=== PATIENT | female | born 1940 | race Caucasian/White ===

== ENCOUNTER 2016-03-24 07:48 | Inpatient (IN) | payer OTHER, BC ==
[2016-03-24] VITALS (18 sets, daily range): BP systolic 115–200; BP diastolic 57–93; PULSE 91–126; TEMP 36.6–37.3; O2SAT 90–98; Ht 149.9 cm; Wt 95.0 kg
[~2016-03-24] VITALS: Ht 149.9 cm; Wt 95.0 kg
[~2016-03-24 07:48] MED LIST: ADVIN50050 INH; ALBU1AER9; ALBUAER2 INH; ALPOPS1510; ALPPOPS5; ASPI81CH8 PO; ATOR10TA88 PO; ATV1 PO; BECL0.3A; BIOTIN 5000 PO; BRVIN; CARV12.52 PO; CLMTP EXT; CYAN1LOZ2 SL; DOCU-94 PO; FERR28TA2 OR; FLUT0.0529 NAE; FRS/40 PO; GLC500 PO; INSHNI SQ; INSPMPHMLG SQ; LOSA25TA18 PO; MULT-845; POLY335019; POTA1POW; SNG10 PO; TSSP PO; [UNRECOGNIZED DRUG - CODE]
[2016-03-24] MEDS ORDERED: PANT40TA PO ×2 (08:35→12:17)
--- NOTE | 2016-03-24 09:29 | History & Physical Bridge Note ---
H&P Re-Evaluation Bridge Note: I have examined the patient, reviewed the History & Physical and in the interval since the performance of the History & Physical I have noted the following changes of clinical significance: No changes noted
--- NOTE | 2016-03-24 09:29 | Procedure Note ---
Pre-Mod Sedation Assessment General Date of Moderate Sedation: Mar 24, 2016. Vital Signs: Vital Signs Past 12 Hours Date Time Temp Pulse Resp B/P Pulse Ox O2 Delivery O2 Flow Rate FiO2 03/24/16 09:20 92 16 135/83 98 Nasal Cannula 4.0 03/24/16 09:15 94 16 147/83 96 Nasal Cannula 4.0 03/24/16 08:36 36.8 99 20 153/64 96 Room Air Pre-Sedation Airway Assessment Oral Cavity: WNL Smoking Status: Former Smoker Mallampati Classification: Class I ASA Classification: Class I Procedure Planning Contraindications-for Mod Sed: None Yes Notes The planned sedation has been discussed with the patient and consent obtained. I have identified the patient, determined the appropriateness of sedation and have assessed the patient immediately prior to the procedure. All medicine(s) and interventions are by my order.
[2016-03-24] MEDS ORDERED: NURSING VERBAL MED ORDER ONE ×5 (10:15→17:45)
[2016-03-24] MEDS ORDERED: ONDANSETRON INJ 2 MG/ML 2 ML VIAL IV PRN (11:30)
--- NOTE | 2016-03-24 11:51 | OPERATIVE REPORT ---
DATE OF OPERATION: 03/24/2016 TIME: 0900. PROCEDURE: Fiberoptic bronchoscopy with bronchoalveolar lavage. INDICATIONS: Chronic mucopurulent bronchitis refractory to aggressive outpatient therapy. ANESTHESIA PREOPERATIVELY: None. ANESTHESIA DURING PROCEDURE: 5 mg IV Versed, 50 mcg IV fentanyl, 20 mL 2% Xylocaine spray above and below the cords, 4% viscous Xylocaine intranasally. PROCEDURE: Fiberoptic bronchoscope was inserted into the right naris with minimal difficulty and passed to the level of the true vocal cords. The cords appear to approximate normally with phonation without evidence of lesions or paralysis. The false cords were mildly edematous. The cords were anesthetized with 2% Xylocaine spray and the scope was then introduced in the trachea and right and left tracheobronchial tree. The russell was sharp. The right main stem bronchus was found to be free of endobronchial lesions. Moderately severe tracheomalacia was noted with collapse of the posterior wall of the right main stem bronchus anteriorly, along with the distal portion of the trachea during expiratory maneuvers and coughing paroxysms. The right upper lobe of the apical-posterior and anterior segments, bronchus intermedius, right middle lobe and medial and lateral segments and all basilar segments of right lower lobe were found to be free of endobronchial lesions with a moderate amount of thick mucoviscous secretion lavaged from virtually all lobar segments until clear. Mucous bronchial clefts and crypts were seen throughout the right tracheobronchial tree with a moderate degree of inflammatory mucosal change seen globally. Left tracheobronchial tree was explored and no endobronchial lesion was seen. The left upper lobe of the apical-posterior and anterior segments, lingular subdivision and left lower lobe were free of endobronchial lesions down to the subsegmental bronchi. Same amount of mucopurulent secretion was lavaged from each lobar segment, especially the left lower lobe, until clear. No biopsies or brushings were obtained. The procedure was terminated. The patient was given a nebulizer treatment with Xopenex 1.25 mg and transferred to the medical treatment unit hemodynamically stable with no signs of respiratory compromise. A discussion was had at the same day surgery/medical treatment unit with the patient and her , and a decision was made, because of her clinical course and failure to respond and continued symptomatology, to admit her for evaluation and treatment onto the hospitalist service. We will await microbiological and cytologic examination of the bronchial washings. I attest to the content of the Intraoperative Record and any orders documented therein. Any exceptio ns are noted below.
[2016-03-24] MEDS ORDERED: INSU100I SC ×2 (12:17)
[2016-03-24] MEDS ORDERED: TRAV0.00 OP (12:17)
[2016-03-24] MEDS ORDERED: CITA10TA8 PO (12:17)
[2016-03-24] MEDS ORDERED: POTA-65 PO (12:17)
[2016-03-24] MEDS ORDERED: LEVO-14 PO (12:17)
[2016-03-24] MEDS ORDERED: ISOS60TA2 PO (12:17)
[2016-03-24 12:21] LABS: BASO % 0.6 %; BASO ABS # 0.04 K/uL (0-0.2); COMPLETE YES; EOS % 4.2 %; HEMATOCRIT 28.8 % (37-47); IG% 0.2 %; LYMPH % 35.1 %; LYMPH ABS # 2.28 K/uL (1.2-3.4); MEAN CORPUSCULAR HEMOGLOBIN 22.5 pg (25-34); MEAN CORPUSCULAR HGB CONC 31.3 g/dl (32-36); MEAN PLATELET VOLUME 9.4 fL (7.4-10.4); MONO % 14.2 %; NEUT % 45.7 %; PLATELET COUNT 247 K/uL (130-400)
[2016-03-24 12:42] LABS: BUN/CREATININE RATIO 8.8 (10-20); CALCIUM 8.7 mg/dl (8.5-10.1); CREATININE 0.8 mg/dl (0.60-1.20); MAGNESIUM 1.5 mg/dl (1.8-2.4); POTASSIUM 3.7 mmol/L (3.5-5.1)
[2016-03-24] MEDS ORDERED: DEXTROSE 50% 50 ML SYR IV PRN (13:15)
[2016-03-24] MEDS ORDERED: GLUCOSE 10 TABS/TUBE PO PRN (13:15)
[2016-03-24] MEDS ORDERED: GLUCOSE 40% GEL 15 GM TUBE PO PRN (13:15)
[2016-03-24] MEDS ORDERED: GLUCAGON FOR INJ 1 MG VIAL SQ PRN (13:15)
--- NOTE | 2016-03-24 13:17 | History and Physical ---
History & Physical Date & Time of Service: Mar 24, 2016 at 12:48 Chief Complaint: Asthmatic Bronchitis, Cough, Sob Primary Care Physician: Hans Smith M.D. History of Present Illness Source: patient This is a 75 y/o female with PMHx of CAD s/p stent placement, IDDM, moderate COPD, HTN, dyslipidemia and other problems as outlined below who presents s/p bronchoalveolar lavage today with Dr. Harrell. Pt reports that for the past couple months she has had a cough that is productive of thick white sputum. Sxs are assoc with SOB, wheezing and occasional post-tussive vomiting. Pt has been using her inhalers/nebs around the clock with only temporary relief. She has completed multiple courses of abx and prednisone. The last course was clindamycin (for possible silent aspiration pneumonia) and Diflucan. She is currently not on any abx or steroids. Pt has a history of asthmatic bronchitis. Per patient she had a bronchoalveolar lavage in July 2015 which gave her a few months of relief. Pt is not on home O2. She follows with pulmonology, Dr. Harrell. Pt denies fever/chills, chest pain, abd pain, nausea, bowel or bladder issues, LE edema, calf pain, lightheadedness/dizziness. In PACU, vitals are stable. She is saturating well on 2L O2. Pt will be admitted for further evaluation and treatment. Past Medical/Surgical History Medical Problems: (1) Asthma, moderate persistent Status: Chronic (2) CAD (coronary artery disease) Status: Chronic (3) COPD (chronic obstructive pulmonary disease) Status: Chronic (4) Diabetes mellitus type II, controlled Status: Chronic (5) Dyslipidemia Status: Chronic (6) FATOU (generalized anxiety disorder) Status: Chronic (7) GERD (gastroesophageal reflux disease) Status: Chronic (8) History of CVA (cerebrovascular accident) Status: Chronic (9) HTN (hypertension) Status: Chronic (10) IBS (irritable bowel syndrome) Status: Chronic Surgical Problems: (1) H/O eye surgery Status: Resolved (2) History of back surgery Status: Resolved (3) History of bladder surgery Status: Resolved (4) History of carpal tunnel surgery Status: Resolved (5) History of section Status: Resolved (6) History of foot surgery Status: Resolved Social History Smoking Status: Former Smoker (1 pack year history; quit ) Alcohol Use: socially Drug Use: none Immunizations History of Influenza Vaccine: Yes History of Tetanus Vaccine?: Yes History of Pneumococcal: Yes History of Hepatitis B Vaccine: Yes Multi-Drug Resistant Organisms History of MDRO: No Allergies Coded Allergies: Norethindrone (Verified Allergy, Severe, SHORTNESS OF BREATH, 05/19/15) Latanoprost (Verified Allergy, Intermediate, RASH, 05/19/15) Paroxetine (Verified Allergy, Intermediate, RASH, 05/19/15) Tetracycline (Verified Allergy, Intermediate, RASH, 05/19/15) Simvastatin (Verified Allergy, Unknown, UNKNOWN, 05/19/15) Sulfamethoxazole (Verified Allergy, Unknown, ., 05/19/15) Esomeprazole (Verified Adverse Reaction, Severe, SHORTNESS OF BREATH, 05/18) Fenofibrate (Verified Adverse Reaction, Severe, ., 05/19/15) ARM WEAKNESS Metoclopramide (Verified Adverse Reaction, Severe, ., 05/19/15) NERVOUS REACTION Enalapril (Verified Adverse Reaction, Intermediate, ., 05/19/15) COUGH Glyburide (Verified Adverse Reaction, Intermediate, ., 05/19/15) ITCHING Morphine and Related (Verified Adverse Reaction, Intermediate, ITCHY, 03/25) ITCHY Oxycodone (Verified Adverse Reaction, Intermediate, ITCHY,BLOTCHY, 03/25/16 ) Home Medications Scheduled Albuterol (Ventolin), 2 PUFFS INH 3-4 HOURS. Aspirin (Chewable Aspirin), 81 MG PO DAILY Carvedilol (Coreg), 12.5 MG PO BID Citalopram Hydrobromide (Celexa), 10 MG PO DAILY Cyanocobalamin (Vitamin B 12), 500 MCG SL WK Fluticasone Propionate (Nasal) (Flonase), 2 SPRAYS AMARILIS D Insulin Human NPH (Humulin N), 60 UNITS SQ QAM Insulin Human NPH (Humulin N), 54 UNITS SQ QPM Insulin Lispro (Human) (Humalog), 12 UNITS SC QAM Insulin Lispro (Human) (Humalog), 26 UNITS SC QDD Isosorbide Mononitrate (Imdur Ext Rel), 60 MG PO DAILY Levocetirizine Dihydrochloride (Levocetirizine Dihydrochl), 5 MG PO BID Lorazepam (Ativan *), 1 MG PO TID Losartan Potassium (Cozaar), 25 MG PO DAILY Metformin HCL (Glucophage *), 1,000 MG PO BID Montelukast (Singulair *), 10 MG PO DAILY Pantoprazole Sodium (Protonix), 40 MG PO BID Potassium Chloride (Potassium Chloride ER), 20 MEQ PO UD Travoprost (Travatan Z), 1 DROPS OP HS Miscellaneous Medications Albuterol Sulfate (Proair Hfa) Arformoterol Tartrate (Brovana 15MCG/2ML Soln) Beclomethasone Dipropionate (Qvar) Brimonidine Tartrate (Alphagan P) Furosemide (Lasix), 40 MG PO Multiple Vitamins W/ Minerals (Centrum Silver Adult 50+) Nitroglycerin (Nitroglycerin) Polyethylene Glycol 3350 (Miralax) Review of Systems Constitutional: + fatigue, + weakness, No chills, No fever, No sweats Eyes: No worsening of vision ENT: No nasal symptoms Respiratory: + cough, + dyspnea on exertion, + shortness of breath, + sputum, + wheezing Cardiovascular: No chest pain, No claudication, No edema, No palpitations Abdomen: + vomiting (post-tussive), No GI bleeding, No constipation, No diarrhea, No nausea, No pain Genitourinary - Female: No dysuria Neurologic: + weakness Psychiatric: No depression symptoms Endocrine: + fatigue Hematologic / Lymphatic: No abnormal bleeding/bruising Integumentary: No new/changing skin lesions Physical Exam Vital Signs Date Time Temp Pulse Resp B/P Pulse Ox O2 Delivery O2 Flow Rate FiO2 03/24/16 10:30 36.8 93 20 119/57 93 Nasal Cannula 2 03/24/16 10:15 37.3 100 20 155/63 92 Nasal Cannula 2 03/24/16 10:13 Mask 03/24/16 10:00 37 103 20 170/69 96 Nasal Cannula 4 03/24/16 09:50 100 16 133/73 92 Nasal Cannula 4.0 03/24/16 09:45 108 16 157/68 95 Mask 15.0 03/24/16 09:40 126 16 200/93 97 Mask 15.0 03/24/16 09:35 93 12 128/63 90 Nasal Cannula 4.0 03/24/16 09:30 92 16 126/67 98 Nasal Cannula 4.0 03/24/16 09:25 92 16 125/62 98 Nasal Cannula 4.0 03/24/16 09:20 92 16 135/83 98 Nasal Cannula 4.0 03/24/16 09:15 94 16 147/83 96 Nasal Cannula 4.0 03/24/16 08:36 36.8 99 20 153/64 96 Room Air General Appearance: WD/WN, no apparent distress, + obese, + pertinent finding ( Pt is laying in bed with and daughter at bedside ) Head: normocephalic, atraumatic Eyes: normal inspection ENT: hearing grossly normal Neck: supple Respiratory/Chest: no respiratory distress, no accessory muscle use, + pertinent finding (chest tenderness to palpation; faint crackles to bilat bases ; no wheezes noted) Cardiovascular: regular rate, rhythm, no murmur Abdomen/GI: normal bowel sounds, non tender, soft Back: normal inspection Extremities/Musculoskelatal: normal inspection, no calf tenderness, + swelling (trace bilat) Neurologic/Psych: alert, normal mood/affect, oriented x 3 Skin: normal color, warm/dry Diagnostics Laboratory Results Results Past 24 Hours Test 03/24/16 08:55 03/24/16 10:53 03/24/16 12:15 Range/Units Bedside Glucose 193 70-90 mg/dl White Blood Count 6.50 4.8-10.8 K/uL Red Blood Count 4.00 4.2-5.4 M/uL Hemoglobin 9.0 12.0-16.0 g/dL Hematocrit 28.8 37-47 % Mean Corpuscular Volume 72.0 80-100 fL Mean Corpuscular Hemoglobin 22.5 25-34 pg Mean Corpuscular Hemoglobin Concent 31.3 32-36 g/dl Platelet Count 247 130-400 K/uL Mean Platelet Volume 9.4 7.4-10.4 fL Neutrophils (%) (Auto) 45.7 % Lymphocytes (%) (Auto) 35.1 % Monocytes (%) (Auto) 14.2 % Eosinophils (%) (Auto) 4.2 % Basophils (%) (Auto) 0.6 % Neutrophils # (Auto) 2.98 1.4-6.5 K/uL Lymphocytes # (Auto) 2.28 1.2-3.4 K/uL Monocytes # (Auto) 0.92 0.11-0.59 K/uL Eosinophils # (Auto) 0.27 0-0.5 K/uL Basophils # (Auto) 0.04 0-0.2 K/uL RDW Standard Deviation 43.9 36.4-46.3 fL RDW Coefficient of Variation 16.7 11.5-14.5 % Immature Granulocyte % (Auto) 0.2 % Immature Granulocyte # (Auto) 0.01 0.00-0.02 K/uL Sodium Level 136 136-145 mmol/L Potassium Level 3.7 3.5-5.1 mmol/L Chloride Level 97 98-107 mmol/L Carbon Dioxide Level 27 21-32 mmol/L Anion Gap 12.0 3-11 mmol/L Blood Urea Nitrogen 7 7-18 mg/dl Creatinine 0.80 0.60-1.20 mg/dl Est Creatinine Clear Calc Drug Dose 59.4 ml/min Estimated GFR () 82.4 Estimated GFR (Non- 71.1 BUN/Creatinine Ratio 8.8 10-20 Random Glucose 190 70-99 mg/dl Calcium Level 8.7 8.5-10.1 mg/dl Magnesium Level 1.5 1.8-2.4 mg/dl Total Bilirubin 0.4 0.2-1 mg/dl Aspartate Amino Transf (AST/SGOT) 46 15-37 U/L Alanine Aminotransferase (ALT/SGPT) 48 12-78 U/L Alkaline Phosphatase 85 45-117 U/L Total Protein 6.8 6.4-8.2 gm/dl Albumin 3.4 3.4-5.0 gm/dl Globulin 3.4 2.5-4.0 gm/dl Albumin/Globulin Ratio 1.0 0.9-2 Microbiology Results 03/24/16 Gram Stain, Ordered Pending 03/24/16 Sputum Culture, Ordered Pending 03/24/16 Fungal Smear - Final, Resulted 03/24/16 Fungal Culture, Resulted Pending 03/24/16 Acid Fast Stain, Received Pending 03/24/16 Mycobacterial Culture, Received Pending 03/24/16 Gram Stain - Final, Resulted 03/24/16 Bronchoalveolar Lavage Culture, Resulted Pending Impression Assessment and Plan ASTHMATIC BRONCHITIS pt presented with prod cough and SOB for few months after failing mult course abx/pred; h/o chronic asthmatic bronchitis-not on O2 at home -admit to med.surg -pt afebrile and saturating well on 2L O2 -s/p bronchoalveolar lavage this morning by Dr. Harrell -check labs -obtain CXR -start duonebs; cont Qvar -pt will benefit from vibrating vest therapy -consult pulmonary, Dr. Harrell regarding recommendation for further mgmt -monitor MODERATE COPD -no evidence of acute exacerbation. No wheezes on respiratory exam -cont duonebs and Qvar -monitor RANDY -pt in process of getting setup with CPAP CAD -s/p LAD stent 1999 -cont ASA, BB, Imdur and nitro PRN -pt currently denies any acute coronary sxs H/O CVA -no residual deficits -Plavix discontinued INSULIN-DEPENDANT DM 2 -recent A1C 8.7 -hold metformin and Humalog -cont home dose NPH -start ISS for additional coverage if needed -monitor BSG AC HS GENERALIZED ANXIETY DISORDER -cont Celexa and Ativan IBS/GERD -cont PPI HTN -BP stable -cont carvedilol and losartan -monitor DYSLIPIDEMIA -not on medication DVT PROPHYLAXIS -subq Lovenox CODE STATUS -FULL CODE per discussion with patient upon admission DISPO Pt seen in collaboration with Dr. Vargas. Please see his addendum for further details. Thanks! ATTENDING NOTE Patient seen & examined at bedside. Reviewed above History & Physical and confirmed all the findings in person. Patient has been experiencing gradually worsening SOB associated with cough for the past few days. She underwent bronchoscopy earlier today and has been admitted for further management. Reviewed outpatient medications. Started bronchodilators. Supplemental oxygen as needed. C/O Sire throat following bronchoscopy. Started throat lozenges. Pulmonary consult requested. Patient is FULL CODE. DVT prophylaxis: Sq Lovenox. Chilo Vargas MD Level of Care Med/Surg Resuscitation Status FULL RESUSCITATION VTE Prophylaxis VTE Risk Assessment Done? Y/N: Yes Risk Level: Moderate Given or contraindicated: Enoxaparin (Lovenox)SQ
[2016-03-24] MEDS: LORAZEPAM 1 MG TAB PO SCH ×2 (13:41→21:31)
[2016-03-24] MEDS ORDERED: MIDAZOLAM HCL 5 MG/ML 1 ML VIAL IV ONE (13:45)
[2016-03-24] MEDS ORDERED: DEXTROSE 5% 1000ML 1,000 ML IV SCH (13:45)
[2016-03-24] MEDS ORDERED: FENTANYL CITRATE INJ 50 MCG/1 ML 2 ML VIAL IV ONE (13:45)
[2016-03-24 14:07] LABS: INR 1.1 (0.9-1.1); PROTHROMBIN TIME (PATIENT) 11.5 SECONDS (9.0-12.0)
--- NOTE | 2016-03-24 16:05 | DIAGNOSTIC IMAGING REPORT ---
CHEST 2 VIEWS ROUTINE CLINICAL HISTORY: Productive cough. Shortness of breath. COMPARISON STUDY: 02/15/2016 FINDINGS: The heart is borderline enlarged.. There is no focal pulmonary consolidation. There is no failure. There are no pleural effusions.[ IMPRESSION: No active disease in the chest. Electronically signed by: Jefry Benjamin M.D. 03/24/2016 4:04 PM Dictated Date/Time: 03/24/2016 4:03 PM
[2016-03-24] MEDS: INSULIN ASPART 100 UNITS/ML 3 ML PEN SC SCH ×2 (16:30→21:45)
[2016-03-24] MEDS: ACETAMINOPHEN 325 MG TAB PO PRN (16:47)
[2016-03-24] MEDS ORDERED: INSULIN HUMAN NPH SQ SCH (17:00)
[2016-03-24] MEDS ORDERED: COUGH DROP (SUGAR FREE) LOZ 24 LOZ/1 BOX PO PRN (17:15)
[2016-03-24] MEDS ORDERED: CHLORASEPTIC 1.4% SOLN 180 ML BTL MT PRN (17:45)
[2016-03-24] MEDS ORDERED: INSULIN ASPART 100 UNITS/ML 3 ML PEN SC SCH (18:00)
[2016-03-24] MEDS: BENZONATATE 100MG CAP PO PRN ×2 (18:06→21:32)
[2016-03-24] MEDS: ALBUT/IPRATROP 3MG/0.5MG NEB 3 ML VIAL INH SCH ×2 (18:19→19:29)
[2016-03-24] MEDS: PANTOprazole SOD 40 MG TAB PO SCH (21:32)
[2016-03-24] MEDS: CARVEDILOL 12.5 MG TAB PO SCH (21:33)
[2016-03-24] MEDS: BECLOMETHASONE DIP HFA 80 MCG 8.7G INH INH SCH (21:33)
[2016-03-24] MEDS: BRIMONIDINE TARTRATE-P 0.15% 5 ML BTL OPB SCH (21:34)
[2016-03-24] MEDS: TRAVOPROST Z 0.004% OPH SOLN 2.5 ML BTL OP SCH (21:34)
[2016-03-24] MEDS: ENOXAPARIN 40 MG/0.4 ML SYR SQ SCH (21:36)
[2016-03-24] MEDS: INSULIN HUMAN NPH SQ SCH (21:45)
[2016-03-25] VITALS (11 sets, daily range): BP systolic 104–162; BP diastolic 66–92; PULSE 73–115; TEMP 36.3–36.7; O2SAT 90–100
[2016-03-25 06:22] LABS: MEAN CELL VOLUME 73.2 fL (80-100); MEAN CORPUSCULAR HEMOGLOBIN 22.7 pg (25-34); MEAN PLATELET VOLUME 10.1 fL (7.4-10.4); PLATELET COUNT 241 K/uL (130-400); RED BLOOD COUNT 3.96 M/uL (4.2-5.4); WHITE BLOOD COUNT 5.07 K/uL (4.8-10.8)
[2016-03-25 07:02] LABS: BUN/CREATININE RATIO 10.6 (10-20); CALCIUM 9.3 mg/dl (8.5-10.1); CREATININE 0.77 mg/dl (0.60-1.20); POTASSIUM 3.8 mmol/L (3.5-5.1)
[2016-03-25] MEDS: ALBUT/IPRATROP 3MG/0.5MG NEB 3 ML VIAL INH SCH ×4 (07:30→19:22)
[2016-03-25] MEDS: ASPIRIN 81 MG ECTAB PO SCH (07:56)
[2016-03-25] MEDS: CARVEDILOL 12.5 MG TAB PO SCH ×2 (07:56→21:28)
[2016-03-25] MEDS: PANTOprazole SOD 40 MG TAB PO SCH ×2 (07:56→21:20)
[2016-03-25] MEDS: LOSARTAN POTASSIUM 25 MG TAB PO SCH (07:58)
[2016-03-25] MEDS: CEROVITE ADV FORMULA TAB PO SCH (07:58)
[2016-03-25] MEDS: MONTELUKAST SOD 10 MG TAB PO SCH (07:58)
[2016-03-25] MEDS: CITALOPRAM 20 MG TAB PO SCH (07:58)
[2016-03-25] MEDS: ISOSORBIDE MONONITRATE 60 MG TABCR PO SCH (07:58)
[2016-03-25] MEDS: BECLOMETHASONE DIP HFA 80 MCG 8.7G INH INH SCH ×2 (07:59→21:30)
[2016-03-25] MEDS: FLUTICASONE PROPIONATE NA SPR 16 GM BTL NAE SCH (07:59)
[2016-03-25] MEDS ORDERED: INSULIN ASPART 100 UNITS/ML 3 ML PEN SC SCH (08:00)
[2016-03-25] MEDS: LORAZEPAM 1 MG TAB PO SCH ×3 (08:04→21:20)
[2016-03-25] MEDS: ACETAMINOPHEN 325 MG TAB PO PRN (08:04)
[2016-03-25] MEDS: INSULIN ASPART 100 UNITS/ML 3 ML PEN SC SCH ×4 (09:27→21:25)
[2016-03-25] MEDS: INSULIN HUMAN NPH SQ SCH ×2 (09:28→21:26)
[2016-03-25] MEDS ORDERED: GUAIFENESIN/CODEINE 200MG/20MG 10ML UDC PO PRN (10:30)
[2016-03-25] MEDS ORDERED: TRAMADOL HCL 50 MG TAB PO PRN (11:45)
[2016-03-25] MEDS ORDERED: ALBUT/IPRATROP 3MG/0.5MG NEB 3 ML VIAL INH PRN (12:00)
[2016-03-25] MEDS: BENZONATATE 100MG CAP PO PRN (14:16)
[2016-03-25] MEDS: METHYLPREDNISOLONE IV 40 MG in SYRINGE 0 ML IV SCH ×2 (14:16→21:30)
--- NOTE | 2016-03-25 15:48 | Progress Note ---
Internal Med Progress Note Date of Service: Mar 25, 2016. Provider Documentation: SUBJECTIVE: Patient is sitting in the chair and is c/o persistent cough and has intermittent cough. C/o sore throat and hoarseness of voice. OBJECTIVE: Vital Signs-as noted below Examination: General Appearance: WD/WN, no apparent distress, obese, Sitting in the chair. Head: normocephalic, atraumatic Eyes: normal inspection ENT: hearing grossly normal, Eyes, ears are normal looking. Some erythema of posterior pharynx with no exudates, Neck: supple, midline trachea, No JVD. Respiratory/Chest: no respiratory distress, no accessory muscle use, chest tenderness to palpation; faint crackles to B/L bases; no wheezes noted Cardiovascular: regular rate, rhythm, no murmur, Normal S1, S2. Abdomen/GI: normal bowel sounds, non tender, soft Back: normal inspection Extremities/Musculoskeletal: normal inspection, no calf tenderness, Trace B/L pedal edema. Neurologic/Psych: alert, normal mood/affect, oriented x 3 Skin: normal color, warm/dry Lab data as noted below. ASSESSMENT & PLAN: Asthmatic Bronchitis: patient presented with prod cough and SOB for few months after failing mult course abx/pred; h/o chronic asthmatic bronchitis-not on O2 at home She is afebrile and saturating well on 2L O2 & s/p bronchoalveolar lavage this morning by Dr. Harrell -Continue duonebs; cont Qvar -Started vibrating vest therapy -Awaiting consult by Dr. Harrell regarding recommendation for further mgmt -Encouraged to ambulate as tolerated -Added lozenges for sore throat -BAL cultures are pending -Continue I/V Solumedrol Moderate COPD: No evidence of acute exacerbation. No wheezes on respiratory exam -Continue duonebs and Qvar -monitor closely Hypertension: BP has been stable. -Continue carvedilol and losartan -Monitor Insulin Dependent Type II: Recent A1C 8.7 -Holding metformin and Humalog -cont home dose NPH -ISS for additional coverage if needed -monitor BSG AC HS Anemia: Noted low H/H with no evidence of any occult loss -Check Iron studies and B12/Folate History CAD : s/p LAD stent 1999. Stable and has no acute cardiac symptoms -Continue ASA, BB, Imdur and nitro PRN H/O CVA: No residual deficits -Plavix discontinued RANDY : Patient in process of getting setup with CPAP Generalized Anxiety Disorder: Continue Celexa and Ativan IBS/GERD: Stable.Continue PPI. Dyslipidemia: Not on medication DVT Prophylaxis: Sq Lovenox Code Status: Full Code Disposition: Discharge once is clinically stable. Vital Signs: Date Time Temp Pulse Resp B/P Pulse Ox O2 Delivery O2 Flow Rate FiO2 03/25/16 15:16 36.3 82 16 115/66 95 Room Air 03/25/16 11:52 36.3 73 20 104/67 100 Room Air 03/25/16 08:30 90 Room Air 03/25/16 07:45 36.3 78 20 127/80 90 Room Air 03/25/16 07:21 78 18 Room Air 98 03/25/16 00:24 36.7 85 18 120/70 91 Room Air 03/25/16 00:00 92 Room Air 03/24/16 19:29 91 20 Room Air 94 03/24/16 16:20 95 Room Air Lab Results: Results Past 24 Hours Test 03/24/16 16:30 03/24/16 20:18 03/25/16 05:15 03/25/16 07:26 Range/Units Bedside Glucose 210 191 174 70-90 mg/dl White Blood Count 5.07 4.8-10.8 K/uL Red Blood Count 3.96 4.2-5.4 M/uL Hemoglobin 9.0 12.0-16.0 g/dL Hematocrit 29.0 37-47 % Mean Corpuscular Volume 73.2 80-100 fL Mean Corpuscular Hemoglobin 22.7 25-34 pg Mean Corpuscular Hemoglobin Concent 31.0 32-36 g/dl RDW Standard Deviation 44.7 36.4-46.3 fL RDW Coefficient of Variation 16.7 11.5-14.5 % Platelet Count 241 130-400 K/uL Mean Platelet Volume 10.1 7.4-10.4 fL Sodium Level 135 136-145 mmol/L Potassium Level 3.8 3.5-5.1 mmol/L Chloride Level 98 98-107 mmol/L Carbon Dioxide Level 29 21-32 mmol/L Anion Gap 8.0 3-11 mmol/L Blood Urea Nitrogen 8 7-18 mg/dl Creatinine 0.77 0.60-1.20 mg/dl Est Creatinine Clear Calc Drug Dose 61.8 ml/min Estimated GFR () 86.3 Estimated GFR (Non- 74.5 BUN/Creatinine Ratio 10.6 10-20 Random Glucose 176 70-99 mg/dl Calcium Level 9.3 8.5-10.1 mg/dl Test 03/25/16 11:23 03/25/16 15:37 Range/Units Bedside Glucose 253 70-90 mg/dl
[2016-03-25] MEDS: ENOXAPARIN 40 MG/0.4 ML SYR SQ SCH (21:19)
[2016-03-25] MEDS: TRAVOPROST Z 0.004% OPH SOLN 2.5 ML BTL OP SCH (21:29)
[2016-03-25] MEDS: BRIMONIDINE TARTRATE-P 0.15% 5 ML BTL OPB SCH (21:29)
[2016-03-26] VITALS (11 sets, daily range): BP systolic 127–173; BP diastolic 70–90; PULSE 77–99; TEMP 36.4–36.5; O2SAT 90–100
[2016-03-26] MEDS ORDERED: INSULIN ASPART 100 UNITS/ML 3 ML PEN SC ONE (01:00)
[2016-03-26] MEDS ORDERED: LORAZEPAM 1 MG TAB PO ONE (02:30)
--- NOTE | 2016-03-26 03:31 | CONSULTATION REPORT ---
DATE OF CONSULTATION: 03/25/2016 HISTORY OF PRESENT ILLNESS: The patient is a 75-year-old female with past medical history of asthma, allergic rhinitis, questionable COPD and obstructive sleep apnea who we followed in the office for many years. She was last seen by me in the office on 03/07/2016. At that time, she had been having difficulty with her breathing. She had had multiple episodes of exacerbation; she had been on multiple courses of antibiotic and prednisone. She does have history of dysphasia and questionable aspiration, although she did undergo a video swallow at [facility] on 09/02/2014, which showed no evidence of penetration or aspiration with trial of thin liquids, soft crackers or solids. Because of her difficulty swallowing, she was placed on clindamycin. At that time, the patient was also set up to undergo outpatient bronchoscopy with bronchoalveolar lavage. Her last bronchoscopy was in April of 2015, and she did have improvement in her symptoms with this. She was also placed on prednisone. She was agreeable to having the procedure done. The patient came in and had the procedure done on 03/24/2016. The procedure was done by Dr. Harrell. Per his operative record, the patient had a moderate amount of thick mucus-viscous secretion lavaged from all lobar segments until clear on the right. There were mucus bronchial clasps and crips seen throughout the right tracheobronchial tree with a moderate degree of inflammatory mucosal change seen globally. She also had a moderate amount of mucopurulent secretion lavaged from each lobar segment on the left, especially in the left lower lobe until clear. It was also found that the patient had moderately severe tracheomalacia with collapse of the posterior wall of the right main stem bronchus anteriorly along with the distal portion of the trachea during expiratory maneuvers and coughing paroxysms. The patient tolerated the procedure well. Unfortunately, because of her persistent dyspnea as well as cough and the length of time that she had not been feeling well, it was elected to admit her to [facility] for further management. The patient is still feeling short of breath and having a cough today. She states that she did cough up quite a bit of mucus following the procedure yesterday. She states that her ribs are sore from coughing. She states that she still is tired and run down and has no energy. She states that she is a little bit frustrated with her symptoms. She states that she will get some chest discomfort from time to time, but it is no worse than normal and she feels that it is from her coughing. She is feeling very run down and tired. She does have a history of coronary artery disease. She does have a stent in the left anterior descending proximal portion which on last cardiac catheterization by Dr. Ragland in [place] in July of 2014 showed that the stent was widely patent. It did show that the distal portion of the left anterior descending had a 50%-60% stenosis. There is also a stent in the left circumflex, which was widely patent. The patient reports that she does have an upcoming appointment with Dr. Love in [place], her communication instructor. She feels that some of her fatigue and shortness of breath is stemming from her coronary artery disease. The patient did undergo pulmonary function testing in April of 2015, which does show a forced vital capacity, which was 105% predicted showed an FEV1 which was 104% predicted, an FEV1/FVC ratio of 82%. No significant change with bronchodilation. The patient has been using her albuterol nebulizer. She has been using her ipratropium in the nebulizer. She is on Singulair daily. She is using QVAR 2 puffs twice a day. She is also using Brovana twice daily; unfortunately, these were not helpful for her due to her recent exacerbation. The patient denies any other difficulties at this time, no unusual headache or lightheadedness, no dizziness. She has not been having any fever or chills, no night sweats. Her weight has been stable or has increased a little bit. She is not having any GI symptoms at present. No nausea or vomiting, no indigestion or heartburn. She denies any difficulty swallowing today. She denies any change in her bowels. No problems with diarrhea or constipation, no melena, no hematochezia. She is not having any difficulty voiding. No hesitancy or urgency. She does have some incontinence from time to time. She denies any significant nocturia. She denies any swelling in her extremities. She denies any numbness, tingling, or weakness in her extremities. The patient's last CAT scan on record was in September 2014, which showed bilateral basilar dependent subsegmental atelectasis with no significant mediastinal lymphadenopathy, but there was some coronary artery calcification noted. PAST MEDICAL HISTORY: Includes asthma, allergic rhinitis, asthmatic bronchitis, carpal tunnel syndrome, cervical radiculopathy, chronic serous otitis media, coronary artery disease, cough, diabetes mellitus, dyslipidemia, dysphagia, eustachian tube dysfunction, gastroesophageal reflux disease, herpes zoster, hypertensive heart disease, obstructive sleep apnea, recurrent sinusitis, vitamin B12 deficiency, vitamin D deficiency. PAST SURGICAL HISTORY: Includes back surgery, bladder surgery, , eye surgery, foot surgery, carpal tunnel surgery. FAMILY HISTORY: Includes diabetes mellitus, coronary artery disease. SOCIAL HISTORY: The patient is a former smoker, but has not smoked for several years. No alcohol use. She is retired. CURRENT MEDICATIONS: Include Flonase 2 sprays each nostril daily, hydroxyzine 10 mg 4 times daily as needed, Xyzal 5 mg one tablet twice daily, albuterol sulfate via nebulizer q. 4 hours as needed, ipratropium via nebulizer q. 4 hours as needed, Singulair 10 mg daily, Proventil HFA 2 puffs q. 4 hours as needed. QVAR 80 mcg 2 puffs twice daily, Brovana via nebulizer twice daily, Imdur 60 mg one tablet once daily, benzonatate 100 mg one capsule by mouth 3 times daily, cyanocobalamin 1000 mcg injected intramuscularly once a month, Alphagan one drop in both eyes every 12 hours daily, aspirin 81 mg daily, carvedilol 25 mg one tablet twice daily, Celexa 10 mg daily, Humalog 12 units in the morning and 26 at suppertime, Humulin N 63 units in the morning and 34 units at bedtime, potassium 10 mEq one tablet twice daily, Lasix 20 mg one tablet twice daily, lorazepam 1 mg one tablet 3 times daily, losartan 25 mg one tablet daily, metformin 1000 mg one tablet twice daily, Nitrostat as directed, Protonix 40 mg one tablet twice daily, Travatan 1 drop both eyes at bedtime. ALLERGIES: INCLUDE AUGMENTIN, EFFEXOR, LEVAQUIN, SERTRALINE, AGGRENOX, KEFLEX, MORPHINE, PERCOCET, VISINE AND ZOCOR. REVIEW OF SYSTEMS: As above, otherwise unremarkable. PHYSICAL EXAMINATION: GENERAL: The patient is a 75-year-old female sitting at bedside in no acute distress. She is alert and oriented x3. Mood is good. Affect is good. VITAL SIGNS: Temp 36.3, pulse 78, respirations 20, blood pressure is 127/80, pulse ox 91% on room air. HEENT: Normocephalic, atraumatic. Pupils equal, round and reactive to light and accommodation. Extraocular movements are intact. [place] moist gingival and buccal mucosa. NECK: Supple. No mass. No adenopathy. No bruit. CHEST: Coarse breath sounds throughout at the bases. Improved air movement from when she was last seen in the office, few expiratory wheezes which clear with cough. No rale or rhonchi. CARDIOVASCULAR: Regular rate and rhythm. There are no murmurs, gallops or rubs. ABDOMEN: Bowel sounds are present. Abdomen is soft, nontender. No guarding, rigidity or organomegaly. EXTREMITIES: No erythema or edema. No cyanosis or clubbing. NEUROLOGIC: Cranial nerves II through XII are grossly intact. No focal deficit noted. IMPRESSION: 1. Exacerbation to her asthmatic bronchitis with persistent cough and shortness of breath. The patient recently underwent bronchoscopic evaluation, which she did have a moderate amount of secretion lavaged from both sides, waiting on culture report for this at this time. I would wait for antibiotic coverage until we get the culture reports back. I do think that we need to continue her steroid therapy. I also agree with the vibration vest, flutter valve and incentive spirometry. 2. Tracheobronchomalacia. I think this is contributing to the patient's shortness of breath, when she is active she is getting collapse of the airway. At this point, it is predominantly supportive therapy with PAP therapy. She needs to have access to her CPAP. 3. Coronary artery disease. The patient had multiple stents, last cardiac catheterization was 2014. She does have a pending appointment with her communication instructor and I feel that this may be part of her breathing problem as well. 4. Sleep apnea. The patient needs to have access to CPAP. PLAN: Agree with vibration vest, I recommend that the patient continue this. We put the patient on Solu-Medrol 40 mg 3 times daily. Wait for culture results to consider antibiotic. Continue CPAP usage for both obstructive sleep apnea as well as tracheomalacia. We will continue to follow the patient during hospitalization. MARCIA
[2016-03-26] MEDS: METHYLPREDNISOLONE IV 40 MG in SYRINGE 0 ML IV SCH ×2 (05:49→20:12)
[2016-03-26 06:17] LABS: BASO % 0.1 %; BASO ABS # 0.01 K/uL (0-0.2); EOS % 0.1 %; HEMATOCRIT 28.6 % (37-47); IG% 0.2 %; LYMPH % 17.1 %; LYMPH ABS # 1.49 K/uL (1.2-3.4); MEAN CELL VOLUME 72.4 fL (80-100); MEAN CORPUSCULAR HEMOGLOBIN 22.3 pg (25-34); MEAN CORPUSCULAR HGB CONC 30.8 g/dl (32-36); MONO % 6.4 %; NEUT % 76.1 %; PLATELET COUNT 236 K/uL (130-400); RED BLOOD COUNT 3.95 M/uL (4.2-5.4); WHITE BLOOD COUNT 8.69 K/uL (4.8-10.8)
[2016-03-26 06:44] LABS: COMPLETE YES
[2016-03-26 06:54] LABS: BUN/CREATININE RATIO 14.2 (10-20); CALCIUM 9.4 mg/dl (8.5-10.1); CREATININE 0.77 mg/dl (0.60-1.20)
[2016-03-26] MEDS: ALBUT/IPRATROP 3MG/0.5MG NEB 3 ML VIAL INH SCH ×4 (07:32→19:28)
[2016-03-26] MEDS: LOSARTAN POTASSIUM 25 MG TAB PO SCH (07:49)
[2016-03-26] MEDS: CARVEDILOL 12.5 MG TAB PO SCH ×2 (07:49→20:12)
[2016-03-26] MEDS: MONTELUKAST SOD 10 MG TAB PO SCH (07:49)
[2016-03-26] MEDS: LORAZEPAM 1 MG TAB PO SCH ×3 (07:49→20:12)
[2016-03-26] MEDS: ISOSORBIDE MONONITRATE 60 MG TABCR PO SCH (07:49)
[2016-03-26] MEDS: CEROVITE ADV FORMULA TAB PO SCH (07:50)
[2016-03-26] MEDS: FLUTICASONE PROPIONATE NA SPR 16 GM BTL NAE SCH (07:50)
[2016-03-26] MEDS: ASPIRIN 81 MG ECTAB PO SCH (07:50)
[2016-03-26] MEDS: PANTOprazole SOD 40 MG TAB PO SCH ×2 (07:50→20:12)
[2016-03-26] MEDS: CITALOPRAM 20 MG TAB PO SCH (07:50)
[2016-03-26] MEDS: BENZONATATE 100MG CAP PO PRN ×2 (07:51→20:13)
[2016-03-26] MEDS: BECLOMETHASONE DIP HFA 80 MCG 8.7G INH INH SCH ×2 (07:52→20:20)
[2016-03-26] MEDS: INSULIN ASPART 100 UNITS/ML 3 ML PEN SC SCH ×4 (09:01→20:18)
[2016-03-26] MEDS: INSULIN HUMAN NPH SQ SCH ×2 (09:02→20:19)
--- NOTE | 2016-03-26 09:03 | DIAGNOSTIC IMAGING REPORT ---
CHEST 2 VIEWS ROUTINE CLINICAL HISTORY: Shortness of breath COMPARISON STUDY: 03/24/2016 FINDINGS: The heart is enlarged. There is no focal pulmonary consolidation. There is no failure. There are no pleural effusions. There is mild basilar interstitial thickening which is felt to be chronic.[ IMPRESSION: No active disease in the chest. Electronically signed by: Jefry Benjamin M.D. 03/26/2016 9:02 AM Dictated Date/Time: 03/26/2016 9:01 AM
[2016-03-26] MEDS ORDERED: IRON SUCROSE INJ 100 MG in SODIUM CHLORIDE 0.9% 100ML 100 ML IV SCH (09:30)
--- NOTE | 2016-03-26 12:30 | PULMONARY PROGRESS NOTE ---
DATE: 03/26/2016 TIME: 11:50 a.m. SUBJECTIVE: The patient complains that she still does not feel well. She has significant hoarseness. She is still coughing but without much sputum. She is still quite short of breath. She complains of fatigue. She does not feel too much better since admission. OBJECTIVE: GENERAL: The patient looked comfortable. She was clearly hoarse. She is afebrile and has been afebrile for 48 hours. VITAL SIGNS: Her maximum temperature since admission was 37.3. Heart rate is 92 per minute. The rhythm is regular. Blood pressure 149/86, respiratory rate 20 breaths per minute. HEENT: Mouth exam shows that her tongue rides high. Pharynx is a Mallampati grade 3. Eye exam reveals the patient wears contact lenses. NECK: Palpation of the neck reveals no lymph nodes or masses. LUNGS: Lung dozier reveal diminished breath sounds bilaterally. There was faint end expiratory wheeze heard. ABDOMEN: Obese. It was soft. Bowel sounds were present. EXTREMITIES: Showed no cyanosis, clubbing or edema. LABORATORY DATA: White count is 8.69. Hemoglobin is only 8.8. Platelets are 236,000. Coags are normal. Electrolytes show sodium 135, potassium 4.0, chloride 100, bicarb 26. BUN 11 with a creatinine of 0.77. Random blood sugar was 264. Serum iron was low at 21. Total iron binding capacity was 433 which would be the upper limit of normal. The bronchial washings revealed no AFB. Bronchial washings are reporting no organisms and light normal orquidea. Fungal smear and culture was negative. IMPRESSIONS: 1. Asthmatic bronchitis. 2. Obstructive sleep apnea. 3. Tracheomalacia. 4. Obesity. COMMENTS: The patient is still having significant symptoms. She is on DuoNeb q. 4 hours while awake. She is getting methylprednisolone 40 IV q. 8. She is on montelukast that she likely takes at home. At this time, I would make no adjustments in her pulmonary medicines. She states that she usually takes Lasix at home but she is not getting it here. However, the Lasix is ordered here but just on a p.r.n. basis. I will defer to the hospitalist as to what they wish to do with that. She states that when she takes the Lasix, on those days she takes potassium.
[2016-03-26] MEDS: FUROSEMIDE 40 MG TAB PO PRN (14:01)
[2016-03-26] MEDS: POTASSIUM CHLORIDE 20 MEQ TABCR PO PRN (14:01)
[2016-03-26] MEDS: ACETAMINOPHEN 325 MG TAB PO PRN (14:01)
[2016-03-26] MEDS ORDERED: BISACODYL 10 MG SUPP PR STA (15:54)
--- NOTE | 2016-03-26 15:57 | Progress Note ---
Internal Med Progress Note Date of Service: Mar 26, 2016. Provider Documentation: SUBJECTIVE: Patient is sitting in the chair and is c/o persistent cough and has intermittent cough. C/o sore throat and hoarseness of voice. Feels weak. BS has been running high. OBJECTIVE: Vital Signs-as noted below Examination: General Appearance: WD/WN, no apparent distress, obese, Sitting in the chair. Head: normocephalic, atraumatic Eyes: normal inspection ENT: hearing grossly normal, Eyes, ears are normal looking. Some erythema of posterior pharynx with no exudates, Neck: supple, midline trachea, No JVD. Respiratory/Chest: no respiratory distress, no accessory muscle use, chest tenderness to palpation; faint crackles to B/L bases; no wheezes noted Cardiovascular: regular rate, rhythm, no murmur, Normal S1, S2. Abdomen/GI: normal bowel sounds, non tender, soft Back: normal inspection Extremities/Musculoskeletal: normal inspection, no calf tenderness, Trace B/L pedal edema. Neurologic/Psych: alert, normal mood/affect, oriented x 3 Skin: normal color, warm/dry Lab data as noted below. ASSESSMENT & PLAN: Asthmatic Bronchitis: patient presented with prod cough and SOB for few months after failing mult course abx/pred; h/o chronic asthmatic bronchitis-not on O2 at home She is afebrile and saturating well on 2L O2 & s/p bronchoalveolar lavage this morning by Dr. Harrell -Continue duonebs; cont Qvar -Continue vibrating vest therapy -Awaiting consult by Dr. Harrell regarding recommendation for further mgmt -Encouraged to ambulate as tolerated -Added lozenges for sore throat -BAL cultures are pending -Continue I/V Solumedrol and am gradually decreasing dose. Moderate COPD: No evidence of acute exacerbation. No wheezes on respiratory exam -Continue duonebs and Qvar -monitor closely Hypertension: BP has been stable. -Continue carvedilol and losartan -Monitor Constipation: Added Colace. Insulin Dependent Type II: Recent A1C 8.7 -Holding metformin and Humalog -cont home dose NPH -ISS for additional coverage if needed -monitor BSG AC HS Anemia: Noted low H/H with no evidence of any occult loss -Check Iron studies and B12/Folate History CAD : s/p LAD stent 1999. Stable and has no acute cardiac symptoms -Continue ASA, BB, Imdur and nitro PRN H/O CVA: No residual deficits -Plavix discontinued RANDY : Patient in process of getting setup with CPAP Generalized Anxiety Disorder: Continue Celexa and Ativan IBS/GERD: Stable.Continue PPI. Dyslipidemia: Not on medication DVT Prophylaxis: Sq Lovenox Code Status: Full Code Disposition: Discharge once is clinically stable. Vital Signs: Date Time Temp Pulse Resp B/P Pulse Ox O2 Delivery O2 Flow Rate FiO2 03/26/16 15:50 88 16 Room Air 95 03/26/16 11:28 93 18 Room Air 93 03/26/16 08:00 94 Room Air 03/26/16 07:33 99 18 Room Air 94 03/26/16 07:31 36.4 96 18 149/86 94 Room Air 03/26/16 06:18 158/86 03/26/16 00:16 36.5 98 18 173/90 92 Room Air 03/26/16 00:00 100 Room Air 03/25/16 21:26 109 162/92 03/25/16 19:25 100 Room Air 03/25/16 19:22 115 18 Room Air 95 Lab Results: Results Past 24 Hours Test 03/25/16 16:19 03/25/16 20:35 03/25/16 23:22 03/26/16 01:11 Range/Units Bedside Glucose 274 363 316 293 70-90 mg/dl Test 03/26/16 05:55 03/26/16 07:43 03/26/16 11:10 03/26/16 11:11 Range/Units White Blood Count 8.69 4.8-10.8 K/uL Red Blood Count 3.95 4.2-5.4 M/uL Hemoglobin 8.8 12.0-16.0 g/dL Hematocrit 28.6 37-47 % Mean Corpuscular Volume 72.4 80-100 fL Mean Corpuscular Hemoglobin 22.3 25-34 pg Mean Corpuscular Hemoglobin Concent 30.8 32-36 g/dl Platelet Count 236 130-400 K/uL Mean Platelet Volume 10.0 7.4-10.4 fL Neutrophils (%) (Auto) 76.1 % Lymphocytes (%) (Auto) 17.1 % Monocytes (%) (Auto) 6.4 % Eosinophils (%) (Auto) 0.1 % Basophils (%) (Auto) 0.1 % Neutrophils # (Auto) 6.60 1.4-6.5 K/uL Lymphocytes # (Auto) 1.49 1.2-3.4 K/uL Monocytes # (Auto) 0.56 0.11-0.59 K/uL Eosinophils # (Auto) 0.01 0-0.5 K/uL Basophils # (Auto) 0.01 0-0.2 K/uL RDW Standard Deviation 43.9 36.4-46.3 fL RDW Coefficient of Variation 16.4 11.5-14.5 % Immature Granulocyte % (Auto) 0.2 % Immature Granulocyte # (Auto) 0.02 0.00-0.02 K/uL Red Blood Cell Morphology Unremarkable Absolute Reticulocyte Count 0.10 0.02-0.10 10^6/uL Percent Reticulocyte Count 2.4 0.5-2.0 % Sodium Level 135 136-145 mmol/L Potassium Level 4.0 3.5-5.1 mmol/L Chloride Level 100 98-107 mmol/L Carbon Dioxide Level 26 21-32 mmol/L Anion Gap 9.0 3-11 mmol/L Blood Urea Nitrogen 11 7-18 mg/dl Creatinine 0.77 0.60-1.20 mg/dl Est Creatinine Clear Calc Drug Dose 61.8 ml/min Estimated GFR () 86.3 Estimated GFR (Non- 74.5 BUN/Creatinine Ratio 14.2 10-20 Random Glucose 264 70-99 mg/dl Calcium Level 9.4 8.5-10.1 mg/dl Iron Level 21 35-150 mcg/dl Total Iron Binding Capacity 433 250-450 mcg/dl Vitamin B12 Level 519 211-911 pg/mL Folate > 24.00 >5.38 ng/mL Procalcitonin < 0.05 0-0.5 ng/mL Bedside Glucose 266 427 451 70-90 mg/dl Test 03/26/16 15:30 Range/Units
[2016-03-26] MEDS ORDERED: DOCUSATE SODIUM 100 MG CAP PO ONE (16:00)
[2016-03-26] MEDS ORDERED: GUAIFENESIN/CODEINE 200MG/20MG 10ML UDC PO PRN (16:00)
[2016-03-26] MEDS ORDERED: PHARMACY GLYCEMIC MGMT CONSULT PRN (17:07)
[2016-03-26] MEDS: DOCUSATE SODIUM 100 MG CAP PO SCH (20:12)
[2016-03-26] MEDS: ENOXAPARIN 40 MG/0.4 ML SYR SQ SCH (20:14)
[2016-03-26] MEDS: TRAVOPROST Z 0.004% OPH SOLN 2.5 ML BTL OP SCH (20:21)
[2016-03-26] MEDS: BRIMONIDINE TARTRATE-P 0.15% 5 ML BTL OPB SCH (20:21)
[2016-03-27] VITALS (9 sets, daily range): BP systolic 146–176; BP diastolic 73–85; PULSE 81–105; TEMP 36.2–36.4; O2SAT 90–96
[2016-03-27] MEDS ORDERED: INSULIN ASPART 100 UNITS/ML 3 ML PEN SC ONE (01:00)
[2016-03-27] MEDS: ALBUT/IPRATROP 3MG/0.5MG NEB 3 ML VIAL INH SCH ×3 (07:24→14:55)
[2016-03-27 07:48] LABS: MEAN CELL VOLUME 72.1 fL (80-100); MEAN CORPUSCULAR HEMOGLOBIN 22.1 pg (25-34); MEAN CORPUSCULAR HGB CONC 30.7 g/dl (32-36); MEAN PLATELET VOLUME 10.1 fL (7.4-10.4); PLATELET COUNT 247 K/uL (130-400); RED BLOOD COUNT 4.02 M/uL (4.2-5.4); WHITE BLOOD COUNT 11.18 K/uL (4.8-10.8)
[2016-03-27 08:14] LABS: CREATININE 0.78 mg/dl (0.60-1.20)
[2016-03-27] MEDS: METHYLPREDNISOLONE IV 40 MG in SYRINGE 0 ML IV SCH (08:36)
[2016-03-27] MEDS: CARVEDILOL 12.5 MG TAB PO SCH ×2 (08:37→20:16)
[2016-03-27] MEDS: ASPIRIN 81 MG ECTAB PO SCH (08:37)
[2016-03-27] MEDS: ISOSORBIDE MONONITRATE 60 MG TABCR PO SCH (08:37)
[2016-03-27] MEDS: DOCUSATE SODIUM 100 MG CAP PO SCH ×2 (08:37→20:16)
[2016-03-27] MEDS: CEROVITE ADV FORMULA TAB PO SCH (08:37)
[2016-03-27] MEDS: MONTELUKAST SOD 10 MG TAB PO SCH (08:37)
[2016-03-27] MEDS: BENZONATATE 100MG CAP PO PRN ×2 (08:38→14:14)
[2016-03-27] MEDS: LOSARTAN POTASSIUM 25 MG TAB PO SCH (08:38)
[2016-03-27] MEDS: CITALOPRAM 20 MG TAB PO SCH (08:38)
[2016-03-27] MEDS: PANTOprazole SOD 40 MG TAB PO SCH ×2 (08:39→20:15)
[2016-03-27] MEDS: FLUTICASONE PROPIONATE NA SPR 16 GM BTL NAE SCH (08:40)
[2016-03-27] MEDS: BECLOMETHASONE DIP HFA 80 MCG 8.7G INH INH SCH ×2 (08:41→20:12)
[2016-03-27] MEDS: INSULIN ASPART 100 UNITS/ML 3 ML PEN SC SCH ×4 (08:51→21:09)
[2016-03-27] MEDS: INSULIN HUMAN NPH SQ SCH ×2 (08:51→21:07)
[2016-03-27] MEDS: LORAZEPAM 1 MG TAB PO SCH ×3 (08:52→20:25)
[2016-03-27] MEDS ORDERED: CYANOCOBALAMIN 500 MCG TAB (VIT B-12) PO SCH (09:00)
[2016-03-27] MEDS ORDERED: IRON SUCROSE INJ 100 MG in SODIUM CHLORIDE 0.9% 100ML 100 ML IV SCH (10:00)
--- NOTE | 2016-03-27 10:22 | Pharmacy Progress Note ---
Glycemic Control Intl Consult Date of Service Mar 27, 2016. Scope Glycemic Pharmacist consulted by Dr Vargas on 03/26/16 for glycemic control and to write orders per [facility] inpatient glycemic control protocol Objective Weight (Kilograms): 95.000 Accuchecks BSG (last 24hrs): Test 03/26/16 11:10 03/26/16 11:11 03/26/16 16:34 03/26/16 20:04 Bedside Glucose 427 mg/dl (70-90) 451 mg/dl (70-90) 269 mg/dl (70-90) 275 mg/dl (70-90) Test 03/27/16 01:09 03/27/16 07:52 Bedside Glucose 209 mg/dl (70-90) 203 mg/dl (70-90) Laboratory Data (last 24hrs) Test 03/27/16 06:29 Creatinine 0.78 mg/dl White Blood Count 11.18 K/uL Recent Pertinent Medications Outpatient Anti-diabetic Regimen: * NPH 60 units QAM; 54 units QPM * Humalog 12 units with breakfast and 26 units with supper * Metformin 1g PO BID * A1c = 8.7 % "recent" per providers note The patient is currently receiving: * Basal insulin: NPH 60 units QAM; 54 units QPM * Correctional Insulin: Novolog Correction per scale ACHS Goal Range: Low 120 mg/dL - High 160 mg/dL Correction Factor: 20 mg/dL/unit * Prandial insulin: Per carb ratio of 1 unit per 10 grams CHO consumed * Oral Agents: On Hold Risk Factors for Insulin Resistance: * Steroids: Solu-Medrol 40mg IV Q12H * Diet: Type 2 DM/ AHA/ Low Na+ Assessment & Plan ASSESSMENT: * ADA & AACE recommend a goal blood sugar range 140-180 mg/dl for the majority of critically ill & non-critically ill patients. However, more stringent targets may be selected in individual cases. Goal 120-160mg/dL for a little better control, but not down to 100-140mg/dl for patient's age and A1c. * 75 yo female type 2 DM, uncontrolled, admitted with asthmatic bronchitis, on IV steroids, experiencing steroid induced hyperglycemia. I will tighten CF and CR at this time. * Patient was started on her home dose of NPH on admission, will continue, and actually a good option for patient as she is on IV Steroids. PLAN FOR INPATIENT GLYCEMIC CONTROL: * Holding outpatient oral diabetes medications * Continue home dose of NPH * NPH 60 units QAM; 54 units QPM * Correctional Insulin with NOVOLOG per scale ACHS or Q6hrs while NPO * Goal Range: Low 120 mg/dL - High 160 mg/dL * TIGHTEN: Correction Factor: 15 mg/dL/unit * TIGHTEN: Nutritional / Prandial insulin per carb ratio of 1 unit per 5 grams CHO consumed * Please note that the plan above was derived based on current level of insulin resistance and hospital stress. These recommendations are appropriate for inpatient admission only. Plan of care upon discharge will need to be reassessed to avoid potential outpatient hypo/hyperglycemia. Thank you.
--- NOTE | 2016-03-27 13:59 | PULMONARY PROGRESS NOTE ---
DATE: 03/27/2016 TIME: 1:25 p.m. SUBJECTIVE: The patient still feels quite short of breath. She does not really feel any better from a breathing perspective than yesterday. She has noticed wheezing. Her hoarseness has improved. She had a little pain and discomfort in the lower abdomen near the suprapubic area. She states she noticed that her urine was more concentrated than it had been. The patient indicated a concern over possible urinary infection. OBJECTIVE: GENERAL: The patient appeared comfortable. Temperature is 36.2. EARS, NOSE, THROAT: Exam is unremarkable. HEART: Heart rate was 80 beats per minute. Blood pressure 165/83. CHEST: Respiratory rate was 20 breaths per minute. The breath sounds were diffusely diminished. No active wheezing was heard. Oxygen saturation was 95% on room air. ABDOMEN: Obese. EXTREMITIES: Showed trace edema of both lower extremities. LABORATORY DATA: White count today is 11.18. Hemoglobin is 8.9. Platelets are 247,000. Stools for blood were negative. Creatinine today was 0.78. Blood sugar was 203. Fungal smear from bronchial washings was negative. AFB from bronchial washings was negative. Lavage culture showed normal orquidea. IMPRESSIONS: 1. Asthmatic bronchitis - slow to resolve. 2. Obstructive sleep apnea. 3. Tracheomalacia. 4. Obesity. COMMENTS AND RECOMMENDATIONS: The patient is clinically about the same. She persists with shortness of breath. This is despite the therapies that she has been on. I would have a tendency to continue the methylprednisolone at 40 mg IV q. 12 hours where it has been. She does have Robitussin A-C as needed for cough. She has Singulair ordered. She does have nebulizer treatments every 4 hours while awake. She is also receiving pantoprazole for reflux. I will check a urinalysis to make sure she does not have a urinary infection.
[2016-03-27 16:08] LABS: MANUAL MICROSCOPIC REQUIRED? NO; REVIEW REQ? NO; URINE APPEARANCE CLEAR (CLEAR); URINE BILIRUBIN NEG (NEG); URINE COLOR YELLOW; URINE NITRITE NEG (NEG); URINE SPECIFIC GRAVITY 1.009 (1.000-1.030); UROBILINOGEN NEG (NEG); ZZUR CULT IF INDIC CLEAN CATCH NO
[2016-03-27] MEDS ORDERED: CITA20TA4 PO (16:43)
[2016-03-27] MEDS ORDERED: NURSING VERBAL MED ORDER ONE (17:00)
--- NOTE | 2016-03-27 17:14 | Progress Note ---
Internal Med Progress Note Date of Service: Mar 27, 2016. Provider Documentation: SUBJECTIVE: Patient is sitting in the chair and is c/o persistent cough and has intermittent SOB. C/o sore throat and hoarseness of voice. Feels weak and tired. BS has been running high. Geting frustrated that she is not getting better. OBJECTIVE: Vital Signs-as noted below Examination: General Appearance: WD/WN, no apparent distress, obese, Sitting in the chair. Head: normocephalic, atraumatic Eyes: normal inspection ENT: hearing grossly normal, Eyes, ears are normal looking. Some erythema of posterior pharynx with no exudates, Neck: supple, midline trachea, No JVD. Respiratory/Chest: no respiratory distress, no accessory muscle use, chest tenderness to palpation; faint crackles to B/L bases; no wheezes noted Cardiovascular: regular rate, rhythm, no murmur, Normal S1, S2. Abdomen/GI: normal bowel sounds, non tender, soft Back: normal inspection Extremities/Musculoskeletal: normal inspection, no calf tenderness, Trace B/L pedal edema. Neurologic/Psych: alert, normal mood/affect, oriented x 3 Skin: normal color, warm/dry Lab data as noted below. ASSESSMENT & PLAN: Asthmatic Bronchitis: patient presented with prod cough and SOB for few months after failing mult course abx/pred; h/o chronic asthmatic bronchitis-not on O2 at home She is afebrile and saturating well on 2L O2 & s/p bronchoalveolar lavage this morning by Dr. Harrell -Changed Duoneb to Xopenex via Neb,; cont Qvar -Continue vibrating vest therapy -Reviewed Pulmonary input. -Encouraged to ambulate as tolerated -Added lozenges for sore throat -BAL cultures are negative so far. -Continue I/V Solumedrol and am gradually decreasing dose. -Started Doxycycline (Day # 1) as cough has been persistent and possibility of Acute Bronchitis. -Added Mucinex Moderate COPD: No evidence of acute exacerbation. No wheezes on respiratory exam -Continue Xopenex and Qvar -monitor closely Hypertension: BP has been stable. -Continue carvedilol and losartan -Monitor Constipation: Added Colace. Insulin Dependent Type II: Recent A1C 8.7 -Holding metformin and Humalog -cont home dose NPH -ISS for additional coverage if needed -monitor BSG AC HS Anemia: Noted low H/H with no evidence of any occult loss -Check Iron studies and B12/Folate History CAD : s/p LAD stent 1999. Stable and has no acute cardiac symptoms -Continue ASA, BB, Imdur and nitro PRN H/O CVA: No residual deficits -Plavix discontinued RANDY : Patient in process of getting setup with CPAP Generalized Anxiety Disorder: Continue Celexa and Ativan IBS/GERD: Stable.Continue PPI. Dyslipidemia: Not on medication DVT Prophylaxis: Sq Lovenox Code Status: Full Code Disposition: Discharge once is clinically stable. Vital Signs: Date Time Temp Pulse Resp B/P Pulse Ox O2 Delivery O2 Flow Rate FiO2 03/27/16 16:44 146/73 03/27/16 16:00 Room Air 03/27/16 15:54 36.3 105 16 176/73 93 Room Air 03/27/16 14:55 102 14 Room Air 96 03/27/16 11:09 81 14 Room Air 95 03/27/16 08:00 Room Air 03/27/16 07:36 36.2 95 20 165/83 96 Room Air 03/27/16 07:24 95 14 Room Air 96 03/27/16 00:00 36.4 89 20 147/85 90 Room Air 2.0 96 03/27/16 00:00 94 Room Air 03/26/16 23:48 36.4 89 20 147/85 90 Room Air 03/26/16 19:28 77 14 Room Air 96 Lab Results: Results Past 24 Hours Test 03/26/16 20:04 03/27/16 01:09 03/27/16 06:29 03/27/16 07:52 Range/Units Bedside Glucose 275 209 203 70-90 mg/dl White Blood Count 11.18 4.8-10.8 K/uL Red Blood Count 4.02 4.2-5.4 M/uL Hemoglobin 8.9 12.0-16.0 g/dL Hematocrit 29.0 37-47 % Mean Corpuscular Volume 72.1 80-100 fL Mean Corpuscular Hemoglobin 22.1 25-34 pg Mean Corpuscular Hemoglobin Concent 30.7 32-36 g/dl RDW Standard Deviation 44.0 36.4-46.3 fL RDW Coefficient of Variation 16.6 11.5-14.5 % Platelet Count 247 130-400 K/uL Mean Platelet Volume 10.1 7.4-10.4 fL Nucleated RBC Absolute Count (auto) 0.02 0-0 K/uL Nucleated Red Blood Cells % 0.2 % Creatinine 0.78 0.60-1.20 mg/dl Est Creatinine Clear Calc Drug Dose 61.0 ml/min Estimated GFR () 85.0 Estimated GFR (Non- 73.3 Test 03/27/16 11:47 03/27/16 16:00 03/27/16 16:16 Range/Units Bedside Glucose 220 340 70-90 mg/dl Urine Color YELLOW Urine Appearance CLEAR CLEAR Urine pH 7.0 4.5-7.5 Urine Specific [place] 1.009 1.000-1.030 Urine Protein NEG NEG Urine Glucose (UA) 3+ NEG Urine Ketones NEG NEG Urine Occult Blood NEG NEG Urine Nitrite NEG NEG Urine Bilirubin NEG NEG Urine Urobilinogen NEG NEG Urine Leukocyte Esterase NEG NEG
[2016-03-27] MEDS ORDERED: AZITHROMYCIN 250 MG TAB PO ONE (17:15)
[2016-03-27] MEDS: LEVALBUTEROL 1.25MG/3ML NEB INH SCH (19:25)
[2016-03-27] MEDS: BRIMONIDINE TARTRATE-P 0.15% 5 ML BTL OPB SCH (20:13)
[2016-03-27] MEDS: TRAVOPROST Z 0.004% OPH SOLN 2.5 ML BTL OP SCH (20:14)
[2016-03-27] MEDS: ENOXAPARIN 40 MG/0.4 ML SYR SQ SCH (20:15)
[2016-03-27] MEDS: GUAIFENESIN 600 MG TABCR PO SCH (20:24)
[2016-03-27] MEDS: DOXYCYCLINE HYCLATE 100 MG CAP PO SCH (20:25)
[2016-03-27] MEDS: METHYLPREDNISOLONE IV 30 MG in SYRINGE 0 ML IV SCH (20:29)
[2016-03-27] MEDS ORDERED: LORAZEPAM 1 MG TAB PO ONE (23:36)
[2016-03-27] MEDS ORDERED: LORAZEPAM 1 MG TAB PO PRN (23:45)
[2016-03-28] VITALS (7 sets, daily range): BP systolic 148–162; BP diastolic 78–88; PULSE 76–89; TEMP 36.5–37; O2SAT 93–95
[2016-03-28] MEDS ORDERED: INSULIN ASPART 100 UNITS/ML 3 ML PEN SC SCH (02:00)
[2016-03-28 06:21] LABS: BASO % 0.2 %; BASO ABS # 0.02 K/uL (0-0.2); COMPLETE YES; EOS % 0.1 %; HEMATOCRIT 29.4 % (37-47); IG% 0.8 %; LYMPH % 18.2 %; LYMPH ABS # 2.29 K/uL (1.2-3.4); MEAN CELL VOLUME 73.5 fL (80-100); MEAN CORPUSCULAR HEMOGLOBIN 23.3 pg (25-34); MEAN CORPUSCULAR HGB CONC 31.6 g/dl (32-36); MEAN PLATELET VOLUME 10.4 fL (7.4-10.4); MONO % 7.6 %; NEUT % 73.1 %; PLATELET COUNT 246 K/uL (130-400); WHITE BLOOD COUNT 12.56 K/uL (4.8-10.8)
[2016-03-28 06:47] LABS: BUN/CREATININE RATIO 19.5 (10-20); CALCIUM 9.2 mg/dl (8.5-10.1); CREATININE 0.81 mg/dl (0.60-1.20); POTASSIUM 3.9 mmol/L (3.5-5.1)
[2016-03-28] MEDS: LEVALBUTEROL 1.25MG/3ML NEB INH SCH ×3 (07:28→19:32)
[2016-03-28] MEDS: BECLOMETHASONE DIP HFA 80 MCG 8.7G INH INH SCH ×2 (08:00→20:36)
[2016-03-28] MEDS ORDERED: AZITHROMYCIN 250 MG TAB PO SCH (08:00)
[2016-03-28] MEDS: METHYLPREDNISOLONE IV 30 MG in SYRINGE 0 ML IV SCH (08:05)
[2016-03-28] MEDS ORDERED: NURSING VERBAL MED ORDER ONE ×2 (08:15→09:00)
[2016-03-28] MEDS: INSULIN ASPART 100 UNITS/ML 3 ML PEN SC SCH ×4 (09:13→20:42)
[2016-03-28] MEDS: INSULIN HUMAN NPH SQ SCH ×2 (09:14→20:43)
[2016-03-28] MEDS: FLUTICASONE PROPIONATE NA SPR 16 GM BTL NAE SCH (09:16)
[2016-03-28] MEDS: CITALOPRAM 20 MG TAB PO SCH (09:17)
[2016-03-28] MEDS: DOCUSATE SODIUM 100 MG CAP PO SCH ×2 (09:18→20:33)
[2016-03-28] MEDS: ASPIRIN 81 MG ECTAB PO SCH (09:18)
[2016-03-28] MEDS: CARVEDILOL 12.5 MG TAB PO SCH ×2 (09:18→20:33)
[2016-03-28] MEDS: CEROVITE ADV FORMULA TAB PO SCH (09:19)
[2016-03-28] MEDS: PANTOprazole SOD 40 MG TAB PO SCH ×2 (09:19→20:33)
[2016-03-28] MEDS: ISOSORBIDE MONONITRATE 60 MG TABCR PO SCH (09:19)
[2016-03-28] MEDS: GUAIFENESIN 600 MG TABCR PO SCH ×2 (09:20→20:37)
[2016-03-28] MEDS: MONTELUKAST SOD 10 MG TAB PO SCH (09:20)
[2016-03-28] MEDS: DOXYCYCLINE HYCLATE 100 MG CAP PO SCH ×2 (09:20→20:33)
[2016-03-28] MEDS: FUROSEMIDE 40 MG TAB PO PRN (09:23)
[2016-03-28] MEDS: POTASSIUM CHLORIDE 20 MEQ TABCR PO PRN (09:23)
--- NOTE | 2016-03-28 10:22 | Pulmonology Progress Note ---
Pulmonary Progress Note Date of Service Mar 28, 2016. Attending Aldo Gil Subjective Patient notes continued dyspnea on exertion with productive white phlegm with difficult clearance: Objective Patient able to complete full sentences with no signs of increased work of breathing and only notable cough with forced expiration: Vital signs: Stable/reviewed Respiratory: Minimal expiratory wheezing greatest at the bases Cardiac: S1-S2 regular rate and rhythm Abdomen: Soft positive no rebound Medications: #1 prednisone 20 mg by mouth daily #2 Xopenex: Nebulized #3 guaifenesin 5 #4 doxycycline 100 mg by mouth twice a day #4 albuterol: Nebulized #5 Flonase nasal spray 2 sprays daily #6 montelukast 10 mg by mouth daily #7 Qvar 80 g 2 puffs twice a day Pulmonary function tests 05/18/15 FEV1/FVC: 77 FEV1: 1.81/104%--- no significant reversibility FVC: 2.35/105%--- no significant reversibility FEF 25/75%: 107% T.34/116% VC: 2.65/119% RV: 1.69/106% DLCO: 70% DLCO/VA: 108% Assessment & Plan 75-year-old female with chronic bronchiectatic asthma and notable exacerbation status post bronchoscopy: #1 bronchitis asthma: Bronchoscopy showed diffuse mucous plugs which were cleared microbiology showing no active signs of growth at this time. Require 6 weeks for full evaluation a mycobacterial organisms. Agree with continuing current medical regimen but also adding vest physiotherapy at this time. #2 DVT prophylaxis: Over the last 2 evenings between 9 and 10 patient has had diffuse hives per. This is been mostly on her extremities and appears to be at this time within an hour of receiving Lovenox. We'll discontinue/hold Lovenox at this time and initiate SCD therapy and patient is ambulating as to decrease the necessity of DVT prophylaxis. 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 It might be beneficial if management planner can evaluate for possible home care assistance. Data Medications: Current Inpatient Medications Medications (Trade) Dose Ordered Sig/Yesica Route Start Time Stop Time Status Last Admin Dose Admin Enoxaparin Sodium (Lovenox Inj) 40 mg Q24H SQ 03/24/16 21:00 04/23/16 20:59 Future Hold 03/27/16 20:15 40 MG Acetaminophen (Tylenol Tab) 650 mg Q4H PRN PO 03/24/16 11:30 04/23/16 11:29 03/26/16 14:01 650 MG Ondansetron HCl (Zofran Inj) 4 mg Q6H PRN IV 03/24/16 11:30 04/23/16 11:29 Aspirin (Ecotrin Tab) 81 mg QAM PO 03/25/16 08:00 04/24/16 07:59 03/28/16 09:18 81 MG Beclomethasone Dipropionate (Qvar 80 Mcg Hfa Inhaler) 2 puffs BID INH 03/24/16 20:00 04/23/16 20:59 03/28/16 08:00 2 PUFFS Brimonidine Tartrate (Alphagan-P 0.15% Oph Soln) 1 drops HS OPB 03/24/16 21:00 04/23/16 20:59 03/27/16 20:13 1 DROPS Carvedilol (Coreg Tab) 12.5 mg BID PO 03/24/16 20:00 04/23/16 20:59 03/28/16 09:18 12.5 MG Fluticasone Propionate (Flonase Nasal [place]) 2 sprays DAILY AMARILIS 03/25/16 08:00 04/24/16 08:59 03/28/16 09:16 2 SPRAYS Furosemide (Lasix Tab) 40 mg DAILY PRN PO 03/24/16 12:30 04/23/16 12:29 Future hold 03/28/16 09:23 40 MG Isosorbide Mononitrate (Imdur Ext Rel Tab) 60 mg DAILY PO 03/25/16 08:00 04/24/16 08:59 03/28/16 09:19 60 MG Losartan Potassium (coZAAR TAB) 25 mg DAILY PO 03/25/16 08:00 04/24/16 07:59 Future Hold 03/27/16 08:38 25 MG Montelukast Sodium (Singulair Tab) 10 mg DAILY PO 03/25/16 08:00 04/24/16 08:59 03/28/16 09:20 10 MG Multivitamins/ Minerals (Multivitamin W/ Minerals Tab) 1 tab DAILY PO 03/25/16 08:00 04/24/16 08:59 03/28/16 09:19 1 TAB Pantoprazole Sodium (Protonix Tab) 40 mg BID PO 03/24/16 20:00 04/23/16 20:59 03/28/16 09:19 40 MG Travoprost (Travatan Z) 1 drops HS OP 03/24/16 21:00 04/23/16 20:59 03/27/16 20:14 1 DROPS Cyanocobalamin (Vitamin B-12 Tab) 500 mcg Gonzalez@0900 PO 03/27/16 09:00 04/26/16 08:59 03/27/16 09:04 500 MCG Miscellaneous Information (Order Awaiting Action) 1 ea QS N/A 03/24/16 16:00 04/23/16 15:59 Potassium Chloride (Klor-Con Tab) 20 meq DAILY PRN PO 03/24/16 12:30 04/23/16 12:29 03/28/16 09:23 20 MEQ Insulin Aspart (novoLOG ASPART) SLIDING SCALE If C... ACHS SC 03/24/16 16:30 04/26/16 16:29 03/28/16 09:13 10 UNITS Glucose (Glucose 40% Gel) 15-30 GRAMS 15 GRAMS... UD PRN PO 03/24/16 13:15 04/23/16 13:14 Glucose (Glucose Chew Tab) 4-8 Tablets 4 Tabl... UD PRN PO 03/24/16 13:15 04/23/16 13:14 Dextrose (Dextrose 50% 50ML Syringe) 25-50ML OF 50% DW IV FOR... UD PRN IV 03/24/16 13:15 04/23/16 13:14 Glucagon (Glucagon Inj) 1 mg UD PRN SQ 03/24/16 13:15 04/23/16 13:14 Benzonatate (Tessalon Perles Cap) 200 mg Q4H PRN PO 03/24/16 17:45 04/23/16 17:44 03/27/16 14:14 200 MG Phenol (Chloraseptic 1.4% [place]) 1 sprays Q6H PRN MT 03/24/16 17:45 04/23/16 17:44 03/24/16 18:05 1 SPRAYS Tramadol HCl (Ultram Tab) 50 mg Q4H PRN PO 03/25/16 11:45 04/24/16 11:44 Albuterol/ Ipratropium (Duoneb) 3 ml Q2R PRN INH 03/25/16 12:00 04/24/16 11:59 Miscellaneous Information (Consult Glycemic Management Pharmacy) 1 ea UD PRN N/A 03/26/16 17:07 04/25/16 17:06 Docusate Sodium (coLACE CAP) 100 mg BID PO 03/26/16 20:00 04/25/16 19:59 03/28/16 09:18 100 MG Codeine Phosphate/ Guaifenesin (Robitussin-AC Sugar Free Syrup) 10 ml Q6H PRN PO 03/26/16 16:00 04/25/16 15:59 Insulin Aspart (novoLOG ASPART) SLIDING SCALE If C... 0200 SC 03/28/16 02:00 04/27/16 01:59 03/28/16 02:07 2 UNITS Citalopram Hydrobromide (celeXA TAB) 20 mg DAILY PO 03/28/16 08:00 04/27/16 07:59 03/28/16 09:17 20 MG Levalbuterol (Xopenex 1.25MG/ 3ML Neb) 1.25 mg Q6RWA INH 03/27/16 21:00 04/26/16 20:59 03/28/16 07:28 1.25 MG Guaifenesin (Mucinex Contr Rel Tab) 600 mg Q12 PO 03/27/16 21:00 04/26/16 20:59 03/28/16 09:20 600 MG Doxycycline Hyclate (Vibramycin Cap) 100 mg BID PO 03/27/16 20:00 04/03/16 19:59 03/28/16 09:20 100 MG Lorazepam (Ativan Tab) 1 mg Q6H PRN PO 03/27/16 23:45 04/26/16 23:44 Prednisone (PredniSONE TAB) 20 mg DAILY PO 03/28/16 09:00 04/27/16 08:59 03/28/16 09:22 20 MG Insulin Human NPH (novoLIN-N NPH) 42 units BID SQ 03/28/16 09:00 04/27/16 08:59 03/28/16 09:14 42 UNITS Vital Signs: Date Time Temp Pulse Resp B/P Pulse Ox O2 Delivery O2 Flow Rate FiO2 03/28/16 07:51 37.0 76 20 162/82 93 Room Air 03/28/16 07:28 83 14 Room Air 92 03/28/16 01:29 36.8 89 18 150/88 93 Room Air 03/28/16 00:00 93 Room Air 2.0 93 03/27/16 21:26 93 Room Air 93 03/27/16 19:25 84 14 Room Air 93 03/27/16 16:44 146/73 03/27/16 16:00 Room Air 03/27/16 15:54 36.3 105 16 176/73 93 Room Air 03/27/16 14:55 102 14 Room Air 96 03/27/16 11:09 81 14 Room Air 95 Laboratory Results: Last 24 Hours Test 03/27/16 11:47 03/27/16 16:00 03/27/16 16:16 03/27/16 20:00 Bedside Glucose 220 mg/dl 340 mg/dl 276 mg/dl Urine Color YELLOW Urine Appearance CLEAR Urine pH 7.0 Urine Specific [place] 1.009 Urine Protein NEG Urine Glucose (UA) 3+ Urine Ketones NEG Urine Occult Blood NEG Urine Nitrite NEG Urine Bilirubin NEG Urine Urobilinogen NEG Urine Leukocyte Esterase NEG Test 03/28/16 01:51 03/28/16 05:45 03/28/16 07:57 Bedside Glucose 188 mg/dl 138 mg/dl White Blood Count 12.56 K/uL Red Blood Count 4.00 M/uL Hemoglobin 9.3 g/dL Hematocrit 29.4 % Mean Corpuscular Volume 73.5 fL Mean Corpuscular Hemoglobin 23.3 pg Mean Corpuscular Hemoglobin Concent 31.6 g/dl Platelet Count 246 K/uL Mean Platelet Volume 10.4 fL Neutrophils (%) (Auto) 73.1 % Lymphocytes (%) (Auto) 18.2 % Monocytes (%) (Auto) 7.6 % Eosinophils (%) (Auto) 0.1 % Basophils (%) (Auto) 0.2 % Neutrophils # (Auto) 9.18 K/uL Lymphocytes # (Auto) 2.29 K/uL Monocytes # (Auto) 0.96 K/uL Eosinophils # (Auto) 0.01 K/uL Basophils # (Auto) 0.02 K/uL RDW Standard Deviation 45.3 fL RDW Coefficient of Variation 16.9 % Immature Granulocyte % (Auto) 0.8 % Immature Granulocyte # (Auto) 0.10 K/uL Sodium Level 138 mmol/L Potassium Level 3.9 mmol/L Chloride Level 103 mmol/L Carbon Dioxide Level 25 mmol/L Anion Gap 10.0 mmol/L Blood Urea Nitrogen 16 mg/dl Creatinine 0.81 mg/dl Est Creatinine Clear Calc Drug Dose 58.7 ml/min Estimated GFR () 81.2 Estimated GFR (Non- 70.1 BUN/Creatinine Ratio 19.5 Random Glucose 160 mg/dl Calcium Level 9.2 mg/dl
--- NOTE | 2016-03-28 11:23 | Pharmacy Progress Note ---
Glycemic Control: Progress Nt Date of Service Mar 28, 2016. Scope Glycemic Pharmacist consulted by Dr Vargas on 03/26/16 for glycemic control and to write orders per [facility] inpatient glycemic control protocol. Objective Accuchecks BSG (last 24hrs): Test 03/27/16 11:47 03/27/16 16:16 03/27/16 20:00 03/28/16 01:51 Bedside Glucose 220 mg/dl (70-90) 340 mg/dl (70-90) 276 mg/dl (70-90) 188 mg/dl (70-90) Test 03/28/16 05:45 03/28/16 07:57 Random Glucose 160 mg/dl (70-99) Bedside Glucose 138 mg/dl (70-90) Laboratory Data (last 24hrs) Test 03/28/16 05:45 Anion Gap 10.0 mmol/L BUN/Creatinine Ratio 19.5 Blood Urea Nitrogen 16 mg/dl Creatinine 0.81 mg/dl Potassium Level 3.9 mmol/L Sodium Level 138 mmol/L White Blood Count 12.56 K/uL Red Blood Count 4.00 M/uL Hemoglobin 9.3 g/dL Hematocrit 29.4 % Mean Corpuscular Volume 73.5 fL Mean Corpuscular Hemoglobin 23.3 pg Mean Corpuscular Hemoglobin Concent 31.6 g/dl Platelet Count 246 K/uL Mean Platelet Volume 10.4 fL Neutrophils (%) (Auto) 73.1 % Lymphocytes (%) (Auto) 18.2 % Monocytes (%) (Auto) 7.6 % Eosinophils (%) (Auto) 0.1 % Basophils (%) (Auto) 0.2 % Neutrophils # (Auto) 9.18 K/uL Lymphocytes # (Auto) 2.29 K/uL Monocytes # (Auto) 0.96 K/uL Eosinophils # (Auto) 0.01 K/uL Basophils # (Auto) 0.02 K/uL Recent Pertinent Medications Outpatient Anti-diabetic Regimen: * NPH 60 units QAM; 54 units QPM * Humalog 12 units with breakfast and 26 units with supper * Metformin 1g PO BID * A1c = 8.7 % "recent" per providers note The patient is currently receiving: * Basal insulin: NPH 60 units QAM; 54 units QPM * Correctional Insulin: Novolog Correction per scale ACHS + 0200 check Goal Range: Low 120 mg/dL - High 160 mg/dL Correction Factor: 15 mg/dL/unit * Prandial insulin: Per carb ratio of 1 unit per 5 grams CHO consumed * Oral Agents: On Hold Risk Factors for Insulin Resistance: * Steroids * Diet Assessment & Plan ASSESSMENT: * 75 yo T2D F admitted with asthmatic bronchitis, initiated on high dose IV steroids which caused elevated BSGs * Patient initiated on home regimen of NPH plus Novolog * Fasting BSG 138 mg/dL this AM * IV steroids changed to PO prednisone * Decrease NPH by 20% and reassess in the AM * Loosen Novolog coverage (likely too much basal on board yesterday which will also have prandial effects today) * ADA & AACE recommend a goal blood sugar range 140-180 mg/dl for the majority of critically ill & non-critically ill patients. However, more stringent targets may be selected in individual cases. Continue goal 120-160mg/dL for a little better control, but not down to 100-140mg/dl for patient's age and A1c. PLAN FOR INPATIENT GLYCEMIC CONTROL: * Hold outpatient oral diabetes medications * Decrease NPH to 42 units BID * Half dose if BSG <120 mg/dL * Correctional Insulin with NOVOLOG per scale ACHS or Q6hrs while NPO * Goal Range: Low 120 mg/dL - High 160 mg/dL * Correction Factor: 20 mg/dL/unit * Nutritional / Prandial insulin per carb ratio of 1 unit per 7 grams CHO consumed * Please note that the plan above was derived based on current level of insulin resistance and hospital stress. These recommendations are appropriate for inpatient admission only. Plan of care upon discharge will need to be reassessed to avoid potential outpatient hypo/hyperglycemia. Thank you.
--- NOTE | 2016-03-28 17:23 | Progress Note ---
Internal Med Progress Note Date of Service: Mar 28, 2016. Provider Documentation: SUBJECTIVE: Patient is sitting in the chair and is c/o persistent cough and has intermittent SOB which is better today. Still has sore throat and hoarseness of voice which is gradually resolving . Feels weak and tired. BS has been running high. OBJECTIVE: Vital Signs-as noted below Examination: General Appearance: WD/WN, no apparent distress, obese, Sitting in the chair. Head: normocephalic, atraumatic Eyes: normal inspection ENT: hearing grossly normal, Eyes, ears are normal looking. Some erythema of posterior pharynx with no exudates, Neck: supple, midline trachea, No JVD. Respiratory/Chest: no respiratory distress, no accessory muscle use, chest tenderness to palpation; faint crackles to B/L bases; no wheezes noted Cardiovascular: regular rate, rhythm, no murmur, Normal S1, S2. Abdomen/GI: normal bowel sounds, non tender, soft Back: normal inspection Extremities/Musculoskeletal: normal inspection, no calf tenderness, Trace B/L pedal edema. Neurologic/Psych: alert, normal mood/affect, oriented x 3 Skin: normal color, warm/dry Lab data as noted below. ASSESSMENT & PLAN: Asthmatic Bronchitis: patient presented with prod cough and SOB for few months after failing mult course abx/pred; h/o chronic asthmatic bronchitis-not on O2 at home She is afebrile and saturating well on 2L O2 & s/p bronchoalveolar lavage this morning by Dr. Harrell -Changed Duoneb to Xopenex via Neb,; cont Qvar -Continue vibrating vest therapy -Reviewed Pulmonary input. -Encouraged to ambulate as tolerated -Added lozenges for sore throat -BAL cultures are negative so far. -D/cd I/V Solumedrol and started Prednisone 20 mg daily (Day # 1). -Continue Doxycycline (Day # 2) as cough has been persistent and possibility of Acute Bronchitis. -Added Mucinex Moderate COPD: No evidence of acute exacerbation. No wheezes on respiratory exam -Continue Xopenex and Qvar -monitor closely Hypertension: BP has been stable. -Continue carvedilol and losartan -Monitor Constipation: Added Colace. Insulin Dependent Type II: Recent A1C 8.7 -Holding metformin and Humalog -cont home dose NPH -ISS for additional coverage if needed -monitor BSG AC HS Anemia: Noted low H/H with no evidence of any occult loss -Check Iron studies and B12/Folate History CAD : s/p LAD stent 1999. Stable and has no acute cardiac symptoms -Continue ASA, BB, Imdur and nitro PRN H/O CVA: No residual deficits -Plavix discontinued RANDY : Patient in process of getting setup with CPAP Generalized Anxiety Disorder: Continue Celexa and Ativan IBS/GERD: Stable.Continue PPI. Dyslipidemia: Not on medication DVT Prophylaxis: Sq Lovenox Code Status: Full Code Disposition: Discharge once is clinically stable. Vital Signs: Date Time Temp Pulse Resp B/P Pulse Ox O2 Delivery O2 Flow Rate FiO2 03/28/16 15:36 36.5 85 20 148/78 95 Room Air 03/28/16 14:25 80 14 Room Air 94 03/28/16 08:00 Room Air 03/28/16 07:51 37.0 76 20 162/82 93 Room Air 03/28/16 07:28 83 14 Room Air 92 03/28/16 01:29 36.8 89 18 150/88 93 Room Air 03/28/16 00:00 93 Room Air 2.0 93 03/27/16 21:26 93 Room Air 93 03/27/16 19:25 84 14 Room Air 93 Lab Results: Results Past 24 Hours Test 03/27/16 20:00 03/28/16 01:51 03/28/16 05:45 03/28/16 07:57 Range/Units Bedside Glucose 276 188 138 70-90 mg/dl White Blood Count 12.56 4.8-10.8 K/uL Red Blood Count 4.00 4.2-5.4 M/uL Hemoglobin 9.3 12.0-16.0 g/dL Hematocrit 29.4 37-47 % Mean Corpuscular Volume 73.5 80-100 fL Mean Corpuscular Hemoglobin 23.3 25-34 pg Mean Corpuscular Hemoglobin Concent 31.6 32-36 g/dl Platelet Count 246 130-400 K/uL Mean Platelet Volume 10.4 7.4-10.4 fL Neutrophils (%) (Auto) 73.1 % Lymphocytes (%) (Auto) 18.2 % Monocytes (%) (Auto) 7.6 % Eosinophils (%) (Auto) 0.1 % Basophils (%) (Auto) 0.2 % Neutrophils # (Auto) 9.18 1.4-6.5 K/uL Lymphocytes # (Auto) 2.29 1.2-3.4 K/uL Monocytes # (Auto) 0.96 0.11-0.59 K/uL Eosinophils # (Auto) 0.01 0-0.5 K/uL Basophils # (Auto) 0.02 0-0.2 K/uL RDW Standard Deviation 45.3 36.4-46.3 fL RDW Coefficient of Variation 16.9 11.5-14.5 % Immature Granulocyte % (Auto) 0.8 % Immature Granulocyte # (Auto) 0.10 0.00-0.02 K/uL Sodium Level 138 136-145 mmol/L Potassium Level 3.9 3.5-5.1 mmol/L Chloride Level 103 98-107 mmol/L Carbon Dioxide Level 25 21-32 mmol/L Anion Gap 10.0 3-11 mmol/L Blood Urea Nitrogen 16 7-18 mg/dl Creatinine 0.81 0.60-1.20 mg/dl Est Creatinine Clear Calc Drug Dose 58.7 ml/min Estimated GFR () 81.2 Estimated GFR (Non- 70.1 BUN/Creatinine Ratio 19.5 10-20 Random Glucose 160 70-99 mg/dl Calcium Level 9.2 8.5-10.1 mg/dl Test 03/28/16 11:51 03/28/16 16:35 Range/Units Bedside Glucose 139 226 70-90 mg/dl
[2016-03-28] MEDS: BENZONATATE 100MG CAP PO PRN (20:34)
[2016-03-28] MEDS: BRIMONIDINE TARTRATE-P 0.15% 5 ML BTL OPB SCH (20:36)
[2016-03-28] MEDS: TRAVOPROST Z 0.004% OPH SOLN 2.5 ML BTL OP SCH (20:37)
[2016-03-29] VITALS (8 sets, daily range): BP systolic 108–179; BP diastolic 68–95; PULSE 70–90; TEMP 36.2–36.5; O2SAT 94–95
[2016-03-29] MEDS: BENZONATATE 100MG CAP PO PRN ×2 (06:08→18:04)
[2016-03-29] MEDS: LEVALBUTEROL 1.25MG/3ML NEB INH SCH ×3 (07:08→19:19)
[2016-03-29] MEDS: BECLOMETHASONE DIP HFA 80 MCG 8.7G INH INH SCH ×2 (08:05→20:13)
[2016-03-29] MEDS: CITALOPRAM 20 MG TAB PO SCH (08:06)
[2016-03-29] MEDS: FLUTICASONE PROPIONATE NA SPR 16 GM BTL NAE SCH (08:06)
[2016-03-29] MEDS: DOCUSATE SODIUM 100 MG CAP PO SCH ×2 (08:07→20:14)
[2016-03-29] MEDS: CARVEDILOL 12.5 MG TAB PO SCH ×2 (08:09→20:13)
[2016-03-29] MEDS: ASPIRIN 81 MG ECTAB PO SCH (08:10)
[2016-03-29] MEDS: CEROVITE ADV FORMULA TAB PO SCH (08:10)
[2016-03-29] MEDS: ISOSORBIDE MONONITRATE 60 MG TABCR PO SCH (08:10)
[2016-03-29] MEDS: PANTOprazole SOD 40 MG TAB PO SCH ×2 (08:11→20:14)
[2016-03-29] MEDS: MONTELUKAST SOD 10 MG TAB PO SCH (08:11)
[2016-03-29] MEDS: DOXYCYCLINE HYCLATE 100 MG CAP PO SCH ×2 (08:11→20:14)
[2016-03-29] MEDS: GUAIFENESIN 600 MG TABCR PO SCH ×2 (08:12→20:13)
[2016-03-29] MEDS: INSULIN ASPART 100 UNITS/ML 3 ML PEN SC SCH ×4 (09:15→20:20)
[2016-03-29] MEDS: INSULIN HUMAN NPH SQ SCH ×2 (09:15→20:21)
--- NOTE | 2016-03-29 10:57 | Progress Note ---
Subjective Date of Service: Mar 29, 2016. Subjective Pt evaluation today including: conversation w/ patient, physical exam, lab review, review of studies, conversation w/ cassandra consultant, review of inpatient medication list Saw/examined the patient in room 419 Doing better today Breathing status improved Ambulated with PT and did well Review of Systems Constitutional: No chills, No fever Respiratory: + shortness of breath (improving), No cough, No dyspnea at rest, No dyspnea on exertion, No sputum, No wheezing Cardiac: No chest pain, No edema, No palpitations Abdomen: No diarrhea, No nausea, No pain, No vomiting Medications Current Inpatient Medications Medications (Trade) Dose Ordered Sig/Yesica Route Start Time Stop Time Status Last Admin Dose Admin Enoxaparin Sodium (Lovenox Inj) 40 mg Q24H SQ 03/24/16 21:00 04/23/16 20:59 Future Hold 03/27/16 20:15 40 MG Acetaminophen (Tylenol Tab) 650 mg Q4H PRN PO 03/24/16 11:30 04/23/16 11:29 03/26/16 14:01 650 MG Ondansetron HCl (Zofran Inj) 4 mg Q6H PRN IV 03/24/16 11:30 04/23/16 11:29 Aspirin (Ecotrin Tab) 81 mg QAM PO 03/25/16 08:00 04/24/16 07:59 03/29/16 08:10 81 MG Beclomethasone Dipropionate (Qvar 80 Mcg Hfa Inhaler) 2 puffs BID INH 03/24/16 20:00 04/23/16 20:59 03/29/16 08:05 2 PUFFS Brimonidine Tartrate (Alphagan-P 0.15% Oph Soln) 1 drops HS OPB 03/24/16 21:00 04/23/16 20:59 03/28/16 20:36 1 DROPS Carvedilol (Coreg Tab) 12.5 mg BID PO 03/24/16 20:00 04/23/16 20:59 03/29/16 08:09 12.5 MG Fluticasone Propionate (Flonase Nasal [place]) 2 sprays DAILY AMARILIS 03/25/16 08:00 04/24/16 08:59 03/29/16 08:06 2 SPRAYS Furosemide (Lasix Tab) 40 mg DAILY PRN PO 03/24/16 12:30 04/23/16 12:29 Future hold 03/28/16 09:23 40 MG Isosorbide Mononitrate (Imdur Ext Rel Tab) 60 mg DAILY PO 03/25/16 08:00 04/24/16 08:59 03/29/16 08:10 60 MG Losartan Potassium (coZAAR TAB) 25 mg DAILY PO 03/25/16 08:00 04/24/16 07:59 Future Hold 03/27/16 08:38 25 MG Montelukast Sodium (Singulair Tab) 10 mg DAILY PO 03/25/16 08:00 04/24/16 08:59 03/29/16 08:11 10 MG Multivitamins/ Minerals (Multivitamin W/ Minerals Tab) 1 tab DAILY PO 03/25/16 08:00 04/24/16 08:59 03/29/16 08:10 1 TAB Pantoprazole Sodium (Protonix Tab) 40 mg BID PO 03/24/16 20:00 04/23/16 20:59 03/29/16 08:11 40 MG Travoprost (Travatan Z) 1 drops HS OP 03/24/16 21:00 04/23/16 20:59 03/28/16 20:37 1 DROPS Cyanocobalamin (Vitamin B-12 Tab) 500 mcg Gonzalez@0900 PO 03/27/16 09:00 04/26/16 08:59 03/27/16 09:04 500 MCG Miscellaneous Information (Order Awaiting Action) 1 ea QS N/A 03/24/16 16:00 04/23/16 15:59 Potassium Chloride (Klor-Con Tab) 20 meq DAILY PRN PO 03/24/16 12:30 04/23/16 12:29 03/28/16 09:23 20 MEQ Insulin Aspart (novoLOG ASPART) SLIDING SCALE If C... ACHS SC 03/24/16 16:30 04/26/16 16:29 03/29/16 09:15 7 UNITS Glucose (Glucose 40% Gel) 15-30 GRAMS 15 GRAMS... UD PRN PO 03/24/16 13:15 04/23/16 13:14 Glucose (Glucose Chew Tab) 4-8 Tablets 4 Tabl... UD PRN PO 03/24/16 13:15 04/23/16 13:14 Dextrose (Dextrose 50% 50ML Syringe) 25-50ML OF 50% DW IV FOR... UD PRN IV 03/24/16 13:15 04/23/16 13:14 Glucagon (Glucagon Inj) 1 mg UD PRN SQ 03/24/16 13:15 04/23/16 13:14 Benzonatate (Tessalon Perles Cap) 200 mg Q4H PRN PO 03/24/16 17:45 04/23/16 17:44 03/29/16 06:08 200 MG Phenol (Chloraseptic 1.4% [place]) 1 sprays Q6H PRN MT 03/24/16 17:45 04/23/16 17:44 03/24/16 18:05 1 SPRAYS Tramadol HCl (Ultram Tab) 50 mg Q4H PRN PO 03/25/16 11:45 04/24/16 11:44 Albuterol/ Ipratropium (Duoneb) 3 ml Q2R PRN INH 03/25/16 12:00 04/24/16 11:59 Miscellaneous Information (Consult Glycemic Management Pharmacy) 1 ea UD PRN N/A 03/26/16 17:07 04/25/16 17:06 Docusate Sodium (coLACE CAP) 100 mg BID PO 03/26/16 20:00 04/25/16 19:59 03/29/16 08:07 100 MG Codeine Phosphate/ Guaifenesin (Robitussin-AC Sugar Free Syrup) 10 ml Q6H PRN PO 03/26/16 16:00 04/25/16 15:59 Citalopram Hydrobromide (celeXA TAB) 20 mg DAILY PO 03/28/16 08:00 04/27/16 07:59 03/29/16 08:06 20 MG Levalbuterol (Xopenex 1.25MG/ 3ML Neb) 1.25 mg Q6RWA INH 03/27/16 21:00 04/26/16 20:59 03/29/16 07:08 1.25 MG Guaifenesin (Mucinex Contr Rel Tab) 600 mg Q12 PO 03/27/16 21:00 04/26/16 20:59 03/29/16 08:12 600 MG Doxycycline Hyclate (Vibramycin Cap) 100 mg BID PO 03/27/16 20:00 04/03/16 19:59 03/29/16 08:11 100 MG Lorazepam (Ativan Tab) 1 mg Q6H PRN PO 03/27/16 23:45 04/26/16 23:44 Prednisone (PredniSONE TAB) 20 mg DAILY PO 03/28/16 09:00 04/27/16 08:59 03/29/16 08:11 20 MG Insulin Human NPH (novoLIN-N NPH) 42 units BID SQ 03/28/16 09:00 04/27/16 08:59 03/29/16 09:15 42 UNITS Objective Vital Signs Date Time Temp Pulse Resp B/P Pulse Ox O2 Delivery O2 Flow Rate FiO2 03/29/16 08:00 Room Air 03/29/16 08:00 70 18 139/78 95 Room Air 03/29/16 07:08 82 16 Room Air 95 03/29/16 00:15 36.2 75 18 179/95 95 Room Air 03/29/16 00:00 Room Air 03/28/16 19:32 85 16 Room Air 95 03/28/16 16:10 Room Air 03/28/16 15:36 36.5 85 20 148/78 95 Room Air 03/28/16 14:25 80 14 Room Air 94 Physical Exam General Appearance: no apparent distress Respiratory/Chest: lungs clear, normal breath sounds, no respiratory distress, no accessory muscle use Cardiovascular: regular rate, rhythm, no edema, no murmur Abdomen: normal bowel sounds, non tender, soft Extremities: normal inspection, no pedal edema Neurologic/Psychiatric: no motor/sensory deficits, alert, normal mood/affect Laboratory Results Last 24 Hours Test 03/28/16 11:51 03/28/16 16:35 03/28/16 20:08 Bedside Glucose 139 mg/dl 226 mg/dl 201 mg/dl Assessment and Plan This is a 75 year old female with PMH of CAD s/p stent, DM2, HTN, HLD, moderate persistent asthma, generalized anxiety disorder presents with worsening shortness of breath Bronchiectatic Asthma s/p bronchoscopy evaluation bronchitis + asthma changed from IV solu-medrol to prednisone, continue this for now Continue doxycycline (day #3) for now vibration vest added continue nebulizers as needed appreciate pulmonology input PT/OT added - did well with physical therapy Plan is to discharge home in AM (03/30/16) CAD s/p stent No chest pain clinically stable continue aspirin, b-vlad, imdur Should be started on statin, though possible allergy? Hypertension BP has been stable. continue home medications Insulin Dependent Type II Recent A1C 8.7 hold oral agents NPH insulin sliding scale Anemia Noted low H/H with no evidence of any occult loss Normal b12/folate low iron, TIBC wnl RANDY should be using CPAP nocturnally; currently in the process Generalized Anxiety Disorder continue home medications DVT Prophylaxis Lovenox FULL CODE Likely d/c home in AM (03/30)
--- NOTE | 2016-03-29 11:46 | PROGRESS NOTE ---
DATE: 03/29/2016 PROBLEM LIST: Includes, 1. Asthmatic bronchitis. 2. Bronchiectasis. 3. Tracheomalacia. 4. Obstructive sleep apnea. SUBJECTIVE: The patient reports that she is doing better today. She states that the vibration vest seemed to help tremendously. She feels that is something that would benefit her at home as well. She states that her cough is improved. She is less short of breath. She states she has been up walking around without difficulty as well. She denies any other concerns or problems at this time. No chest congestion or tightness. No increased shortness of breath. She has come back from 2 laps of therapy and is not having any difficulty with her breathing. She denies any chest pain, no abdominal pain, no nausea or vomiting, no diarrhea or constipation. She is voiding well. She does have some trace swelling in her extremities although it is not bad. PHYSICAL EXAMINATION: VITAL SIGNS: Temp 36.2, pulse 70, respirations 18, blood pressure is 139/78, pulse ox 95% on room air. HEENT: Normocephalic, atraumatic. Pupils equal, round and reactive to light and accommodation. Extraocular movements are intact. [place] moist gingival and buccal mucosa. NECK: Supple. No mass. No adenopathy. No bruit. CHEST: Overall, improved breath sounds from what I listened to her last week. I do not really notice any wheezing today. No rale or rhonchi noted. CARDIOVASCULAR: Regular rate and rhythm. No murmurs, gallops or rubs. ABDOMEN: Soft, nontender. No guarding, rigidity or organomegaly. EXTREMITIES: No erythema or edema. No new laboratory data. No new radiologic data. IMPRESSION: This is a 75-year-old female, who was admitted following bronchoscopy for chronic asthmatic bronchitis. Cultures are still pending, although preliminary cultures have been unremarkable. PLAN: At this point, would recommend to continue oral prednisone and do a taper starting at 20 and decreasing by 5 every 3 days until she has gone. I will see her in the office in approximately 2 weeks. It appears that hospice is planning on discharge tomorrow, I agree with this. I do not see anything that would prevent her being discharged to home. Patient discussed and I agree with the above plan of care. MARCIA
[2016-03-29] MEDS ORDERED: OXYMETAZOLINE HCL 0.05% NA SPR 15 ML BTL ONE (12:01)
[2016-03-29] MEDS ORDERED: MIDAZOLAM HCL 5 MG/ML 1 ML VIAL IV ONE (12:01)
[2016-03-29] MEDS ORDERED: LIDOCAINE HCL 2% LOCAL 50ML VIAL INFIL ONE (12:01)
[2016-03-29] MEDS ORDERED: FENTANYL CITRATE INJ 50 MCG/1 ML 2 ML VIAL IV ONE (12:01)
[2016-03-29] MEDS ORDERED: LEVALBUTEROL 1.25MG/3ML NEB INH ONE (12:01)
[2016-03-29] MEDS ORDERED: LIDOCAINE 4% W/AFRIN NASAL SOLN 4ML ONE (12:01)
[2016-03-29] MEDS: BRIMONIDINE TARTRATE-P 0.15% 5 ML BTL OPB SCH (20:13)
[2016-03-29] MEDS: TRAVOPROST Z 0.004% OPH SOLN 2.5 ML BTL OP SCH (20:14)
[2016-03-30 00:50] VITALS: BP 92/54; PULSE 69; TEMP 36.5; O2SAT 94
[2016-03-30 02:00] VITALS: BP 163/77
[2016-03-30 06:43] LABS: HEMATOCRIT 31.4 % (37-47); MEAN CELL VOLUME 74.6 fL (80-100); MEAN CORPUSCULAR HEMOGLOBIN 22.8 pg (25-34); MEAN CORPUSCULAR HGB CONC 30.6 g/dl (32-36); MEAN PLATELET VOLUME 9.7 fL (7.4-10.4); PLATELET COUNT 219 K/uL (130-400); RED BLOOD COUNT 4.21 M/uL (4.2-5.4); WHITE BLOOD COUNT 7.96 K/uL (4.8-10.8)
[2016-03-30 07:08] VITALS: PULSE 88
[2016-03-30] MEDS: LEVALBUTEROL 1.25MG/3ML NEB INH SCH ×2 (07:08→14:19)
[2016-03-30 07:14] LABS: BUN/CREATININE RATIO 19.8 (10-20); CALCIUM 8.6 mg/dl (8.5-10.1); CREATININE 0.84 mg/dl (0.60-1.20); POTASSIUM 3.6 mmol/L (3.5-5.1)
[2016-03-30] MEDS: FLUTICASONE PROPIONATE NA SPR 16 GM BTL NAE SCH (08:00)
[2016-03-30] MEDS: BECLOMETHASONE DIP HFA 80 MCG 8.7G INH INH SCH (08:00)
[2016-03-30 08:03] VITALS: BP 156/76; PULSE 78; TEMP 36.3; O2SAT 94
--- NOTE | 2016-03-30 08:39 | Progress Note ---
Subjective Date of Service: Mar 30, 2016. Subjective Pt evaluation today including: conversation w/ patient, physical exam, lab review, review of studies, review of inpatient medication list Saw/examined the patient in room 419 Doing well, no problems/issues to note Breathing has improved Review of Systems Constitutional: No chills, No fever Respiratory: + cough, + shortness of breath (improving), + sputum, No dyspnea on exertion, No wheezing Cardiac: No chest pain, No edema, No palpitations Abdomen: No diarrhea, No nausea, No pain, No vomiting Medications Current Inpatient Medications Medications (Trade) Dose Ordered Sig/Yesica Route Start Time Stop Time Status Last Admin Dose Admin Enoxaparin Sodium (Lovenox Inj) 40 mg Q24H SQ 03/24/16 21:00 04/23/16 20:59 Future Hold 03/27/16 20:15 40 MG Acetaminophen (Tylenol Tab) 650 mg Q4H PRN PO 03/24/16 11:30 04/23/16 11:29 03/26/16 14:01 650 MG Ondansetron HCl (Zofran Inj) 4 mg Q6H PRN IV 03/24/16 11:30 04/23/16 11:29 Aspirin (Ecotrin Tab) 81 mg QAM PO 03/25/16 08:00 04/24/16 07:59 03/29/16 08:10 81 MG Beclomethasone Dipropionate (Qvar 80 Mcg Hfa Inhaler) 2 puffs BID INH 03/24/16 20:00 04/23/16 20:59 03/29/16 20:13 2 PUFFS Brimonidine Tartrate (Alphagan-P 0.15% Oph Soln) 1 drops HS OPB 03/24/16 21:00 04/23/16 20:59 03/29/16 20:13 1 DROPS Carvedilol (Coreg Tab) 12.5 mg BID PO 03/24/16 20:00 04/23/16 20:59 03/29/16 20:13 12.5 MG Fluticasone Propionate (Flonase Nasal [place]) 2 sprays DAILY AMARILIS 03/25/16 08:00 04/24/16 08:59 03/29/16 08:06 2 SPRAYS Furosemide (Lasix Tab) 40 mg DAILY PRN PO 03/24/16 12:30 04/23/16 12:29 Future hold 03/28/16 09:23 40 MG Isosorbide Mononitrate (Imdur Ext Rel Tab) 60 mg DAILY PO 03/25/16 08:00 04/24/16 08:59 03/29/16 08:10 60 MG Losartan Potassium (coZAAR TAB) 25 mg DAILY PO 03/25/16 08:00 04/24/16 07:59 Future Hold 03/27/16 08:38 25 MG Montelukast Sodium (Singulair Tab) 10 mg DAILY PO 03/25/16 08:00 04/24/16 08:59 03/29/16 08:11 10 MG Multivitamins/ Minerals (Multivitamin W/ Minerals Tab) 1 tab DAILY PO 03/25/16 08:00 04/24/16 08:59 03/29/16 08:10 1 TAB Pantoprazole Sodium (Protonix Tab) 40 mg BID PO 03/24/16 20:00 04/23/16 20:59 03/29/16 20:14 40 MG Travoprost (Travatan Z) 1 drops HS OP 03/24/16 21:00 04/23/16 20:59 03/29/16 20:14 1 DROPS Cyanocobalamin (Vitamin B-12 Tab) 500 mcg Gonzalez@0900 PO 03/27/16 09:00 04/26/16 08:59 03/27/16 09:04 500 MCG Miscellaneous Information (Order Awaiting Action) 1 ea QS N/A 03/24/16 16:00 04/23/16 15:59 Potassium Chloride (Klor-Con Tab) 20 meq DAILY PRN PO 03/24/16 12:30 04/23/16 12:29 03/28/16 09:23 20 MEQ Insulin Aspart (novoLOG ASPART) SLIDING SCALE If C... ACHS SC 03/24/16 16:30 04/26/16 16:29 03/29/16 20:20 4 UNITS Glucose (Glucose 40% Gel) 15-30 GRAMS 15 GRAMS... UD PRN PO 03/24/16 13:15 04/23/16 13:14 Glucose (Glucose Chew Tab) 4-8 Tablets 4 Tabl... UD PRN PO 03/24/16 13:15 04/23/16 13:14 Dextrose (Dextrose 50% 50ML Syringe) 25-50ML OF 50% DW IV FOR... UD PRN IV 03/24/16 13:15 04/23/16 13:14 Glucagon (Glucagon Inj) 1 mg UD PRN SQ 03/24/16 13:15 04/23/16 13:14 Benzonatate (Tessalon Perles Cap) 200 mg Q4H PRN PO 03/24/16 17:45 04/23/16 17:44 03/29/16 18:04 200 MG Phenol (Chloraseptic 1.4% [place]) 1 sprays Q6H PRN MT 03/24/16 17:45 04/23/16 17:44 03/24/16 18:05 1 SPRAYS Tramadol HCl (Ultram Tab) 50 mg Q4H PRN PO 03/25/16 11:45 04/24/16 11:44 Albuterol/ Ipratropium (Duoneb) 3 ml Q2R PRN INH 03/25/16 12:00 04/24/16 11:59 Miscellaneous Information (Consult Glycemic Management Pharmacy) 1 ea UD PRN N/A 03/26/16 17:07 04/25/16 17:06 Docusate Sodium (coLACE CAP) 100 mg BID PO 03/26/16 20:00 04/25/16 19:59 03/29/16 20:14 100 MG Codeine Phosphate/ Guaifenesin (Robitussin-AC Sugar Free Syrup) 10 ml Q6H PRN PO 03/26/16 16:00 04/25/16 15:59 Citalopram Hydrobromide (celeXA TAB) 20 mg DAILY PO 03/28/16 08:00 04/27/16 07:59 03/29/16 08:06 20 MG Levalbuterol (Xopenex 1.25MG/ 3ML Neb) 1.25 mg Q6RWA INH 03/27/16 21:00 04/26/16 20:59 03/30/16 07:08 1.25 MG Guaifenesin (Mucinex Contr Rel Tab) 600 mg Q12 PO 03/27/16 21:00 04/26/16 20:59 03/29/16 20:13 600 MG Doxycycline Hyclate (Vibramycin Cap) 100 mg BID PO 03/27/16 20:00 04/03/16 19:59 03/29/16 20:14 100 MG Lorazepam (Ativan Tab) 1 mg Q6H PRN PO 03/27/16 23:45 04/26/16 23:44 03/29/16 21:59 1 MG Prednisone (PredniSONE TAB) 20 mg DAILY PO 03/28/16 09:00 04/27/16 08:59 03/29/16 08:11 20 MG Insulin Human NPH (novoLIN-N NPH) 42 units BID SQ 03/28/16 09:00 04/27/16 08:59 03/29/16 20:21 42 UNITS Objective Vital Signs Date Time Temp Pulse Resp B/P Pulse Ox O2 Delivery O2 Flow Rate FiO2 03/30/16 08:03 36.3 78 18 156/76 94 Room Air 03/30/16 07:08 88 16 Room Air 95 03/30/16 02:00 163/77 03/30/16 00:50 36.5 69 18 92/54 94 Room Air 03/30/16 00:00 Room Air 03/29/16 20:11 78 149/71 03/29/16 20:00 Room Air 03/29/16 19:26 90 16 Room Air 94 03/29/16 16:00 Room Air 03/29/16 15:52 36.5 89 22 163/76 94 Room Air 03/29/16 14:04 82 16 Room Air 95 03/29/16 10:42 75 95 Physical Exam General Appearance: no apparent distress ENT: hearing grossly normal Respiratory/Chest: chest non-tender, no respiratory distress, no accessory muscle use, + decreased breath sounds Cardiovascular: regular rate, rhythm, no edema, no murmur Abdomen: normal bowel sounds, non tender, soft Extremities: normal inspection, no pedal edema Neurologic/Psychiatric: no motor/sensory deficits, alert, normal mood/affect Skin: normal color Lymphatic: no adenopathy Laboratory Results Last 24 Hours Test 03/29/16 11:35 03/29/16 17:00 03/29/16 20:04 03/30/16 06:32 Bedside Glucose 263 mg/dl 223 mg/dl 213 mg/dl White Blood Count 7.96 K/uL Red Blood Count 4.21 M/uL Hemoglobin 9.6 g/dL Hematocrit 31.4 % Mean Corpuscular Volume 74.6 fL Mean Corpuscular Hemoglobin 22.8 pg Mean Corpuscular Hemoglobin Concent 30.6 g/dl RDW Standard Deviation 45.4 fL RDW Coefficient of Variation 17.5 % Platelet Count 219 K/uL Mean Platelet Volume 9.7 fL Sodium Level 141 mmol/L Potassium Level 3.6 mmol/L Chloride Level 105 mmol/L Carbon Dioxide Level 27 mmol/L Anion Gap 9.0 mmol/L Blood Urea Nitrogen 17 mg/dl Creatinine 0.84 mg/dl Est Creatinine Clear Calc Drug Dose 56.6 ml/min Estimated GFR () 77.7 Estimated GFR (Non- 67.0 BUN/Creatinine Ratio 19.8 Random Glucose 80 mg/dl Calcium Level 8.6 mg/dl Assessment and Plan This is a 75 year old female with PMH of CAD s/p stent, DM2, HTN, HLD, moderate persistent asthma, generalized anxiety disorder presents with worsening shortness of breath Bronchiectatic Asthma 03/30 patient doing well has had bronchoscopic evaluation no growth on bronchial washing/staining appreciate pulmonology input will d/c home today with prednisone taper will d/c on doxycycline for total of 7 days outpatient pulm follow-up in 2 weeks outpatient PCP follow-up on 04/05 @ 8:30AM 03/29 s/p bronchoscopy evaluation bronchitis + asthma changed from IV solu-medrol to prednisone, continue this for now Continue doxycycline (day #3) for now vibration vest added continue nebulizers as needed appreciate pulmonology input PT/OT added - did well with physical therapy Plan is to discharge home in AM (03/30/16) CAD s/p stent No chest pain clinically stable continue aspirin, b-vlad, imdur Should be started on statin, though possible allergy? Hypertension BP has been stable. continue home medications Insulin Dependent Type II Recent A1C 8.7 hold oral agents NPH insulin sliding scale Anemia Noted low H/H with no evidence of any occult loss Normal b12/folate low iron, TIBC wnl RANDY should be using CPAP nocturnally; currently in the process Generalized Anxiety Disorder continue home medications DVT Prophylaxis Lovenox FULL CODE Likely d/c home in AM (03/30)
[2016-03-30] MEDS ORDERED: PRD10 PO (08:42)
[2016-03-30] MEDS ORDERED: DXY100 PO (08:42)
--- NOTE | 2016-03-30 08:44 | Discharge Instructions ---
Discharge Instructions Admission Reason for Admission: Asthmatic Bronchitis Discharge Discharge Diagnosis / Problem: Bronchial Asthma Discharge Goals Goal(s): Decrease discomfort, Improve function, Diagnostic testing, Therapeutic intervention Activity Recommendations Activity Limitations: resume your previous activity . Instructions / Follow-Up Instructions / Follow-Up Please follow-up with Dr. Conde on March 31 @ 8:30AM * You will be discharged on doxycycline 100mg twice a day for four days total * You will be discharged on prednisone 20mg for three days, then 15mg for the next three days, then 10mg for the following three days, and finally 5mg for the last three days * Follow-up with pulmonology in 2 weeks (Jason Garcia PA-C) Current Hospital Diet Patient's current hospital diet: Diabetes Type 2 Diet, AHA Diet (Heart Healthy) , Low Sodium Diet (2gm Na) Discharge Diet Recommended Diet: AHA Diet (Heart Healthy) Pending Studies Studies pending at discharge: no Medical Emergencies . Who to Call and When: Medical Emergencies: If at any time you feel your situation is an emergency, please call 911 immediately. . Non-Emergent Contact Non-Emergency issues call your: Primary Care Provider . . "Provider Documentation" section prepared by Vidhya Cesar. VTE Core Measure Inpt VTE Proph given/why not?: Enoxaparin (Lovenox)SQ
--- NOTE | 2016-03-30 08:47 | Discharge Summary ---
Discharge Summary Admission Date: Mar 24, 2016 at 11:52 Discharge Date: Mar 30, 2016 Discharge Disposition: Home Principal Diagnosis: Asthmatic Bronchitis; Asthma Exacerbation Medication Reconciliation New Medications: Prednisone (Prednisone) 10 Mg Tab 10 MG PO DAILY for 12 Days, #15 TABS use as directed Doxycycline Hyclate (Doxycycline Hyclate) 100 Mg Cap 100 MG PO BID for 4 Days, #8 CAP Continued Medications: Albuterol (Ventolin) Inh 2 PUFFS INH 3-4 HOURS. for 5 Days, 0 Refills Albuterol Sulfate (Proair Hfa) 108 Mcg/ Aer Arformoterol Tartrate (Brovana 15MCG/2ML Soln) Nebu Aspirin (Chewable Aspirin) 81 Mg Chw 81 MG PO DAILY Beclomethasone Dipropionate (Qvar) 80 Mcg/ Aer Brimonidine Tartrate (Alphagan P) 150 Drops/10 Ml Soln Carvedilol (Coreg) 12.5 Mg Tab 12.5 MG PO BID Citalopram Hydrobromide (Citalopram Hydrobromide) 20 Mg Tab 1 TAB PO DAILY for 30 Days, #30 TAB 5 Refills Cyanocobalamin (Vitamin B 12) 250 Mcg Jenni 500 MCG SL WK Fluticasone Propionate (Nasal) (Flonase) 50 Mcg/Act Spr 2 SPRAYS AMARILIS D Furosemide (Lasix) 40 Mg Tab 40 MG PO, TAB Insulin Human NPH (Humulin N) 100 Units/Ml Susp 60 UNITS SQ QAM Insulin Human NPH (Humulin N) 100 Units/Ml Susp 54 UNITS SQ QPM Insulin Lispro (Human) (Humalog) 100 Unit/Ml Inj 12 UNITS SC QAM Insulin Lispro (Human) (Humalog) 100 Unit/Ml Inj 26 UNITS SC QDD Isosorbide Mononitrate (Imdur Ext Rel) 60 Mg Tab 60 MG PO DAILY, TAB Levocetirizine Dihydrochloride (Levocetirizine Dihydrochl) 5 Mg Tab 5 MG PO BID for 30 Days, #60 TAB 3 Refills Lorazepam (Ativan *) 1 Mg Tab 1 MG PO TID, 0 Refills Losartan Potassium (Cozaar) 25 Mg Tab 25 MG PO DAILY, TAB Metformin HCL (Glucophage *) 1,000 Mg Tab 1000 MG PO BID, 0 Refills Montelukast (Singulair *) 10 Mg Tab 10 MG PO DAILY, 0 Refills Multiple Vitamins W/ Minerals (Centrum Silver Adult 50+) 1 Tab Tab Nitroglycerin (Nitroglycerin) 0.6 Mg/Hr Dis Pantoprazole Sodium (Protonix) 40 Mg Tab 40 MG PO BID, #30 TAB Polyethylene Glycol 3350 (Miralax) 1 Pow Pow Potassium Chloride (Potassium Chloride ER) 20 Meq Tab 20 MEQ PO UD Take 20meq PO with lasix Travoprost (Travatan Z) 0.004 % Fidel 1 DROPS OP HS, #2.5 ML 2 Refills Admission Information HPI (per Admitting provider): This is a 75 y/o female with PMHx of CAD s/p stent placement, IDDM, moderate COPD, HTN, dyslipidemia and other problems as outlined below who presents s/p bronchoalveolar lavage today with Dr. Harrell. Pt reports that for the past couple months she has had a cough that is productive of thick white sputum. Sxs are assoc with SOB, wheezing and occasional post-tussive vomiting. Pt has been using her inhalers/nebs around the clock with only temporary relief. She has completed multiple courses of abx and prednisone. The last course was clindamycin (for possible silent aspiration pneumonia) and Diflucan. She is currently not on any abx or steroids. Pt has a history of asthmatic bronchitis. Per patient she had a bronchoalveolar lavage in July 2015 which gave her a few months of relief. Pt is not on home O2. She follows with pulmonology, Dr. Harrell. Pt denies fever/chills, chest pain, abd pain, nausea, bowel or bladder issues, LE edema, calf pain, lightheadedness/dizziness. In PACU, vitals are stable. She is saturating well on 2L O2. Pt will be admitted for further evaluation and treatment. Physical Exam (per Admitting): General Appearance: WD/WN, no apparent distress, + obese, + pertinent finding (Pt is laying in bed with and daughter at bedside ) Head: normocephalic, atraumatic Eyes: normal inspection ENT: hearing grossly normal Neck: supple Respiratory/Chest: no respiratory distress, no accessory muscle use, + pertinent finding (chest tenderness to palpation; faint crackles to bilat bases ; no wheezes noted) Cardiovascular: regular rate, rhythm, no murmur Abdomen/GI: normal bowel sounds, non tender, soft Back: normal inspection Extremities/Musculoskelatal: normal inspection, no calf tenderness, + swelling (trace bilat) Neurologic/Psych: alert, normal mood/affect, oriented x 3 Skin: normal color, warm/dry Hospital Course This is a 75 year old female with PMH of CAD s/p stent, DM2, HTN, HLD, moderate persistent asthma, generalized anxiety disorder presents with worsening shortness of breath Bronchiectatic Asthma 03/30 patient doing well has had bronchoscopic evaluation no growth on bronchial washing/staining appreciate pulmonology input will d/c home today with prednisone taper will d/c on doxycycline for total of 7 days outpatient pulm follow-up in 2 weeks outpatient PCP follow-up on 04/05 @ 8:30AM 03/29 s/p bronchoscopy evaluation bronchitis + asthma changed from IV solu-medrol to prednisone, continue this for now Continue doxycycline (day #3) for now vibration vest added continue nebulizers as needed appreciate pulmonology input PT/OT added - did well with physical therapy Plan is to discharge home in AM (03/30/16) CAD s/p stent No chest pain clinically stable continue aspirin, b-vlad, imdur Should be started on statin, though possible allergy? Hypertension BP has been stable. continue home medications Insulin Dependent Type II Recent A1C 8.7 hold oral agents NPH insulin sliding scale Anemia Noted low H/H with no evidence of any occult loss Normal b12/folate low iron, TIBC wnl RANDY should be using CPAP nocturnally; currently in the process Generalized Anxiety Disorder continue home medications DVT Prophylaxis Lovenox FULL CODE Likely d/c home in AM (03/30) Total time spent on discharge = 35 minutes This includes examination of the patient, discharge planning, medication reconciliation, and communication with other providers. Discharge Instructions Please follow-up with Dr. Conde on March 31 @ 8:30AM * You will be discharged on doxycycline 100mg twice a day for four days total * You will be discharged on prednisone 20mg for three days, then 15mg for the next three days, then 10mg for the following three days, and finally 5mg for the last three days * Follow-up with pulmonology in 2 weeks (Jason Garcia PA-C)
[2016-03-30] MEDS ORDERED: INSULIN HUMAN NPH SQ SCH (09:00)
[2016-03-30] MEDS: INSULIN ASPART 100 UNITS/ML 3 ML PEN SC SCH ×2 (09:51→12:37)
[2016-03-30] MEDS: CITALOPRAM 20 MG TAB PO SCH (09:55)
[2016-03-30] MEDS: ASPIRIN 81 MG ECTAB PO SCH (09:56)
[2016-03-30] MEDS: CARVEDILOL 12.5 MG TAB PO SCH (09:56)
[2016-03-30] MEDS: DOCUSATE SODIUM 100 MG CAP PO SCH (09:56)
[2016-03-30] MEDS: ISOSORBIDE MONONITRATE 60 MG TABCR PO SCH (09:57)
[2016-03-30] MEDS: PANTOprazole SOD 40 MG TAB PO SCH (09:57)
[2016-03-30] MEDS: CEROVITE ADV FORMULA TAB PO SCH (09:57)
[2016-03-30] MEDS: GUAIFENESIN 600 MG TABCR PO SCH (09:58)
[2016-03-30] MEDS: DOXYCYCLINE HYCLATE 100 MG CAP PO SCH (09:58)
[2016-03-30] MEDS: MONTELUKAST SOD 10 MG TAB PO SCH (09:58)
[2016-03-30] MEDS: BENZONATATE 100MG CAP PO PRN (09:59)
[2016-03-30 13:06] VITALS: BP 156/76; PULSE 78; TEMP 36.3; O2SAT 94
[2016-03-30 14:19] VITALS: PULSE 86
--- NOTE | 2016-04-01 10:16 | EDITING REQUIRED CODING QUERY ---
PRESENT ON ADMISSION QUERY To promote full compliance with coding requirements relating to pateint care, physician participation is requested in all cases of delivery rn uncertainty. Please assist us with the question(s) below: Please place an X within the parenthesis (x). The following diagnosis(es) listed in this patient's medical record require physician assistance to determine if they were present on admission (POA) or not. Please advise for each diagnosis whether it was present on admission, not present on admission, or if it was clinically undetermined. 1. Asthma Exacerbation (documented in Progress Notes, Consults and Discharge Summary) ( X) Present On Admission ( ) Not Present On Admission ( ) Clinically Undetermined Thank you Fiordaliza Emmanuel *Definition of the present on admission (POA)-Present on admission is defined as present at the time the order for inpatient admission occurs. Conditions that develop during an outpatient encounter prior to a written order for inpatient admission (including emergency department, observation, or outpatient surgery) are considered present on admission.
[2016-04-05 15:43] LABS: HERPES SIMPLEX CULT SOURCE RESPIRATORY-R&L BRON; HERPES SIMPLEX VIRUS CULT NOT ISOLATED (NOT ISOLATED)
== END 2016-03-30 14:30 | disposition home or self-care (01) | DRG 167 ==
LOC: ENRESERVDT → ENRESERVTM → C.ACU 07:48 → C.4E 11:52
PROVIDERS: ADMIT Emergency Medicine; ATTEND Family Medicine
PROC: 3E1F88Z Irrigation of Respiratory Tract using Irrigating Substance, Via Natural or Artificial Opening Endoscopic (ICD-10-PCS; principal; 2016-03-24 08:00)
PROC: 0B9J8ZX Drainage of Left Lower Lung Lobe, Via Natural or Artificial Opening Endoscopic, Diagnostic (ICD-10-PCS; principal; 2016-03-24 08:00)
PROC: 0B9F8ZX Drainage of Right Lower Lung Lobe, Via Natural or Artificial Opening Endoscopic, Diagnostic (ICD-10-PCS; principal; 2016-03-24 08:00)
DX: J44.1 Chronic obstructive pulmonary disease with (acute) exacerbation (principal); Z68.41 Body mass index [BMI] 40.0-44.9, adult; J39.8 Other specified diseases of upper respiratory tract; J98.09 Other diseases of bronchus, not elsewhere classified; J45.40 Moderate persistent asthma, uncomplicated; D64.9 Anemia, unspecified; K59.00 Constipation, unspecified; I25.10 Atherosclerotic heart disease of native coronary artery without angina pectoris; E11.9 Type 2 diabetes mellitus without complications; I11.9 Hypertensive heart disease without heart failure; E53.8 Deficiency of other specified B group vitamins; K21.9 Gastro-esophageal reflux disease without esophagitis; G47.33 Obstructive sleep apnea (adult) (pediatric); K58.9 Irritable bowel syndrome, unspecified; E66.9 Obesity, unspecified; F41.1 Generalized anxiety disorder; Z51.81 Encounter for therapeutic drug level monitoring; Z79.899 Other long term (current) drug therapy; Z79.52 Long term (current) use of systemic steroids; Z79.4 Long term (current) use of insulin; Z79.82 Long term (current) use of aspirin; Z95.5 Presence of coronary angioplasty implant and graft; Z86.73 Personal history of transient ischemic attack (TIA), and cerebral infarction without residual deficits; Z87.891 Personal history of nicotine dependence; Z83.3 Family history of diabetes mellitus; Z82.49 Family history of ischemic heart disease and other diseases of the circulatory system

== ENCOUNTER 2016-12-22 11:10 | Inpatient (IN) | payer OTHER, BC ==
[~2016-12-22] VITALS: Ht 149.9 cm; Wt 101.5 kg
[~2016-12-22 11:10] MED LIST changes: -ADVIN50050 INH; -ALBU1AER9; -ALBUAER2 INH; -ALPPOPS5; -ASPI81CH8 PO; -ATOR10TA88 PO; -BIOTIN 5000 PO; -CLMTP EXT; -CYAN1LOZ2 SL; -DOCU-94 PO; -FERR28TA2 OR; -INSPMPHMLG SQ; +INSU100I SC; +ISOS60TA2 PO; +LEVO-14 PO; +PANT40TA PO; -POLY335019; -POTA1POW; +PRD10 PO; +TRAV0.00 OP; -TSSP PO; -[UNRECOGNIZED DRUG - CODE]
[2016-12-22 13:57] VITALS: BP 169/81; PULSE 105; TEMP 36.6; BMI 45.2
[2016-12-22] MEDS ORDERED: ONDANSETRON INJ 2 MG/ML 2 ML VIAL IV PRN (14:00)
[2016-12-22] MEDS ORDERED: DEXTROSE 50% 50 ML SYR IV PRN (14:00)
[2016-12-22] MEDS ORDERED: GLUCAGON FOR INJ 1 MG VIAL SQ PRN (14:00)
[2016-12-22] MEDS ORDERED: GLUCOSE 10 TABS/TUBE PO PRN (14:00)
[2016-12-22] MEDS ORDERED: GLUCOSE 40% GEL 15 GM TUBE PO PRN (14:00)
[2016-12-22] MEDS ORDERED: POLYETHYLENE (MIRALAX) 17 GM PACK PO PRN (14:00)
[2016-12-22] MEDS ORDERED: INFLUENZA ADMINISTRATION CHARGE ONE (15:00)
[2016-12-22] MEDS ORDERED: INFLUENZA VACCINE HIGH DOSE 65+ 0.5 ML SYR IM. ONE (15:00)
[2016-12-22 15:06] LABS: BASO % 0.5 %; BASO ABS # 0.03 K/uL (0-0.2); EOS % 0.3 %; HEMATOCRIT 31.6 % (37-47); IG% 0.3 %; LYMPH % 22.6 %; LYMPH ABS # 1.39 K/uL (1.2-3.4); MEAN CELL VOLUME 74.4 fL (80-100); MEAN CORPUSCULAR HEMOGLOBIN 22.6 pg (25-34); MEAN CORPUSCULAR HGB CONC 30.4 g/dl (32-36); MEAN PLATELET VOLUME 10.2 fL (7.4-10.4); MONO % 2.4 %; NEUT % 73.9 %; PLATELET COUNT 186 K/uL (130-400); RED BLOOD COUNT 4.25 M/uL (4.2-5.4); WHITE BLOOD COUNT 6.16 K/uL (4.8-10.8)
[2016-12-22 15:15] LABS: INR 1.1 (0.9-1.1); PROTHROMBIN TIME (PATIENT) 11.5 SECONDS (9.0-12.0)
[2016-12-22] MEDS ORDERED: CITA10TA8 PO (15:16)
[2016-12-22] MEDS ORDERED: RRALBUT083 INH (15:16)
[2016-12-22] MEDS ORDERED: ASPEC81 PO (15:16)
[2016-12-22] MEDS ORDERED: CYNI1000 INJ (15:16)
[2016-12-22] MEDS ORDERED: POTA-74 PO (15:16)
[2016-12-22] MEDS ORDERED: NITR0.4S UT (15:16)
[2016-12-22] MEDS ORDERED: ATRINSX INH (15:16)
[2016-12-22 15:26] LABS: COMPLETE YES; ECHINOCYTES 1+
[2016-12-22] MEDS ORDERED: FLUTICASONE PROPIONATE NA SPR 16 GM BTL NAE PRN (15:30)
[2016-12-22] MEDS ORDERED: NITROGLYCERIN 0.4 MG SL PER TAB CHARGE UT PRN (15:30)
[2016-12-22 15:31] LABS: BUN/CREATININE RATIO 9.3 (10-20); CALCIUM 8.7 mg/dl (8.5-10.1); CREATININE 0.74 mg/dl (0.60-1.20); MAGNESIUM 1.7 mg/dl (1.8-2.4); POTASSIUM 4.4 mmol/L (3.5-5.1)
[2016-12-22 15:33] LABS: ALB/GLOB RATIO 0.9 (0.9-2)
--- NOTE | 2016-12-22 15:44 | DIAGNOSTIC IMAGING REPORT ---
SINGLE VIEW CHEST CLINICAL HISTORY: Dyspnea. FINDINGS: An AP, portable, upright chest radiograph is compared to study dated 03/26/2016. The examination is degraded by portable technique, large body habitus, and patient rotation. The the heart is enlarged there is atherosclerotic calcification of the thoracic aorta. The pulmonary vasculature is noncongested. Bibasilar atelectasis is observed. The lungs and pleural spaces are otherwise grossly clear. No pneumothorax is seen. The skeletal structures are osteopenic. The bony thorax is grossly intact. IMPRESSION: Cardiomegaly with no acute cardiopulmonary abnormality. Electronically signed by: Fabio Niño M.D. 12/22/2016 3:43 PM Dictated Date/Time: 12/22/2016 3:42 PM
--- NOTE | 2016-12-22 15:48 | History and Physical ---
History & Physical Date & Time of Service: Dec 22, 2016 at 15:41 Chief Complaint: Copd Exacerbation, Sob Primary Care Physician: Hans Smith M.D. History of Present Illness Source: patient, clinic records, hospital records This is a 76yoF with a PMH of asthma, bronchiectasis, COPD, CAD (s/p stents x 2) , DM II, systolic HF and other problems listed below who presents with ongoing dyspnea on exertion and SOB. Patient follows closely with Dr. Harrell and has had multiple exacerbations over the past year. States that she was hospitalized for an exacerbation last January and has "not quite recovered" since then. Has a baseline SOB after a 1/2 flight of stairs. Has not become more dyspneic on exertion in the past 6 months. Recently completed a prednisone and antibiotic course without improvement. States that she noticed she was getting a sore throat and nasal congestion earlier this week, so she returned to Dr. Harrell. Was initiated on another course of steroids and advised to come to the hospital further treatment and a bronchoscopy. Per clinic note, in May of this year patient had a CT scan performed that was suggestive of bronchiectasis. Received a bronchoscopy at that time with some clinical improvement. Cultures were negative. Patient endorses dyspnea on exertion, SOB, sore throat, productive cough with clear sputum and nasal congestion. Denies fever, chills, ear pain, CP, palpitations, wheezing, abdominal pain, nausea, vomiting or worsening LE swelling. Past Medical/Surgical History Medical Problems: (1) Asthma, moderate persistent Status: Chronic (2) Asthmatic bronchitis Status: Chronic (3) CAD (coronary artery disease) Status: Chronic (4) COPD (chronic obstructive pulmonary disease) Status: Chronic (5) Diabetes mellitus type II, controlled Status: Chronic (6) Dyslipidemia Status: Chronic (7) FATOU (generalized anxiety disorder) Status: Chronic (8) GERD (gastroesophageal reflux disease) Status: Chronic (9) History of CVA (cerebrovascular accident) Status: Chronic (10) HTN (hypertension) Status: Chronic (11) IBS (irritable bowel syndrome) Status: Chronic Surgical Problems: (1) H/O eye surgery Status: Resolved (2) History of back surgery Status: Resolved (3) History of bladder surgery Status: Resolved (4) History of carpal tunnel surgery Status: Resolved (5) History of section Status: Resolved (6) History of foot surgery Status: Resolved Family History Diabetes mellitus FH: heart disease Hypertension Social History Smoking Status: Former Smoker Drug Use: none Marital Status: Housing status: lives with family Occupational Status: retired Immunizations History of Influenza Vaccine: Yes History of Tetanus Vaccine?: Yes History of Pneumococcal: Yes History of Hepatitis B Vaccine: Yes Multi-Drug Resistant Organisms History of MDRO: No Allergies Coded Allergies: Norethindrone (Verified Allergy, Severe, SHORTNESS OF BREATH, 05/19/15) Latanoprost (Verified Allergy, Intermediate, RASH, 05/19/15) Paroxetine (Verified Allergy, Intermediate, RASH, 05/19/15) Tetracycline (Verified Allergy, Intermediate, RASH, 05/19/15) Simvastatin (Verified Allergy, Unknown, UNKNOWN, 05/19/15) Sulfamethoxazole (Verified Allergy, Unknown, ., 05/19/15) Esomeprazole (Verified Adverse Reaction, Severe, SHORTNESS OF BREATH, 05/18) Fenofibrate (Verified Adverse Reaction, Severe, ., 05/19/15) ARM WEAKNESS Metoclopramide (Verified Adverse Reaction, Severe, ., 05/19/15) NERVOUS REACTION Enalapril (Verified Adverse Reaction, Intermediate, ., 05/19/15) COUGH Glyburide (Verified Adverse Reaction, Intermediate, ., 05/19/15) ITCHING Morphine and Related (Verified Adverse Reaction, Intermediate, ITCHY, 03/25) ITCHY Oxycodone (Verified Adverse Reaction, Intermediate, ITCHY,BLOTCHY, 03/25/16 ) Home Medications Scheduled Carvedilol (Coreg), 12.5 MG PO BID Citalopram Hydrobromide (Celexa), 1 TAB PO DAILY Cyanocobalamin (Cyanocobalamin), 1 MCG INJ MONTHLY Fluticasone Propionate (Nasal) (Flonase), 2 SPRAYS AMARILIS D Insulin Human NPH (Humulin N), 60 UNITS SQ QAM Insulin Human NPH (Humulin N), 60 UNITS SQ QPM Insulin Lispro (Human) (Humalog), 18 UNITS SC QAM Insulin Lispro (Human) (Humalog), 30 UNITS SC QDD Ipratropium [place] (Atrovent 0.02% Soln), 1 UNIT INH QID Isosorbide Mononitrate (Imdur Ext Rel), 30 MG PO DAILY Levocetirizine Dihydrochloride (Levocetirizine Dihydrochl), 5 MG PO BID Lorazepam (Ativan *), 1 MG PO TID Losartan Potassium (Cozaar), 25 MG PO DAILY Metformin HCL (Glucophage *), 1,000 MG PO BID Montelukast (Singulair *), 10 MG PO DAILY Pantoprazole Sodium (Protonix), 40 MG PO BID Potassium Chloride (Potassium Chloride Er), 1 TAB PO BID Prednisone (Prednisone), 10 MG PO DAILY Travoprost (Travatan Z), 1 DROPS OP HS Scheduled PRN Albuterol Sulf (Albuterol Sulfate), 1 UNIT INH Q4 PRN for SOB/Wheezing Nitroglycerin (Nitrostat), 0.4 MG UT PRN PRN for Chest Pain Miscellaneous Medications Arformoterol Tartrate (Brovana 15MCG/2ML Soln) Aspirin (Aspirin EC Low Dose), 81 MG PO Beclomethasone Dipropionate (Qvar) Brimonidine Tartrate (Alphagan P) Furosemide (Lasix), 40 MG PO Multiple Vitamins W/ Minerals (Centrum Silver Adult 50+) Review of Systems Ten systems reviewed and negative except as noted in the HPI. Physical Exam Vital Signs Date Time Temp Pulse Resp B/P (MAP) Pulse Ox O2 Delivery O2 Flow Rate FiO2 12/22/16 13:57 36.6 105 20 169/81 Room Air General Appearance: no apparent distress, + obese Head: normocephalic, atraumatic Eyes: normal inspection, PERRL, EOMI, sclerae normal (conjuctiva normal ) ENT: normal ENT inspection, hearing grossly normal, TMs normal, pharynx normal (Evidence of post nasal drip ), + nasal congestion Neck: supple, no adenopathy, thyroid normal, trachea midline Respiratory/Chest: chest non-tender, lungs clear, normal breath sounds, no respiratory distress, no accessory muscle use Cardiovascular: regular rate, rhythm, no murmur, normal peripheral pulses Abdomen/GI: normal bowel sounds, non tender, soft, no organomegaly Back: normal inspection Extremities/Musculoskelatal: normal inspection, no calf tenderness, + swelling (Trace swelling in bilateral LE ) Neurologic/Psych: alert, normal mood/affect, oriented x 3 Skin: normal color, warm/dry, no rash Diagnostics Laboratory Results Results Past 24 Hours Test 10/26/17 14:47 Range/Units White Blood Count 6.16 4.8-10.8 K/uL Red Blood Count 4.25 4.2-5.4 M/uL Hemoglobin 9.6 12.0-16.0 g/dL Hematocrit 31.6 37-47 % Mean Corpuscular Volume 74.4 80-100 fL Mean Corpuscular Hemoglobin 22.6 25-34 pg Mean Corpuscular Hemoglobin Concent 30.4 32-36 g/dl Platelet Count 186 130-400 K/uL Mean Platelet Volume 10.2 7.4-10.4 fL Neutrophils (%) (Auto) 73.9 % Lymphocytes (%) (Auto) 22.6 % Monocytes (%) (Auto) 2.4 % Eosinophils (%) (Auto) 0.3 % Basophils (%) (Auto) 0.5 % Neutrophils # (Auto) 4.55 1.4-6.5 K/uL Lymphocytes # (Auto) 1.39 1.2-3.4 K/uL Monocytes # (Auto) 0.15 0.11-0.59 K/uL Eosinophils # (Auto) 0.02 0-0.5 K/uL Basophils # (Auto) 0.03 0-0.2 K/uL RDW Standard Deviation 46.8 36.4-46.3 fL RDW Coefficient of Variation 17.1 11.5-14.5 % Immature Granulocyte % (Auto) 0.3 % Immature Granulocyte # (Auto) 0.02 0.00-0.02 K/uL Echinocytes 1+ Prothrombin Time 11.5 9.0-12.0 SECONDS Prothromb Time International Ratio 1.1 0.9-1.1 Sodium Level 134 136-145 mmol/L Potassium Level 4.4 3.5-5.1 mmol/L Chloride Level 102 98-107 mmol/L Carbon Dioxide Level 22 21-32 mmol/L Anion Gap 10.0 3-11 mmol/L Blood Urea Nitrogen 7 7-18 mg/dl Creatinine 0.74 0.60-1.20 mg/dl Est Creatinine Clear Calc Drug Dose 65.8 ml/min Estimated GFR () 89.9 Estimated GFR (Non- 77.6 BUN/Creatinine Ratio 9.3 10-20 Random Glucose 280 70-99 mg/dl Calcium Level 8.7 8.5-10.1 mg/dl Magnesium Level 1.7 1.8-2.4 mg/dl Total Bilirubin 0.6 0.2-1 mg/dl Aspartate Amino Transf (AST/SGOT) 52 15-37 U/L Alanine Aminotransferase (ALT/SGPT) 53 12-78 U/L Alkaline Phosphatase 117 45-117 U/L Total Protein 7.3 6.4-8.2 gm/dl Albumin 3.4 3.4-5.0 gm/dl Globulin 3.9 2.5-4.0 gm/dl Albumin/Globulin Ratio 0.9 0.9-2 Microbiology Results 12/22/16 Blood Culture, Received Pending 12/22/16 Blood Culture, Received Pending Diagnostic Radiology CXR: IMPRESSION: Cardiomegaly with no acute cardiopulmonary abnormality. EKG Sinus tachycardia Anterior infarct (cited on or before 31-MAY-2013) Abnormal ECG When compared with ECG of 24-MAR-2016 13:44, No change Confirmed by Adal Castrejon Reviewed by me. Impression Assessment and Plan This is a 76yoF with a PMH of asthma, bronchiectasis, COPD, CAD (s/p stents x 2) , DM II, systolic CHF and other problems listed below who presents with ongoing dyspnea on exertion and SOB. COPD/asthma exacerbation, bronchiectasis: -Ongoing SOB, productive cough -2/2 recent URI -Per recommendations from Dr. Harrell: -Solu-medrol 40mg Q8 -Rocephin, Azithromycin -Duonebs -Pulm consult -Continue singular -Robitussin AC for symptomatic relief -Sputum culture, flu PCR pending DM II: -Home agents held -Initiated basal bolus regimen -Monitor and adjust in light of IV steroid use -BSG AC HS -Hgb a1c pending CAD (s/p stents x 2): -No CP -EKG without changes -Continue aspirin, statin intolerant CHF: -Compensated -CXR without evidence of congestion -Echo in 2012 with EF% of 50, some apical wall motion abnormalities -Continue Lasix, Coreg, Imdur, aspirin Anemia: likely 2/2 chronic disease, stable and at baseline for last couple of years. No active bleeding or indication for transfusion at this time. Anxiety: -Stable -Continue celexa, ativan HTN: -Continue losartan, coreg, imdur DVT Ppx: Lovenox Code status: FULL PCP: Luis Dispo: Plan to return home once medically stable Patient seen in collaboration with Dr. Baker. Please see addendum. ADDENDUM: I have seen and examined the patient and agree with the assessment and plan as above. Pulm consult placed per Dr. Harrell request. Blood sugars are uncontrolled so adjusted Lantus to 25 Units q12 with strict (Level 3) control continued while on steroids. ENT exam was unremarkable aside from post- nasal drip and cough with deep breathing. No wheezing heard with clear lungs to auscultation. No hypoxia or conversational dyspnea. CXR clear w sputum culture pending. Pt reports persistent symptoms for a long time, especially worse in the last 4-6 weeks. No improvement on an outpatient course of abx and steroids. Apprec pulm input in setting of long-term symptoms and bronchiectasis. DO Samuel Level of Care Med/Surg Advanced Directives Existing Living Will: No Existing Power of [place] Supervisor: No Resuscitation Status FULL RESUSCITATION VTE Prophylaxis VTE Risk Assessment Done? Y/N: Yes Risk Level: Moderate Given or contraindicated: Enoxaparin (Lovenox)SQ Social Service Consult None Apply
[2016-12-22 15:52] VITALS: PULSE 107; O2SAT 96
[2016-12-22] MEDS: ALBUT/IPRATROP 3MG/0.5MG NEB 3 ML VIAL INH SCH ×2 (15:52→20:00)
[2016-12-22] MEDS: CEFTRIAXONE SOD INJ 1 GM in DEXTROSE 5% ADD-VANTAGE 50ML 50 ML IV SCH (16:10)
[2016-12-22] MEDS: GUAIFENESIN/CODEINE 200MG/20MG 10ML UDC PO PRN ×2 (16:10→22:04)
[2016-12-22] MEDS: ACETAMINOPHEN 325 MG TAB PO PRN ×2 (16:41→21:52)
[2016-12-22] MEDS: AZITHROMYCIN 250 MG TAB PO SCH (16:42)
[2016-12-22 16:50] LABS: INFLUENZA A PCR Neg for Influ A (NEG); INFLUENZA B PCR Neg for Influ B (NEG)
[2016-12-22] MEDS: INSULIN ASPART 100 UNITS/ML 3 ML PEN SC SCH ×2 (17:58→21:42)
[2016-12-22] MEDS: ENOXAPARIN 40 MG/0.4 ML SYR SC SCH (18:00)
[2016-12-22 19:37] VITALS: BP 134/76; PULSE 100; TEMP 36.7; O2SAT 96
[2016-12-22] MEDS ORDERED: BECLOMETHASONE DIP HFA 80 MCG 8.7G INH INH SCH (20:00)
[2016-12-22] MEDS ORDERED: ARFORMOTEROL TART 15MCG/2ML VIAL INH SCH (20:00)
[2016-12-22] MEDS ORDERED: INSULIN GLARGINE SOLOSTAR 100 UNITS/ML 3 ML PEN SC SCH ×2 (21:00→22:30)
[2016-12-22 21:33] VITALS: PULSE 109; O2SAT 91
[2016-12-22] MEDS: BRIMONIDINE TARTRATE-P 0.15% 5 ML BTL OPB SCH (21:39)
[2016-12-22] MEDS: LORAZEPAM 1 MG TAB PO SCH (21:51)
[2016-12-22] MEDS: CARVEDILOL 12.5 MG TAB PO SCH (21:52)
[2016-12-22] MEDS: POTASSIUM CHLORIDE 10 MEQ TABCR PO SCH (21:54)
[2016-12-22] MEDS: PANTOprazole SOD 40 MG TAB PO SCH (21:54)
[2016-12-22] MEDS: METHYLPREDNISOLONE IV 40 MG in SYRINGE 0 ML IV SCH (21:56)
[2016-12-22] MEDS: TRAVOPROST Z 0.004% OPH SOLN 2.5 ML BTL OP SCH (21:59)
[2016-12-22] MEDS: MAGNESIUM SULFATE 1GM / D5W 1 GM in PREMIXED IN D5W 100 ML IV SCH (23:20)
[2016-12-22] MEDS: BENZONATATE 100MG CAP PO PRN (23:58)
[2016-12-23] VITALS (9 sets, daily range): BP systolic 116–149; BP diastolic 67–76; PULSE 68–105; TEMP 36.3–36.9; O2SAT 91–99; BMI 45.2
[2016-12-23] MEDS: MAGNESIUM SULFATE 1GM / D5W 1 GM in PREMIXED IN D5W 100 ML IV SCH (00:50)
[2016-12-23] MEDS ORDERED: INSULIN ASPART 100 UNITS/ML 3 ML PEN SC ONE (01:00)
[2016-12-23 06:08] LABS: ESTIMATED AVERAGE GLUCOSE 214 mg/dl; HA1C FLAG Normal (Normal)
[2016-12-23] MEDS: METHYLPREDNISOLONE IV 40 MG in SYRINGE 0 ML IV SCH ×2 (06:29→13:37)
[2016-12-23] MEDS: ALBUT/IPRATROP 3MG/0.5MG NEB 3 ML VIAL INH SCH ×4 (07:07→19:54)
[2016-12-23] MEDS ORDERED: INSULIN GLARGINE SOLOSTAR 100 UNITS/ML 3 ML PEN SC SCH (08:00)
[2016-12-23] MEDS: CITALOPRAM 20 MG TAB PO SCH (08:38)
[2016-12-23] MEDS: ASPIRIN 81 MG ECTAB PO SCH (08:38)
[2016-12-23] MEDS: FUROSEMIDE 40 MG TAB PO SCH (08:38)
[2016-12-23] MEDS: MONTELUKAST SOD 10 MG TAB PO SCH (08:38)
[2016-12-23] MEDS: LOSARTAN POTASSIUM 25 MG TAB PO SCH (08:38)
[2016-12-23] MEDS: POTASSIUM CHLORIDE 10 MEQ TABCR PO SCH ×3 (08:39→20:16)
[2016-12-23] MEDS: BENZONATATE 100MG CAP PO PRN ×2 (08:39→23:45)
[2016-12-23] MEDS: PANTOprazole SOD 40 MG TAB PO SCH ×2 (08:39→20:15)
[2016-12-23] MEDS: ISOSORBIDE MONONITRATE 30 MG TABCR PO SCH (08:39)
[2016-12-23] MEDS: BRIMONIDINE TARTRATE-P 0.15% 5 ML BTL OPB SCH ×2 (08:40→20:15)
[2016-12-23] MEDS: INSULIN ASPART 100 UNITS/ML 3 ML PEN SC SCH ×5 (08:49→22:45)
[2016-12-23] MEDS: LORAZEPAM 1 MG TAB PO SCH ×3 (08:50→22:11)
[2016-12-23] MEDS: GUAIFENESIN/CODEINE 200MG/20MG 10ML UDC PO PRN ×2 (08:50→16:06)
[2016-12-23] MEDS: CARVEDILOL 12.5 MG TAB PO SCH ×2 (10:08→20:17)
[2016-12-23] MEDS ORDERED: COUGH DROP (SUGAR FREE) LOZ 24 LOZ/1 BOX ONE (10:10)
--- NOTE | 2016-12-23 12:55 | Pulmonary Consultation ---
History General Date of Service: Dec 23, 2016. Stated Complaint: Copd Exacerbation, Sob HPI Patient is a 76 yo female admitted to [facility] upon the recommendation by her Pharmaceutical Service Representative, Dr. Harrell. The patient has history of asthma, broncheictasis, COPD, CAD s/p stents x2, DM2, and systolic HF. The patient has had multiple exacerbations of bronchiectasis/asthma/COPD over the past year. She states that overall, she has become increasingly SOB especially with exertion. She also has had some worsening cough, sore throat, and sputum production. The patient was started on IV SoluMedrol 40mg Q8h, Rocephin 1 g daily, Azithromycin, and Duonebs at the recommendation of Dr. Harrell. Chest X-Ray showed no acute pulmonary process. Image was viewed by me. Labs reviewed: WBC 6.16. Hgb 9.6 Magnesium 1.7 AST 52, ALT 53, Alk Phos 117 Sodium 134 Potassium 4.4 Influenza 1 & 2 negative Hemoglobin A1C 9.1 PFTs in April 2015 showed an FEV1/FVC ratio 77 percent without a significant response to bronchodilator. Lung volumes were essentially normal. Historian: patient Severity: moderate Complaint Status: persistent Review of Systems Constitutional: denies: chills, weakness Eyes: denies: eye pain ENT: denies: loss of hearing Cardiovascular: reports: chest tightness, denies: chest pain, chest pressure Respiratory: reports: cough, shortness of breath, wheezing, sputum production, EVANS Gastrointestinal: denies: abdominal pain, vomiting Genitourinary - Female: denies: dysuria Integumentary: denies: rash All Other Symptoms All Other Systems: Reviewed and Negative Past Medical History Past Medical History: Medical Problems: (1) Asthma, moderate persistent (2) Asthmatic bronchitis (3) CAD (coronary artery disease) (4) COPD (chronic obstructive pulmonary disease) (5) COPD exacerbation (6) Diabetes mellitus type II, controlled (7) Dyslipidemia (8) FATOU (generalized anxiety disorder) (9) GERD (gastroesophageal reflux disease) (10) History of CVA (cerebrovascular accident) (11) HTN (hypertension) (12) IBS (irritable bowel syndrome) Surgical Problems: (1) H/O eye surgery (2) History of back surgery (3) History of bladder surgery (4) History of carpal tunnel surgery (5) History of section (6) History of foot surgery Family History Diabetes mellitus FH: heart disease Hypertension Social History Hx Tobacco Use In Past Year?: No Smoking Status: Former Smoker Marital status: Housing status: lives with family Occupational Status: retired Immunizations History of Influenza Vaccine: Yes History of Tetanus Vaccine?: Yes History of Pneumococcal: Yes History of Hepatitis B Vaccine: Yes History of MDRO History of MDRO: No Allergies Coded Allergies: Norethindrone (Verified Allergy, Severe, SHORTNESS OF BREATH, 05/19/15) Latanoprost (Verified Allergy, Intermediate, RASH, 05/19/15) Paroxetine (Verified Allergy, Intermediate, RASH, 05/19/15) Tetracycline (Verified Allergy, Intermediate, RASH, 05/19/15) Simvastatin (Verified Allergy, Unknown, UNKNOWN, 05/19/15) Sulfamethoxazole (Verified Allergy, Unknown, ., 05/19/15) Esomeprazole (Verified Adverse Reaction, Severe, SHORTNESS OF BREATH, 05/18) Fenofibrate (Verified Adverse Reaction, Severe, ., 05/19/15) ARM WEAKNESS Metoclopramide (Verified Adverse Reaction, Severe, ., 05/19/15) NERVOUS REACTION Enalapril (Verified Adverse Reaction, Intermediate, ., 05/19/15) COUGH Glyburide (Verified Adverse Reaction, Intermediate, ., 05/19/15) ITCHING Morphine and Related (Verified Adverse Reaction, Intermediate, ITCHY, 03/25) ITCHY Oxycodone (Verified Adverse Reaction, Intermediate, ITCHY,BLOTCHY, 03/25/16 ) Current Medications Reported Home Medications Medications Dose Route/Sig Max Daily Dose Days Date Category Dose Instructions Atrovent 0.02% Soln (Ipratropium [place]) 2.5 Ml Nebu 1 Unit INH QID 12/22/16 Reported Albuterol Sulfate (Albuterol Sulf) 2.5 Mg/3 Ml Nebu 1 Unit INH Q4 PRN 12/22/16 Reported Celexa (Citalopram Hydrobromide) 10 Mg Tab 1 Tab PO DAILY 30 12/22/16 Reported Cyanocobalamin 1,000 Mcg/Ml Inj 1 Mcg INJ MONTHLY 12/22/16 Reported Aspirin EC Low Dose (Aspirin) 81 Mg Ectab 81 Mg PO 12/22/16 Reported Potassium Chloride Er (Potassium Chloride) 10 Meq Tab 1 Tab PO BID 90 12/22/16 Reported Nitrostat (Nitroglycerin) 0.4 Mg Sub 0.4 Mg UT PRN PRN 12/22/16 Reported Prednisone 10 Mg Tab 10 Mg PO DAILY 12 03/30/16 Rx use as directed Travatan Z (Travoprost) 0.004 % Fidel 1 Drops OP HS 03/24/16 Reported Humalog (Insulin Lispro (Human)) 100 Unit/Ml Inj 30 Units SC QDD 03/24/16 Reported Humalog (Insulin Lispro (Human)) 100 Unit/Ml Inj 18 Units SC QAM 03/24/16 Reported Protonix (Pantoprazole Sodium) 40 Mg Tab 40 Mg PO BID 03/24/16 Reported Levocetirizine Dihydrochl (Levocetirizine Dihydrochloride) 5 Mg Tab 5 Mg PO BID 30 03/24/16 Reported Imdur Ext Rel (Isosorbide Mononitrate) 60 Mg Tab 30 Mg PO DAILY 03/24/16 Reported Lasix (Furosemide) 40 Mg Tab 40 Mg PO 05/19/15 Reported Humulin N (Insulin Human NPH) 100 Units/Ml Susp 60 Units SQ QPM 06/01/13 Reported Humulin N (Insulin Human NPH) 100 Units/Ml Susp 60 Units SQ QAM 06/01/13 Reported Alphagan P (Brimonidine Tartrate) 150 Drops/10 Ml Soln 05/31/13 Reported Qvar (Beclomethasone Dipropionate) 80 Mcg/ Aer 05/31/13 Reported Flonase (Fluticasone Propionate (Nasal)) 50 Mcg/Act Spr 2 Sprays AMARILIS D 05/31/13 Reported Brovana 15MCG/2ML Soln (Arformoterol Tartrate) Nebu 05/31/13 Reported Centrum Silver Adult 50+ (Multiple Vitamins W/ Minerals) 1 Tab Tab 05/31/13 Reported Cozaar (Losartan Potassium) 25 Mg Tab 25 Mg PO DAILY 05/31/13 Reported Coreg (Carvedilol) 12.5 Mg Tab 12.5 Mg PO BID 06/12/09 Reported Singulair * (Montelukast Sodium) 10 Mg Tab 10 Mg PO DAILY 06/12/09 Reported Glucophage * (Metformin HCl) 1,000 Mg Tab 1,000 Mg PO BID 06/12/09 Reported Ativan * (Lorazepam) 1 Mg Tab 1 Mg PO TID 06/12/09 Reported Physical Physical Exam Vital Signs: Date Time Temp Pulse Resp B/P (MAP) Pulse Ox O2 Delivery O2 Flow Rate FiO2 12/23/16 09:00 Room Air 12/23/16 07:07 93 18 96 Room Air 12/23/16 07:06 36.6 92 20 149/76 (100) 94 Room Air 12/23/16 00:15 Room Air 12/23/16 00:02 36.9 91 20 121/75 (90) 93 Room Air 12/22/16 21:33 109 18 91 Room Air 12/22/16 19:37 36.7 100 20 134/76 (95) 96 Room Air 12/22/16 15:52 107 18 96 Room Air 12/22/16 13:57 36.6 105 20 169/81 Room Air General Appearance: mild distress (Respiratory), obese Head: NORMOCEPHALIC, ATRAUMATIC Eyes: NO DISCHARGE, SCLERAE NORMAL Neck: NORMAL RANGE OF MOTION, TRACHEA MIDLINE, NO STRIDOR Respiratory: other (decreased breath sounds bilaterally. Harsh cough on exam. Wheezing noted in upper lobes) Cardiovasular: other (tachycardia) Abdomen: NORMAL BOWEL SOUNDS Back: NORMAL INSPECTION Lower Extremities: edema (mild b/l LE edema) Neuro: ALERT, ORIENTED x 3 Psychiatric: NORMAL AFFECT Diagnostics Labs Results Past 24 Hours Test 12/22/16 14:47 12/22/16 15:50 12/22/16 16:21 12/22/16 20:08 Range/Units White Blood Count 6.16 4.8-10.8 K/uL Red Blood Count 4.25 4.2-5.4 M/uL Hemoglobin 9.6 12.0-16.0 g/dL Hematocrit 31.6 37-47 % Mean Corpuscular Volume 74.4 80-100 fL Mean Corpuscular Hemoglobin 22.6 25-34 pg Mean Corpuscular Hemoglobin Concent 30.4 32-36 g/dl Platelet Count 186 130-400 K/uL Mean Platelet Volume 10.2 7.4-10.4 fL Neutrophils (%) (Auto) 73.9 % Lymphocytes (%) (Auto) 22.6 % Monocytes (%) (Auto) 2.4 % Eosinophils (%) (Auto) 0.3 % Basophils (%) (Auto) 0.5 % Neutrophils # (Auto) 4.55 1.4-6.5 K/uL Lymphocytes # (Auto) 1.39 1.2-3.4 K/uL Monocytes # (Auto) 0.15 0.11-0.59 K/uL Eosinophils # (Auto) 0.02 0-0.5 K/uL Basophils # (Auto) 0.03 0-0.2 K/uL RDW Standard Deviation 46.8 36.4-46.3 fL RDW Coefficient of Variation 17.1 11.5-14.5 % Immature Granulocyte % (Auto) 0.3 % Immature Granulocyte # (Auto) 0.02 0.00-0.02 K/uL Echinocytes 1+ Prothrombin Time 11.5 9.0-12.0 SECONDS Prothromb Time International Ratio 1.1 0.9-1.1 Sodium Level 134 136-145 mmol/L Potassium Level 4.4 3.5-5.1 mmol/L Chloride Level 102 98-107 mmol/L Carbon Dioxide Level 22 21-32 mmol/L Anion Gap 10.0 3-11 mmol/L Blood Urea Nitrogen 7 7-18 mg/dl Creatinine 0.74 0.60-1.20 mg/dl Est Creatinine Clear Calc Drug Dose 65.8 ml/min Estimated GFR () 89.9 Estimated GFR (Non- 77.6 BUN/Creatinine Ratio 9.3 10-20 Random Glucose 280 70-99 mg/dl Estimated Average Glucose 214 mg/dl Hemoglobin A1c 9.1 4.5-5.6 % Calcium Level 8.7 8.5-10.1 mg/dl Magnesium Level 1.7 1.8-2.4 mg/dl Total Bilirubin 0.6 0.2-1 mg/dl Aspartate Amino Transf (AST/SGOT) 52 15-37 U/L Alanine Aminotransferase (ALT/SGPT) 53 12-78 U/L Alkaline Phosphatase 117 45-117 U/L Total Protein 7.3 6.4-8.2 gm/dl Albumin 3.4 3.4-5.0 gm/dl Globulin 3.9 2.5-4.0 gm/dl Albumin/Globulin Ratio 0.9 0.9-2 Influenza Type A (RT-PCR) Neg for Influ A NEG Influenza Type B (RT-PCR) Neg for Influ B NEG Bedside Glucose 310 303 70-90 mg/dl Test 12/23/16 00:54 12/23/16 07:42 12/23/16 07:44 Range/Units Bedside Glucose 232 315 324 70-90 mg/dl Microbiology Results 12/22/16 Blood Culture, Received Pending 12/22/16 Blood Culture, Received Pending 12/23/16 Gram Stain, Received Pending 12/23/16 Sputum Culture, Received Pending Diagnostic Radiology SINGLE VIEW CHEST CLINICAL HISTORY: Dyspnea. FINDINGS: An AP, portable, upright chest radiograph is compared to study dated 03/26/2016. The examination is degraded by portable technique, large body habitus, and patient rotation. The the heart is enlarged there is atherosclerotic calcification of the thoracic aorta. The pulmonary vasculature is noncongested. Bibasilar atelectasis is observed. The lungs and pleural spaces are otherwise grossly clear. No pneumothorax is seen. The skeletal structures are osteopenic. The bony thorax is grossly intact. IMPRESSION: Cardiomegaly with no acute cardiopulmonary abnormality. EKG EKG: Sinus tachycardia. Anterior infarct (cited before 05/31/13) Viewed and reviewed. Impression Assessment and Plan COPD/Asthma/Bronchiectasis with exacerbation CHF Patient continues to have harsh cough, wheezing, sputum production, and SOB. Sputum culture pending. Blood cultures pending. Continue with SoluMedrol and taper as able. Continue with aggressive pulmonary toilet. Will order flutter valve for patient. Consider addition of Dornase alpha if patient cannot move mucus well on her own. Continue Duonebs and empiric antibiotic therapy pending cultures. Consider bronchoscopic evaluation on Monday if no major improvement is seen over the weekend. Supplement O2 if needed to keep SaO2 >88% Pulmonary will follow.
[2016-12-23] MEDS: CEFTRIAXONE SOD INJ 1 GM in DEXTROSE 5% ADD-VANTAGE 50ML 50 ML IV SCH (16:06)
[2016-12-23] MEDS: AZITHROMYCIN 250 MG TAB PO SCH (16:07)
[2016-12-23] MEDS: ENOXAPARIN 40 MG/0.4 ML SYR SC SCH (17:41)
[2016-12-23] MEDS: DOCUSATE SODIUM 100 MG CAP PO SCH (18:25)
[2016-12-23] MEDS ORDERED: INSULIN IV INFUSION PROTOCOL STA (20:41)
[2016-12-23] MEDS ORDERED: INSULIN PROTOCOL GOAL RANGE ONE (20:45)
[2016-12-23] MEDS ORDERED: DC ALL PREVIOUSLY ORDERED DIABETES MEDS ONE (20:45)
[2016-12-23] MEDS ORDERED: MODERATE STRESS LEVEL ONE (20:45)
[2016-12-23] MEDS ORDERED: INSULIN HUMAN REGULAR IV BOLUS 2.5 UNIT in SYRINGE 0 ML IV SCH (21:15)
--- NOTE | 2016-12-23 21:32 | Progress Note ---
Medicine Progress Note Date & Time of Visit: Dec 23, 2016 at 10:00 . Subjective Admitted yesterday with exacerbation of asthma / COPD. No fever. Persistent cough, minimally productive. No chest pain. No nausea or vomiting. No diarrhea. Voiding without difficulty. Blood sugars running high. . Objective Last 8 Hrs Date Time Temp Pulse Resp B/P (MAP) Pulse Ox O2 Delivery O2 Flow Rate FiO2 12/23/16 19:56 99 16 91 Room Air 12/23/16 15:50 Room Air 12/23/16 15:32 68 16 95 Room Air 12/23/16 15:26 36.5 105 22 142/67 (92) 93 Room Air Physical Exam: General- no distress ENT- no oral thrush Neck- no JVD Lungs- diffuse moderate wheezing Heart- RRR Abdomen- + BS, soft, nontender Extremities- 1+ pretibial edema Neuro- alert . Laboratory Results: Last 24 Hours Test 12/23/16 00:54 12/23/16 07:42 12/23/16 07:44 12/23/16 11:47 Bedside Glucose 232 mg/dl 315 mg/dl 324 mg/dl 401 mg/dl Test 12/23/16 11:49 12/23/16 16:17 12/23/16 19:34 Bedside Glucose 396 mg/dl 311 mg/dl 480 mg/dl Date/Time Source Procedure Growth Status 12/23/16 08:30 Sputum Expectorated Sputum Gram Stain Pending Received 12/23/16 08:30 Sputum Expectorated Sputum Sputum Culture Pending Received Assessment & Plan EXACERBATION OF ASTHMA / COPD No infiltrates on chest x-ray. Oxygenating well on RA. Continue IV methylprednisolone, nebs, azithromycin, ceftriaxone. Pulmonary Medicine consulted. CORONARY ARTERY DISEASE No anginal symptoms. Continue aspirin, carvedilol, losartan, nitrates. Check lipid management. CEREBROVASCULAR DISEASE Continue ASA. HYPERTENSION Continue carvedilol, losartan, nitrates. DM TYPE 2 Hgb A1C = 9.1. Blood sugars elevated due to acute illness + steroids. Titrate Lantus and NovoLog. Decrease steroids as soon as possible. IV insulin infusion if blood sugars do not improve. VTE PROPHYLAXIS SQ enoxaparin. Ambulate. DISPOSITION Expected discharge to home. Family Medicine follow-up with Dr. Smith. Pulmonary Medicine follow-up with Dr. Harrell. . Current Inpatient Medications: Current Inpatient Medications Medications (Trade) Dose Ordered Sig/Yesica Route Start Time Stop Time Status Last Admin Dose Admin Acetaminophen (Tylenol Tab) 650 mg Q4H PRN PO 12/22/16 14:00 01/21/17 13:59 12/22/16 21:52 650 MG Polyethylene (Miralax Powder Packet) 17 gm DAILY PRN PO 12/22/16 14:00 01/21/17 13:59 Ondansetron HCl (Zofran Inj) 4 mg Q6H PRN IV 12/22/16 14:00 01/21/17 13:59 Glucose (Glucose 40% Gel) 15-30 GRAMS 15 GRAMS... UD PRN PO 12/22/16 14:00 01/21/17 13:59 Glucose (Glucose Chew Tab) 4-8 Tablets 4 Tabl... UD PRN PO 12/22/16 14:00 01/21/17 13:59 Dextrose (Dextrose 50% 50ML Syringe) 25-50ML OF 50% DW IV FOR... UD PRN IV 12/22/16 14:00 01/21/17 13:59 Glucagon (Glucagon Inj) 1 mg UD PRN SQ 12/22/16 14:00 01/21/17 13:59 Albuterol/ Ipratropium (Duoneb) 3 ml QIDR INH 12/22/16 16:00 01/21/17 15:59 12/23/16 19:54 3 ML Ceftriaxone Sodium 1 gm/ Dextrose 50 ml @ 100 mls/hr Q24H IV 12/22/16 16:00 12/29/16 15:59 12/23/16 16:06 100 MLS/HR Azithromycin (Zithromax Tab) 500 mg Q24H PO 12/22/16 16:00 12/29/16 15:59 12/23/16 16:07 500 MG Aspirin (Ecotrin Tab) 81 mg DAILY PO 12/23/16 08:00 01/22/17 07:59 12/23/16 08:38 81 MG Brimonidine Tartrate (Alphagan-P 0.15% Oph Soln) 1 drops BID OPB 12/22/16 20:00 01/21/17 19:59 12/23/16 20:15 1 DROPS Carvedilol (Coreg Tab) 12.5 mg BID PO 12/22/16 20:00 01/21/17 19:59 12/23/16 20:17 12.5 MG Citalopram Hydrobromide (celeXA TAB) 10 mg DAILY PO 12/23/16 08:00 01/22/17 07:59 12/23/16 08:38 10 MG Fluticasone Propionate (Flonase Nasal [place]) 2 sprays BID PRN AMARILIS 12/22/16 15:30 01/21/17 15:29 Furosemide (Lasix Tab) 40 mg DAILY PO 12/23/16 08:00 01/22/17 07:59 12/23/16 08:38 40 MG Isosorbide Mononitrate (Imdur Ext Rel Tab) 30 mg DAILY PO 12/23/16 08:00 01/22/17 07:59 12/23/16 08:39 30 MG Lorazepam (Ativan Tab) 1 mg TID PO 12/22/16 20:00 01/21/17 19:59 12/23/16 13:37 1 MG Losartan Potassium (coZAAR TAB) 25 mg DAILY PO 12/23/16 08:00 01/22/17 07:59 12/23/16 08:38 25 MG Montelukast Sodium (Singulair Tab) 10 mg DAILY PO 12/23/16 08:00 01/22/17 07:59 12/23/16 08:38 10 MG Nitroglycerin (Nitrostat Tab) 0.4 mg PRN PRN [place] 12/22/16 15:30 01/21/17 15:29 Pantoprazole Sodium (Protonix Tab) 40 mg BID PO 12/22/16 20:00 01/21/17 19:59 12/23/16 20:15 40 MG Travoprost (Travatan Z) 1 drops HS OP 12/22/16 22:00 01/21/17 21:59 12/22/16 21:59 1 DROPS Miscellaneous Information (Order Awaiting Action) 1 ea QS N/A 12/23/16 00:00 01/22/17 00:00 Potassium Chloride (Klor-Con M10) 10 meq BID PO 12/22/16 20:00 01/21/17 19:59 12/23/16 08:39 10 MEQ Codeine Phosphate/ Guaifenesin (Robitussin-AC Sugar Free Syrup) 10 ml Q6H PRN PO 12/22/16 15:45 01/21/17 15:44 12/23/16 16:06 10 ML Enoxaparin Sodium (Lovenox Inj) 40 mg Q24H SC 12/22/16 18:00 01/21/17 17:59 12/23/16 17:41 40 MG Benzonatate (Tessalon Perles Cap) 100 mg TID PRN PO 12/22/16 23:15 01/21/17 23:14 12/23/16 08:39 100 MG Docusate Sodium (coLACE CAP) 100 mg DAILY PO 12/24/16 08:00 01/23/17 07:59 12/23/16 18:25 100 MG Methylprednisolone Sodium Succinate 20 mg/Syringe 0.32 ml @ 1.5 mls/min Q8 IV 12/23/16 22:00 01/22/17 21:59 Insulin Aspart (novoLOG ASPART) SLIDING SCALE [facility] 12/23/16 22:00 01/22/17 21:59 Insulin Human Regular 250 units/ Sodium Chloride 252.5 ml @ 0 mls/hr DAILY@1130 IV 12/23/16 21:15 01/22/17 21:14 Insulin Aspart (novoLOG ASPART) SLIDING SCALE [facility] 12/23/16 22:00 01/22/17 21:59
[2016-12-23] MEDS: INSULIN REGULAR 250 UNITS in SODIUM CHLORIDE 0.9% 250ML 250 ML IV SCH ×2 (22:00→22:58)
[2016-12-23] MEDS: TRAVOPROST Z 0.004% OPH SOLN 2.5 ML BTL OP SCH (22:05)
[2016-12-23] MEDS: METHYLPREDNISOLONE IV 20 MG in SYRINGE 0 ML IV SCH (22:38)
[2016-12-23] MEDS: ACETAMINOPHEN 325 MG TAB PO PRN (23:44)
[2016-12-24] VITALS (10 sets, daily range): BP systolic 137–159; BP diastolic 78–90; PULSE 79–92; TEMP 36.2–36.7; O2SAT 91–100
[2016-12-24] MEDS: INSULIN REGULAR 250 UNITS in SODIUM CHLORIDE 0.9% 250ML 250 ML IV SCH ×6 (00:14→06:03)
[2016-12-24] MEDS: METHYLPREDNISOLONE IV 20 MG in SYRINGE 0 ML IV SCH ×3 (06:04→21:53)
[2016-12-24] MEDS: ALBUT/IPRATROP 3MG/0.5MG NEB 3 ML VIAL INH SCH ×4 (06:56→19:03)
[2016-12-24] MEDS: BRIMONIDINE TARTRATE-P 0.15% 5 ML BTL OPB SCH ×2 (07:56→20:39)
[2016-12-24] MEDS: CARVEDILOL 12.5 MG TAB PO SCH ×2 (07:58→20:38)
[2016-12-24] MEDS: CITALOPRAM 20 MG TAB PO SCH (07:58)
[2016-12-24] MEDS: DOCUSATE SODIUM 100 MG CAP PO SCH (07:58)
[2016-12-24] MEDS: ISOSORBIDE MONONITRATE 30 MG TABCR PO SCH (07:59)
[2016-12-24] MEDS: LOSARTAN POTASSIUM 25 MG TAB PO SCH (07:59)
[2016-12-24] MEDS: ASPIRIN 81 MG ECTAB PO SCH (07:59)
[2016-12-24] MEDS: POTASSIUM CHLORIDE 10 MEQ TABCR PO SCH ×2 (07:59→20:38)
[2016-12-24] MEDS: FUROSEMIDE 40 MG TAB PO SCH (07:59)
[2016-12-24] MEDS: PANTOprazole SOD 40 MG TAB PO SCH ×2 (08:00→20:39)
[2016-12-24] MEDS: MONTELUKAST SOD 10 MG TAB PO SCH (08:01)
[2016-12-24] MEDS: LORAZEPAM 1 MG TAB PO SCH ×3 (08:04→20:38)
[2016-12-24] MEDS: INSULIN ASPART 100 UNITS/ML 3 ML PEN SC SCH ×6 (08:11→20:45)
[2016-12-24] MEDS ORDERED: INSULIN GLARGINE SOLOSTAR 100 UNITS/ML 3 ML PEN SC ONE ×2 (08:30→10:00)
[2016-12-24 08:48] LABS: BUN/CREATININE RATIO 20.9 (10-20); CREATININE 0.77 mg/dl (0.60-1.20); POTASSIUM 3.9 mmol/L (3.5-5.1)
[2016-12-24] MEDS: BENZONATATE 100MG CAP PO PRN (10:00)
--- NOTE | 2016-12-24 13:48 | Pulmonology Progress Note ---
Pulmonary Progress Note Date of Service Dec 24, 2016. Attending Dr. Fields Subjective Patient seen and examined this morning. She states that she is feeling quite well today. She denies being short of breath or dyspneic on exertion. She still has a harsh nonproductive cough associated with sternal and pleuritic chest pain. Cough is exacerbated with deep inhalation. Objective VS: reviewed. Tm 36.6, BP 158/87-159/83, P 79-89, RR 16-20, SaO2 91-95% on RA. Gen: pleasant lady, AAOx3, NAD. Speaking in full sentences with out any respiratory distress. Mouth/Throat: Mallampati III CVS: S1,S2, RRR Lungs: Diminished breath sounds bilaterally, sporadic wheezes bilateral lung dozier Chest: reproducible chest pain upon palpation of sternum and anterior ribs Abd: obese/NT/ND/BS+ Ext: bilateral trace LE edema, incision on left lower extremity, no cyanosis, no clubbing Labs reviewed. Sputum culture 12/23/2016--contaminated Blood culture-- 12/22/2016--no growth to date. Imaging viewed and reviewed by me. Medications reviewed. Assessment & Plan Asthma exacerbation Bronchiectasis CHF Patient continues to have harsh cough. No longer short of breath or dyspneic. Speaking in full sentences. Improving from a respiratory standpoint. Continue with SoluMedrol and taper as able. Continue with aggressive pulmonary toilet continue with flutter valve. Continue Duonebs and empiric antibiotic therapy pending cultures. Possible bronchoscopic evaluation on Monday if no major improvement is seen over the weekend. Supplement O2 if needed to keep SaO2 >88% Will add codeine 15 mg q4-6 h prn to current regimen to decrease coughing Continue the lasix for diuresis as I suspect she has some diastolic dysfunction. Data Medications: Current Inpatient Medications Medications (Trade) Dose Ordered Sig/Yesica Route Start Time Stop Time Status Last Admin Dose Admin Acetaminophen (Tylenol Tab) 650 mg Q4H PRN PO 12/22/16 14:00 01/21/17 13:59 12/23/16 23:44 650 MG Polyethylene (Miralax Powder Packet) 17 gm DAILY PRN PO 12/22/16 14:00 01/21/17 13:59 12/24/16 10:11 17 GM Ondansetron HCl (Zofran Inj) 4 mg Q6H PRN IV 12/22/16 14:00 01/21/17 13:59 Glucose (Glucose 40% Gel) 15-30 GRAMS 15 GRAMS... UD PRN PO 12/22/16 14:00 01/21/17 13:59 Glucose (Glucose Chew Tab) 4-8 Tablets 4 Tabl... UD PRN PO 12/22/16 14:00 01/21/17 13:59 Dextrose (Dextrose 50% 50ML Syringe) 25-50ML OF 50% DW IV FOR... UD PRN IV 12/22/16 14:00 01/21/17 13:59 Glucagon (Glucagon Inj) 1 mg UD PRN SQ 12/22/16 14:00 01/21/17 13:59 Albuterol/ Ipratropium (Duoneb) 3 ml QIDR INH 12/22/16 16:00 01/21/17 15:59 12/24/16 11:14 3 ML Ceftriaxone Sodium 1 gm/ Dextrose 50 ml @ 100 mls/hr Q24H IV 12/22/16 16:00 12/29/16 15:59 12/23/16 16:06 100 MLS/HR Azithromycin (Zithromax Tab) 500 mg Q24H PO 12/22/16 16:00 12/29/16 15:59 12/23/16 16:07 500 MG Aspirin (Ecotrin Tab) 81 mg DAILY PO 12/23/16 08:00 01/22/17 07:59 12/24/16 07:59 81 MG Brimonidine Tartrate (Alphagan-P 0.15% Oph Soln) 1 drops BID OPB 12/22/16 20:00 01/21/17 19:59 12/23/16 20:15 1 DROPS Carvedilol (Coreg Tab) 12.5 mg BID PO 12/22/16 20:00 01/21/17 19:59 12/24/16 07:58 12.5 MG Citalopram Hydrobromide (celeXA TAB) 10 mg DAILY PO 12/23/16 08:00 01/22/17 07:59 12/24/16 07:58 10 MG Fluticasone Propionate (Flonase Nasal [place]) 2 sprays BID PRN AMARILIS 12/22/16 15:30 01/21/17 15:29 Furosemide (Lasix Tab) 40 mg DAILY PO 12/23/16 08:00 01/22/17 07:59 12/24/16 07:59 40 MG Isosorbide Mononitrate (Imdur Ext Rel Tab) 30 mg DAILY PO 12/23/16 08:00 01/22/17 07:59 12/24/16 07:59 30 MG Lorazepam (Ativan Tab) 1 mg TID PO 12/22/16 20:00 01/21/17 19:59 12/24/16 08:04 1 MG Losartan Potassium (coZAAR TAB) 25 mg DAILY PO 12/23/16 08:00 01/22/17 07:59 12/24/16 07:59 25 MG Montelukast Sodium (Singulair Tab) 10 mg DAILY PO 12/23/16 08:00 01/22/17 07:59 12/24/16 08:01 10 MG Nitroglycerin (Nitrostat Tab) 0.4 mg PRN PRN UT 12/22/16 15:30 01/21/17 15:29 Pantoprazole Sodium (Protonix Tab) 40 mg BID PO 12/22/16 20:00 01/21/17 19:59 12/24/16 08:00 40 MG Travoprost (Travatan Z) 1 drops HS OP 12/22/16 22:00 01/21/17 21:59 12/23/16 22:05 1 DROPS Miscellaneous Information (Order Awaiting Action) 1 ea QS N/A 12/23/16 00:00 01/22/17 00:00 Potassium Chloride (Klor-Con M10) 10 meq BID PO 12/22/16 20:00 01/21/17 19:59 12/23/16 08:39 10 MEQ Codeine Phosphate/ Guaifenesin (Robitussin-AC Sugar Free Syrup) 10 ml Q6H PRN PO 12/22/16 15:45 01/21/17 15:44 12/23/16 16:06 10 ML Enoxaparin Sodium (Lovenox Inj) 40 mg Q24H SC 12/22/16 18:00 01/21/17 17:59 12/23/16 17:41 40 MG Benzonatate (Tessalon Perles Cap) 100 mg TID PRN PO 12/22/16 23:15 01/21/17 23:14 12/24/16 10:00 100 MG Docusate Sodium (coLACE CAP) 100 mg DAILY PO 12/24/16 08:00 01/23/17 07:59 12/24/16 07:58 100 MG Methylprednisolone Sodium Succinate 20 mg/Syringe 0.32 ml @ 1.5 mls/min Q8 IV 12/23/16 22:00 01/22/17 21:59 12/24/16 06:04 1.5 MLS/MIN Insulin Glargine (Lantus Solostar Pen) BSG LANTUSSQ <... BID SC 12/24/16 20:00 01/23/17 19:59 Insulin Aspart (novoLOG ASPART) SLIDING SCALE G... ACHS SC 12/24/16 11:00 01/23/17 10:59 12/24/16 12:37 11 UNITS Insulin Aspart (novoLOG ASPART) SLIDING SCALE G... 0100 ONCE SC 12/25/16 01:00 12/25/16 01:01 Vital Signs: Date Time Temp Pulse Resp B/P (MAP) Pulse Ox O2 Delivery O2 Flow Rate FiO2 12/24/16 11:15 79 16 95 Room Air 12/24/16 08:00 92 Room Air 12/24/16 07:28 36.6 88 20 159/83 (108) 92 12/24/16 06:56 85 16 91 Room Air 12/24/16 04:12 36.4 89 18 158/87 (110) 92 Room Air 12/24/16 00:00 Room Air 12/23/16 23:41 36.3 90 18 116/69 (85) 92 Room Air 12/23/16 22:00 Room Air 12/23/16 19:56 99 16 91 Room Air 12/23/16 15:50 Room Air 12/23/16 15:32 68 16 95 Room Air 12/23/16 15:26 36.5 105 22 142/67 (92) 93 Room Air Laboratory Results: Last 24 Hours Test 12/23/16 16:17 12/23/16 19:34 12/23/16 21:48 12/23/16 22:45 Bedside Glucose 311 mg/dl 480 mg/dl 417 mg/dl 358 mg/dl Test 12/23/16 23:56 12/24/16 00:56 12/24/16 01:58 12/24/16 03:11 Bedside Glucose 347 mg/dl 334 mg/dl 298 mg/dl 293 mg/dl Test 12/24/16 03:58 12/24/16 04:59 12/24/16 05:57 12/24/16 07:06 Bedside Glucose 294 mg/dl 238 mg/dl 248 mg/dl 200 mg/dl Test 12/24/16 07:14 12/24/16 08:08 12/24/16 08:58 Sodium Level 136 mmol/L Potassium Level 3.9 mmol/L Chloride Level 100 mmol/L Carbon Dioxide Level 27 mmol/L Anion Gap 9.0 mmol/L Blood Urea Nitrogen 16 mg/dl Creatinine 0.77 mg/dl Est Creatinine Clear Calc Drug Dose 63.3 ml/min Estimated GFR () 85.7 Estimated GFR (Non- 74.0 BUN/Creatinine Ratio 20.9 Random Glucose 186 mg/dl Calcium Level 9.0 mg/dl Bedside Glucose 175 mg/dl 318 mg/dl
[2016-12-24] MEDS: GUAIFENESIN/CODEINE 200MG/20MG 10ML UDC PO PRN (13:59)
[2016-12-24] MEDS: CEFTRIAXONE SOD INJ 1 GM in DEXTROSE 5% ADD-VANTAGE 50ML 50 ML IV SCH (15:54)
[2016-12-24] MEDS: AZITHROMYCIN 250 MG TAB PO SCH (15:54)
[2016-12-24] MEDS: ENOXAPARIN 40 MG/0.4 ML SYR SC SCH (17:34)
[2016-12-24] MEDS: DORNASE ALFA (2500U) 2.5MG/2.5ML INH SCH (20:00)
[2016-12-24] MEDS: TRAVOPROST Z 0.004% OPH SOLN 2.5 ML BTL OP SCH (20:39)
[2016-12-24] MEDS: INSULIN GLARGINE SOLOSTAR 100 UNITS/ML 3 ML PEN SC SCH (20:46)
[2016-12-24] MEDS ORDERED: POLYETHYLENE (MIRALAX) 17 GM PACK PO ONE (21:02)
[2016-12-24] MEDS ORDERED: POLYETHYLENE (MIRALAX) 17 GM PACK PO PRN (21:15)
--- NOTE | 2016-12-24 22:05 | Progress Note ---
Medicine Progress Note Date & Time of Visit: Dec 24, 2016 at ~ 18:00 . Subjective Persistent cough, usually nonproductive. Intermittent dyspnea. No fever. No chest pain. No nausea or vomiting. Constipated. . Objective Item Value Date Time Acetaminophen 650 mg 12/22/16 1400 (Tylenol Tab) Q4H PRN/PO 12/22/162 Vital Signs Label Value Date Time Patient Temperature 36.6 C. 12/24/16727 Temperature Source Oral 12/24/16727 Pulse 88 12/24/16727 Location Left Finger Respiratory Rate 20 12/24/16727 Blood Pressure Assessment 159/83 (108) 12/24/16727 Bedside Pulse Oximetry 92 % 12/24/16727 Physical Exam: General- no distress Neck- no JVD Lungs- diffuse moderate wheezing Heart- RRR Abdomen- + BS, soft, nontender Extremities- 1+ pretibial edema Neuro- alert . Laboratory Results: Last 24 Hours Test 12/23/16 22:45 12/23/16 23:56 12/24/16 00:56 12/24/16 01:58 Bedside Glucose 358 mg/dl 347 mg/dl 334 mg/dl 298 mg/dl Test 12/24/16 03:11 12/24/16 03:58 12/24/16 04:59 12/24/16 05:57 Bedside Glucose 293 mg/dl 294 mg/dl 238 mg/dl 248 mg/dl Test 12/24/16 07:06 12/24/16 07:14 12/24/16 08:08 12/24/16 08:58 Bedside Glucose 200 mg/dl 175 mg/dl 318 mg/dl Sodium Level 136 mmol/L Potassium Level 3.9 mmol/L Chloride Level 100 mmol/L Carbon Dioxide Level 27 mmol/L Anion Gap 9.0 mmol/L Blood Urea Nitrogen 16 mg/dl Creatinine 0.77 mg/dl Est Creatinine Clear Calc Drug Dose 63.3 ml/min Estimated GFR () 85.7 Estimated GFR (Non- 74.0 BUN/Creatinine Ratio 20.9 Random Glucose 186 mg/dl Calcium Level 9.0 mg/dl Test 12/24/16 10:58 12/24/16 16:07 12/24/16 20:01 Bedside Glucose 279 mg/dl 339 mg/dl 303 mg/dl Assessment & Plan EXACERBATION OF ASTHMA / COPD No infiltrates on chest x-ray. Oxygenating well on RA. Continue IV methylprednisolone, nebs, azithromycin, ceftriaxone. Pulmonary Medicine consulted. CORONARY ARTERY DISEASE No anginal symptoms. Continue aspirin, carvedilol, losartan, nitrates. Check lipid management. CEREBROVASCULAR DISEASE Continue ASA. HYPERTENSION Continue carvedilol, losartan, nitrates. DM TYPE 2 Hgb A1C = 9.1. Blood sugars as high as 480 last evening. Poor glycemic control due to acute illness + steroids. Started on insulin infusion last evening and transitioned back to SQ Lantus + NovoLog this morning. Decrease steroids as soon as possible. VTE PROPHYLAXIS SQ enoxaparin. Ambulate. DISPOSITION Expected discharge to home. Family Medicine follow-up with Dr. Smith. Pulmonary Medicine follow-up with Dr. Harrell. . Current Inpatient Medications: Current Inpatient Medications Medications (Trade) Dose Ordered Sig/Yesica Route Start Time Stop Time Status Last Admin Dose Admin Acetaminophen (Tylenol Tab) 650 mg Q4H PRN PO 12/22/16 14:00 01/21/17 13:59 12/23/16 23:44 650 MG Polyethylene (Miralax Powder Packet) 17 gm DAILY PRN PO 12/22/16 14:00 01/21/17 13:59 12/24/16 10:11 17 GM Ondansetron HCl (Zofran Inj) 4 mg Q6H PRN IV 12/22/16 14:00 01/21/17 13:59 Glucose (Glucose 40% Gel) 15-30 GRAMS 15 GRAMS... UD PRN PO 12/22/16 14:00 01/21/17 13:59 Glucose (Glucose Chew Tab) 4-8 Tablets 4 Tabl... UD PRN PO 12/22/16 14:00 01/21/17 13:59 Dextrose (Dextrose 50% 50ML Syringe) 25-50ML OF 50% DW IV FOR... UD PRN IV 12/22/16 14:00 01/21/17 13:59 Glucagon (Glucagon Inj) 1 mg UD PRN SQ 12/22/16 14:00 01/21/17 13:59 Albuterol/ Ipratropium (Duoneb) 3 ml QIDR INH 12/22/16 16:00 01/21/17 15:59 12/24/16 19:03 3 ML Ceftriaxone Sodium 1 gm/ Dextrose 50 ml @ 100 mls/hr Q24H IV 12/22/16 16:00 12/29/16 15:59 12/24/16 15:54 100 MLS/HR Azithromycin (Zithromax Tab) 500 mg Q24H PO 12/22/16 16:00 12/29/16 15:59 12/24/16 15:54 500 MG Aspirin (Ecotrin Tab) 81 mg DAILY PO 12/23/16 08:00 01/22/17 07:59 12/24/16 07:59 81 MG Brimonidine Tartrate (Alphagan-P 0.15% Oph Soln) 1 drops BID OPB 12/22/16 20:00 01/21/17 19:59 12/24/16 20:39 1 DROPS Carvedilol (Coreg Tab) 12.5 mg BID PO 12/22/16 20:00 01/21/17 19:59 12/24/16 20:38 12.5 MG Citalopram Hydrobromide (celeXA TAB) 10 mg DAILY PO 12/23/16 08:00 01/22/17 07:59 12/24/16 07:58 10 MG Fluticasone Propionate (Flonase Nasal [place]) 2 sprays BID PRN AMARILIS 12/22/16 15:30 01/21/17 15:29 Furosemide (Lasix Tab) 40 mg DAILY PO 12/23/16 08:00 01/22/17 07:59 12/24/16 07:59 40 MG Isosorbide Mononitrate (Imdur Ext Rel Tab) 30 mg DAILY PO 12/23/16 08:00 01/22/17 07:59 12/24/16 07:59 30 MG Lorazepam (Ativan Tab) 1 mg TID PO 12/22/16 20:00 01/21/17 19:59 12/24/16 20:38 1 MG Losartan Potassium (coZAAR TAB) 25 mg DAILY PO 12/23/16 08:00 01/22/17 07:59 12/24/16 07:59 25 MG Montelukast Sodium (Singulair Tab) 10 mg DAILY PO 12/23/16 08:00 01/22/17 07:59 12/24/16 08:01 10 MG Nitroglycerin (Nitrostat Tab) 0.4 mg PRN PRN [place] 12/22/16 15:30 01/21/17 15:29 Pantoprazole Sodium (Protonix Tab) 40 mg BID PO 12/22/16 20:00 01/21/17 19:59 12/24/16 20:39 40 MG Travoprost (Travatan Z) 1 drops HS OP 12/22/16 22:00 01/21/17 21:59 12/24/16 20:39 1 DROPS Miscellaneous Information (Order Awaiting Action) 1 ea QS N/A 12/23/16 00:00 01/22/17 00:00 Potassium Chloride (Klor-Con M10) 10 meq BID PO 12/22/16 20:00 01/21/17 19:59 12/24/16 20:38 10 MEQ Codeine Phosphate/ Guaifenesin (Robitussin-AC Sugar Free Syrup) 10 ml Q6H PRN PO 12/22/16 15:45 01/21/17 15:44 12/24/16 13:59 10 ML Enoxaparin Sodium (Lovenox Inj) 40 mg Q24H SC 12/22/16 18:00 01/21/17 17:59 12/24/16 17:34 40 MG Benzonatate (Tessalon Perles Cap) 100 mg TID PRN PO 12/22/16 23:15 01/21/17 23:14 12/24/16 10:00 100 MG Docusate Sodium (coLACE CAP) 100 mg DAILY PO 12/24/16 08:00 01/23/17 07:59 12/24/16 07:58 100 MG Methylprednisolone Sodium Succinate 20 mg/Syringe 0.32 ml @ 1.5 mls/min Q8 IV 12/23/16 22:00 01/22/17 21:59 12/24/16 21:53 1.5 MLS/MIN Insulin Glargine (Lantus Solostar Pen) BSG LANTUSSQ <... BID SC 12/24/16 20:00 01/23/17 19:59 12/24/16 20:46 120 UNITS Insulin Aspart (novoLOG ASPART) SLIDING SCALE G... ACHS SC 12/24/16 11:00 01/23/17 10:59 12/24/16 20:45 16 UNITS Insulin Aspart (novoLOG ASPART) SLIDING SCALE G... 0100 ONCE SC 12/25/16 01:00 12/25/16 01:01 Codeine Sulfate (Codeine Tab) 15 mg Q6R PRN PO 12/24/16 13:45 01/07/17 13:44 Dornase Guill[place] (Pulmozyme Inhalation Soln 2.5ml Amp) 2.5 ml BIDR INH 12/24/16 20:00 01/23/17 19:59 Polyethylene (Miralax Powder Packet) 17 gm BID PRN PO 12/24/16 21:15 01/23/17 21:14
[2016-12-25] VITALS (9 sets, daily range): BP systolic 130–169; BP diastolic 75–84; PULSE 72–91; TEMP 36.2–36.6; O2SAT 90–97
[2016-12-25] MEDS: CODEINE SULFATE 30 MG TAB PO PRN (00:06)
[2016-12-25] MEDS ORDERED: INSULIN ASPART 100 UNITS/ML 3 ML PEN SC ONE (01:00)
[2016-12-25] MEDS: METHYLPREDNISOLONE IV 20 MG in SYRINGE 0 ML IV SCH ×3 (05:39→21:35)
[2016-12-25] MEDS: INSULIN ASPART 100 UNITS/ML 3 ML PEN SC SCH ×4 (06:30→21:33)
[2016-12-25] MEDS: DORNASE ALFA (2500U) 2.5MG/2.5ML INH SCH ×2 (07:00→19:49)
[2016-12-25] MEDS: ALBUT/IPRATROP 3MG/0.5MG NEB 3 ML VIAL INH SCH ×4 (07:00→19:48)
[2016-12-25] MEDS: ACETAMINOPHEN 325 MG TAB PO PRN (07:39)
[2016-12-25] MEDS: GUAIFENESIN/CODEINE 200MG/20MG 10ML UDC PO PRN ×2 (07:39→16:02)
[2016-12-25] MEDS: LORAZEPAM 1 MG TAB PO SCH ×3 (07:39→20:17)
[2016-12-25] MEDS: BRIMONIDINE TARTRATE-P 0.15% 5 ML BTL OPB SCH ×2 (07:40→20:14)
[2016-12-25] MEDS: BENZONATATE 100MG CAP PO PRN (07:40)
[2016-12-25] MEDS: CITALOPRAM 20 MG TAB PO SCH (07:41)
[2016-12-25] MEDS: DOCUSATE SODIUM 100 MG CAP PO SCH (07:41)
[2016-12-25 07:42] LABS: BUN/CREATININE RATIO 24.9 (10-20); CALCIUM 8.8 mg/dl (8.5-10.1); CREATININE 0.69 mg/dl (0.60-1.20); POTASSIUM 3.9 mmol/L (3.5-5.1)
[2016-12-25] MEDS: CARVEDILOL 12.5 MG TAB PO SCH ×2 (07:42→20:14)
[2016-12-25] MEDS: ASPIRIN 81 MG ECTAB PO SCH (07:43)
[2016-12-25] MEDS: ISOSORBIDE MONONITRATE 30 MG TABCR PO SCH (07:43)
[2016-12-25] MEDS: LOSARTAN POTASSIUM 25 MG TAB PO SCH (07:43)
[2016-12-25] MEDS: POTASSIUM CHLORIDE 10 MEQ TABCR PO SCH ×3 (07:44→20:15)
[2016-12-25] MEDS: FUROSEMIDE 40 MG TAB PO SCH (07:44)
[2016-12-25] MEDS: MONTELUKAST SOD 10 MG TAB PO SCH (07:45)
[2016-12-25] MEDS: PANTOprazole SOD 40 MG TAB PO SCH ×2 (09:34→20:15)
--- NOTE | 2016-12-25 09:34 | Progress Note ---
Medicine Progress Note Date & Time of Visit: Dec 25, 2016 at 09:20 . Subjective Codeine offered some relief from coughing last night, but coughing again this morning. Cough remains nonproductive most of the time. No dyspnea at rest. No chest pain. No nausea or vomiting. Constipated. Voiding without difficulty. Blood sugars improved. . Objective Last 8 Hrs Date Time Temp Pulse Resp B/P (MAP) Pulse Ox O2 Delivery O2 Flow Rate FiO2 12/25/16 07:22 36.4 78 22 152/84 (106) 96 Room Air 145/79 (101) 12/25/16 07:00 78 16 96 Room Air 12/25/16 04:00 36.2 72 18 130/77 (94) 90 Room Air Physical Exam: General- no distress ENT- no thrush Neck- no JVD Lungs- diffuse moderate wheezing Heart- RRR, I/ sys murmur at base Abdomen- + BS, soft, nontender Extremities- 1+ pretibial edema Neuro- alert . Laboratory Results: Last 24 Hours Test 12/24/16 10:58 12/24/16 16:07 12/24/16 20:01 12/25/16 00:08 Bedside Glucose 279 mg/dl 339 mg/dl 303 mg/dl 240 mg/dl Test 12/25/16 06:55 12/25/16 07:39 Sodium Level 137 mmol/L Potassium Level 3.9 mmol/L Chloride Level 103 mmol/L Carbon Dioxide Level 27 mmol/L Anion Gap 7.0 mmol/L Blood Urea Nitrogen 17 mg/dl Creatinine 0.69 mg/dl Est Creatinine Clear Calc Drug Dose 70.6 ml/min Estimated GFR () 96.6 Estimated GFR (Non- 83.4 BUN/Creatinine Ratio 24.9 Random Glucose 104 mg/dl Calcium Level 8.8 mg/dl Bedside Glucose 107 mg/dl Assessment & Plan EXACERBATION OF ASTHMA / COPD No infiltrates on chest x-ray. Oxygenating well on RA. Continue IV methylprednisolone, nebs, azithromycin, ceftriaxone. Pulmonary Medicine consulted. CORONARY ARTERY DISEASE No anginal symptoms. Continue aspirin, carvedilol, losartan, nitrates. Check lipid management. CEREBROVASCULAR DISEASE Continue ASA. HYPERTENSION Continue carvedilol, losartan, nitrates. DM TYPE 2 Hgb A1C = 9.1. Blood sugars as high as 480 on 12/23. Poor glycemic control due to acute illness + steroids. Started on insulin infusion and transitioned back to SQ Lantus + NovoLog. Methylprednisolone dose decreased to 20 mg IV q 8 hrs; further tapering of steroids as soon as possible. FBS this morning = 107. VTE PROPHYLAXIS SQ enoxaparin. Ambulate. DISPOSITION Expected discharge to home. Family Medicine follow-up with Dr. Smith. Pulmonary Medicine follow-up with Dr. Harrell. . Current Inpatient Medications: Current Inpatient Medications Medications (Trade) Dose Ordered Sig/Yesica Route Start Time Stop Time Status Last Admin Dose Admin Acetaminophen (Tylenol Tab) 650 mg Q4H PRN PO 12/22/16 14:00 01/21/17 13:59 12/25/16 07:39 650 MG Polyethylene (Miralax Powder Packet) 17 gm DAILY PRN PO 12/22/16 14:00 01/21/17 13:59 12/24/16 10:11 17 GM Ondansetron HCl (Zofran Inj) 4 mg Q6H PRN IV 12/22/16 14:00 01/21/17 13:59 Glucose (Glucose 40% Gel) 15-30 GRAMS 15 GRAMS... UD PRN PO 12/22/16 14:00 01/21/17 13:59 Glucose (Glucose Chew Tab) 4-8 Tablets 4 Tabl... UD PRN PO 12/22/16 14:00 01/21/17 13:59 Dextrose (Dextrose 50% 50ML Syringe) 25-50ML OF 50% DW IV FOR... UD PRN IV 12/22/16 14:00 01/21/17 13:59 Glucagon (Glucagon Inj) 1 mg UD PRN SQ 12/22/16 14:00 01/21/17 13:59 Albuterol/ Ipratropium (Duoneb) 3 ml QIDR INH 12/22/16 16:00 01/21/17 15:59 12/25/16 07:00 3 ML Ceftriaxone Sodium 1 gm/ Dextrose 50 ml @ 100 mls/hr Q24H IV 12/22/16 16:00 12/29/16 15:59 12/24/16 15:54 100 MLS/HR Azithromycin (Zithromax Tab) 500 mg Q24H PO 12/22/16 16:00 12/29/16 15:59 12/24/16 15:54 500 MG Aspirin (Ecotrin Tab) 81 mg DAILY PO 12/23/16 08:00 01/22/17 07:59 12/25/16 07:43 81 MG Brimonidine Tartrate (Alphagan-P 0.15% Oph Soln) 1 drops BID OPB 12/22/16 20:00 01/21/17 19:59 12/24/16 20:39 1 DROPS Carvedilol (Coreg Tab) 12.5 mg BID PO 12/22/16 20:00 01/21/17 19:59 12/25/16 07:42 12.5 MG Citalopram Hydrobromide (celeXA TAB) 10 mg DAILY PO 12/23/16 08:00 01/22/17 07:59 12/25/16 07:41 10 MG Fluticasone Propionate (Flonase Nasal [place]) 2 sprays BID PRN AMARILIS 12/22/16 15:30 01/21/17 15:29 Furosemide (Lasix Tab) 40 mg DAILY PO 12/23/16 08:00 01/22/17 07:59 12/25/16 07:44 40 MG Isosorbide Mononitrate (Imdur Ext Rel Tab) 30 mg DAILY PO 12/23/16 08:00 01/22/17 07:59 12/25/16 07:43 30 MG Lorazepam (Ativan Tab) 1 mg TID PO 12/22/16 20:00 01/21/17 19:59 12/25/16 07:39 1 MG Losartan Potassium (coZAAR TAB) 25 mg DAILY PO 12/23/16 08:00 01/22/17 07:59 12/25/16 07:43 25 MG Montelukast Sodium (Singulair Tab) 10 mg DAILY PO 12/23/16 08:00 01/22/17 07:59 12/25/16 07:45 10 MG Nitroglycerin (Nitrostat Tab) 0.4 mg PRN PRN UT 12/22/16 15:30 01/21/17 15:29 Pantoprazole Sodium (Protonix Tab) 40 mg BID PO 12/22/16 20:00 01/21/17 19:59 12/24/16 20:39 40 MG Travoprost (Travatan Z) 1 drops HS OP 12/22/16 22:00 01/21/17 21:59 12/24/16 20:39 1 DROPS Miscellaneous Information (Order Awaiting Action) 1 ea QS N/A 12/23/16 00:00 01/22/17 00:00 Potassium Chloride (Klor-Con M10) 10 meq BID PO 12/22/16 20:00 01/21/17 19:59 12/24/16 20:38 10 MEQ Codeine Phosphate/ Guaifenesin (Robitussin-AC Sugar Free Syrup) 10 ml Q6H PRN PO 12/22/16 15:45 01/21/17 15:44 12/25/16 07:39 10 ML Enoxaparin Sodium (Lovenox Inj) 40 mg Q24H SC 12/22/16 18:00 01/21/17 17:59 12/24/16 17:34 40 MG Benzonatate (Tessalon Perles Cap) 100 mg TID PRN PO 12/22/16 23:15 01/21/17 23:14 12/25/16 07:40 100 MG Docusate Sodium (coLACE CAP) 100 mg DAILY PO 12/24/16 08:00 01/23/17 07:59 12/25/16 07:41 100 MG Methylprednisolone Sodium Succinate 20 mg/Syringe 0.32 ml @ 1.5 mls/min Q8 IV 12/23/16 22:00 01/22/17 21:59 12/25/16 05:39 1.5 MLS/MIN Insulin Glargine (Lantus Solostar Pen) BSG LANTUSSQ <... BID SC 12/24/16 20:00 01/23/17 19:59 12/24/16 20:46 120 UNITS Insulin Aspart (novoLOG ASPART) SLIDING SCALE G... ACHS SC 12/24/16 11:00 01/23/17 10:59 12/24/16 20:45 16 UNITS Codeine Sulfate (Codeine Tab) 15 mg Q6R PRN PO 12/24/16 13:45 01/07/17 13:44 12/25/16 00:06 15 MG Dornase Guillermo (Pulmozyme Inhalation Soln 2.5ml Amp) 2.5 ml BIDR INH 12/24/16 20:00 01/23/17 19:59 12/25/16 07:00 2.5 ML Polyethylene (Miralax Powder Packet) 17 gm BID PRN PO 12/24/16 21:15 01/23/17 21:14
[2016-12-25] MEDS: INSULIN GLARGINE SOLOSTAR 100 UNITS/ML 3 ML PEN SC SCH ×2 (09:37→21:34)
[2016-12-25] MEDS: POLYETHYLENE (MIRALAX) 17 GM PACK PO PRN ×2 (11:46→16:12)
--- NOTE | 2016-12-25 15:33 | Pulmonology Progress Note ---
Pulmonary Progress Note Date of Service Dec 25, 2016. Attending Dr. Fields Subjective Patient seen and examined today. She had a better night's sleep with the addition of codeine. She is still having intermittent coughing. Denies any shortness of breath or chest pain today. Objective VS: reviewed. Tm 36.4, BP 130/77-152/84, P 72-91, RR 16-22, SaO2 90-97% on RA. Gen: pleasant lady, AAOx3, NAD. Speaking in full sentences with out any respiratory distress. Mouth/Throat: Mallampati III CVS: S1,S2, RRR Lungs: Diminished breath sounds bilaterally, sporadic wheezes bilateral lung dozier Chest: reproducible chest pain upon palpation of sternum and anterior ribs Abd: obese/NT/ND/BS+ Ext: bilateral trace LE edema, incision on left lower extremity, no cyanosis, no clubbing Labs reviewed. No new labs today. Sputum culture 12/23/2016--contaminated Blood culture-- 12/22/2016--no growth to date. Imaging viewed and reviewed by me. Medications reviewed. Assessment & Plan Asthma exacerbation Bronchiectasis CHF Patient continues to have harsh cough.Improving from a respiratory standpoint. Continue with Solu-Medrol. Can probably switch over to oral prednisone at 60 mg tomorrow with a slow taper. Continue with aggressive pulmonary toilet continue with flutter valve. Continue Duonebs and empiric antibiotic therapy pending cultures. Supplement O2 if needed to keep SaO2 >88% Continue with codeine 15 mg q4-6 h prn to current regimen as it appears to be helping with coughing Continue the lasix for diuresis as I suspect she has some diastolic dysfunction. If no improvement by tomorrow, may need bronchoscopy. Data Medications: Current Inpatient Medications Medications (Trade) Dose Ordered Sig/Yesica Route Start Time Stop Time Status Last Admin Dose Admin Acetaminophen (Tylenol Tab) 650 mg Q4H PRN PO 12/22/16 14:00 01/21/17 13:59 12/25/16 07:39 650 MG Ondansetron HCl (Zofran Inj) 4 mg Q6H PRN IV 12/22/16 14:00 01/21/17 13:59 Glucose (Glucose 40% Gel) 15-30 GRAMS 15 GRAMS... UD PRN PO 12/22/16 14:00 01/21/17 13:59 Glucose (Glucose Chew Tab) 4-8 Tablets 4 Tabl... UD PRN PO 12/22/16 14:00 01/21/17 13:59 Dextrose (Dextrose 50% 50ML Syringe) 25-50ML OF 50% DW IV FOR... UD PRN IV 12/22/16 14:00 01/21/17 13:59 Glucagon (Glucagon Inj) 1 mg UD PRN SQ 12/22/16 14:00 01/21/17 13:59 Albuterol/ Ipratropium (Duoneb) 3 ml QIDR INH 12/22/16 16:00 01/21/17 15:59 12/25/16 15:08 3 ML Ceftriaxone Sodium 1 gm/ Dextrose 50 ml @ 100 mls/hr Q24H IV 12/22/16 16:00 12/29/16 15:59 12/24/16 15:54 100 MLS/HR Azithromycin (Zithromax Tab) 500 mg Q24H PO 12/22/16 16:00 12/29/16 15:59 12/24/16 15:54 500 MG Aspirin (Ecotrin Tab) 81 mg DAILY PO 12/23/16 08:00 01/22/17 07:59 12/25/16 07:43 81 MG Brimonidine Tartrate (Alphagan-P 0.15% Oph Soln) 1 drops BID OPB 12/22/16 20:00 01/21/17 19:59 12/24/16 20:39 1 DROPS Carvedilol (Coreg Tab) 12.5 mg BID PO 12/22/16 20:00 01/21/17 19:59 12/25/16 07:42 12.5 MG Citalopram Hydrobromide (celeXA TAB) 10 mg DAILY PO 12/23/16 08:00 01/22/17 07:59 12/25/16 07:41 10 MG Fluticasone Propionate (Flonase Nasal [place]) 2 sprays BID PRN AMARILIS 12/22/16 15:30 01/21/17 15:29 Furosemide (Lasix Tab) 40 mg DAILY PO 12/23/16 08:00 01/22/17 07:59 12/25/16 07:44 40 MG Isosorbide Mononitrate (Imdur Ext Rel Tab) 30 mg DAILY PO 12/23/16 08:00 01/22/17 07:59 12/25/16 07:43 30 MG Lorazepam (Ativan Tab) 1 mg TID PO 12/22/16 20:00 01/21/17 19:59 12/25/16 13:57 1 MG Losartan Potassium (coZAAR TAB) 25 mg DAILY PO 12/23/16 08:00 01/22/17 07:59 12/25/16 07:43 25 MG Montelukast Sodium (Singulair Tab) 10 mg DAILY PO 12/23/16 08:00 01/22/17 07:59 12/25/16 07:45 10 MG Nitroglycerin (Nitrostat Tab) 0.4 mg PRN PRN UT 12/22/16 15:30 01/21/17 15:29 Pantoprazole Sodium (Protonix Tab) 40 mg BID PO 12/22/16 20:00 01/21/17 19:59 12/25/16 09:34 40 MG Travoprost (Travatan Z) 1 drops HS OP 12/22/16 22:00 01/21/17 21:59 12/24/16 20:39 1 DROPS Miscellaneous Information (Order Awaiting Action) 1 ea QS N/A 12/23/16 00:00 01/22/17 00:00 Potassium Chloride (Klor-Con M10) 10 meq BID PO 12/22/16 20:00 01/21/17 19:59 12/24/16 20:38 10 MEQ Codeine Phosphate/ Guaifenesin (Robitussin-AC Sugar Free Syrup) 10 ml Q6H PRN PO 12/22/16 15:45 01/21/17 15:44 12/25/16 07:39 10 ML Enoxaparin Sodium (Lovenox Inj) 40 mg Q24H SC 12/22/16 18:00 01/21/17 17:59 12/24/16 17:34 40 MG Benzonatate (Tessalon Perles Cap) 100 mg TID PRN PO 12/22/16 23:15 01/21/17 23:14 12/25/16 07:40 100 MG Docusate Sodium (coLACE CAP) 100 mg DAILY PO 12/24/16 08:00 01/23/17 07:59 12/25/16 07:41 100 MG Methylprednisolone Sodium Succinate 20 mg/Syringe 0.32 ml @ 1.5 mls/min Q8 IV 12/23/16 22:00 01/22/17 21:59 12/25/16 13:57 1.5 MLS/MIN Insulin Glargine (Lantus Solostar Pen) BSG LANTUSSQ <... BID SC 12/24/16 20:00 01/23/17 19:59 12/25/16 09:37 80 UNITS Insulin Aspart (novoLOG ASPART) SLIDING SCALE G... ACHS SC 12/24/16 11:00 01/23/17 10:59 12/25/16 13:32 28 UNITS Codeine Sulfate (Codeine Tab) 15 mg Q6R PRN PO 12/24/16 13:45 01/07/17 13:44 12/25/16 00:06 15 MG Dornase Guillermo (Pulmozyme Inhalation Soln 2.5ml Amp) 2.5 ml BIDR INH 12/24/16 20:00 01/23/17 19:59 12/25/16 07:00 2.5 ML Polyethylene (Miralax Powder Packet) 17 gm Q4H PRN PO 12/25/16 09:45 01/23/17 21:14 12/25/16 11:46 17 GM Vital Signs: Date Time Temp Pulse Resp B/P (MAP) Pulse Ox O2 Delivery O2 Flow Rate FiO2 12/25/16 15:09 91 16 95 Room Air 12/25/16 11:16 85 16 97 Room Air 12/25/16 07:22 36.4 78 22 152/84 (106) 96 Room Air 145/79 (101) 12/25/16 07:00 78 16 96 Room Air 12/25/16 04:00 36.2 72 18 130/77 (94) 90 Room Air 12/25/16 00:00 36.4 82 18 132/78 (96) 93 Room Air 12/25/16 00:00 Room Air 12/24/16 20:36 36.2 92 20 151/90 (110) 91 Room Air 12/24/16 20:18 89 144/78 (100) 12/24/16 19:04 85 16 95 Room Air 12/24/16 16:00 Room Air Laboratory Results: Last 24 Hours Test 12/24/16 16:07 12/24/16 20:01 12/25/16 00:08 12/25/16 06:55 Bedside Glucose 339 mg/dl 303 mg/dl 240 mg/dl Sodium Level 137 mmol/L Potassium Level 3.9 mmol/L Chloride Level 103 mmol/L Carbon Dioxide Level 27 mmol/L Anion Gap 7.0 mmol/L Blood Urea Nitrogen 17 mg/dl Creatinine 0.69 mg/dl Est Creatinine Clear Calc Drug Dose 70.6 ml/min Estimated GFR () 96.6 Estimated GFR (Non- 83.4 BUN/Creatinine Ratio 24.9 Random Glucose 104 mg/dl Calcium Level 8.8 mg/dl Test 12/25/16 07:39 12/25/16 11:31 Bedside Glucose 107 mg/dl 275 mg/dl
[2016-12-25] MEDS: CEFTRIAXONE SOD INJ 1 GM in DEXTROSE 5% ADD-VANTAGE 50ML 50 ML IV SCH (16:02)
[2016-12-25] MEDS: AZITHROMYCIN 250 MG TAB PO SCH (16:03)
[2016-12-25] MEDS: ENOXAPARIN 40 MG/0.4 ML SYR SC SCH (17:52)
[2016-12-25] MEDS: TRAVOPROST Z 0.004% OPH SOLN 2.5 ML BTL OP SCH (21:35)
[2016-12-26] VITALS (10 sets, daily range): BP systolic 103–140; BP diastolic 59–74; PULSE 75–86; TEMP 36.7–36.8; O2SAT 92–97
[2016-12-26] MEDS ORDERED: INSULIN ASPART 100 UNITS/ML 3 ML PEN SC ONE (01:00)
[2016-12-26] MEDS: CODEINE SULFATE 30 MG TAB PO PRN ×2 (01:35→22:40)
[2016-12-26] MEDS: METHYLPREDNISOLONE IV 20 MG in SYRINGE 0 ML IV SCH ×3 (06:14→21:31)
[2016-12-26] MEDS: ALBUT/IPRATROP 3MG/0.5MG NEB 3 ML VIAL INH SCH ×4 (07:05→18:59)
[2016-12-26] MEDS: DORNASE ALFA (2500U) 2.5MG/2.5ML INH SCH ×2 (07:06→18:59)
[2016-12-26] MEDS: BRIMONIDINE TARTRATE-P 0.15% 5 ML BTL OPB SCH ×2 (08:00→20:48)
[2016-12-26] MEDS: POTASSIUM CHLORIDE 10 MEQ TABCR PO SCH ×2 (08:00→20:00)
[2016-12-26] MEDS: POLYETHYLENE (MIRALAX) 17 GM PACK PO PRN ×2 (08:14→18:02)
[2016-12-26] MEDS: LORAZEPAM 1 MG TAB PO SCH ×3 (08:14→20:00)
[2016-12-26] MEDS: CITALOPRAM 20 MG TAB PO SCH (08:15)
[2016-12-26] MEDS: DOCUSATE SODIUM 100 MG CAP PO SCH (08:15)
[2016-12-26] MEDS: LOSARTAN POTASSIUM 25 MG TAB PO SCH (08:16)
[2016-12-26] MEDS: CARVEDILOL 12.5 MG TAB PO SCH ×2 (08:16→20:48)
[2016-12-26] MEDS: ASPIRIN 81 MG ECTAB PO SCH (08:16)
[2016-12-26] MEDS: ISOSORBIDE MONONITRATE 30 MG TABCR PO SCH (08:17)
[2016-12-26] MEDS: PANTOprazole SOD 40 MG TAB PO SCH ×2 (08:18→20:49)
[2016-12-26] MEDS: MONTELUKAST SOD 10 MG TAB PO SCH (08:18)
[2016-12-26] MEDS: FUROSEMIDE 40 MG TAB PO SCH (08:18)
[2016-12-26] MEDS: INSULIN ASPART 100 UNITS/ML 3 ML PEN SC SCH ×4 (08:23→21:27)
[2016-12-26] MEDS: INSULIN GLARGINE SOLOSTAR 100 UNITS/ML 3 ML PEN SC SCH ×2 (08:24→21:27)
[2016-12-26] MEDS: GUAIFENESIN/CODEINE 200MG/20MG 10ML UDC PO PRN (11:16)
[2016-12-26] MEDS: CEFTRIAXONE SOD INJ 1 GM in DEXTROSE 5% ADD-VANTAGE 50ML 50 ML IV SCH (16:02)
[2016-12-26] MEDS: AZITHROMYCIN 250 MG TAB PO SCH (16:02)
--- NOTE | 2016-12-26 17:24 | Pulmonology Progress Note ---
Pulmonary Progress Note Date of Service Dec 26, 2016. Attending Dr. Vora Subjective Slept better over the evening - responding well to cough suppressants. Continues to expectorate thick yellow sputum. No chest pain. Anticipating bronchoscopy. Objective 76-yo female admitted to [facility] 12/23/16 with exacerbation of chronic asthmatic bronchitics Prior records were reviewed: PMHx includes; asthmatic bronchitis, ? bronchiectasis, tracheomalacia, allergic rhinitis, CAD, DLD, GERD, HTN, and RANDY. She has followed [facility] Dr. Harrell and Jason Garcia for several years for h// o bronchiectasis/COPD and has been admitted on several instances ([facility] and [facility] ) with exacerbation. She is a former smoker. PFT 05/17/16: FVC: 2.35/105%, FEV1: 1.81/104%, FEV1/FVC: 77%, FEF 25-75%: 1.75/ 107%, VC: 2.65/119%, T.34/116%, RV/T%, DLCO: 70%, DLCo/VA: 108. Last bronchoscopy 02/2016 notable for moderate/severe tracheomalacia, erythema of the false cords and lavage of mucopurulent secretory burden. Patient last seen in the office 12/20/16 with several month history of dyspnea and productive cough despite aggressive outpatient course including antibiotic, expectorant and prolonged steroid. She was referred for bronchoscopy but was ultimately admitted 12/23/16 prior to intervention. CXR 12/22/16: Unremarkable. She is treated with pulmozyme BID, flutter, IV steroid, ceftriaxone/azithromycin, and scheduled LUIZ/MAXIMO bronchodilators. Today: - O2 92-97%: RA, Afebrile, HD stable - No new labs Physical Exam Constitutional: Well developed, well nourished elderly obese female. No acute distress. Head: + facial symmetry Eyes: EOMi, PERRLA, no conjunctival injection Mouth: Mallampati [III/IV]. No erythema, exudate, or post nasal gtt Neck: Trachea midline. No adenopathy or masses Respiratory: Non-labored respirations. Scattered rales. No wheeze. Cough provoked with deep inspiration. No clubbing or cyanosis. Cardiovascular: RRR, no MRG. +2 radial pulses. <1s capillary refill. Abdomen: soft, active bowel sounds Integumentary: no rashes, or ecchymosis MSK/Extremities: Moving and developed symmetrically. Trace peripheral edema. No calf tenderness. Neurologic: A&O, data recall in-tact. Appropriate affect. Assessment & Plan - Exacerbation of asthmatic bronchitis with continued productive cough - discussed with Dr. Sharri reevesn will arrange for bronchoscopy tomorrow afternoon with Dr. Gil. NPO after midnight. Data Medications: Current Inpatient Medications Medications (Trade) Dose Ordered Sig/Yesica Route Start Time Stop Time Status Last Admin Dose Admin Acetaminophen (Tylenol Tab) 650 mg Q4H PRN PO 12/22/16 14:00 01/21/17 13:59 12/25/16 07:39 650 MG Ondansetron HCl (Zofran Inj) 4 mg Q6H PRN IV 12/22/16 14:00 01/21/17 13:59 Glucose (Glucose 40% Gel) 15-30 GRAMS 15 GRAMS... UD PRN PO 12/22/16 14:00 01/21/17 13:59 Glucose (Glucose Chew Tab) 4-8 Tablets 4 Tabl... UD PRN PO 12/22/16 14:00 01/21/17 13:59 Dextrose (Dextrose 50% 50ML Syringe) 25-50ML OF 50% DW IV FOR... UD PRN IV 12/22/16 14:00 01/21/17 13:59 Glucagon (Glucagon Inj) 1 mg UD PRN SQ 12/22/16 14:00 01/21/17 13:59 Albuterol/ Ipratropium (Duoneb) 3 ml QIDR INH 12/22/16 16:00 01/21/17 15:59 12/26/16 07:05 3 ML Ceftriaxone Sodium 1 gm/ Dextrose 50 ml @ 100 mls/hr Q24H IV 12/22/16 16:00 12/29/16 15:59 12/25/16 16:02 100 MLS/HR Azithromycin (Zithromax Tab) 500 mg Q24H PO 12/22/16 16:00 12/29/16 15:59 12/25/16 16:03 500 MG Aspirin (Ecotrin Tab) 81 mg DAILY PO 12/23/16 08:00 01/22/17 07:59 12/26/16 08:16 81 MG Brimonidine Tartrate (Alphagan-P 0.15% Oph Soln) 1 drops BID OPB 12/22/16 20:00 01/21/17 19:59 12/25/16 20:14 1 DROPS Carvedilol (Coreg Tab) 12.5 mg BID PO 12/22/16 20:00 01/21/17 19:59 12/26/16 08:16 12.5 MG Citalopram Hydrobromide (celeXA TAB) 10 mg DAILY PO 12/23/16 08:00 01/22/17 07:59 12/26/16 08:15 10 MG Fluticasone Propionate (Flonase Nasal [place]) 2 sprays BID PRN AMARILIS 12/22/16 15:30 01/21/17 15:29 Furosemide (Lasix Tab) 40 mg DAILY PO 12/23/16 08:00 01/22/17 07:59 12/26/16 08:18 40 MG Isosorbide Mononitrate (Imdur Ext Rel Tab) 30 mg DAILY PO 12/23/16 08:00 01/22/17 07:59 12/26/16 08:17 30 MG Lorazepam (Ativan Tab) 1 mg TID PO 12/22/16 20:00 01/21/17 19:59 12/26/16 08:14 1 MG Losartan Potassium (coZAAR TAB) 25 mg DAILY PO 12/23/16 08:00 01/22/17 07:59 12/26/16 08:16 25 MG Montelukast Sodium (Singulair Tab) 10 mg DAILY PO 12/23/16 08:00 01/22/17 07:59 12/26/16 08:18 10 MG Nitroglycerin (Nitrostat Tab) 0.4 mg PRN PRN UT 12/22/16 15:30 01/21/17 15:29 Pantoprazole Sodium (Protonix Tab) 40 mg BID PO 12/22/16 20:00 01/21/17 19:59 12/26/16 08:18 40 MG Travoprost (Travatan Z) 1 drops HS OP 12/22/16 22:00 01/21/17 21:59 12/25/16 21:35 1 DROPS Miscellaneous Information (Order Awaiting Action) 1 ea QS N/A 10/27/17 00:00 01/22/17 00:00 Potassium Chloride (Klor-Con M10) 10 meq BID PO 12/22/16 20:00 01/21/17 19:59 12/24/16 20:38 10 MEQ Codeine Phosphate/ Guaifenesin (Robitussin-AC Sugar Free Syrup) 10 ml Q6H PRN PO 12/22/16 15:45 01/21/17 15:44 12/25/16 16:02 10 ML Enoxaparin Sodium (Lovenox Inj) 40 mg Q24H SC 12/22/16 18:00 01/21/17 17:59 12/25/16 17:52 40 MG Benzonatate (Tessalon Perles Cap) 100 mg TID PRN PO 12/22/16 23:15 01/21/17 23:14 12/25/16 07:40 100 MG Docusate Sodium (coLACE CAP) 100 mg DAILY PO 12/24/16 08:00 01/23/17 07:59 12/26/16 08:15 100 MG Methylprednisolone Sodium Succinate 20 mg/Syringe 0.32 ml @ 1.5 mls/min Q8 IV 12/23/16 22:00 01/22/17 21:59 12/26/16 06:14 1.5 MLS/MIN Insulin Glargine (Lantus Solostar Pen) BSG LANTUSSQ <... BID SC 12/24/16 20:00 01/23/17 19:59 12/26/16 08:24 60 UNITS Insulin Aspart (novoLOG ASPART) SLIDING SCALE G... ACHS SC 12/24/16 11:00 01/23/17 10:59 12/26/16 08:23 9 UNITS Codeine Sulfate (Codeine Tab) 15 mg Q6R PRN PO 12/24/16 13:45 01/07/17 13:44 12/26/16 01:35 15 MG Dornase Guillermo (Pulmozyme Inhalation Soln 2.5ml Amp) 2.5 ml BIDR INH 12/24/16 20:00 01/23/17 19:59 12/26/16 07:06 2.5 ML Polyethylene (Miralax Powder Packet) 17 gm Q4H PRN PO 12/25/16 09:45 01/23/17 21:14 12/26/16 08:14 17 GM Vital Signs: Date Time Temp Pulse Resp B/P (MAP) Pulse Ox O2 Delivery O2 Flow Rate FiO2 12/26/16 07:20 86 16 97 Room Air 12/26/16 07:12 36.8 81 18 140/74 (96) 92 Room Air 12/26/16 07:07 86 16 97 Room Air 12/26/16 00:12 36.8 81 18 116/71 (86) 93 Room Air 12/26/16 00:00 Room Air 12/25/16 20:00 Room Air 12/25/16 19:51 87 16 94 Room Air 12/25/16 16:00 96 Room Air 12/25/16 15:43 36.6 88 22 169/75 (106) 96 Room Air 12/25/16 15:09 91 16 95 Room Air 12/25/16 11:16 85 16 97 Room Air Laboratory Results: Last 24 Hours Test 12/25/16 11:31 12/25/16 16:34 12/25/16 20:32 12/26/16 01:07 Bedside Glucose 275 mg/dl 207 mg/dl 214 mg/dl 155 mg/dl
[2016-12-26] MEDS: ENOXAPARIN 40 MG/0.4 ML SYR SC SCH (18:01)
[2016-12-26] MEDS: BENZONATATE 100MG CAP PO PRN (18:03)
[2016-12-26] MEDS: TRAVOPROST Z 0.004% OPH SOLN 2.5 ML BTL OP SCH (20:50)
--- NOTE | 2016-12-26 23:29 | Progress Note ---
Medicine Progress Note Date & Time of Visit: Dec 26, 2016 at 10:50 . Subjective Cough / dyspnea minimally improved. Cough remains nonproductive. No fever. No chest pain. No nausea or vomiting. Still constipated. . Objective Vital Signs Label Value Date Time Patient Temperature 36.8 C. 12/26/16711 Temperature Source Oral 12/26/16711 Pulse 81 12/26/16711 Location Left Finger Respiratory Rate 18 12/26/16711 Blood Pressure Assessment 140/74 (96) 12/26/16711 Location Left Arm Source NIBP Position Supine Bedside Pulse Oximetry 92 % 12/26/16711 Item Value Date Time Oxygen Delivery Method Room Air 12/26/16711 Physical Exam: General- no distress ENT- no thrush Neck- no JVD Lungs- diffuse moderate wheezing Heart- RRR, I/ sys murmur at base Abdomen- + BS, soft, nontender Extremities- 1+ pretibial edema Neuro- alert . Laboratory Results: Last 24 Hours Test 12/26/16 01:07 12/26/16 07:53 12/26/16 11:18 12/26/16 16:21 Bedside Glucose 155 mg/dl 92 mg/dl 164 mg/dl 281 mg/dl Test 12/26/16 19:57 Bedside Glucose 267 mg/dl Assessment & Plan EXACERBATION OF ASTHMA / COPD No infiltrates on chest x-ray. Oxygenating well on RA. Receiving IV methylprednisolone, nebs, azithromycin, ceftriaxone. Pulmonary Medicine consulted. Minimal improvement. Bronchoscopy under consideration. CORONARY ARTERY DISEASE No anginal symptoms. Continue aspirin, carvedilol, losartan, nitrates. CEREBROVASCULAR DISEASE Continue ASA. HYPERTENSION Continue carvedilol, losartan, nitrates. DM TYPE 2 Hgb A1C = 9.1. Blood sugars as high as 480 on 12/23. Poor glycemic control due to acute illness + steroids. Started on insulin infusion and transitioned back to SQ Lantus + NovoLog. FBS this morning = 92. Methylprednisolone dose decreased to 20 mg IV q 8 hrs; further tapering of steroids as soon as possible. Will need to monitor blood sugars closely if NPO for bronchoscopy and adjust insulin as necessary. VTE PROPHYLAXIS SQ enoxaparin. Ambulating. DISPOSITION Expected discharge to home. Family Medicine follow-up with Dr. Smith. Pulmonary Medicine follow-up with Dr. Harrell. . Current Inpatient Medications: Current Inpatient Medications Medications (Trade) Dose Ordered Sig/Yesica Route Start Time Stop Time Status Last Admin Dose Admin Acetaminophen (Tylenol Tab) 650 mg Q4H PRN PO 12/22/16 14:00 01/21/17 13:59 12/25/16 07:39 650 MG Ondansetron HCl (Zofran Inj) 4 mg Q6H PRN IV 12/22/16 14:00 01/21/17 13:59 Glucose (Glucose 40% Gel) 15-30 GRAMS 15 GRAMS... UD PRN PO 12/22/16 14:00 01/21/17 13:59 Glucose (Glucose Chew Tab) 4-8 Tablets 4 Tabl... UD PRN PO 12/22/16 14:00 01/21/17 13:59 Dextrose (Dextrose 50% 50ML Syringe) 25-50ML OF 50% DW IV FOR... UD PRN IV 12/22/16 14:00 01/21/17 13:59 Glucagon (Glucagon Inj) 1 mg UD PRN SQ 12/22/16 14:00 01/21/17 13:59 Albuterol/ Ipratropium (Duoneb) 3 ml QIDR INH 12/22/16 16:00 01/21/17 15:59 12/26/16 15:32 3 ML Ceftriaxone Sodium 1 gm/ Dextrose 50 ml @ 100 mls/hr Q24H IV 12/22/16 16:00 12/29/16 15:59 12/26/16 16:02 100 MLS/HR Azithromycin (Zithromax Tab) 500 mg Q24H PO 12/22/16 16:00 12/29/16 15:59 12/26/16 16:02 500 MG Aspirin (Ecotrin Tab) 81 mg DAILY PO 12/23/16 08:00 01/22/17 07:59 12/26/16 08:16 81 MG Brimonidine Tartrate (Alphagan-P 0.15% Oph Soln) 1 drops BID OPB 12/22/16 20:00 01/21/17 19:59 12/26/16 20:48 1 DROPS Carvedilol (Coreg Tab) 12.5 mg BID PO 12/22/16 20:00 01/21/17 19:59 12/26/16 20:48 12.5 MG Citalopram Hydrobromide (celeXA TAB) 10 mg DAILY PO 12/23/16 08:00 01/22/17 07:59 12/26/16 08:15 10 MG Fluticasone Propionate (Flonase Nasal Rembert) 2 sprays BID PRN AMARILIS 12/22/16 15:30 01/21/17 15:29 Furosemide (Lasix Tab) 40 mg DAILY PO 12/23/16 08:00 01/22/17 07:59 12/26/16 08:18 40 MG Isosorbide Mononitrate (Imdur Ext Rel Tab) 30 mg DAILY PO 12/23/16 08:00 01/22/17 07:59 12/26/16 08:17 30 MG Lorazepam (Ativan Tab) 1 mg TID PO 12/22/16 20:00 01/21/17 19:59 12/26/16 20:00 1 MG Losartan Potassium (coZAAR TAB) 25 mg DAILY PO 12/23/16 08:00 01/22/17 07:59 12/26/16 08:16 25 MG Montelukast Sodium (Singulair Tab) 10 mg DAILY PO 12/23/16 08:00 01/22/17 07:59 12/26/16 08:18 10 MG Nitroglycerin (Nitrostat Tab) 0.4 mg PRN PRN UT 12/22/16 15:30 01/21/17 15:29 Pantoprazole Sodium (Protonix Tab) 40 mg BID PO 12/22/16 20:00 01/21/17 19:59 12/26/16 20:49 40 MG Travoprost (Travatan Z) 1 drops HS OP 12/22/16 22:00 01/21/17 21:59 12/26/16 20:50 1 DROPS Miscellaneous Information (Order Awaiting Action) 1 ea QS N/A 12/23/16 00:00 01/22/17 00:00 Potassium Chloride (Klor-Con M10) 10 meq BID PO 12/22/16 20:00 01/21/17 19:59 12/24/16 20:38 10 MEQ Codeine Phosphate/ Guaifenesin (Robitussin-AC Sugar Free Syrup) 10 ml Q6H PRN PO 12/22/16 15:45 01/21/17 15:44 12/26/16 11:16 10 ML Enoxaparin Sodium (Lovenox Inj) 40 mg Q24H SC 12/22/16 18:00 01/21/17 17:59 12/26/16 18:01 40 MG Benzonatate (Tessalon Perles Cap) 100 mg TID PRN PO 12/22/16 23:15 01/21/17 23:14 12/26/16 18:03 100 MG Docusate Sodium (coLACE CAP) 100 mg DAILY PO 12/24/16 08:00 01/23/17 07:59 12/26/16 08:15 100 MG Methylprednisolone Sodium Succinate 20 mg/Syringe 0.32 ml @ 1.5 mls/min Q8 IV 12/23/16 22:00 01/22/17 21:59 12/26/16 21:31 1.5 MLS/MIN Insulin Glargine (Lantus Solostar Pen) BSG LANTUSSQ <... BID SC 12/24/16 20:00 01/23/17 19:59 12/26/16 21:27 120 UNITS Insulin Aspart (novoLOG ASPART) SLIDING SCALE G... ACHS SC 12/24/16 11:00 01/23/17 10:59 12/26/16 21:27 15 UNITS Codeine Sulfate (Codeine Tab) 15 mg Q6R PRN PO 12/24/16 13:45 01/07/17 13:44 12/26/16 22:40 15 MG Dornase Guillermo (Pulmozyme Inhalation Soln 2.5ml Amp) 2.5 ml BIDR INH 12/24/16 20:00 01/23/17 19:59 12/26/16 07:06 2.5 ML Polyethylene (Miralax Powder Packet) 17 gm Q4H PRN PO 12/25/16 09:45 01/23/17 21:14 12/26/16 18:02 17 GM
[2016-12-27] VITALS (26 sets, daily range): BP systolic 107–156; BP diastolic 61–86; PULSE 72–87; TEMP 36.4–36.6; O2SAT 91–100
[2016-12-27] MEDS: METHYLPREDNISOLONE IV 20 MG in SYRINGE 0 ML IV SCH ×3 (05:51→21:13)
[2016-12-27] MEDS: ALBUT/IPRATROP 3MG/0.5MG NEB 3 ML VIAL INH SCH ×4 (06:53→19:59)
[2016-12-27] MEDS: DORNASE ALFA (2500U) 2.5MG/2.5ML INH SCH (06:53)
[2016-12-27] MEDS: POTASSIUM CHLORIDE 10 MEQ TABCR PO SCH ×2 (08:00→21:06)
[2016-12-27] MEDS: INSULIN ASPART 100 UNITS/ML 3 ML PEN SC SCH ×4 (08:20→21:16)
[2016-12-27] MEDS: LORAZEPAM 1 MG TAB PO SCH ×3 (08:20→21:03)
[2016-12-27] MEDS: BRIMONIDINE TARTRATE-P 0.15% 5 ML BTL OPB SCH ×2 (08:21→21:04)
[2016-12-27] MEDS: DOCUSATE SODIUM 100 MG CAP PO SCH (08:22)
[2016-12-27] MEDS: PANTOprazole SOD 40 MG TAB PO SCH ×2 (08:22→21:06)
[2016-12-27] MEDS: MONTELUKAST SOD 10 MG TAB PO SCH (08:22)
[2016-12-27] MEDS: CITALOPRAM 20 MG TAB PO SCH (08:22)
[2016-12-27] MEDS: ISOSORBIDE MONONITRATE 30 MG TABCR PO SCH (08:22)
[2016-12-27] MEDS: CARVEDILOL 12.5 MG TAB PO SCH ×2 (08:23→21:06)
[2016-12-27] MEDS: BENZONATATE 100MG CAP PO PRN ×2 (08:26→17:34)
[2016-12-27] MEDS: ASPIRIN 81 MG ECTAB PO SCH (08:26)
[2016-12-27] MEDS: FUROSEMIDE 40 MG TAB PO SCH (08:27)
[2016-12-27] MEDS: LOSARTAN POTASSIUM 25 MG TAB PO SCH (08:28)
[2016-12-27] MEDS: INSULIN GLARGINE SOLOSTAR 100 UNITS/ML 3 ML PEN SC SCH ×2 (08:37→21:16)
[2016-12-27] MEDS ORDERED: D5W AND LACTATED RINGERS 1,000 ML IV SCH (09:00)
--- NOTE | 2016-12-27 13:55 | Progress Note ---
Internal Med Progress Note Date of Service: Dec 27, 2016. Provider Documentation: SUBJECTIVE: The patient was seen and examined Still has a lot of wheezing and Cough Not been able to bring up any sputum Clinically not any better OBJECTIVE: Vital Signs-as noted below Exam: General-No distress at rest Eyes-normal ENT-normal Neck-supple Lungs-decreased breath sound bilaterally Moderate wheezing bilaterally Heart-Regular,no murmur Abdomen-Benign,no masses,bowel sound present Extremities-no edema Neuro-AAOx3 Lab data as noted below. ASSESSMENT & PLAN: EXACERBATION OF ASTHMA / COPD No infiltrates on chest x-ray. Oxygenating well on RA. Receiving IV methylprednisolone, nebs, azithromycin, ceftriaxone. Pulmonary Medicine consulted. Required Bronchoscopy in last January Condition did not improve Will have Bronchoscopy today DM TYPE 2 Hgb A1C = 9.1. Blood sugars as high as 480 on 12/23. Poor glycemic control due to acute illness + steroids. Started on insulin infusion and transitioned back to SQ Lantus + NovoLog. Methylprednisolone dose decreased to 20 mg IV q 8 hrs; further tapering of steroids as soon as possible. Will taper Prednisone rapidly CORONARY ARTERY DISEASE No anginal symptoms. Continue aspirin, carvedilol, losartan, nitrates. CEREBROVASCULAR DISEASE Continue ASA. No acute issue HYPERTENSION Continue carvedilol, losartan, nitrates. VTE PROPHYLAXIS SQ enoxaparin. Ambulating. DISPOSITION Expected discharge to home. Family Medicine follow-up with Dr. Smith. Pulmonary Medicine follow-up with Dr. Harrell. Vital Signs: Date Time Temp Pulse Resp B/P (MAP) Pulse Ox O2 Delivery O2 Flow Rate FiO2 12/27/16 11:54 86 16 95 Room Air 12/27/16 08:00 Room Air 12/27/16 07:11 36.6 73 18 156/80 (105) 95 Room Air 12/27/16 07:08 84 16 95 Room Air 12/27/16 06:56 84 16 95 Room Air 12/27/16 05:50 36.5 79 18 154/82 (106) 95 Room Air 12/27/16 00:00 Room Air 12/26/16 23:00 36.7 79 18 103/59 (74) 92 Room Air 12/26/16 16:00 95 Room Air 12/26/16 15:33 81 16 95 Room Air 12/26/16 14:56 36.8 77 20 109/64 (79) 94 Room Air Lab Results: Results Past 24 Hours Test 12/26/16 16:21 12/26/16 19:57 12/27/16 07:28 Range/Units Bedside Glucose 281 267 86 70-90 mg/dl
--- NOTE | 2016-12-27 14:14 | Procedure Note ---
Pre-Mod Sedation Assessment General Date of Moderate Sedation: Dec 27, 2016. Vital Signs: Vital Signs Past 12 Hours Date Time Temp Pulse Resp B/P (MAP) Pulse Ox O2 Delivery O2 Flow Rate FiO2 12/27/16 13:56 72 18 127/75 100 Mask 4.0 12/27/16 13:52 95 Room Air 12/27/16 11:54 86 16 95 Room Air 12/27/16 08:00 Room Air 12/27/16 07:11 36.6 73 18 156/80 (105) 95 Room Air 12/27/16 07:08 84 16 95 Room Air 12/27/16 06:56 84 16 95 Room Air 12/27/16 05:50 36.5 79 18 154/82 (106) 95 Room Air Review Cardiovascular: regular rate, rhythm, no edema, no gallop, no JVD, no murmur Abdomen: normal bowel sounds, non tender, soft, no organomegaly, no pulsatile mass Lungs: chest non-tender, lungs clear, normal breath sounds Airway Class: III Pre-Sedation Airway Assessment Oral Cavity: WNL Short Thick Neck: Yes Hx of Sleep Apnea: Yes Smoking Status: Former Smoker Notes The planned sedation has been discussed with the patient and consent obtained. I have identified the patient, determined the appropriateness of sedation and have assessed the patient immediately prior to the procedure. All medicine(s) and interventions are by my order.
--- NOTE | 2016-12-27 14:44 | Bronchoscopy Procedure Note ---
Bronchoscopy Procedure Note Procedure: Bronchoscopy, conscious sedation, bronchial lavage Consent: Obtained through the patient placed into the chart Pre-procedural diagnosis: Acute bronchitis Post-procedural diagnosis: Acute bronchitis, EDAC Start time: 142 End time: 1437 Total time: 16 minutes Analgesia: 2% liquid lidocaine: Via nebulizer 4% gel lidocaine: Via right naris 2% liquid lidocaine: Via bronchoscopy Sedation: Versed IV: 3mg Fentanyl IV: 50 g Procedure: The Olympus video bronchoscope was used for this procedure and passed down through the right naris Right naris/posterior naris/posterior oropharynx: Boggy and erythematous with multiple mucous secretions appreciated the right naris as well as the posterior naris and coming from the left naris as well Glottis: Anatomically within normal limits, diffuse erythema appreciated along the glottis Vocal cords: Proper abduction and adduction, anatomically within normal limits Subglottis/trachea/Morena: I did not approximately 70% EDAC at the distal portion of the trachea Right bronchial tree: Right mainstem bronchus: 70% EDAC appreciated Right upper lobe: 85% EDAC almost completely occluding the takeoff to the subsegments of the right upper lobe during expiration Bronchus intermedius: Anatomically within normal limits Right middle lobe: Anatomically within normal limits Right lower lobe: Anatomically within normal limits Findings: No significant findings noted Left bronchial tree: Left mainstem bronchus: 95% EDAC Left upper lobe: Anatomically within normal limits Lingula: Anatomically within normal limits Left lower lobe: Anatomically within normal limits Findings: No significant findings noted Bronchial alveolar lavage: Right middle lobe EBL: None Complications: None Follow-up: In patient bed
[2016-12-27] MEDS ORDERED: MIDAZOLAM HCL 5 MG/ML 1 ML VIAL IV ONE ×2 (15:00→15:23)
[2016-12-27] MEDS ORDERED: NURSING VERBAL MED ORDER ONE ×3 (15:00→18:00)
[2016-12-27] MEDS ORDERED: SODIUM CHLORIDE 0.9% 1000ML 1,000 ML IV SCH (15:00)
[2016-12-27] MEDS ORDERED: FENTANYL CITRATE INJ 50 MCG/1 ML 2 ML VIAL IV ONE ×2 (15:00→15:23)
[2016-12-27] MEDS ORDERED: LIDOCAINE 4% INH SOLN 4 ML BTL ONE (15:23)
[2016-12-27] MEDS ORDERED: LIDOCAINE HCL 2% LOCAL 50ML VIAL INFIL ONE (15:23)
[2016-12-27] MEDS: CEFTRIAXONE SOD INJ 1 GM in DEXTROSE 5% ADD-VANTAGE 50ML 50 ML IV SCH (15:57)
[2016-12-27] MEDS: AZITHROMYCIN 250 MG TAB PO SCH (17:34)
[2016-12-27] MEDS: ENOXAPARIN 40 MG/0.4 ML SYR SC SCH (17:35)
[2016-12-27] MEDS: POLYETHYLENE (MIRALAX) 17 GM PACK PO PRN (17:55)
[2016-12-27] MEDS: TRAVOPROST Z 0.004% OPH SOLN 2.5 ML BTL OP SCH (21:04)
[2016-12-27] MEDS: GUAIFENESIN/CODEINE 200MG/20MG 10ML UDC PO PRN (21:08)
[2016-12-27] MEDS: CODEINE SULFATE 30 MG TAB PO PRN (23:46)
[2016-12-28 03:27] VITALS: BP 130/76; PULSE 78; TEMP 36.6; O2SAT 92
[2016-12-28] MEDS: METHYLPREDNISOLONE IV 20 MG in SYRINGE 0 ML IV SCH ×2 (05:48→14:08)
[2016-12-28 06:41] VITALS: BP 161/82; PULSE 74; TEMP 36.5; O2SAT 96
[2016-12-28 06:55] VITALS: PULSE 84; O2SAT 95
[2016-12-28] MEDS: DORNASE ALFA (2500U) 2.5MG/2.5ML INH SCH (06:55)
[2016-12-28] MEDS: ALBUT/IPRATROP 3MG/0.5MG NEB 3 ML VIAL INH SCH ×2 (06:55→11:15)
[2016-12-28 07:06] VITALS: PULSE 84; O2SAT 95
[2016-12-28] MEDS: INSULIN ASPART 100 UNITS/ML 3 ML PEN SC SCH ×2 (08:45→12:49)
[2016-12-28] MEDS: INSULIN GLARGINE SOLOSTAR 100 UNITS/ML 3 ML PEN SC SCH (08:46)
[2016-12-28] MEDS: BRIMONIDINE TARTRATE-P 0.15% 5 ML BTL OPB SCH (08:49)
[2016-12-28] MEDS: CITALOPRAM 20 MG TAB PO SCH (08:51)
[2016-12-28] MEDS: LOSARTAN POTASSIUM 25 MG TAB PO SCH (08:52)
[2016-12-28] MEDS: DOCUSATE SODIUM 100 MG CAP PO SCH (08:52)
[2016-12-28] MEDS: CARVEDILOL 12.5 MG TAB PO SCH (08:52)
[2016-12-28] MEDS: ASPIRIN 81 MG ECTAB PO SCH (08:53)
[2016-12-28] MEDS: ISOSORBIDE MONONITRATE 30 MG TABCR PO SCH (08:53)
[2016-12-28] MEDS: PANTOprazole SOD 40 MG TAB PO SCH (08:53)
[2016-12-28] MEDS: MONTELUKAST SOD 10 MG TAB PO SCH (08:53)
[2016-12-28] MEDS: POTASSIUM CHLORIDE 10 MEQ TABCR PO SCH (08:54)
[2016-12-28] MEDS: FUROSEMIDE 40 MG TAB PO SCH (08:58)
[2016-12-28] MEDS: POLYETHYLENE (MIRALAX) 17 GM PACK PO PRN (09:02)
[2016-12-28] MEDS: BENZONATATE 100MG CAP PO PRN (09:02)
[2016-12-28] MEDS: LORAZEPAM 1 MG TAB PO SCH ×2 (09:02→14:08)
[2016-12-28 11:16] VITALS: PULSE 80; O2SAT 95
[2016-12-28 11:40] LABS: HEMATOCRIT 32.8 % (37-47); MEAN CELL VOLUME 73.7 fL (80-100); MEAN CORPUSCULAR HEMOGLOBIN 22.5 pg (25-34); MEAN CORPUSCULAR HGB CONC 30.5 g/dl (32-36); MEAN PLATELET VOLUME 10.2 fL (7.4-10.4); PLATELET COUNT 259 K/uL (130-400); RED BLOOD COUNT 4.45 M/uL (4.2-5.4)
[2016-12-28 11:58] LABS: BUN/CREATININE RATIO 25.5 (10-20); CALCIUM 8.3 mg/dl (8.5-10.1); CREATININE 0.79 mg/dl (0.60-1.20); MAGNESIUM 2.1 mg/dl (1.8-2.4); POTASSIUM 4.2 mmol/L (3.5-5.1)
[2016-12-28 11:59] LABS: PHOSPHORUS 3.7 mg/dl (2.5-4.9)
--- NOTE | 2016-12-28 12:43 | Progress Note ---
Internal Med Progress Note Date of Service: Dec 28, 2016. Provider Documentation: SUBJECTIVE: The patient was seen and examined Still has a lot of wheezing and Cough Not been able to bring up any sputum S/P Bronchoscopy on 12/27/16 Feels a lot better and wants to go home OBJECTIVE: Vital Signs-as noted below Exam: General-No distress at rest Eyes-normal ENT-normal Neck-supple Lungs-decreased breath sound bilaterally Minimal wheezing bilaterally Heart-Regular,no murmur Abdomen-Benign,no masses,bowel sound present Extremities-no edema Neuro-AAOx3 Lab data as noted below. ASSESSMENT & PLAN: EXACERBATION OF ASTHMA / COPD No infiltrates on chest x-ray. Oxygenating well on RA. Receiving IV methylprednisolone, nebs, azithromycin, ceftriaxone. Pulmonary Medicine consulted. Required Bronchoscopy in last January S/P Bronchoscopy on 12/27/16 Condition improved a lot following the procedure Denies any symptoms Will discharge home today Discussed with the Pulmonary DM TYPE 2 Hgb A1C = 9.1. Blood sugars as high as 480 on 12/23. Poor glycemic control due to acute illness + steroids. Started on insulin infusion and transitioned back to SQ Lantus + NovoLog. Methylprednisolone dose decreased to 20 mg IV q 8 hrs; further tapering of steroids as soon as possible. Will taper Prednisone rapidly CORONARY ARTERY DISEASE No anginal symptoms. Continue aspirin, carvedilol, losartan, nitrates. CEREBROVASCULAR DISEASE Continue ASA. No acute issue HYPERTENSION Continue carvedilol, losartan, nitrates. No acute issue VTE PROPHYLAXIS SQ enoxaparin. Ambulating. DISPOSITION Expected discharge to home. Family Medicine follow-up with Dr. Smith. Pulmonary Medicine follow-up with Dr. Harrell. Vital Signs: Date Time Temp Pulse Resp B/P (MAP) Pulse Ox O2 Delivery O2 Flow Rate FiO2 12/28/16 11:16 80 16 95 Room Air 12/28/16 08:00 Room Air 12/28/16 07:06 84 16 95 Room Air 12/28/16 06:55 84 16 95 Room Air 12/28/16 06:41 36.5 74 16 161/82 (108) 96 Room Air 12/28/16 03:27 36.6 78 16 130/76 (94) 92 Room Air 12/28/16 00:00 Room Air 12/27/16 22:46 36.6 87 18 117/69 (85) 94 Room Air 12/27/16 20:05 36.6 82 18 107/62 (77) 97 12/27/16 19:59 79 16 94 Room Air 12/27/16 16:47 36.5 77 18 130/71 (90) 91 Room Air 12/27/16 16:15 75 18 131/69 (89) 94 Nasal Cannula 4.0 12/27/16 16:00 93 Nasal Cannula 4.0 12/27/16 15:42 36.6 74 18 126/71 (89) 93 Nasal Cannula 4.0 12/27/16 15:28 75 16 94 Nasal Cannula 12/27/16 15:13 36.6 77 18 132/76 (94) 98 Nasal Cannula 4.0 12/27/16 15:05 36.4 72 15 115/62 93 Nasal Cannula 4.0 12/27/16 14:55 36.5 75 16 120/64 93 Nasal Cannula 4.0 12/27/16 14:50 36.5 75 16 107/61 93 Nasal Cannula 4.0 12/27/16 14:48 Mask 12/27/16 14:40 36.6 72 16 123/67 94 Nasal Cannula 4.0 12/27/16 14:35 75 14 124/80 98 Mask 8.0 12/27/16 14:30 78 20 124/86 97 Mask 8.0 12/27/16 14:25 76 20 127/72 100 Mask 4.0 12/27/16 14:20 79 20 110/80 100 Mask 4.0 12/27/16 14:15 74 18 137/78 100 Mask 4.0 12/27/16 14:10 72 18 139/77 100 Mask 4.0 12/27/16 13:56 72 18 127/75 100 Mask 4.0 12/27/16 13:52 95 Room Air Lab Results: Results Past 24 Hours Test 12/27/16 12:49 12/27/16 16:48 12/27/16 20:15 12/28/16 07:35 Range/Units Bedside Glucose 152 128 350 106 70-90 mg/dl Test 12/28/16 11:30 Range/Units White Blood Count 9.70 4.8-10.8 K/uL Red Blood Count 4.45 4.2-5.4 M/uL Hemoglobin 10.0 12.0-16.0 g/dL Hematocrit 32.8 37-47 % Mean Corpuscular Volume 73.7 80-100 fL Mean Corpuscular Hemoglobin 22.5 25-34 pg Mean Corpuscular Hemoglobin Concent 30.5 32-36 g/dl RDW Standard Deviation 46.2 36.4-46.3 fL RDW Coefficient of Variation 17.1 11.5-14.5 % Platelet Count 259 130-400 K/uL Mean Platelet Volume 10.2 7.4-10.4 fL Sodium Level 132 136-145 mmol/L Potassium Level 4.2 3.5-5.1 mmol/L Chloride Level 100 98-107 mmol/L Carbon Dioxide Level 27 21-32 mmol/L Anion Gap 5.0 3-11 mmol/L Blood Urea Nitrogen 20 7-18 mg/dl Creatinine 0.79 0.60-1.20 mg/dl Est Creatinine Clear Calc Drug Dose 61.7 ml/min Estimated GFR () 83.1 Estimated GFR (Non- 71.7 BUN/Creatinine Ratio 25.5 10-20 Random Glucose 219 70-99 mg/dl Calcium Level 8.3 8.5-10.1 mg/dl Phosphorus Level 3.7 2.5-4.9 mg/dl Magnesium Level 2.1 1.8-2.4 mg/dl Microbiology Results 12/27/16 Fungal Smear - Final, Resulted NO YEAST OR HYPHAE SEEN 12/27/16 Fungal Culture, Resulted Pending 12/27/16 Acid Fast Stain, Received Pending 12/27/16 Mycobacterial Culture, Received Pending 12/27/16 Gram Stain - Final, Resulted 12/27/16 Bronchoalveolar Lavage Culture, Resulted Pending
[2016-12-28] MEDS ORDERED: AZIT-57 PO (12:49)
[2016-12-28] MEDS ORDERED: PRED10TA PO (12:49)
--- NOTE | 2016-12-28 12:52 | Discharge Instructions ---
Discharge Instructions Date of Service Dec 28, 2016. Admission Reason for Admission: Copd Exacerbation, Sob Discharge Discharge Diagnosis / Problem: Exacerbation of Asthma Discharge Goals Goal(s): Prevent Disease Progression Activity Recommendations Activity Limitations: resume your previous activity . Instructions / Follow-Up Instructions / Follow-Up Dr Conde at [place] on 12/29/16 at 7:45 AM.Yolanda keep appointment with [facility] Current Hospital Diet Patient's current hospital diet: AHA Diet (Heart Healthy), Diabetes Type 2 Diet Discharge Diet Recommended Diet: AHA Diet (Heart Healthy), Diabetes Type 2 Diet Fluid Restriction: 1500 ml (6 cups) Pending Studies Studies pending at discharge: no Laboratory Results Hemoglobin A1c Test 12/22/16 14:47 Range/Units Estimated Average Glucose 214 mg/dl Hemoglobin A1c 9.1 H 4.5-5.6 % Medical Emergencies . Who to Call and When: Medical Emergencies: If at any time you feel your situation is an emergency, please call 911 immediately. . Non-Emergent Contact Non-Emergency issues call your: Primary Care Provider . Past History Medical & Surgical History: (1) Asthmatic bronchitis (2) CAD (coronary artery disease) (3) Asthma, moderate persistent (4) History of CVA (cerebrovascular accident) (5) HTN (hypertension) (6) History of back surgery (7) History of bladder surgery (8) History of section (9) H/O eye surgery (10) History of foot surgery (11) History of carpal tunnel surgery . "Provider Documentation" section prepared by Gail Rodriguez. . VTE Core Measure Inpt VTE Proph given/why not?: Enoxaparin (Lovenox)SQ
[2016-12-28] MEDS: GUAIFENESIN/CODEINE 200MG/20MG 10ML UDC PO PRN (14:14)
[2016-12-28 14:21] VITALS: Ht 149.9 cm; Wt 101.5 kg
[2016-12-28 14:31] VITALS: BP 161/82; PULSE 80; TEMP 36.5; O2SAT 95
--- NOTE | 2016-12-28 17:02 | PROGRESS NOTE ---
DATE: 12/28/2016 PROBLEM LIST: Includes: 1. Asthmatic bronchitis with exacerbation. 2. Bronchiectasis. 3. History of CHF. SUBJECTIVE: The patient had bronchoscopic evaluation yesterday with Dr. Aldo Gil, tolerated the procedure well. At this point, she states that she feels that the bronchoscopy helped her significantly. She is coughing but it is much improved. She still feels slightly congested. She will still cough a bit of clear mucus up. No wheezing, no chest heaviness or tightness. No shortness of breath at rest or with exertion. Denies any other concerns or problems. No angina. No palpitations. She has not felt feverish or had chills. No GI symptoms. No nausea or vomiting. Her appetite is normal. Bowels are moving well. She is voiding well. She does have some slight swelling in her extremities which is typical for her. OBJECTIVE: GENERAL: The patient is a 76-year-old female, sitting at bedside. She is alert and oriented x3. Mood is good. Affect is good. VITAL SIGNS: Temperature 36.5, pulse 74, respirations 24, blood pressure is 161/82, pulse ox 96% on room air. HEENT: Normocephalic, atraumatic. Pupils equal, round and reactive to light and accommodation. Extraocular movements are intact. Byers moist gingival and buccal mucosa. NECK: Short and thick. There is no mass. No adenopathy. No bruit noted. CHEST: The patient overall has diminished breath sounds bilaterally. I did not appreciate any wheezes today. CARDIOVASCULAR: Regular rate and rhythm. No murmurs, gallops or rubs. ABDOMEN: Bowel sounds present. Abdomen soft, nontender. No guarding, rigidity or organomegaly. EXTREMITIES: She has trace to +1 edema bilaterally. No erythema, edema, cyanosis or clubbing noted. NEUROLOGIC: Cranial nerves II-XII grossly intact. No focal deficit noted. LABORATORY DATA: Shows platelet count 259,000. BUN 20, creatinine 0.79. No new imaging. IMPRESSION: This is a 76-year-old female with exacerbation of asthmatic bronchitis and chronic bronchiectasis status post bronchoscopic evaluation yesterday with Dr. Gil. Main findings were excessive dynamic airway collapse, noted on both the right and left main stem bronchus as well as the right upper lobe. No significant secretions were noted per the bronchoscopy report. The patient is feeling much improved today. At this point, from a pulmonary standpoint, she can be discharged to home. I would recommend a slow prednisone taper. She is to contact the office for followup. She is to continue her routine pulmonary regimen. LUIGID
--- NOTE | 2016-12-28 18:09 | Discharge Summary ---
Discharge Summary Date of Service Dec 28, 2016. Discharge Summary Admission Date: Dec 23, 2016 at 08:00 Discharge Date: Dec 28, 2016 Discharge Disposition: Home Principal Diagnosis: Exacerbation of Asthma Secondary Diagnoses/Problems: Please se H&P and Hospital Progress note Procedures: Bronchoscopy Consultations: Pulmonary Medication Reconciliation New Medications: Prednisone Tab (Prednisone) 10 Mg Tab 10 MG PO UD for 12 Days, #30 TAB 4 PO daily for 3 days,3 daily for 3 days,2 daily for 3 days and then 1 daily for 3 days Azithromycin (Azithromycin) 250 Mg Tab 250 MG PO Q24H for 2 Days, #2 TAB Continued Medications: Albuterol Sulf (Albuterol Sulfate) 2.5 Mg/3 Ml Nebu 1 UNIT INH Q4 PRN for SOB/Wheezing Arformoterol Tartrate (Brovana 15MCG/2ML Soln) Nebu Aspirin (Aspirin EC Low Dose) 81 Mg Ectab 81 MG PO Beclomethasone Dipropionate (Qvar) 80 Mcg/ Aer Brimonidine Tartrate (Alphagan P) 150 Drops/10 Ml Soln Carvedilol (Coreg) 12.5 Mg Tab 12.5 MG PO BID Citalopram Hydrobromide (Celexa) 10 Mg Tab 20 TAB PO DAILY for 30 Days, #30 TAB 2 Refills Cyanocobalamin (Cyanocobalamin) 1,000 Mcg/Ml Inj 1 MCG INJ MONTHLY Fluticasone Propionate (Nasal) (Flonase) 50 Mcg/Act Spr 2 SPRAYS AMARILIS D Furosemide (Lasix) 40 Mg Tab 40 MG PO, TAB Insulin Human NPH (Humulin N) 100 Units/Ml Susp 60 UNITS SQ QAM Insulin Human NPH (Humulin N) 100 Units/Ml Susp 60 UNITS SQ QPM Insulin Lispro (Human) (Humalog) 100 Unit/Ml Inj 18 UNITS SC QAM Insulin Lispro (Human) (Humalog) 100 Unit/Ml Inj 30 UNITS SC QDD Ipratropium Sisters (Atrovent 0.02% Soln) 2.5 Ml Nebu 1 UNIT INH QID Isosorbide Mononitrate (Imdur Ext Rel) 60 Mg Tab 30 MG PO DAILY, TAB Levocetirizine Dihydrochloride (Levocetirizine Dihydrochl) 5 Mg Tab 5 MG PO BID for 30 Days, #60 TAB 3 Refills Lorazepam (Ativan *) 1 Mg Tab 1 MG PO TID, 0 Refills Losartan Potassium (Cozaar) 25 Mg Tab 25 MG PO DAILY, TAB Metformin HCL (Glucophage *) 1,000 Mg Tab 1000 MG PO BID, 0 Refills Montelukast (Singulair *) 10 Mg Tab 10 MG PO DAILY, 0 Refills Multiple Vitamins W/ Minerals (Centrum Silver Adult 50+) 1 Tab Tab Nitroglycerin (Nitrostat) 0.4 Mg Sub 0.4 MG UT PRN PRN for Chest Pain, BTL Pantoprazole Sodium (Protonix) 40 Mg Tab 40 MG PO BID, #30 TAB Potassium Chloride (Potassium Chloride Er) 10 Meq Tab 1 TAB PO BID for 90 Days, #90 TAB 1 Refill Travoprost (Travatan Z) 0.004 % Fidel 1 DROPS OP HS, #2.5 ML 2 Refills Discontinued Medications: Prednisone (Prednisone) 10 Mg Tab 10 MG PO DAILY for 12 Days, #15 TABS use as directed Admission Information HPI (per Admitting provider): This is a 76yoF with a PMH of asthma, bronchiectasis, COPD, CAD (s/p stents x 2) , DM II, systolic HF and other problems listed below who presents with ongoing dyspnea on exertion and SOB. Patient follows closely with Dr. Harrell and has had multiple exacerbations over the past year. States that she was hospitalized for an exacerbation last January and has "not quite recovered" since then. Has a baseline SOB after a 1/2 flight of stairs. Has not become more dyspneic on exertion in the past 6 months. Recently completed a prednisone and antibiotic course without improvement. States that she noticed she was getting a sore throat and nasal congestion earlier this week, so she returned to Dr. Harrell. Was initiated on another course of steroids and advised to come to the hospital further treatment and a bronchoscopy. Per clinic note, in May of this year patient had a CT scan performed that was suggestive of bronchiectasis. Received a bronchoscopy at that time with some clinical improvement. Cultures were negative. Patient endorses dyspnea on exertion, SOB, sore throat, productive cough with clear sputum and nasal congestion. Denies fever, chills, ear pain, CP, palpitations, wheezing, abdominal pain, nausea, vomiting or worsening LE swelling. Past Medical/Surgical History Medical Problems: (1) Asthma, moderate persistent Status: Chronic (2) Asthmatic bronchitis Status: Chronic (3) CAD (coronary artery disease) Status: Chronic (4) COPD (chronic obstructive pulmonary disease) Status: Chronic (5) Diabetes mellitus type II, controlled Status: Chronic (6) Dyslipidemia Status: Chronic (7) FATOU (generalized anxiety disorder) Status: Chronic (8) GERD (gastroesophageal reflux disease) Status: Chronic (9) History of CVA (cerebrovascular accident) Status: Chronic (10) HTN (hypertension) Status: Chronic (11) IBS (irritable bowel syndrome) Status: Chronic Surgical Problems: (1) H/O eye surgery Status: Resolved (2) History of back surgery Status: Resolved (3) History of bladder surgery Status: Resolved (4) History of carpal tunnel surgery Status: Resolved (5) History of section Status: Resolved (6) History of foot surgery Status: Resolved Family History Diabetes mellitus FH: heart disease Hypertension Social History Smoking Status: Former Smoker Drug Use: none Marital Status: Housing status: lives with family Occupational Status: retired Immunizations History of Influenza Vaccine: Yes History of Tetanus Vaccine?: Yes History of Pneumococcal: Yes History of Hepatitis B Vaccine: Yes Multi-Drug Resistant Organisms History of MDRO: No Allergies Coded Allergies: Norethindrone (Verified Allergy, Severe, SHORTNESS OF BREATH, 05/19/15) Latanoprost (Verified Allergy, Intermediate, RASH, 05/19/15) Paroxetine (Verified Allergy, Intermediate, RASH, 05/19/15) Tetracycline (Verified Allergy, Intermediate, RASH, 05/19/15) Simvastatin (Verified Allergy, Unknown, UNKNOWN, 05/19/15) Sulfamethoxazole (Verified Allergy, Unknown, ., 05/19/15) Esomeprazole (Verified Adverse Reaction, Severe, SHORTNESS OF BREATH, 05/18) Fenofibrate (Verified Adverse Reaction, Severe, ., 05/19/15) ARM WEAKNESS Metoclopramide (Verified Adverse Reaction, Severe, ., 05/19/15) NERVOUS REACTION Enalapril (Verified Adverse Reaction, Intermediate, ., 05/19/15) COUGH Glyburide (Verified Adverse Reaction, Intermediate, ., 05/19/15) ITCHING Morphine and Related (Verified Adverse Reaction, Intermediate, ITCHY, 03/25) ITCHY Oxycodone (Verified Adverse Reaction, Intermediate, ITCHY,BLOTCHY, 03/25/16 ) Home Medications Scheduled Carvedilol (Coreg), 12.5 MG PO BID Citalopram Hydrobromide (Celexa), 1 TAB PO DAILY Cyanocobalamin (Cyanocobalamin), 1 MCG INJ MONTHLY Fluticasone Propionate (Nasal) (Flonase), 2 SPRAYS AMARILIS D Insulin Human NPH (Humulin N), 60 UNITS SQ QAM Insulin Human NPH (Humulin N), 60 UNITS SQ QPM Insulin Lispro (Human) (Humalog), 18 UNITS SC QAM Insulin Lispro (Human) (Humalog), 30 UNITS SC QDD Ipratropium Sisters (Atrovent 0.02% Soln), 1 UNIT INH QID Isosorbide Mononitrate (Imdur Ext Rel), 30 MG PO DAILY Levocetirizine Dihydrochloride (Levocetirizine Dihydrochl), 5 MG PO BID Lorazepam (Ativan *), 1 MG PO TID Losartan Potassium (Cozaar), 25 MG PO DAILY Metformin HCL (Glucophage *), 1,000 MG PO BID Montelukast (Singulair *), 10 MG PO DAILY Pantoprazole Sodium (Protonix), 40 MG PO BID Potassium Chloride (Potassium Chloride Er), 1 TAB PO BID Prednisone (Prednisone), 10 MG PO DAILY Travoprost (Travatan Z), 1 DROPS OP HS Scheduled PRN Albuterol Sulf (Albuterol Sulfate), 1 UNIT INH Q4 PRN for SOB/Wheezing Nitroglycerin (Nitrostat), 0.4 MG UT PRN PRN for Chest Pain Miscellaneous Medications Arformoterol Tartrate (Brovana 15MCG/2ML Soln) Aspirin (Aspirin EC Low Dose), 81 MG PO Beclomethasone Dipropionate (Qvar) Brimonidine Tartrate (Alphagan P) Furosemide (Lasix), 40 MG PO Multiple Vitamins W/ Minerals (Centrum Silver Adult 50+) Review of Systems Ten systems reviewed and negative except as noted in the HPI. Physical Ex - H&P Physical Exam Vital Signs Date Time Temp Pulse Resp B/P (MAP) Pulse Ox O2 Delivery O2 Flow Rate FiO2 12/22/16 13:57 36.6 105 20 169/81 Room Air General Appearance: no apparent distress, + obese Head: normocephalic, atraumatic Eyes: normal inspection, PERRL, EOMI, sclerae normal (conjuctiva normal ) ENT: normal ENT inspection, hearing grossly normal, TMs normal, pharynx normal (Evidence of post nasal drip ), + nasal congestion Neck: supple, no adenopathy, thyroid normal, trachea midline Respiratory/Chest: chest non-tender, lungs clear, normal breath sounds, no respiratory distress, no accessory muscle use Cardiovascular: regular rate, rhythm, no murmur, normal peripheral pulses Abdomen/GI: normal bowel sounds, non tender, soft, no organomegaly Back: normal inspection Extremities/Musculoskelatal: normal inspection, no calf tenderness, + swelling (Trace swelling in bilateral LE ) Neurologic/Psych: alert, normal mood/affect, oriented x 3 Skin: normal color, warm/dry, no rash Diagnostics - H&P Diagnostics Laboratory Results Results Past 24 Hours Test 12/22/16 14:47 Range/Units White Blood Count 6.16 4.8-10.8 K/uL Red Blood Count 4.25 4.2-5.4 M/uL Hemoglobin 9.6 12.0-16.0 g/dL Hematocrit 31.6 37-47 % Mean Corpuscular Volume 74.4 80-100 fL Mean Corpuscular Hemoglobin 22.6 25-34 pg Mean Corpuscular Hemoglobin Concent 30.4 32-36 g/dl Platelet Count 186 130-400 K/uL Mean Platelet Volume 10.2 7.4-10.4 fL Neutrophils (%) (Auto) 73.9 % Lymphocytes (%) (Auto) 22.6 % Monocytes (%) (Auto) 2.4 % Eosinophils (%) (Auto) 0.3 % Basophils (%) (Auto) 0.5 % Neutrophils # (Auto) 4.55 1.4-6.5 K/uL Lymphocytes # (Auto) 1.39 1.2-3.4 K/uL Monocytes # (Auto) 0.15 0.11-0.59 K/uL Eosinophils # (Auto) 0.02 0-0.5 K/uL Basophils # (Auto) 0.03 0-0.2 K/uL RDW Standard Deviation 46.8 36.4-46.3 fL RDW Coefficient of Variation 17.1 11.5-14.5 % Immature Granulocyte % (Auto) 0.3 % Immature Granulocyte # (Auto) 0.02 0.00-0.02 K/uL Echinocytes 1+ Prothrombin Time 11.5 9.0-12.0 SECONDS Prothromb Time International Ratio 1.1 0.9-1.1 Sodium Level 134 136-145 mmol/L Potassium Level 4.4 3.5-5.1 mmol/L Chloride Level 102 98-107 mmol/L Carbon Dioxide Level 22 21-32 mmol/L Anion Gap 10.0 3-11 mmol/L Blood Urea Nitrogen 7 7-18 mg/dl Creatinine 0.74 0.60-1.20 mg/dl Est Creatinine Clear Calc Drug Dose 65.8 ml/min Estimated GFR () 89.9 Estimated GFR (Non- 77.6 BUN/Creatinine Ratio 9.3 10-20 Random Glucose 280 70-99 mg/dl Calcium Level 8.7 8.5-10.1 mg/dl Magnesium Level 1.7 1.8-2.4 mg/dl Total Bilirubin 0.6 0.2-1 mg/dl Aspartate Amino Transf (AST/SGOT) 52 15-37 U/L Alanine Aminotransferase (ALT/SGPT) 53 12-78 U/L Alkaline Phosphatase 117 45-117 U/L Total Protein 7.3 6.4-8.2 gm/dl Albumin 3.4 3.4-5.0 gm/dl Globulin 3.9 2.5-4.0 gm/dl Albumin/Globulin Ratio 0.9 0.9-2 Microbiology Results 12/22/16 Blood Culture, Received Pending 12/22/16 Blood Culture, Received Pending Diagnostic Radiology CXR: IMPRESSION: Cardiomegaly with no acute cardiopulmonary abnormality. EKG Sinus tachycardia Anterior infarct (cited on or before 31-MAY-2013) Abnormal ECG When compared with ECG of 24-MAR-2016 13:44, No change Confirmed by Adal Castrejon Reviewed by me. Impression - H&P Impression Assessment and Plan This is a 76yoF with a PMH of asthma, bronchiectasis, COPD, CAD (s/p stents x 2) , DM II, systolic CHF and other problems listed below who presents with ongoing dyspnea on exertion and SOB. COPD/asthma exacerbation, bronchiectasis: -Ongoing SOB, productive cough -2/2 recent URI -Per recommendations from Dr. Harrell: -Solu-medrol 40mg Q8 -Rocephin, Azithromycin -Duonebs -Pulm consult -Continue singular -Robitussin AC for symptomatic relief -Sputum culture, flu PCR pending DM II: -Home agents held -Initiated basal bolus regimen -Monitor and adjust in light of IV steroid use -BSG AC HS -Hgb a1c pending CAD (s/p stents x 2): -No CP -EKG without changes -Continue aspirin, statin intolerant CHF: -Compensated -CXR without evidence of congestion -Echo in 2013 with EF% of 50, some apical wall motion abnormalities -Continue Lasix, Coreg, Imdur, aspirin Anemia: likely 2/2 chronic disease, stable and at baseline for last couple of years. No active bleeding or indication for transfusion at this time. Anxiety: -Stable -Continue celexa, ativan HTN: -Continue losartan, coreg, imdur DVT Ppx: Lovenox Code status: FULL PCP: Luis Dispo: Plan to return home once medically stable Patient seen in collaboration with Dr. Baker. Please see addendum. ADDENDUM: I have seen and examined the patient and agree with the assessment and plan as above. Pulm consult placed per Dr. Harrell request. Blood sugars are uncontrolled so adjusted Lantus to 25 Units q12 with strict (Level 3) control continued while on steroids. ENT exam was unremarkable aside from post- nasal drip and cough with deep breathing. No wheezing heard with clear lungs to auscultation. No hypoxia or conversational dyspnea. CXR clear w sputum culture pending. Pt reports persistent symptoms for a long time, especially worse in the last 4-6 weeks. No improvement on an outpatient course of abx and steroids. Apprec pulm input in setting of long-term symptoms and bronchiectasis. DO Samuel Level of Care Med/Surg Advanced Directives Existing Living Will: No Existing Power of Patient Care Representative: No Resuscitation Status FULL RESUSCITATION VTE Prophylaxis VTE Risk Assessment Done? Y/N: Yes Risk Level: Moderate Given or contraindicated: Enoxaparin (Lovenox)SQ Social Service Consult None Apply Physical Exam (per Admitting): General Appearance: no apparent distress, + obese Head: normocephalic, atraumatic Eyes: normal inspection, PERRL, EOMI, sclerae normal (conjuctiva normal ) ENT: normal ENT inspection, hearing grossly normal, TMs normal, pharynx normal (Evidence of post nasal drip ), + nasal congestion Neck: supple, no adenopathy, thyroid normal, trachea midline Respiratory/Chest: chest non-tender, lungs clear, normal breath sounds, no respiratory distress, no accessory muscle use Cardiovascular: regular rate, rhythm, no murmur, normal peripheral pulses Abdomen/GI: normal bowel sounds, non tender, soft, no organomegaly Back: normal inspection Extremities/Musculoskelatal: normal inspection, no calf tenderness, + swelling (Trace swelling in bilateral LE ) Neurologic/Psych: alert, normal mood/affect, oriented x 3 Skin: normal color, warm/dry, no rash Hospital Course EXACERBATION OF ASTHMA / COPD No infiltrates on chest x-ray. Oxygenating well on RA. Receiving IV methylprednisolone, nebs, azithromycin, ceftriaxone. Pulmonary Medicine consulted. Required Bronchoscopy in last January S/P Bronchoscopy on 12/27/16 Condition improved a lot following the procedure Denies any symptoms Will discharge home today Discussed with the Pulmonary DM TYPE 2 Hgb A1C = 9.1. Blood sugars as high as 480 on 12/23. Poor glycemic control due to acute illness + steroids. Started on insulin infusion and transitioned back to SQ Lantus + NovoLog. Methylprednisolone dose decreased to 20 mg IV q 8 hrs; further tapering of steroids as soon as possible. Will taper Prednisone rapidly CORONARY ARTERY DISEASE No anginal symptoms. Continue aspirin, carvedilol, losartan, nitrates. CEREBROVASCULAR DISEASE Continue ASA. No acute issue HYPERTENSION Continue carvedilol, losartan, nitrates. No acute issue VTE PROPHYLAXIS SQ enoxaparin. Ambulating. DISPOSITION Expected discharge to home. Family Medicine follow-up with Dr. Smith. Pulmonary Medicine follow-up with Dr. Harrell. Total time spent on discharge = 35 minutes This includes examination of the patient, discharge planning, medication reconciliation, and communication with other providers. Discharge Instructions Date of Service Dec 28, 2016. Admission Reason for Admission: Copd Exacerbation, Sob Discharge Discharge Diagnosis / Problem: Exacerbation of Asthma Discharge Goals Goal(s): Prevent Disease Progression Activity Recommendations Activity Limitations: resume your previous activity . Instructions / Follow-Up Instructions / Follow-Up Dr Conde at [facility] on 12/29/16 at 7:45 AM.Yolanda keep appointment with [facility] Current Hospital Diet Patient's current hospital diet: AHA Diet (Heart Healthy), Diabetes Type 2 Diet Discharge Diet Recommended Diet: AHA Diet (Heart Healthy), Diabetes Type 2 Diet Fluid Restriction: 1500 ml (6 cups) Pending Studies Studies pending at discharge: no Laboratory Results Hemoglobin A1c Test 12/22/16 14:47 Range/Units Estimated Average Glucose 214 mg/dl Hemoglobin A1c 9.1 H 4.5-5.6 % Medical Emergencies . Who to Call and When: Medical Emergencies: If at any time you feel your situation is an emergency, please call 911 immediately. . Non-Emergent Contact Non-Emergency issues call your: Primary Care Provider . Past History Medical & Surgical History: (1) Asthmatic bronchitis (2) CAD (coronary artery disease) (3) Asthma, moderate persistent (4) History of CVA (cerebrovascular accident) (5) HTN (hypertension) (6) History of back surgery (7) History of bladder surgery (8) History of section (9) H/O eye surgery (10) History of foot surgery (11) History of carpal tunnel surgery . "Provider Documentation" section prepared by Gail Rodriguez. . VTE Core Measure Inpt VTE Proph given/why not?: Enoxaparin (Lovenox)SQ <Electronically signed by Gail Rodriguez M.D.> Signed: 12/28/16 2342 Additional Copies To Hans Smith M.D.
== END 2016-12-28 15:24 | disposition home or self-care (01) | DRG 192 ==
LOC: INTOOBSV 13:34 → C.MS4W 13:34 → OBSVTOIN 12-23 08:00
PROVIDERS: ADMIT Hospitalist; ATTEND Internal Medicine
PROC: 0BJ08ZZ Inspection of Tracheobronchial Tree, Via Natural or Artificial Opening Endoscopic (ICD-10-PCS; principal; 2016-12-27)
DX: J44.1 Chronic obstructive pulmonary disease with (acute) exacerbation (principal); I67.9 Cerebrovascular disease, unspecified; I25.10 Atherosclerotic heart disease of native coronary artery without angina pectoris; J45.909 Unspecified asthma, uncomplicated; E11.9 Type 2 diabetes mellitus without complications; E78.5 Hyperlipidemia, unspecified; F41.1 Generalized anxiety disorder; K21.9 Gastro-esophageal reflux disease without esophagitis; K58.9 Irritable bowel syndrome, unspecified; D63.8 Anemia in other chronic diseases classified elsewhere; Z87.891 Personal history of nicotine dependence; Z79.4 Long term (current) use of insulin; Z86.73 Personal history of transient ischemic attack (TIA), and cerebral infarction without residual deficits; Z83.3 Family history of diabetes mellitus; Z82.49 Family history of ischemic heart disease and other diseases of the circulatory system

== ENCOUNTER 2018-04-12 11:49 | Inpatient (IN) ==
--- NOTE | 2018-04-12 12:02 | CT Scan Report ---
CT SCAN OF THE BRAIN WITHOUT IV CONTRAST CLINICAL HISTORY: Strokelike symptoms. COMPARISON STUDY: CT scan of the paranasal sinuses dated 06/12/2009. TECHNIQUE: Unenhanced axial CT scan of the brain is performed from the vertex to the skull base. A do se lowering technique was utilized adhering to the principles of ALARA. CT DOSE: 537.48 mGy.cm FINDINGS: Brain parenchyma: There are age-related involutional changes noting moderate subcortical and periven tricular microangiopathic change. There is no hemorrhage, mass effect, or evidence of acute territori al ischemia by CT criteria. Andres-white matter differentiation is preserved. No extra-axial fluid terrance ection is seen. Ventricles, sulci, cisterns: Prominent secondary to involutional change. Intracranial vasculature: There is atherosclerotic calcification of the cavernous carotid and vertebr al arteries. Calvarium: Unremarkable. Sinuses and mastoids: There is trace mucosal thickening within the left maxillary antrum. The remaini ng visualized paranasal sinuses are clear. There are bilateral mastoid effusions. Orbits: The bony orbits are grossly intact. IMPRESSION: There is no hemorrhage, mass effect, or evidence of acute territorial ischemia by CT mitchell real. Electronically signed by: Fabio Niño M.D. 04/12/2018 12:00 PM
[2018-04-12 12:10] LABS: Basophils # (auto) 0.03 K/uL (0-0.2); Basophils % (auto) 0.4 %; Eosinophils # (auto) 0.44 K/uL (0-0.5); Eosinophils % (auto) 6.1 %; Hematocrit (blood only) 33.2 % (37-47); Hemoglobin 11.1 g/dL (12.0-16.0); Immature Granulocytes # (auto) 0.01 K/uL (0.00-0.02); Immature Granulocytes % (auto) 0.1 %; Lymphocytes # (auto) 2.81 K/uL (1.2-3.4); Lymphocytes % (auto) 39.1 %; Mean Corpuscular Hgb Conc 33.4 g/dL (32-36); Mean Corpuscular Volume 80.4 fL (80-100); Mean Platelet Volume 11.3 fL (7.4-10.4); Monocytes # (auto) 0.52 K/uL (0.11-0.59); Monocytes % (auto) 7.2 %; Neutrophils # (auto) 3.38 K/uL (1.4-6.5); Neutrophils % (auto) 47.1 %; Platelet Count 158 K/uL (130-400); RDW Coefficient of Variation 15.3 % (11.5-14.5); Red Blood Count 4.13 M/uL (4.2-5.4); White Blood Count 7.19 K/uL (4.8-10.8)
[2018-04-12] MEDS ORDERED: SODIUM CHLORIDE 0.9% 1000ML 1,000 ML IV ONE (12:12)
[2018-04-12 12:15] LABS: iSTAT Hemoglobin 11.2 g/dl (12.0-16.0); iSTAT Ionized Calcium 1.17 mmol/l (1.12-1.32)
[2018-04-12 12:20] LABS: INR 1.1 (0.9-1.1); Partial Thromboplastin Ratio 1.1; Partial Thromboplastin Time 29.2 Seconds (21.0-31.0); Prothrombin Time 11.4 Seconds (9.0-12.0)
[2018-04-12 12:25] LABS: BUN Creatinine Ratio 14.8 (10-20); Blood Urea Nitrogen 15 mg/dl (7-18); Calcium 8.7 mg/dl (8.5-10.1); Carbon Dioxide 23 mmol/L (21-32); Chloride 100 mmol/L (98-107); Creatinine Clr Calc Pharmacy 48.7 ml/min; Est GFR (African American) 62.8; Est GFR (Non-African American) 54.2; Glucose 193 mg/dl (70-99); Magnesium 1.6 mg/dl (1.8-2.4); Potassium 5.2 mmol/L (3.5-5.1); Sodium 131 mmol/L (136-145)
[2018-04-12 12:30] LABS: Alanine Aminotransferase 46 U/L (12-78); Albumin Level 3.2 gm/dl (3.4-5.0); Alkaline Phosphatase 116 U/L (45-117); Aspartate Aminotransferase 61 U/L (15-37); Bilirubin Direct 0.2 mg/dl (0-0.2); Bilirubin,Total 0.5 mg/dl (0.2-1); Total Protein 6.9 gm/dl (6.4-8.2); Troponin I < 0.015 ng/ml (0-0.045)
[2018-04-12 12:47] LABS: Appearance Urine Clear (Clear); Bilirubin Urine Negative (Negative); Color Urine Yellow; Glucose Urine UA 2+ (Negative); Ketones Urine Negative (Negative); Leukocyte Esterase Urine Negative (Negative); Nitrite Urine Negative (Negative); Protein Urine Negative (Negative); Specific Gravity Urine 1.019 (1.000-1.030); Urobilinogen Urine Negative (Negative)
--- NOTE | 2018-04-12 14:48 | XRay Report ---
XR chest 1V portable CLINICAL HISTORY: Stroke COMPARISON STUDY: 12/22/2016 FINDINGS: The heart is enlarged. There is slight elevation of the interstitium. An element of mild pu lmonary vascular congestion must be considered. There is no focal pulmonary consolidation. There are no pleural effusions.[ IMPRESSION: Cardiomegaly and suspected mild pulmonary vascular congestion. No evidence of focal pulmo nary consolidation Electronically signed by: Jefry Benjamin M.D. 04/12/2018 2:46 PM
[2018-04-12] MEDS ORDERED: FUROSEMIDE 20 MG TAB PO SCH (16:05)
--- NOTE | 2018-04-12 16:14 | History & Physical Report ---
Date of Service April 12, 2018 Assessment & Plan (1) TIA (transient ischemic attack): This is a 77 yo F with a PMH of asthma, bronchiectasis, COPD, CAD (s/p stents x 2), DM II, systolic HF, h/o TIAs and other problems listed below who presents from pulmonary clinic with slurred speach and confusion that have since resolved. -H/o TIA vs ?CVA in the past. No residual deficits -CT head without acute abnormality -Check MRI brain w/wo, carotid dopplers, echo w/ bubble study -Continue baby aspirin, statin -Neuro checks -PT, OT, speech therapy evaluations -Consult neurology (2) CAD (coronary artery disease): H/o stents -No chest pain. No acute EKG changes -Continue aspirin, statin, carvedilol (3) Diabetes mellitus type II, controlled: Uncontrolled DM II with a1c of 10.6 in Jan 2018 -Hold home regimen -Basal/bolus insulin per protocol -BSG checks AC HS (4) HTN (hypertension): Normotensive -Continue home dose lasix, losartan, carvedilol (5) FATOU (generalized anxiety disorder): Continue SSRI, Ativan PRN (6) COPD (chronic obstructive pulmonary disease): (7) Bronchiectasis: Follows with Jason Garcia PA-C -Continue home inhalers, nebs PRN (8) Dyslipidemia: Continue statin (9) GERD (gastroesophageal reflux disease): Continue PPI DVT Ppx: SQ Lovenox Code status: FULL per discussion with patient PCP: Luis Dispo: Admit to telemetry. Plan to return home once medically stable. Patient seen in collaboration with Dr. Hdz. Please see addendum. History of Present Illness Chief Complaint: stroke like symptoms Primary Care Provider: Hans Smith MD This is a 77 yo F with a PMH of asthma, bronchiectasis, COPD, CAD (s/p stents x 2), DM II, systolic HF, h/o TIAs and other problems listed below who presents from pulmonary clinic with stroke like symptoms. Was in normal state of health until patient was speaking with nurse and developed slurred speech and appeared confused. Was directed to ED and symptoms had resolved by the time of arrival. Endorses history of a few TIAs in the past. Takes a baby aspirin and statin daily. Reports that she used to follow with a neurologist in [place] but he has since moved. Denies any difficulty swallowing, confusion, localized weakness or sensory deficits. Feels weak when ambulating but states that is normal with her COPD and bronchiectasis. Is able to ambulate from room to room at home with walker but develops dyspnea with any more activity than that. ROS also positive for chronic productive cough. Denies fever, chills, lightheadedness, headache, chest pain, palpitations, SOB, nausea, vomiting, abdominal pain, dysuria, diarrhea, constipation or lower extremity swelling. Hemodynamically stable in ED. CT head without acute abnormalities, EKG with normal sinus rhythm. Allergies Allergy/AdvReac Type Severity Reaction Status Date / Time norethindrone Allergy Severe SHORTNESS Verified 05/19/15 08:09 OF BREATH latanoprost Allergy Intermediate RASH Verified 05/19/15 08:09 paroxetine Allergy Intermediate RASH Verified 05/19/15 08:09 tetracycline Allergy Intermediate RASH Verified 05/19/15 08:09 simvastatin Allergy Unknown UNKNOWN Verified 05/19/15 08:09 sulfamethoxazole Allergy Unknown . Verified 05/19/15 08:09 esomeprazole AdvReac Severe SHORTNESS Verified 05/19/15 08:09 OF BREATH fenofibrate AdvReac Severe . Verified 05/19/15 08:09 metoclopramide AdvReac Severe . Verified 05/19/15 08:09 enalapril AdvReac Intermediate . Verified 05/19/15 08:09 glyburide AdvReac Intermediate . Verified 05/19/15 08:09 morphine AdvReac Intermediate ITCHY Verified 03/25/16 10:39 oxycodone AdvReac Intermediate ITCHY,BLOTC Verified 03/25/16 10:39 HY Home Medications Home Medications Medication Instructions Recorded Confirmed Type albuterol sulfate 2.5 mg INHALATION TID PRN 04/12/18 04/12/18 History albuterol sulfate [Ventolin HFA] 2 puff INHALATION Q4H PRN 04/12/18 04/12/18 History aspirin [Aspirin Low Dose] 81 mg PO DAILY 04/12/18 04/12/18 History beclomethasone dipropionate [Qvar 1 puff INHALATION AMHS 04/12/18 04/12/18 History RediHaler] benzonatate 200 mg PO BID 04/12/18 04/12/18 History brimonidine [Alphagan P] 1 drp OPHTHALMIC (EYE) HS 04/12/18 04/12/18 History carvedilol 0.5 tab PO QAM 04/12/18 04/12/18 History citalopram 40 mg PO DAILY 04/12/18 04/12/18 History fluticasone 2 spray INTRANASAL DAILY 04/12/18 04/12/18 History furosemide 20 mg PO DAILY 04/12/18 04/12/18 History insulin degludec [Tresiba 50 unit SUBCUT HS 04/12/18 04/12/18 History FlexTouch U-100] insulin degludec [Tresiba 80 unit SUBCUT QAM 04/12/18 04/12/18 History FlexTouch U-200] insulin lispro [Humalog KwikPen 25 units SUBCUT TID 04/12/18 04/12/18 History Insulin] ipratropium bromide [Atrovent HFA] 1 puff INHALATION QID PRN 04/12/18 04/12/18 History levocetirizine 0.5 tab PO BID 04/12/18 04/12/18 History lorazepam 1 mg PO TID PRN 04/12/18 04/12/18 History losartan 25 mg PO DAILY 04/12/18 04/12/18 History metformin 1 tab PO BID 04/12/18 04/12/18 History montelukast [Singulair] 10 mg PO DAILY 04/12/18 04/12/18 History rwuovvtx-svd-KN-lycopen-lutein 1 tab PO DAILY 04/12/18 04/12/18 History [Centrum Silver] nitroglycerin [Nitrostat] 1 tab SUBLINGUAL UD 04/12/18 04/12/18 History ondansetron HCl 1 tab PO Q12H PRN 04/12/18 04/12/18 History pantoprazole 1 tab PO BID 04/12/18 04/12/18 History peg-electrolyte soln [GaviLyte-N] 04/12/18 History polyethylene glycol 3350 17 g PO DAILY PRN 04/12/18 04/12/18 History potassium chloride 1 tab PO SUFR@0900 04/12/18 04/12/18 History rosuvastatin 20 mg PO DAILY 04/12/18 04/12/18 History tacrolimus 1 applic TOPICAL BID 04/12/18 04/12/18 History travoprost [Travatan Z] 1 drp OPHTHALMIC (EYE) HS 04/12/18 04/12/18 History Past Med/Surg History Medical History History of TIAs (Chronic) Asthmatic bronchitis (Chronic) CAD (coronary artery disease) (Chronic) Diabetes mellitus type II, controlled (Chronic) Dyslipidemia (Chronic) IBS (irritable bowel syndrome) (Chronic) FATOU (generalized anxiety disorder) (Chronic) COPD (chronic obstructive pulmonary disease) (Chronic) Asthma, moderate persistent (Chronic) GERD (gastroesophageal reflux disease) (Chronic) HTN (hypertension) (Chronic) Surgical History History of back surgery (Resolved) History of bladder surgery (Resolved) History of section (Resolved) H/O eye surgery (Resolved) History of foot surgery (Resolved) History of carpal tunnel surgery (Resolved) Family History Mother Diabetes Brother Alzheimer disease Social History Current Living Situation: Spouse Other Information That Helps Us Care for You: No Feels Safe at Home: Yes Safety Concerns: Feels Safe At This Time Smoking Status: Former smoker Do You Dip or Chew Tobacco: No Second Hand Exposure: No Tobacco Cessation Education Requested by Patient: No Hx Alcohol Use: No Hx Substance Use: No Beliefs That Will Affect Care: None Preferred Language: Yakut Communication Ability: Effective Residential Counselor Required: No Review of Systems All systems reviewed & are unremarkable except as noted in HPI & below Physical Exam 2 Vital Signs (Past 24 Hours): Last Vital Signs Temp 36.8 C 04/12/18 12:08 Pulse 114 H 04/12/18 14:14 Resp 18 04/12/18 14:14 BP 114/94 04/12/18 14:14 Pulse Ox 98 04/12/18 14:14 Physical Exam: General Appearance: WD/WN, no apparent distress, resting comfortably Head: normocephalic, atraumatic Eyes: normal inspection, PERRL, EOMI ENT: hearing grossly normal, pharynx normal (moist mucous membranes) Neck: supple, no JVD, no adenopathy Respiratory/Chest: lungs clear to auscultation. Scattered wheezes in bilateral posterior lung dozier. Slight bibasilar crackles. No respiratory distress or accessory muscle use Cardiovascular: regular rate, rhythm, no murmur, normal peripheral pulses, no BLE edema Abdomen/GI: normal bowel sounds, soft, non-tender to palpation Extremities/Musculoskelatal: normal inspection, no calf tenderness, normal capillary refill, no pedal edema Neurologic/Psych: alert, normal mood/affect, oriented x 3. CN II- XII grossly intact. No motor or sensory deficits noted. Skin: normal color, warm/dry Results & Data Laboratory Results Short CBC 04/12/18 Range/Units 11:45 WBC 7.19 (4.8-10.8) K/uL Hgb 11.1 L (12.0-16.0) g/dL Hct 33.2 L (37-47) % Plt Count 158 (130-400) K/uL BMP 04/12/18 11:45 Sodium 131 L Potassium 5.2 H Chloride 100 Carbon Dioxide 23 BUN 15 Creatinine 0.99 Glucose 193 H Calcium 8.7 Cardiac Enzymes 04/12/18 Range/Units 11:45 Troponin I < 0.015 (0-0.045) ng/ml Liver Function 04/12/18 Range/Units 11:45 Total Bilirubin 0.5 (0.2-1) mg/dl Direct Bilirubin 0.2 (0-0.2) mg/dl AST 61 H (15-37) U/L ALT 46 (12-78) U/L Alkaline Phosphatase 116 (45-117) U/L Albumin 3.2 L (3.4-5.0) gm/dl Urine 04/12/18 Range/Units 12:23 Urine Color Yellow Urine Appearance Clear (Clear) Urine pH 6.0 (4.5-7.5) Ur Specific [place] 1.019 (1.000-1.030) Urine Protein Negative (Negative) Urine Glucose (UA) 2+ H (Negative) Diagnostic Findings CT head: IMPRESSION: There is no hemorrhage, mass effect, or evidence of acute territorial ischemia by CT criteria. CXR: IMPRESSION: Cardiomegaly and suspected mild pulmonary vascular congestion. No evidence of focal pulmonary consolidation ECG Rhythm: normal sinus Change: no significant change Code Status & VTE Plan Code Status FULL VTE Prophylaxis Plan VTE Prophylaxis will be ordered: Yes Supervising Physician Co-Signing Physician Notes Pt was seen and examined. Agreed with Reyna HERNANDEZ exam, assessment and plan. 77 yo F with a PMH of asthma, bronchiectasis, COPD, CAD (s/p stents x 2), DM II, systolic HF, h/o TIAs was sent from pulmonology clinic after developing stroke like symptoms. Pt said that lately she has not been herself. She said that she has been having frequent headache. Today at the clinic she developed slurred speech and appeared confused. Stroke alert called and was not a candidate for TPA. Her symptoms resolved in the ER. CT head done in the ER showed no hemorrhage, mass effect, or evidence of acute territorial ischemia. Will get MRI brain w/wo, carotid dopplers, echo w/ bubble study. Will consult neurology. Continue statin and aspirin. Continue monitor in the tele. MD Wilder
--- NOTE | 2018-04-12 17:31 | Emergency Department Note ---
Entered by Wili Victoria acting as a scribe for Michael Bell DO History of Present Illness General Chief complaint: Stroke Alert Source: family () and EMS History of Present Illness Onset (ago): minute(s) (11:15) Location: mouth (speech) Pain Consistency: + other (currently somewhat improved per ) Quality: + other (aphasia) Associated symptoms: + other (abdominal pain; denies numbness); no weakness The patient is a 77 year old female who presents to the Emergency Room with aphasia. EMS reports that at 11:15 while being evaluated by a physician, the patient was displaying aphasia and was sent to the ER. The patients reports that she was asymptomatic this morning. He notes that her aphasia is currently somewhat improved from the onset. He notes that the patient does not take blood thinners. The patient denies weakness or numbness of any of her extremities. She reports abdominal pain that started today. No other exacerbating or remitting factors. History is slightly limited secondary to patient's mentation upon presentation. Home Medications Home Medications Medication Instructions Recorded Confirmed Type albuterol sulfate 2.5 mg INHALATION TID PRN 04/12/18 04/12/18 History albuterol sulfate [Ventolin HFA] 2 puff INHALATION Q4H 04/12/18 04/12/18 History aspirin [Aspirin Low Dose] 81 mg PO DAILY 04/12/18 04/12/18 History beclomethasone dipropionate [Qvar 1 puff INHALATION AMHS 04/12/18 04/12/18 History RediHaler] benzonatate 200 mg PO BID 04/12/18 04/12/18 History brimonidine [Alphagan P] 1 drp OPHTHALMIC (EYE) HS 04/12/18 04/12/18 History carvedilol 0.5 tab PO QAM 04/12/18 04/12/18 History citalopram 40 mg PO DAILY 04/12/18 04/12/18 History fluticasone 2 spray INTRANASAL DAILY 04/12/18 04/12/18 History fluticasone-vilanterol [Breo 1 puff INHALATION DAILY 04/12/18 04/12/18 History Ellipta] furosemide 20 mg PO DAILY 04/12/18 04/12/18 History furosemide 40 mg PO DAILY 04/12/18 04/12/18 History insulin degludec [Tresiba 50 unit SUBCUT HS 04/12/18 04/12/18 History FlexTouch U-100] insulin degludec [Tresiba 80 unit SUBCUT QAM 04/12/18 04/12/18 History FlexTouch U-200] insulin lispro [Humalog KwikPen 25 units SUBCUT TID 04/12/18 04/12/18 History Insulin] ipratropium bromide [Atrovent HFA] 1 puff INHALATION QID 04/12/18 04/12/18 History levocetirizine 0.5 tab PO BID 04/12/18 04/12/18 History lorazepam 1 mg PO TID PRN 04/12/18 04/12/18 History losartan 25 mg PO DAILY 04/12/18 04/12/18 History metformin 1 tab PO BID 04/12/18 04/12/18 History montelukast [Singulair] 10 mg PO DAILY 04/12/18 04/12/18 History rlogkzgn-ktm-LJ-lycopen-lutein 1 tab PO DAILY 04/12/18 04/12/18 History [Centrum Silver] nitroglycerin [Nitrostat] 1 tab SUBLINGUAL UD 04/12/18 04/12/18 History ondansetron HCl 1 tab PO Q12H PRN 04/12/18 04/12/18 History pantoprazole 1 tab PO BID 04/12/18 04/12/18 History peg-electrolyte soln [GaviLyte-N] 04/12/18 History polyethylene glycol 3350 17 g PO DAILY PRN 04/12/18 04/12/18 History potassium chloride 1 tab PO SUFR@0900 04/12/18 04/12/18 History rosuvastatin 20 mg PO DAILY 04/12/18 04/12/18 History tacrolimus 1 applic TOPICAL BID 04/12/18 04/12/18 History tiotropium bromide 1 cap INHALATION DAILY 04/12/18 04/12/18 History travoprost [Travatan Z] 1 drp OPHTHALMIC (EYE) HS 04/12/18 04/12/18 History Allergies Allergy/AdvReac Type Severity Reaction Status Date / Time norethindrone Allergy Severe SHORTNESS Verified 05/19/15 08:09 OF BREATH latanoprost Allergy Intermediate RASH Verified 05/19/15 08:09 paroxetine Allergy Intermediate RASH Verified 05/19/15 08:09 tetracycline Allergy Intermediate RASH Verified 05/19/15 08:09 simvastatin Allergy Unknown UNKNOWN Verified 05/19/15 08:09 sulfamethoxazole Allergy Unknown . Verified 05/19/15 08:09 esomeprazole AdvReac Severe SHORTNESS Verified 05/19/15 08:09 OF BREATH fenofibrate AdvReac Severe . Verified 05/19/15 08:09 metoclopramide AdvReac Severe . Verified 05/19/15 08:09 enalapril AdvReac Intermediate . Verified 05/19/15 08:09 glyburide AdvReac Intermediate . Verified 05/19/15 08:09 morphine AdvReac Intermediate ITCHY Verified 03/25/16 10:39 oxycodone AdvReac Intermediate ITCHY,BLOTC Verified 03/25/16 10:39 HY Past Med/Surg History Medical History History of TIAs (Chronic) Asthmatic bronchitis (Chronic) CAD (coronary artery disease) (Chronic) Diabetes mellitus type II, controlled (Chronic) Dyslipidemia (Chronic) IBS (irritable bowel syndrome) (Chronic) FATOU (generalized anxiety disorder) (Chronic) COPD (chronic obstructive pulmonary disease) (Chronic) Asthma, moderate persistent (Chronic) GERD (gastroesophageal reflux disease) (Chronic) HTN (hypertension) (Chronic) Surgical History History of back surgery (Resolved) History of bladder surgery (Resolved) History of section (Resolved) H/O eye surgery (Resolved) History of foot surgery (Resolved) History of carpal tunnel surgery (Resolved) Family History Mother Diabetes Brother Alzheimer disease Social History Current Living Situation: Spouse Other Information That Helps Us Care for You: No Feels Safe at Home: Yes Safety Concerns: Feels Safe At This Time Smoking Status: Former smoker Do You Dip or Chew Tobacco: No Second Hand Exposure: No Tobacco Cessation Education Requested by Patient: No Hx Alcohol Use: No Hx Substance Use: No Beliefs That Will Affect Care: None Preferred Language: Arabic Communication Ability: Effective Campaign Specialist Required: No Review of Systems See HPI for pertinent positives & negatives. and A total of 10 systems reviewed and were otherwise negative Physical Exam Vital Signs Vital Signs - 24 hr 04/12/18 12:06 04/12/18 12:08 04/12/18 12:22 Temperature 36.8 C Temperature Source Oral Sepsis Recent Fever Within 48 Hours No Sepsis Action Taken by Nursing No Action Required Pulse Rate 80 79 81 Pulse Rate [Apical] Pulse Rhythm Regular Pulse Strength Normal Respiratory Rate 20 Respiratory Effort / Characteristics Non-Labored Spontaneous Respiratory Depth Normal Respiratory Pattern Regular Blood Pressure 125/92 125/92 Blood Pressure [Right Arm] Blood Pressure Mean 103 103 Blood Pressure Mean [Right Arm] Blood Pressure Position Lying Pulse Oximetry 96 98 96 Oxygen Delivery Method Room Air 04/12/18 12:27 04/12/18 12:30 04/12/18 12:33 Temperature Temperature Source Sepsis Recent Fever Within 48 Hours Sepsis Action Taken by Nursing Pulse Rate 78 78 Pulse Rate [Apical] Pulse Rhythm Pulse Strength Respiratory Rate Respiratory Effort / Characteristics Respiratory Depth Respiratory Pattern Blood Pressure 175/72 H Blood Pressure [Right Arm] Blood Pressure Mean 106 Blood Pressure Mean [Right Arm] Blood Pressure Position Pulse Oximetry 96 97 Oxygen Delivery Method Room Air 04/12/18 13:00 04/12/18 13:02 04/12/18 13:19 Temperature Temperature Source Sepsis Recent Fever Within 48 Hours Sepsis Action Taken by Nursing Pulse Rate 79 79 85 Pulse Rate [Apical] Pulse Rhythm Pulse Strength Respiratory Rate 9 L Respiratory Effort / Characteristics Respiratory Depth Respiratory Pattern Blood Pressure 177/83 H 156/71 H Blood Pressure [Right Arm] Blood Pressure Mean 114 99 Blood Pressure Mean [Right Arm] Blood Pressure Position Pulse Oximetry 93 94 96 Oxygen Delivery Method 04/12/18 14:14 Temperature Temperature Source Sepsis Recent Fever Within 48 Hours Sepsis Action Taken by Nursing Pulse Rate Pulse Rate [Apical] 114 H Pulse Rhythm Pulse Strength Respiratory Rate 18 Respiratory Effort / Characteristics Non-Labored Spontaneous Respiratory Depth Normal Respiratory Pattern Blood Pressure Blood Pressure [Right Arm] 114/94 Blood Pressure Mean Blood Pressure Mean [Right Arm] 100 Blood Pressure Position Pulse Oximetry 98 Oxygen Delivery Method Room Air GENERAL: Sitting up in bed, disheveled, confused, non-toxic EYE EXAM: normal conjunctiva. PERRL and EOM's intact. OROPHARYNX: no exudate, no erythema, lips, buccal mucosa, and tongue normal and mucous membranes are moist NECK: supple, no nuchal rigidity, no adenopathy, non-tender LUNGS: Clear to auscultation. Normal chest wall mechanics HEART: no murmurs, S1 normal and S2 normal ABDOMEN: abdomen soft, non-tender, normo-active bowel, sounds, no masses, no rebound or guarding. BACK: Back is symmetrical on inspection and there is no deformity, no midline tenderness, no CVA tenderness. SKIN: no rashes and no bruising UPPER EXTREMITIES: upper extremities are grossly normal. LOWER EXTREMITIES: No pitting edema. NEURO EXAM: Awake, alert, oriented to place but not year, cranial nerves II-XII intact, normal speech, no weakness of arms, no weakness of legs. No drift. Finger to nose intact. Sensation intact. Course ED COURSE: Vital signs were reviewed and showed tachycardia The patients medical record was reviewed The above diagnostic studies were performed and reviewed. ED treatments and interventions as stated above. 1142: I received a medical command call for the patient. A stroke alert was called. 1149: The patient arrived to the Emergency Room and was immediately taken to CT. I obtained available history from paramedics. 1158: I spoke to the patients at bedside. 1200: The patient has arrived back to room B1. A physical exam was obtained. 1203: I consulted Dr. Jamil Abbott Neurology. She agrees that the patient is not a tPA candidate. 1438: I checked on the patient. 1440: I consulted Dr. Wilder Gutiérrez Hospitalist. He will reevaluate the patient for hospitalization. Based on the patients age, coexisting illnesses, exam and lab findings the decision to treat as an inpatient was made. The patient remained stable while under my care. The patient appeared well at the time of discharge. Consultations Consultation #1: I consulted Dr. Jamil Abbott Neurology. She agrees that the patient is not a tPA candidate. Time: 12:03 Consultation #2: I consulted Dr. Wilder Gutiérrez Hospitalist. He will reevaluate the patient for hospitalization. Time: 14:40 Administered Medications Discontinued Medications Sodium Chloride (Nss 1000ml) 1,000 mls @ 999 mls/hr IV .Q1H1M ONE Stop: 04/12/18 13:12 Last Infusion: 04/12/18 13:38 Dose: 0 mls/hr Admin: 04/12/18 12:26 Dose: 999 mls/hr Medical Decision Making Differential Diagnosis Differential Diagnosis includes but is not limited to ischemic stroke, hemorrhagic stroke, Adams's palsy, mass, neoplasm, migraine headache, seizure, subarachnoid hemorrhage, TIA, and transient global amnesia. Medical Records Attestation: I reviewed the patient's medical records. Home Medications Current Medication List: was personally reviewed by me Laboratory Data Attestation: I reviewed the patient's lab results. Result diagrams: 04/12/18 11:45 04/12/18 11:45 Lab Results 04/12/18 04/12/18 04/12/18 Range/Units 11:45 11:45 11:45 WBC 7.19 (4.8-10.8) K/uL RBC 4.13 L (4.2-5.4) M/uL Hgb 11.1 L (12.0-16.0) g/dL POC Hgb (12.0-16.0) g/dl Hct 33.2 L (37-47) % POC Hct (37-47) % MCV 80.4 (80-100) fL MCH 26.9 (25-34) pg MCHC 33.4 (32-36) g/dL RDW Std Deviation 45.0 (36.4-46.3) fL RDW Coeff of Poonam 15.3 H (11.5-14.5) % Plt Count 158 (130-400) K/uL MPV 11.3 H (7.4-10.4) fL Immature Gran % (Auto) 0.1 % Neut % (Auto) 47.1 % Lymph % (Auto) 39.1 % Lincoln % (Auto) 7.2 % Eos % (Auto) 6.1 % Baso % (Auto) 0.4 % Immature Gran # (Auto) 0.01 (0.00-0.02) K/uL Neut # (Auto) 3.38 (1.4-6.5) K/uL Lymph # (Auto) 2.81 (1.2-3.4) K/uL Lincoln # (Auto) 0.52 (0.11-0.59) K/uL Eos # (Auto) 0.44 (0-0.5) K/uL Baso # (Auto) 0.03 (0-0.2) K/uL PT 11.4 (9.0-12.0) Seconds POC INR (0.9-1.1) INR 1.1 (0.9-1.1) APTT 29.2 (21.0-31.0) Seconds PTT Ratio 1.1 POC Sodium (135-144) mEq/L Sodium 131 L (136-145) mmol/L POC Potassium (3.3-5.0) mEq/L Potassium 5.2 H (3.5-5.1) mmol/L POC Chloride (101-112) mEq/L Chloride 100 (98-107) mmol/L Carbon Dioxide 23 (21-32) mmol/L POC Total CO2 (24-31) mEq/l Anion Gap 9.0 (3-11) POC Anion Gap (16-25) mmol/L POC BUN (7-18) mg/dl BUN 15 (7-18) mg/dl Creatinine 0.99 (0.6-1.2) mg/dl POC Creatinine (0.6-1.3) mg/dl Est Cr Clr Drug Dosing 48.7 ml/min Est GFR ( Amer) 62.8 Est GFR (Non-Af Amer) 54.2 BUN/Creatinine Ratio 14.8 (10-20) Glucose 193 H (70-99) mg/dl POC Glucose (70-99) POC Glucose (other) (70-99) mg/dl Calcium 8.7 (8.5-10.1) mg/dl POC Ioniz Calcium Charlie (1.12-1.32) mmol/l Magnesium 1.6 L (1.8-2.4) mg/dl Total Bilirubin 0.5 (0.2-1) mg/dl Direct Bilirubin 0.2 (0-0.2) mg/dl AST 61 H (15-37) U/L ALT 46 (12-78) U/L Alkaline Phosphatase 116 (45-117) U/L Troponin I < 0.015 (0-0.045) ng/ml Total Protein 6.9 (6.4-8.2) gm/dl Albumin 3.2 L (3.4-5.0) gm/dl Lipase 111 (73-393) U/L Urine Color Urine Appearance (Clear) Urine pH (4.5-7.5) Ur Specific [place] (1.000-1.030) Urine Protein (Negative) Urine Glucose (UA) (Negative) Urine Ketones (Negative) Urine Blood (Negative) Urine Nitrite (Negative) Urine Bilirubin (Negative) Urine Urobilinogen (Negative) Ur Leukocyte Esterase (Negative) Blood Type Antibody Screen 04/12/18 04/12/18 04/12/18 Range/Units 12:00 12:01 12:01 WBC (4.8-10.8) K/uL RBC (4.2-5.4) M/uL Hgb (12.0-16.0) g/dL POC Hgb 11.2 L (12.0-16.0) g/dl Hct (37-47) % POC Hct 33 L (37-47) % MCV (80-100) fL MCH (25-34) pg MCHC (32-36) g/dL RDW Std Deviation (36.4-46.3) fL RDW Coeff of Poonam (11.5-14.5) % Plt Count (130-400) K/uL MPV (7.4-10.4) fL Immature Gran % (Auto) % Neut % (Auto) % Lymph % (Auto) % Lincoln % (Auto) % Eos % (Auto) % Baso % (Auto) % Immature Gran # (Auto) (0.00-0.02) K/uL Neut # (Auto) (1.4-6.5) K/uL Lymph # (Auto) (1.2-3.4) K/uL Lincoln # (Auto) (0.11-0.59) K/uL Eos # (Auto) (0-0.5) K/uL Baso # (Auto) (0-0.2) K/uL PT (9.0-12.0) Seconds POC INR 1.0 (0.9-1.1) INR (0.9-1.1) APTT (21.0-31.0) Seconds PTT Ratio POC Sodium 131 L (135-144) mEq/L Sodium (136-145) mmol/L POC Potassium 5.3 H (3.3-5.0) mEq/L Potassium (3.5-5.1) mmol/L POC Chloride 98 L (101-112) mEq/L Chloride (98-107) mmol/L Carbon Dioxide (21-32) mmol/L POC Total CO2 22 L (24-31) mEq/l Anion Gap (3-11) POC Anion Gap 17.0 (16-25) mmol/L POC BUN 13 (7-18) mg/dl BUN (7-18) mg/dl Creatinine (0.6-1.2) mg/dl POC Creatinine 0.8 (0.6-1.3) mg/dl Est Cr Clr Drug Dosing ml/min Est GFR ( Amer) Est GFR (Non-Af Amer) BUN/Creatinine Ratio (10-20) Glucose (70-99) mg/dl POC Glucose 187 H (70-99) POC Glucose (other) 189 H (70-99) mg/dl Calcium (8.5-10.1) mg/dl POC Ioniz Calcium Charlie 1.17 (1.12-1.32) mmol/l Magnesium (1.8-2.4) mg/dl Total Bilirubin (0.2-1) mg/dl Direct Bilirubin (0-0.2) mg/dl AST (15-37) U/L ALT (12-78) U/L Alkaline Phosphatase (45-117) U/L Troponin I (0-0.045) ng/ml Total Protein (6.4-8.2) gm/dl Albumin (3.4-5.0) gm/dl Lipase (73-393) U/L Urine Color Urine Appearance (Clear) Urine pH (4.5-7.5) Ur Specific [place] (1.000-1.030) Urine Protein (Negative) Urine Glucose (UA) (Negative) Urine Ketones (Negative) Urine Blood (Negative) Urine Nitrite (Negative) Urine Bilirubin (Negative) Urine Urobilinogen (Negative) Ur Leukocyte Esterase (Negative) Blood Type Antibody Screen 04/12/18 04/12/18 Range/Units 12:06 12:23 WBC (4.8-10.8) K/uL RBC (4.2-5.4) M/uL Hgb (12.0-16.0) g/dL POC Hgb (12.0-16.0) g/dl Hct (37-47) % POC Hct (37-47) % MCV (80-100) fL MCH (25-34) pg MCHC (32-36) g/dL RDW Std Deviation (36.4-46.3) fL RDW Coeff of Poonam (11.5-14.5) % Plt Count (130-400) K/uL MPV (7.4-10.4) fL Immature Gran % (Auto) % Neut % (Auto) % Lymph % (Auto) % Lincoln % (Auto) % Eos % (Auto) % Baso % (Auto) % Immature Gran # (Auto) (0.00-0.02) K/uL Neut # (Auto) (1.4-6.5) K/uL Lymph # (Auto) (1.2-3.4) K/uL Lincoln # (Auto) (0.11-0.59) K/uL Eos # (Auto) (0-0.5) K/uL Baso # (Auto) (0-0.2) K/uL PT (9.0-12.0) Seconds POC INR (0.9-1.1) INR (0.9-1.1) APTT (21.0-31.0) Seconds PTT Ratio POC Sodium (135-144) mEq/L Sodium (136-145) mmol/L POC Potassium (3.3-5.0) mEq/L Potassium (3.5-5.1) mmol/L POC Chloride (101-112) mEq/L Chloride (98-107) mmol/L Carbon Dioxide (21-32) mmol/L POC Total CO2 (24-31) mEq/l Anion Gap (3-11) POC Anion Gap (16-25) mmol/L POC BUN (7-18) mg/dl BUN (7-18) mg/dl Creatinine (0.6-1.2) mg/dl POC Creatinine (0.6-1.3) mg/dl Est Cr Clr Drug Dosing ml/min Est GFR ( Amer) Est GFR (Non-Af Amer) BUN/Creatinine Ratio (10-20) Glucose (70-99) mg/dl POC Glucose (70-99) POC Glucose (other) (70-99) mg/dl Calcium (8.5-10.1) mg/dl POC Ioniz Calcium Charlie (1.12-1.32) mmol/l Magnesium (1.8-2.4) mg/dl Total Bilirubin (0.2-1) mg/dl Direct Bilirubin (0-0.2) mg/dl AST (15-37) U/L ALT (12-78) U/L Alkaline Phosphatase (45-117) U/L Troponin I (0-0.045) ng/ml Total Protein (6.4-8.2) gm/dl Albumin (3.4-5.0) gm/dl Lipase (73-393) U/L Urine Color Yellow Urine Appearance Clear (Clear) Urine pH 6.0 (4.5-7.5) Ur Specific [place] 1.019 (1.000-1.030) Urine Protein Negative (Negative) Urine Glucose (UA) 2+ H (Negative) Urine Ketones Negative (Negative) Urine Blood Negative (Negative) Urine Nitrite Negative (Negative) Urine Bilirubin Negative (Negative) Urine Urobilinogen Negative (Negative) Ur Leukocyte Esterase Negative (Negative) Blood Type Cancelled Antibody Screen Cancelled Imaging Data Radiologist's Impression: Radiology results as stated below per my review and the radiologist's interpretation: XR chest 1V portable CLINICAL HISTORY: Stroke COMPARISON STUDY: 12/22/2016 FINDINGS: The heart is enlarged. There is slight elevation of the interstitium. An element of mild pulmonary vascular congestion must be considered. There is no focal pulmonary consolidation. There are no pleural effusions.[ IMPRESSION: Cardiomegaly and suspected mild pulmonary vascular congestion. No evidence of focal pulmonary consolidation Electronically signed by: Jefry Benjamin M.D. 04/12/2018 2:[address] SCAN OF THE BRAIN WITHOUT IV CONTRAST CLINICAL HISTORY: Strokelike symptoms. COMPARISON STUDY: CT scan of the paranasal sinuses dated 06/12/2009. TECHNIQUE: Unenhanced axial CT scan of the brain is performed from the vertex to the skull base. A dose lowering technique was utilized adhering to the principles of ALARA. CT DOSE: 537.48 mGy.cm FINDINGS: Brain parenchyma: There are age-related involutional changes noting moderate subcortical and periventricular microangiopathic change. There is no hemorrhage , mass effect, or evidence of acute territorial ischemia by CT criteria. Andres- white matter differentiation is preserved. No extra-axial fluid collection is seen. Ventricles, sulci, cisterns: Prominent secondary to involutional change. Intracranial vasculature: There is atherosclerotic calcification of the cavernous carotid and vertebral arteries. Calvarium: Unremarkable. Sinuses and mastoids: There is trace mucosal thickening within the left maxillary antrum. The remaining visualized paranasal sinuses are clear. There are bilateral mastoid effusions. Orbits: The bony orbits are grossly intact. IMPRESSION: There is no hemorrhage, mass effect, or evidence of acute territorial ischemia by CT criteria. Electronically signed by: Fabio Niño M.D. 04/12/2018 12:00 PM ECG Data Attestation: I personally reviewed and interpreted this ECG as follows: Indication: other (aphasia) Rate (beats per minute): 76 Rhythm: sinus rhythm Findings: + other (normal axis); no PVC Blood Pressure Blood Pressure Findings: Normal blood pressure Blood Pressure Disposition: did not require urgent referral MDM Narrative Patient is a 77-year-old female who presents from PCPs office for an episode of a aphasia/word finding. Stroke alert was called prior to arrival. Upon presentation patient was taken directly to CT scan. She was confused on my evaluation. Based on this we came back I did discuss the case with the stroke neurologist and both agreed that this is likely not a stroke at this time patient is talking but visibly confused she did not know her last name or year. Labs were obtained and showed no significant leukocytosis or anemia. INR was unremarkable. BMP shows mild hyponatremia and a hyperkalemia of 5.2. LFTs were fairly unremarkable. Troponin was negative. UA was unremarkable. CT head was negative as stated above. Patient was updated bedside and was completely back to baseline. She was admitted to the hospitalist for possible TIA workup. Impression & Plan TIA (transient ischemic attack), Confusion Discharge Plan Visit Data Chief Complaint: Stroke Alert ED Provider: Michael Bell Discharge Problem: TIA (transient ischemic attack), Confusion Patient Disposition: Being Evaluated by Hospitalist Forms Stand Alone Forms: My [facility] Prescriptions Prescriptions: No Action furosemide 40 mg Tablet 40 mg PO DAILY RF: 0 carvedilol 12.5 mg tablet 0.5 tab PO QAM RF: 0 albuterol sulfate 2.5 mg /3 mL (0.083 %) Solution For Nebulization 2.5 mg INHALATION TID PRN (Reason: Unknown) RF: 0 citalopram 40 mg tablet 40 mg PO DAILY RF: 0 ondansetron HCl 4 mg tablet 1 tab PO Q12H PRN (Reason: Nausea) RF: 0 travoprost [Travatan Z] 0.004 % drops 1 drp ophthalmic (eye) HS RF: 0 potassium chloride 10 mEq tablet extended release 1 tab PO SUFR@0900 RF: 0 peg-electrolyte soln [GaviLyte-N] 420 gram Recon Soln RF: 0 aspirin [Aspirin Low Dose] 81 mg Tablet,Delayed Release (Dr/Ec) 81 mg PO DAILY RF: 0 pantoprazole 40 mg tablet,delayed release (DR/EC) 1 tab PO BID RF: 0 tacrolimus 0.1 % Ointment 1 applic TOPICAL BID RF: 0 metformin 1,000 mg tablet 1 tab PO BID RF: 0 nitroglycerin [Nitrostat] 0.6 mg Tablet, Sublingual 1 tab Sublingual UD RF: 0 losartan 25 mg tablet 25 mg PO DAILY RF: 0 montelukast [Singulair] 10 mg Tablet 10 mg PO DAILY RF: 0 lorazepam 1 mg tablet 1 mg PO TID PRN (Reason: Anxiety) RF: 0 polyethylene glycol 3350 17 gram/dose powder 17 g PO DAILY PRN (Reason: Constipation) RF: 0 albuterol sulfate [Ventolin HFA] 90 mcg/actuation Hfa Aerosol Inhaler 2 puff INHALATION Q4H RF: 0 fluticasone 50 mcg/actuation Hector,Suspension 2 spray INTRANASAL DAILY RF: 0 rosuvastatin 20 mg tablet 20 mg PO DAILY RF: 0 tiotropium bromide 18 mcg Capsule, W/Inhalation Device 1 cap INHALATION DAILY RF: 0 djjqdfyq-fck-KR-lycopen-lutein [Centrum Silver] 0.4-300-250 mg-mcg-mcg Tablet 1 tab PO DAILY RF: 0 ipratropium bromide [Atrovent HFA] 17 mcg/actuation Hfa Aerosol Inhaler 1 puff INHALATION QID RF: 0 brimonidine [Alphagan P] 0.1 % drops 1 drp ophthalmic (eye) HS RF: 0 levocetirizine 5 mg tablet 0.5 tab PO BID RF: 0 fluticasone-vilanterol [Breo Ellipta] 200-25 mcg/dose blister with device 1 puff Inhalation DAILY RF: 0 insulin lispro [Humalog KwikPen Insulin] 200 unit/mL (3 mL) insulin pen 25 units subcut TID RF: 0 beclomethasone dipropionate [Qvar RediHaler] 80 mcg/actuation Hfa Aerosol Breath Activated 1 puff INHALATION AMHS RF: 0 insulin degludec [Tresiba FlexTouch U-200] 200 unit/mL (3 mL) insulin pen 80 unit subcut QAM RF: 0 benzonatate 100 mg capsule 200 mg PO BID RF: 0 furosemide 20 mg tablet 20 mg PO DAILY RF: 0 insulin degludec [Tresiba FlexTouch U-100] 100 unit/mL (3 mL) Insulin Pen 50 unit SUBCUT HS RF: 0 Referrals Referrals: Hans Smith MD [Primary Care Provider] - Queries: Stroke Queries Reason for No Antithrombin at DC: Absent response to treatment Contraindication Not Initiating IV-Tpa: Absent response to treatment Onset of Symptoms Date: 04/12/18 The scribe's documentation has been prepared under my direction and personally reviewed by me in its entirety. I confirm that the note above accurately reflects all work, treatment, procedures, and medical decision making performed by me.
[2018-04-12] MEDS ORDERED: NITROGLYCERIN SL 0.4 MG/TAB TAB SL PRN (20:36)
[2018-04-12] MEDS ORDERED: GLUCOSE 40% GEL 15 GM TUBE PO PRN (20:36)
[2018-04-12] MEDS ORDERED: PHARMACIST DISCHARGE MED REC CONSULT PRN (20:36)
[2018-04-12] MEDS ORDERED: GLUCAGON FOR INJ 1 MG VIAL SQ PRN (20:36)
[2018-04-12] MEDS ORDERED: DEXTROSE 50% 50 ML SYRINGE IV PRN (20:36)
[2018-04-12] MEDS ORDERED: GLUCOSE 10 TABS/TUBE PO PRN (20:36)
[2018-04-12] MEDS ORDERED: POLYETHYLENE (MIRALAX) 17 GM PACK PO PRN (20:36)
[2018-04-12] MEDS ORDERED: CARBOHYDRATES FOR HYPOGLYCEMIA PO PRN (20:36)
[2018-04-12] MEDS ORDERED: ALBUTEROL 0.083% NEBU SOLN 3 ML VIAL INH PRN (20:36)
[2018-04-12] MEDS ORDERED: ONDANSETRON INJ 2 MG/ML 2 ML VIAL IV PRN (20:36)
[2018-04-12] MEDS: INSULIN ASPART 100 UNITS/ML 3 ML PEN SC SCH ×2 (21:31→23:04)
[2018-04-12] MEDS: INSULIN GLARGINE SOLOSTAR 100 UNITS/ML 3 ML PEN SC SCH (21:31)
[2018-04-12] MEDS ORDERED: GADOBUTROL 65ML VIAL IV PRN (22:07)
--- NOTE | 2018-04-12 22:38 | Magnetic Resonance Report ---
Brain MRI WITH AND WITHOUT CONTRAST HISTORY: Dizziness. Slurred speech. stroke like symptoms TECHNIQUE: Multiplanar multisequence MRI of the brain was performed both before and after the intrave nous administration of contrast. COMPARISON STUDY: Head CT 04/12/2018. FINDINGS: There is no mass, hematoma, midline shift, or acute infarct. The paranasal sinuses are myriam r. Small bilateral mastoid effusions. The ventricles and sulci demonstrate mild age-related involutio nal changes. Scattered foci of T2 hyperintensity seen within the periventricular and subcortical whit e matter are nonspecific but suggestive of moderate microvascular ischemic changes. The major vascula r flow voids at the skull base are well-maintained. IMPRESSION: No acute intracranial abnormality. Scattered foci of T2 hyperintensity seen within the periventricula r and subcortical white matter are nonspecific but favor moderate microvascular ischemic change. Electronically signed by: Andres Paige M.D. 04/12/2018 10:37 PM
--- NOTE | 2018-04-12 23:00 | Ultrasound Report ---
BILATERAL CAROTID DOPPLER STUDY HISTORY: stroke like symptoms COMPARISON: None. TECHNIQUE: Real-time, grayscale, and color Doppler sonography of the carotid arteries was performed. Imaging reviewed in the transverse and longitudinal planes. All measurements were calculated based on NASCET criteria. FINDINGS: Antegrade flow is seen in the bilateral vertebral arteries. The brachial pressures were not obtained. Mild calcified plaque within the bilateral carotid bifurcations. The peak systolic velocity within the right ICA is 78 cm/s. The right systolic ratio is 0.1. The peak systolic velocity within the left ICA is 106 cm/s. The left systolic ratio is 1.2. IMPRESSION: No hemodynamically significant stenosis seen within the carotid arteries. Electronically signed by: Andres Paige M.D. 04/12/2018 10:59 PM
[2018-04-12] MEDS: IPRATROPIUM BROMIDE HFA INHALER INH SCH (23:11)
[2018-04-12] MEDS: ALBUTEROL HFA 8 GM INHALER INH SCH (23:11)
[2018-04-12] MEDS: BECLOMETHASONE DIP HFA 80 MCG 8.7G INH INH SCH (23:11)
[2018-04-12] MEDS: ACETAMINOPHEN 325 MG TAB PO PRN (23:12)
[2018-04-12] MEDS: TRAVOPROST Z 0.004% OPH SOLN 2.5 ML BTL OP SCH (23:13)
[2018-04-12] MEDS: LORazepam 1 MG TAB PO PRN (23:13)
[2018-04-12] MEDS: BENZONATATE 100 MG CAPSULE PO SCH (23:13)
[2018-04-12] MEDS: PANTOprazole 40 MG TAB PO SCH (23:13)
[2018-04-12] MEDS: BRIMONIDINE TARTRATE 0.2% 5ML OP SCH (23:13)
[2018-04-12] MEDS: ENOXAPARIN INJ 40 MG/0.4 ML SYR SQ SCH (23:14)
[2018-04-13] MEDS ORDERED: INSULIN ASPART 100 UNITS/ML 3 ML PEN SC ONE (01:00)
[2018-04-13] MEDS: ALBUTEROL HFA 8 GM INHALER INH SCH ×6 (02:58→22:11)
[2018-04-13] MEDS ORDERED: SODIUM CHLORIDE 0.9% 1000ML 1,000 ML IV ONE (05:54)
[2018-04-13 06:16] LABS: Estimated Average Glucose 243 mg/dl
[2018-04-13 06:16] LABS: Basophils # (auto) 0.03 K/uL (0-0.2); Basophils % (auto) 0.5 %; Eosinophils # (auto) 0.31 K/uL (0-0.5); Eosinophils % (auto) 5.2 %; Hematocrit (blood only) 31.8 % (37-47); Hemoglobin 10.5 g/dL (12.0-16.0); Lymphocytes # (auto) 2.52 K/uL (1.2-3.4); Lymphocytes % (auto) 42.5 %; Mean Corpuscular Volume 80.3 fL (80-100); Mean Platelet Volume 11.5 fL (7.4-10.4); Monocytes # (auto) 0.79 K/uL (0.11-0.59); Monocytes % (auto) 13.3 %; Neutrophils # (auto) 2.28 K/uL (1.4-6.5); Neutrophils % (auto) 38.5 %; Platelet Count 144 K/uL (130-400); RDW Coefficient of Variation 15.4 % (11.5-14.5); RDW Standard Deviation 45.2 fL (36.4-46.3); Red Blood Count 3.96 M/uL (4.2-5.4); White Blood Count 5.93 K/uL (4.8-10.8)
[2018-04-13 06:24] LABS: Estimated Average Glucose 243 mg/dl
[2018-04-13 06:56] LABS: BUN Creatinine Ratio 14.8 (10-20); Creatinine Clr Calc Pharmacy 50.8 ml/min; Potassium 4.2 mmol/L (3.5-5.1)
[2018-04-13] MEDS ORDERED: PERFLUTREN LIPID MICROSPHERE (DEFINITY) IV ONE (08:18)
[2018-04-13] MEDS: INSULIN ASPART 100 UNITS/ML 3 ML PEN SC SCH ×4 (08:39→20:47)
[2018-04-13] MEDS: IPRATROPIUM BROMIDE HFA INHALER INH SCH ×4 (08:39→20:38)
[2018-04-13] MEDS: MULTIVITAMIN TAB PO SCH (08:40)
[2018-04-13] MEDS: ROSUVASTATIN CALCIUM 20 MG TAB PO SCH (08:40)
[2018-04-13] MEDS: BENZONATATE 100 MG CAPSULE PO SCH ×2 (08:40→20:39)
[2018-04-13] MEDS: PANTOprazole 40 MG TAB PO SCH ×2 (08:40→20:37)
[2018-04-13] MEDS: POTASSIUM CHLORIDE 10 MEQ TABCR PO SCH (08:40)
[2018-04-13] MEDS: CITALOPRAM 40 MG TAB PO SCH (08:41)
[2018-04-13] MEDS: CARVEDILOL 6.25 MG TAB PO SCH (08:41)
[2018-04-13] MEDS: INSULIN GLARGINE SOLOSTAR 100 UNITS/ML 3 ML PEN SC SCH ×2 (08:42→20:48)
[2018-04-13] MEDS: FLUTICASONE PROPIONATE NA SPR 16 GM BTL NAE SCH (08:43)
[2018-04-13] MEDS: BECLOMETHASONE DIP HFA 80 MCG 8.7G INH INH SCH ×2 (08:43→20:38)
[2018-04-13] MEDS: ASPIRIN 81 MG ECTAB PO SCH (08:43)
[2018-04-13] MEDS: MONTELUKAST SODIUM 10 MG TABLET PO SCH (08:43)
[2018-04-13] MEDS ORDERED: LOSARTAN POTASSIUM 25 MG TAB PO SCH (09:00)
--- NOTE | 2018-04-13 11:48 | Hospitalist Progress Note ---
Date of Service April 13, 2018 Assessment & Plan (1) TIA (transient ischemic attack): This is a 77 yo F with a PMH of asthma, bronchiectasis, COPD, CAD (s/p stents x 2), DM II, systolic HF, h/o TIAs and other problems listed below who presents from pulmonary clinic with slurred speach and confusion that have since resolved. -H/o TIA vs ?CVA in the past. No residual deficits -CT head without acute abnormality -Check MRI brain +Perivent WMD, Vascular Dz, carotid dopplers are neg, echo w/ bubble study pending -Continue baby aspirin, statin -Neuro checks -PT, OT, speech therapy evaluations -Consult neurology (2) CAD (coronary artery disease): H/o stents -No chest pain. No acute EKG changes -Continue aspirin, statin, carvedilol (3) Diabetes mellitus type II, controlled: Uncontrolled DM II with a1c of 10.6 in Jan 2018 -Hold home regimen -Basal/bolus insulin per protocol -BSG checks AC HS (4) HTN (hypertension): Normotensive -Continue home dose lasix, losartan, carvedilol -BP not c/w CVA (5) FATOU (generalized anxiety disorder): Continue SSRI, Ativan PRN (6) COPD (chronic obstructive pulmonary disease): Monitor (7) Bronchiectasis: Follows with Jason Garcia PA-C -Continue home inhalers, nebs PRN (8) Dyslipidemia: Continue statin (9) GERD (gastroesophageal reflux disease): Continue PPI DVT Ppx: SQ Lovenox Code status: FULL per discussion with patient PCP: Luis Dispo: Plan to return home once medically stable. Subjective 77 yo F with a PMH of asthma, bronchiectasis, COPD, CAD (s/p stents x 2), DM II , systolic HF, h/o TIAs and other problems listed below who presents from pulmonary clinic with stroke like symptoms. Was in normal state of health until patient was speaking with nurse and developed slurred speech and appeared confused. Was directed to ED and symptoms had resolved by the time of arrival. Endorses history of a few TIAs in the past. Takes a baby aspirin and statin daily. Reports that she used to follow with a neurologist in [place] but he has since moved. Denies any difficulty swallowing, confusion, localized weakness or sensory deficits. Feels weak when ambulating but states that is normal with her COPD and bronchiectasis. Is able to ambulate from room to room at home with walker but develops dyspnea with any more activity than that. ROS also positive for chronic productive cough. Denies fever, chills, lightheadedness, headache, chest pain, palpitations, SOB, nausea, vomiting, abdominal pain, dysuria, diarrhea, constipation or lower extremity swelling. ROS-No Headache, No Visual Changes, No Nausea, No Vomiting, No Fever, No Chills , No Neck Pain or Stiffness, No Chest Pain, No Palpitations, No SOB, No EVANS, No Cough, No Sputum, No Wheezing, No Abdominal Pain, No Diarrhea, No Hematemesis, No Hemoptysis, No Unexpected Weight Loss, No Flank pain, No Melena, No Hematochezia, No Frequency, No Urgency, No Burning, No Hematuria, No Rashes, No Diaphoresis. Appetite is Normal Physical Exam Gen-AAO x 3, NAD, Afebrile Head-NCAT, EOMI, PERRLA, Anicteric Sclera, No Posterior Pharyngeal Erythema Neck-Supple, No JVD, No Thyromegaly, No Masses, No LAD, No Bruits Lungs-Clear to Auscultation Bilaterally, No Rales, No Rhonchi, No Wheezing, No Crepitus Chest-No S4, +S1, +S2, No S3, No Murmurs, No Rubs, No Gallops, No Ectopy Abdomen-Soft, Bowel Sounds Present, Non Tender, Non Distended, No Hepatomegaly, No Splenomegaly, No Palpable Masses, No Rebound, No Rigidity, No Guarding Musculoskeletal-Full Range of Motion Bilaterally, No CVAT Extremities-No Cyanosis, No Clubbing, No Edema Nuero-Cranial Nerves II-XII grossly intact, ?R Droop, Motor WNL, DTRs WNL, Strength WNL, Non Focal Psych-Normal Mood Physical Exam 2 Vital Signs (Past 24 Hours): Last Vital Signs Temp 36.4 C L 04/13/18 07:00 Pulse 82 04/13/18 07:30 Resp 18 04/13/18 07:00 BP 176/71 H 04/13/18 07:00 Pulse Ox 93 04/13/18 07:00 Results & Data Laboratory Results Current Diagnoses Type 2 diabetes mellitus without complications (04/12/18) Hyperlipidemia, unspecified (04/12/18) Generalized anxiety disorder (04/12/18) Transient cerebral ischemic attack, unspecified (04/12/18) Essential (primary) hypertension (04/12/18) Atherosclerotic heart disease of [place] coronary artery without angina pectoris (04/12/18) Chronic obstructive pulmonary disease, unspecified (04/12/18) Bronchiectasis, uncomplicated (04/12/18) Gastro-esophageal reflux disease without esophagitis (04/12/18) Allergies norethindrone Allergy (Severe, Verified 05/19/15 08:09) SHORTNESS OF BREATH latanoprost Allergy (Intermediate, Verified 05/19/15 08:09) RASH paroxetine Allergy (Intermediate, Verified 05/19/15 08:09) RASH tetracycline Allergy (Intermediate, Verified 05/19/15 08:09) RASH simvastatin Allergy (Unknown, Verified 05/19/15 08:09) UNKNOWN sulfamethoxazole Allergy (Unknown, Verified 05/19/15 08:09) . esomeprazole Adverse Reaction (Severe, Verified 05/19/15 08:09) SHORTNESS OF BREATH fenofibrate Adverse Reaction (Severe, Verified 05/19/15 08:09) . metoclopramide Adverse Reaction (Severe, Verified 05/19/15 08:09) . enalapril Adverse Reaction (Intermediate, Verified 05/19/15 08:09) . glyburide Adverse Reaction (Intermediate, Verified 05/19/15 08:09) . morphine Adverse Reaction (Intermediate, Verified 03/25/16 10:39) ITCHY oxycodone Adverse Reaction (Intermediate, Verified 03/25/16 10:39) ITCHY,BLOTCHY Height/Weight/Isolation Height 4 ft 10 in Weight 106.2 kg Chemistry 04/12/18 04/13/18 11:45 05:39 Sodium 131 L 134 L Potassium 5.2 H 4.2 D Chloride 100 101 Carbon Dioxide 23 27 Anion Gap 9.0 6.0 BUN 15 14 Creatinine 0.99 0.95 Glucose 193 H 141 H Urinalysis 04/12/18 12:23 Urine Color Yellow Urine Appearance Clear Urine pH 6.0 Ur Specific [place] 1.019 Urine Protein Negative Urine Glucose (UA) 2+ H Urine Ketones Negative Urine Blood Negative Urine Nitrite Negative Urine Bilirubin Negative
[2018-04-13] MEDS: ACETAMINOPHEN 325 MG TAB PO PRN (13:33)
--- NOTE | 2018-04-13 15:52 | Consultation Report ---
DATE OF CONSULTATION: 04/13/[address] Navarrete. HISTORY OF PRESENT ILLNESS: Marii is 77 years old patient of Dr. Hans Deng and was admitted to the hospital yesterday for a transient episode of dystaxia, slurred speech and low-grade confusion which occurred apparently while visiting her assessment counselor's office here in [place] that she has been seeing it for years. The whole event lasted perhaps 10 minutes, largely cleared by the time she arrived in the hospital and she was admitted for a workup. Thus far, the examination has returned to her baseline. The MRI shows nothing acute. Carotid Dopplers showed nothing, but an echo report with a bubble study is still pending. She was placed on her usual baby aspirin and a statin and PT, speech, etc. is being called in addition to the neurology consult. Right now, she feels back to baseline. She has had no further events, but does report episodes at home where she sometimes feels a little confused and episodes where her gait and balance gets a little off and these are pretty nonspecific. She does have a history of coronary disease with post-stents and was on aspirin, a statin and carvedilol for this before. She also has type 2 diabetes which is well controlled and according to her has no evidence at least clinically for significant neuropathy. She also has some hypertension, generalized anxiety, COPD for which she has been seeing Dr. Harrell and Jason Garcia and has a diagnosis of bronchiectasis. She has dyslipidemia and GERD. MEDICATIONS: She at home takes a number of medications including albuterol, aspirin, beclomethasone, benzonatate, carvedilol, citalopram, fluticasone, furosemide, various forms of insulin, although as per the EMR, lorazepam, losartan, metformin, Singulair, multivitamins, nitroglycerin, Zofran as needed, polyethylene glycol, rosuvastatin, tacrolimus and Travatan. She is on a number of drops for her glaucoma. ALLERGIES: SHE HAS EXTENSIVE ALLERGIES TO NORETHINDRONE, LATANOPROST, PAROXETINE, TETRACYCLINE, SIMVASTATIN, SULFAMETHOXAZOLE, ESOMEPRAZOLE, FENOFIBRATE, METOCLOPRAMIDE, ENALAPRIL, GLYBURIDE, MORPHINE, AND OXYCODONE. HOW THESE ARE MANIFESTED IS NOT CLEAR. I SUSPECT SOME OF THEM ARE GI INTOLERANCE AND PERHAPS SOME CONFUSION DUE TO NARCOTICS. PAST MEDICAL HISTORY: She carries a history of the problems noted above, in addition to glaucoma and TIAs, but manifestations of TIAs are some episodes of near syncope and staggering gait, none of which are very specific. PAST SURGICAL HISTORY: Surgically, she has had back surgery, bladder surgery, section. Some form of eye surgery, not otherwise specified. Some foot surgery, also not specified. Carpal tunnel surgery bilaterally. FAMILY HISTORY: Positive for diabetes and Alzheimer disease in a brother. SOCIAL HISTORY: Reveals her to be living with her spouse. She feels safe at home. She is a nonsmoker currently, but did smoke in the past and does not use ethanol. REVIEW OF SYSTEMS: Systems review reveals nothing specific related to the head, eyes, ears, nose and throat, cardiovascular, pulmonary, gastrointestinal, genitourinary, musculoskeletal, dermatologic, hematologic or endocrinologic systems other than those reported in relation to her chronic medical problems and neurologically all we have is the episodes of gait disturbance and near syncope that have been described as TIAs in the past and the current events where she had more dysarthria and articulatory problems and perhaps confusion, and according to her, this has not happened before. PHYSICAL EXAMINATION: VITAL SIGNS: Blood pressure is 114/94, pulse is 98, respirations are 18. She is afebrile. GENERAL: She appeared to be well developed, well nourished, was in no distress. HEENT: Examination was normal. NECK: Supple. No bruits were heard. LUNGS: Reported as clear with some scattered wheezing posteriorly. HEART: Had a regular rhythm. No murmurs were appreciated. ABDOMEN: Soft, nontender without hepatosplenomegaly. EXTREMITIES: Free of significant edema. NEUROLOGICAL: Today neurologically, she is awake, alert, oriented, is a reasonable historian. She has normal eye movements, normal visual dozier, normal facial motility and strength, clear speech. Normal facial sensation. Poorly seen ocular fundi. Good bedside testing of range of motion in her extremities and she also has no [id number], lnaem-dh-vzygr or ciop-vg-jwhh evidence for cerebellar dysmetria. She has good facility of rapid repetitive motions. Reflexes are actually all reasonably present. The ankle jerks are a little down, which is not surprising for diabetes. Toes are downgoing. No Kole signs are seen. Strength testing is intact and sensation reveals at most a little vibratory loss over the lower extremities with preservation of pinprick and proprioception. I did not test gait today. It is a little hard to really know what went on here. Some of this could be a simple nonspecific ataxic episode l similar to those she has had in the past, but the current event added dysarthria and articulatory problems which were fairly obvious to the medical research assistant in the office and have cleared, so I think we have to call this a transient ischemic event and unless we find some clear cardiogenic source of embolism, I would put her on Plavix in addition to her aspirin for at least another 30 days, have her come back to our office and probably then continue on Plavix alone unless there are contraindications or unless we find evidence for a cardiac valvular abnormality or another intracardiac source of potential emboli. I suppose one could do an outpatient Zio monitoring as well to be certain there is no paroxysmal atrial fibrillation, assuming we do not detect any here during our monitor. I will be back to look at her tomorrow to see how things have progressed, particularly the results of the echocardiogram which I cannot locate in the chart and will go from there, but unless the echo shows something dramatic, I would simply use dual antiplatelet therapy for a period of 30 days here and proceed accordingly with the other outpatient diagnostic studies to include a Zio patch. MARCIA
[2018-04-13] MEDS: ENOXAPARIN INJ 40 MG/0.4 ML SYR SQ SCH (20:37)
[2018-04-13] MEDS: TRAVOPROST Z 0.004% OPH SOLN 2.5 ML BTL OP SCH (20:39)
[2018-04-13] MEDS: BRIMONIDINE TARTRATE 0.2% 5ML OP SCH (20:39)
[2018-04-13] MEDS ORDERED: COUGH DROP (SUGAR FREE) LOZ 24 LOZ/1 BOX BUCCAL ONE (20:53)
[2018-04-14] MEDS: LORazepam 1 MG TAB PO PRN ×2 (00:21→22:49)
[2018-04-14] MEDS: ALBUTEROL HFA 8 GM INHALER INH SCH ×6 (04:48→21:37)
[2018-04-14] MEDS: INSULIN ASPART 100 UNITS/ML 3 ML PEN SC SCH ×4 (07:56→21:53)
[2018-04-14] MEDS: INSULIN GLARGINE SOLOSTAR 100 UNITS/ML 3 ML PEN SC SCH ×2 (07:56→21:54)
[2018-04-14] MEDS: BECLOMETHASONE DIP HFA 80 MCG 8.7G INH INH SCH ×2 (07:57→21:43)
[2018-04-14] MEDS: IPRATROPIUM BROMIDE HFA INHALER INH SCH ×4 (07:57→21:39)
[2018-04-14] MEDS: CARVEDILOL 6.25 MG TAB PO SCH (07:58)
[2018-04-14] MEDS: MULTIVITAMIN TAB PO SCH (07:58)
[2018-04-14] MEDS: CITALOPRAM 40 MG TAB PO SCH (07:58)
[2018-04-14] MEDS: PANTOprazole 40 MG TAB PO SCH ×2 (07:58→21:43)
[2018-04-14] MEDS: ASPIRIN 81 MG ECTAB PO SCH (07:59)
[2018-04-14] MEDS: MONTELUKAST SODIUM 10 MG TABLET PO SCH (07:59)
[2018-04-14] MEDS: BENZONATATE 100 MG CAPSULE PO SCH ×2 (08:00→21:43)
[2018-04-14] MEDS: FLUTICASONE PROPIONATE NA SPR 16 GM BTL NAE SCH (08:00)
[2018-04-14] MEDS: ROSUVASTATIN CALCIUM 20 MG TAB PO SCH (08:00)
[2018-04-14 08:15] LABS: Basophils # (auto) 0.02 K/uL (0-0.2); Basophils % (auto) 0.3 %; Eosinophils # (auto) 0.31 K/uL (0-0.5); Hematocrit (blood only) 32.3 % (37-47); Hemoglobin 10.6 g/dL (12.0-16.0); Immature Granulocytes # (auto) 0.01 K/uL (0.00-0.02); Immature Granulocytes % (auto) 0.2 %; Lymphocytes # (auto) 2.62 K/uL (1.2-3.4); Lymphocytes % (auto) 42.6 %; Mean Corpuscular Hgb Conc 32.8 g/dL (32-36); Mean Corpuscular Volume 79.8 fL (80-100); Mean Platelet Volume 11.7 fL (7.4-10.4); Monocytes # (auto) 0.95 K/uL (0.11-0.59); Monocytes % (auto) 15.4 %; Neutrophils # (auto) 2.24 K/uL (1.4-6.5); Neutrophils % (auto) 36.5 %; Platelet Count 145 K/uL (130-400); RDW Coefficient of Variation 15.4 % (11.5-14.5); Red Blood Count 4.05 M/uL (4.2-5.4); White Blood Count 6.15 K/uL (4.8-10.8)
[2018-04-14 08:44] LABS: BUN Creatinine Ratio 15.6 (10-20); Calcium 8.9 mg/dl (8.5-10.1); Creatinine Clr Calc Pharmacy 58.3 ml/min; Est GFR (African American) 85.1; Est GFR (Non-African American) 73.4; Potassium 3.8 mmol/L (3.5-5.1)
--- NOTE | 2018-04-14 13:51 | Hospitalist Progress Note ---
Date of Service April 14, 2018 Assessment & Plan (1) TIA (transient ischemic attack): This is a 77 yo F with a PMH of asthma, bronchiectasis, COPD, CAD (s/p stents x 2), DM II, systolic HF, h/o TIAs and other problems listed below who presents from pulmonary clinic with slurred speach and confusion that have since resolved. -H/o TIA vs ?CVA in the past. No residual deficits -CT head without acute abnormality -Check MRI brain +Perivent WMD, Vascular Dz, carotid dopplers are neg, echo w/ bubble study No PFO, EF 55-60% -Continue baby aspirin, statin, Plavix Added by Neurology -PT, OT, speech therapy evaluations -Consult Cards for NSVT, Mg, Phos -DC 04/15, ZIO by PCP or cards (2) CAD (coronary artery disease): H/o stents -No chest pain. No acute EKG changes -Continue aspirin, statin, carvedilol (3) Diabetes mellitus type II, controlled: Uncontrolled DM II with a1c of 10.6 in Jan 2018 -Hold home regimen -Basal/bolus insulin per protocol -BSG checks AC HS (4) HTN (hypertension): Normotensive -Continue home dose lasix, losartan, carvedilol -BP not c/w CVA (5) FATOU (generalized anxiety disorder): Continue SSRI, Ativan PRN (6) COPD (chronic obstructive pulmonary disease): Monitor (7) Bronchiectasis: Follows with Jason Garcia PA-C -Continue home inhalers, nebs PRN (8) Dyslipidemia: Continue statin (9) GERD (gastroesophageal reflux disease): Continue PPI DVT Ppx: SQ Lovenox Code status: FULL per discussion with patient PCP: Luis Dispo: Plan to return home once medically stable. (10) Non-sustained ventricular tachycardia: Cardiac Eval, Check Lytes, No PFO on Echo, EF 55-60% Subjective 77 yo F with a PMH of asthma, bronchiectasis, COPD, CAD (s/p stents x 2), DM II , systolic HF, h/o TIAs and other problems listed below who presents from pulmonary clinic with stroke like symptoms. Was in normal state of health until patient was speaking with nurse and developed slurred speech and appeared confused. Was directed to ED and symptoms had resolved by the time of arrival. Endorses history of a few TIAs in the past. Takes a baby aspirin and statin daily. Reports that she used to follow with a neurologist in [place] but he has since moved. Denies any difficulty swallowing, confusion, localized weakness or sensory deficits. Feels weak when ambulating but states that is normal with her COPD and bronchiectasis. Is able to ambulate from room to room at home with walker but develops dyspnea with any more activity than that. ROS also positive for chronic productive cough. Denies fever, chills, lightheadedness, headache, chest pain, palpitations, SOB, nausea, vomiting, abdominal pain, dysuria, diarrhea, constipation or lower extremity swelling. ROS-No Headache, No Visual Changes, No Nausea, No Vomiting, No Fever, No Chills , No Neck Pain or Stiffness, No Chest Pain, No Palpitations, No SOB, No EVANS, No Cough, No Sputum, No Wheezing, No Abdominal Pain, No Diarrhea, No Hematemesis, No Hemoptysis, No Unexpected Weight Loss, No Flank pain, No Melena, No Hematochezia, No Frequency, No Urgency, No Burning, No Hematuria, No Rashes, No Diaphoresis. Appetite is Normal Physical Exam Gen-AAO x 3, NAD, Afebrile Head-NCAT, EOMI, PERRLA, Anicteric Sclera, No Posterior Pharyngeal Erythema Neck-Supple, No JVD, No Thyromegaly, No Masses, No LAD, No Bruits Lungs-Clear to Auscultation Bilaterally, No Rales, No Rhonchi, No Wheezing, No Crepitus Chest-No S4, +S1, +S2, No S3, No Murmurs, No Rubs, No Gallops, No Ectopy Abdomen-Soft, Bowel Sounds Present, Non Tender, Non Distended, No Hepatomegaly, No Splenomegaly, No Palpable Masses, No Rebound, No Rigidity, No Guarding Musculoskeletal-Full Range of Motion Bilaterally, No CVAT Extremities-No Cyanosis, No Clubbing, No Edema Nuero-Cranial Nerves II-XII grossly intact, ?R Droop, Motor WNL, DTRs WNL, Strength WNL, Non Focal Psych-Normal Mood Physical Exam 2 Vital Signs (Past 24 Hours): Last Vital Signs Temp 36.6 C 04/14/18 07:25 Pulse 82 04/14/18 07:30 Resp 16 04/14/18 07:25 BP 153/58 H 04/14/18 07:25 Pulse Ox 95 04/14/18 07:25 Results & Data Laboratory Results Current Diagnoses Type 2 diabetes mellitus without complications (04/12/18) Hyperlipidemia, unspecified (04/12/18) Generalized anxiety disorder (04/12/18) Transient cerebral ischemic attack, unspecified (04/12/18) Essential (primary) hypertension (04/12/18) Atherosclerotic heart disease of [place] coronary artery without angina pectoris (04/12/18) Chronic obstructive pulmonary disease, unspecified (04/12/18) Bronchiectasis, uncomplicated (04/12/18) Gastro-esophageal reflux disease without esophagitis (04/12/18) Allergies norethindrone Allergy (Severe, Verified 05/19/15 08:09) SHORTNESS OF BREATH latanoprost Allergy (Intermediate, Verified 05/19/15 08:09) RASH paroxetine Allergy (Intermediate, Verified 05/19/15 08:09) RASH tetracycline Allergy (Intermediate, Verified 05/19/15 08:09) RASH simvastatin Allergy (Unknown, Verified 05/19/15 08:09) UNKNOWN sulfamethoxazole Allergy (Unknown, Verified 05/19/15 08:09) . esomeprazole Adverse Reaction (Severe, Verified 05/19/15 08:09) SHORTNESS OF BREATH fenofibrate Adverse Reaction (Severe, Verified 05/19/15 08:09) . metoclopramide Adverse Reaction (Severe, Verified 05/19/15 08:09) . enalapril Adverse Reaction (Intermediate, Verified 05/19/15 08:09) . glyburide Adverse Reaction (Intermediate, Verified 05/19/15 08:09) . morphine Adverse Reaction (Intermediate, Verified 03/25/16 10:39) ITCHY oxycodone Adverse Reaction (Intermediate, Verified 03/25/16 10:39) ITCHY,BLOTCHY Height/Weight/Isolation Height 4 ft 10 in Weight 94.6 kg Chemistry 04/13/18 04/14/18 05:39 06:45 Sodium 134 L 135 L Potassium 4.2 D 3.8 Chloride 101 102 Carbon Dioxide 27 26 Anion Gap 6.0 7.0 BUN 14 12 Creatinine 0.95 0.77 Glucose 141 H 154 H
--- NOTE | 2018-04-14 14:17 | Communication Note ---
Date of Service: April 14, 2018 I have seen Mrs Urbina today and reviewed her chart and echo results she has had a "spell of ging off balance " while int e bathroom today but no dysarthria or confusion adn frankly the event is very nonspecific historically and likely not a tia in the classic sense but these are the events that have in the past been labeled as such they may well be events of transient hypotension or simple loss of balance related to a minor polyneropathy Te event that precipitated admission however was different and is more worrisome for a transient cerebral ischemic event and we are thus recommending treating it as such despite the negative studies The echo shows no source of emboli but she may have had a rn of nonsustained v tachy today and cardiology is to see her prior to any discharge planning From a neurological viewpoint her exam is stable and essentially normal save for the minor neuropathy, imaging studies show no acute events and there are no clear sources of emboli and atrial fibrillation has not been recorded on the monitor. We are going to sign off with recommendations as per my prior note ie plavix and asa for for to six weeks, follow up in [facility] [place] [facility] with me in about four to six weeks for review, I will defer to cardiology on the zio patch issue and I will likely stop the asa and go with pure plavix as a single antiplatlet agent after her visit unless in the interim a clear source of emboli that would respond to anticoagulants has been found Milan Ozuna MD
[2018-04-14 14:36] LABS: Magnesium 1.6 mg/dl (1.8-2.4); Phosphorus 3.6 mg/dl (2.5-4.9)
[2018-04-14] MEDS ORDERED: Nursing to Pharmacy Communication ONE (16:45)
[2018-04-14] MEDS ORDERED: INSULIN ASPART 100 UNITS/ML 3 ML PEN SC STA (16:49)
[2018-04-14] MEDS: BRIMONIDINE TARTRATE 0.2% 5ML OP SCH (21:36)
[2018-04-14] MEDS: TRAVOPROST Z 0.004% OPH SOLN 2.5 ML BTL OP SCH (21:44)
[2018-04-14] MEDS: ENOXAPARIN INJ 40 MG/0.4 ML SYR SQ SCH (21:54)
[2018-04-14] MEDS: ACETAMINOPHEN 325 MG TAB PO PRN (22:57)
[2018-04-15] MEDS: ALBUTEROL HFA 8 GM INHALER INH SCH ×6 (02:25→21:24)
[2018-04-15 06:53] LABS: Basophils # (auto) 0.02 K/uL (0-0.2); Basophils % (auto) 0.3 %; Eosinophils # (auto) 0.37 K/uL (0-0.5); Eosinophils % (auto) 5.6 %; Hematocrit (blood only) 33.2 % (37-47); Hemoglobin 10.9 g/dL (12.0-16.0); Immature Granulocytes # (auto) 0.01 K/uL (0.00-0.02); Immature Granulocytes % (auto) 0.2 %; Lymphocytes # (auto) 2.54 K/uL (1.2-3.4); Lymphocytes % (auto) 38.1 %; Mean Corpuscular Hgb Conc 32.8 g/dL (32-36); Mean Corpuscular Volume 80.2 fL (80-100); Mean Platelet Volume 11.1 fL (7.4-10.4); Monocytes # (auto) 0.88 K/uL (0.11-0.59); Monocytes % (auto) 13.2 %; Neutrophils # (auto) 2.84 K/uL (1.4-6.5); Neutrophils % (auto) 42.6 %; Platelet Count 143 K/uL (130-400); RDW Coefficient of Variation 15.5 % (11.5-14.5); RDW Standard Deviation 45.1 fL (36.4-46.3); Red Blood Count 4.14 M/uL (4.2-5.4); White Blood Count 6.66 K/uL (4.8-10.8)
[2018-04-15 07:32] LABS: BUN Creatinine Ratio 16.1 (10-20); Calcium 8.8 mg/dl (8.5-10.1); Creatinine Clr Calc Pharmacy 58.5 ml/min; Est GFR (African American) 85.1; Est GFR (Non-African American) 73.4; Potassium 4.1 mmol/L (3.5-5.1)
[2018-04-15] MEDS: INSULIN ASPART 100 UNITS/ML 3 ML PEN SC SCH ×4 (08:07→21:26)
[2018-04-15] MEDS: POTASSIUM CHLORIDE 10 MEQ TABCR PO SCH (08:08)
[2018-04-15] MEDS: ASPIRIN 81 MG ECTAB PO SCH (08:08)
[2018-04-15] MEDS: IPRATROPIUM BROMIDE HFA INHALER INH SCH ×4 (08:08→21:25)
[2018-04-15] MEDS: INSULIN GLARGINE SOLOSTAR 100 UNITS/ML 3 ML PEN SC SCH ×2 (08:08→21:25)
[2018-04-15] MEDS: BENZONATATE 100 MG CAPSULE PO SCH ×2 (08:09→21:23)
[2018-04-15] MEDS: CITALOPRAM 40 MG TAB PO SCH (08:09)
[2018-04-15] MEDS: PANTOprazole 40 MG TAB PO SCH ×2 (08:09→21:23)
[2018-04-15] MEDS: CARVEDILOL 6.25 MG TAB PO SCH (08:09)
[2018-04-15] MEDS: MULTIVITAMIN TAB PO SCH (08:09)
[2018-04-15] MEDS: BECLOMETHASONE DIP HFA 80 MCG 8.7G INH INH SCH ×2 (08:10→21:24)
[2018-04-15] MEDS: MONTELUKAST SODIUM 10 MG TABLET PO SCH (08:10)
[2018-04-15] MEDS: ROSUVASTATIN CALCIUM 20 MG TAB PO SCH (08:10)
[2018-04-15] MEDS: FLUTICASONE PROPIONATE NA SPR 16 GM BTL NAE SCH (08:12)
[2018-04-15] MEDS: MAGNESIUM OXIDE 400 MG TAB PO SCH ×3 (08:58→21:23)
--- NOTE | 2018-04-15 10:23 | Hospitalist Progress Note ---
Date of Service April 15, 2018 Assessment & Plan (1) TIA (transient ischemic attack): This is a 77 yo F with a PMH of asthma, bronchiectasis, COPD, CAD (s/p stents x 2), DM II, systolic HF, h/o TIAs and other problems listed below who presents from pulmonary clinic with slurred speach and confusion that have since resolved. -H/o TIA vs ?CVA in the past. No residual deficits -CT head without acute abnormality -Check MRI brain +Perivent WMD, Vascular Dz, carotid dopplers are neg, echo w/ bubble study No PFO, EF 55-60% -Continue baby aspirin, statin, Plavix Added by Neurology -PT, OT, ST evals done -Consult Cards for NSVT, Mg low, Phos normal -DC 04/15, ZIO by PCP or cards (2) CAD (coronary artery disease): H/o stents -No chest pain. No acute EKG changes -Continue aspirin, statin, carvedilol (3) Diabetes mellitus type II, controlled: Uncontrolled DM II with a1c of 10.6 in Jan 2018 -Hold home regimen -Basal/bolus insulin per protocol -BSG checks AC HS (4) HTN (hypertension): Normotensive -Continue home dose lasix, losartan, carvedilol -BP not c/w CVA (5) FATOU (generalized anxiety disorder): Continue SSRI, Ativan PRN (6) COPD (chronic obstructive pulmonary disease): PT c/o chronic cough that will go away. She says she has been on multiple antibiotics. As well as steroids and nebulizer. But she still has a chronic cough. I ordered a CT of the sinuses, CT of the chest, both without contrast. I had an upper GI with a barium esophagram for tomorrow. I discussed the case with Dr. Harrell who will see the patient in consult. Cardiology is also in place. (7) Bronchiectasis: Follows with Jason Garcia PA-C -Continue home inhalers, nebs PRN (8) Dyslipidemia: Continue statin (9) GERD (gastroesophageal reflux disease): Continue PPI DVT Ppx: SQ Lovenox Code status: FULL per discussion with patient PCP: Luis Dispo: Plan to return home late tomorrow 04/16. (10) Non-sustained ventricular tachycardia: Cardiac Eval, replete magnesium, No PFO on Echo, EF 55-60% Subjective 77 yo F with a PMH of asthma, bronchiectasis, COPD, CAD (s/p stents x 2), DM II , systolic HF, h/o TIAs and other problems listed below who presents from pulmonary clinic with stroke like symptoms. Was in normal state of health until patient was speaking with nurse and developed slurred speech and appeared confused. Was directed to ED and symptoms had resolved by the time of arrival. Endorses history of a few TIAs in the past. Takes a baby aspirin and statin daily. Reports that she used to follow with a neurologist in [place] but he has since moved. Denies any difficulty swallowing, confusion, localized weakness or sensory deficits. Feels weak when ambulating but states that is normal with her COPD and bronchiectasis. Is able to ambulate from room to room at home with walker but develops dyspnea with any more activity than that. ROS also positive for chronic productive cough. Denies fever, chills, lightheadedness, headache, chest pain, palpitations, SOB, nausea, vomiting, abdominal pain, dysuria, diarrhea, constipation or lower extremity swelling. ROS-No Headache, No Visual Changes, No Nausea, No Vomiting, No Fever, No Chills , No Neck Pain or Stiffness, No Chest Pain, No Palpitations, No SOB, No EVANS, No Cough, No Sputum, No Wheezing, No Abdominal Pain, No Diarrhea, No Hematemesis, No Hemoptysis, No Unexpected Weight Loss, No Flank pain, No Melena, No Hematochezia, No Frequency, No Urgency, No Burning, No Hematuria, No Rashes, No Diaphoresis. Appetite is Normal Physical Exam Gen-AAO x 3, NAD, Afebrile Head-NCAT, EOMI, PERRLA, Anicteric Sclera, No Posterior Pharyngeal Erythema Neck-Supple, No JVD, No Thyromegaly, No Masses, No LAD, No Bruits Lungs-Clear to Auscultation Bilaterally, No Rales, No Rhonchi, No Wheezing, No Crepitus Chest-No S4, +S1, +S2, No S3, No Murmurs, No Rubs, No Gallops, No Ectopy Abdomen-Soft, Bowel Sounds Present, Non Tender, Non Distended, No Hepatomegaly, No Splenomegaly, No Palpable Masses, No Rebound, No Rigidity, No Guarding Musculoskeletal-Full Range of Motion Bilaterally, No CVAT Extremities-No Cyanosis, No Clubbing, No Edema Nuero-Cranial Nerves II-XII grossly intact, ?R Droop, Motor WNL, DTRs WNL, Strength WNL, Non Focal Psych-Normal Mood Physical Exam 2 Vital Signs (Past 24 Hours): Last Vital Signs Temp 36.3 C L 04/15/18 07:15 Pulse 87 04/15/18 07:15 Resp 19 04/15/18 07:15 BP 161/72 H 04/15/18 07:15 Pulse Ox 94 04/15/18 07:15 Results & Data Laboratory Results Current Diagnoses Type 2 diabetes mellitus without complications (04/12/18) Hyperlipidemia, unspecified (04/12/18) Generalized anxiety disorder (04/12/18) Transient cerebral ischemic attack, unspecified (04/12/18) Essential (primary) hypertension (04/12/18) Atherosclerotic heart disease of [place] coronary artery without angina pectoris (04/12/18) Ventricular tachycardia (04/12/18) Chronic obstructive pulmonary disease, unspecified (04/12/18) Bronchiectasis, uncomplicated (04/12/18) Gastro-esophageal reflux disease without esophagitis (04/12/18) Allergies norethindrone Allergy (Severe, Verified 05/19/15 08:09) SHORTNESS OF BREATH latanoprost Allergy (Intermediate, Verified 05/19/15 08:09) RASH paroxetine Allergy (Intermediate, Verified 05/19/15 08:09) RASH tetracycline Allergy (Intermediate, Verified 05/19/15 08:09) RASH simvastatin Allergy (Unknown, Verified 05/19/15 08:09) UNKNOWN sulfamethoxazole Allergy (Unknown, Verified 05/19/15 08:09) . esomeprazole Adverse Reaction (Severe, Verified 05/19/15 08:09) SHORTNESS OF BREATH fenofibrate Adverse Reaction (Severe, Verified 05/19/15 08:09) . metoclopramide Adverse Reaction (Severe, Verified 05/19/15 08:09) . enalapril Adverse Reaction (Intermediate, Verified 05/19/15 08:09) . glyburide Adverse Reaction (Intermediate, Verified 05/19/15 08:09) . morphine Adverse Reaction (Intermediate, Verified 03/25/16 10:39) ITCHY oxycodone Adverse Reaction (Intermediate, Verified 03/25/16 10:39) ITCHY,BLOTCHY Height/Weight/Isolation Height 4 ft 10 in Weight 95 kg Chemistry 04/14/18 04/15/18 06:45 06:30 Sodium 135 L 135 L Potassium 3.8 4.1 Chloride 102 103 Carbon Dioxide 26 25 Anion Gap 7.0 7.0 BUN 12 12 Creatinine 0.77 0.77 Glucose 154 H 164 H
--- NOTE | 2018-04-15 10:42 | CT Scan Report ---
CT chest wo con CLINICAL HISTORY: Chronic productive cough. Postnasal drainage. COMPARISON STUDY: Were 1610 CT DOSE: 1485.33 mGy.cm TECHNIQUE: CT of the thorax was performed from the thoracic inlet to the lung bases. Images are revi ewed in the axial, sagittal, and coronal planes. IV contrast was not administered for this examinatio n. A dose lowering technique was utilized adhering to the principles of ALARA. FINDINGS: Thyroid: Imaged portions of the thyroid gland are normal in appearance. Thoracic aorta: The thoracic aorta is normal in course and caliber, noting standard 3 vessel arch yudy ger. Heart: The heart is mildly enlarged. There are coronary artery calcifications. Lungs and pleural spaces: There are no pleural effusions. There is mild subpleural reticulation. Ther e is no focal pulmonary consolidation. There is minimal debris within the trachea. Mediastinum: There is no mediastinal lymphadenopathy. Twila: There is no evidence of pathologic hilar adenopathy given the limitations of a noncontrast stud y Axilla: There is no evidence of pathologic axillary lymphadenopathy Upper abdomen: The liver has a cirrhotic appearance. The spleen is mildly enlarged. Skeletal structures: There is ankylosis of the spine. IMPRESSION: 1. No evidence of pathologic adenopathy 2. No evidence of focal pulmonary consolidation 3. Minimal subpleural reticulation 4. Cirrhotic morphology of the liver. Suspected splenomegaly Electronically signed by: Jefry Benjamin M.D. 04/15/2018 10:41 AM
--- NOTE | 2018-04-15 10:45 | CT Scan Report ---
CT sinus wo con CLINICAL HISTORY: Chronic cough and postnasal drainage COMPARISON STUDY: 06/12/2009 TECHNIQUE: CT scan of the paranasal sinuses was performed in the axial plane. Coronal reconstructed images were obtained and reviewed. A dose lowering technique was utilized adhering to the principles of ALARA. CT DOSE: FINDINGS: No orbital masses are visualized. There is no hydrocephalus. There are bilateral mastoid effusions. These were present on the prior study. Middle ear cavities freeman ear well aerated. There is minimal left maxilla sinus mucosal thickening. There are no air-fluid leve ls. The sphenoid ethmoid and frontal sinuses are clear. There is nasal septal deviation to the left. There is a left-sided nasal septal spur. The ostiomeatal units are patent bilaterally. The frontal and sphenoid recesses are patent. The ethmoid notches are protected. There is partial pneumatization right middle turbinate IMPRESSION: 1. Chronic bilateral mastoid effusions 2. Minor mucosal disease in the left maxilla sinus. No air-fluid levels identified 3. The ostiomeatal units are patent bilaterally. Electronically signed by: Jefry Benjamin M.D. 04/15/2018 10:44 AM
--- NOTE | 2018-04-15 11:46 | Cardiology Consultation ---
Date of Consultation April 15, 2018 Assessment & Plan (1) TIA (transient ischemic attack): So far the patient has not demonstrated any significant atrial arrhythmias on telemetry. Her echocardiogram did not show a cardiac source of emboli. I would recommend that she have a halfway event monitor for a week after discharge. I do not believe any additional cardiac testing is indicated during this admission unless her clinical course changes. (2) Bronchiectasis: The patient may proceed to bronchoscopy with an acceptable low risk of cardiovascular event. (3) CAD (coronary artery disease): (4) Diabetes mellitus type II, controlled: History of Present Illness Attending Physician: Tomasz Navarrete DO History of Present Illness This is a 77-year-old female who has been followed at [facility] with a history of coronary stents placed in 1999 at [facility]. Unfortunately, her windows security engineer has left the area and she is not been followed. 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 Her symptoms resolved rapidly. She states she has had similar events which have brought her to the [facility], but she cannot remember the date of the last event. She is followed by the pulmonary group here with a history of COPD. She has had a chronic cough productive of sputum and had been scheduled to undergo a bronchoscopy which was delayed due to this admission. She will have the bronchoscopy completed tomorrow during her hospital stay. After admission, she has had an echocardiogram that fails to show any cardiac source of emboli. She has also been on telemetry with no significant arrhythmias. She did have one 4-5 beat run of wide-complex tachycardia but no significant atrial arrhythmias. Allergies Allergy/AdvReac Type Severity Reaction Status Date / Time norethindrone Allergy Severe SHORTNESS Verified 05/19/15 08:09 OF BREATH latanoprost Allergy Intermediate RASH Verified 05/19/15 08:09 paroxetine Allergy Intermediate RASH Verified 05/19/15 08:09 tetracycline Allergy Intermediate RASH Verified 05/19/15 08:09 simvastatin Allergy Unknown UNKNOWN Verified 05/19/15 08:09 sulfamethoxazole Allergy Unknown . Verified 05/19/15 08:09 esomeprazole AdvReac Severe SHORTNESS Verified 05/19/15 08:09 OF BREATH fenofibrate AdvReac Severe . Verified 05/19/15 08:09 metoclopramide AdvReac Severe . Verified 03/22/16 08:09 enalapril AdvReac Intermediate . Verified 05/19/15 08:09 glyburide AdvReac Intermediate . Verified 05/19/15 08:09 morphine AdvReac Intermediate ITCHY Verified 03/25/16 10:39 oxycodone AdvReac Intermediate ITCHY,BLOTC Verified 03/25/16 10:39 HY Home Medications Home Medications Medication Instructions Recorded Confirmed Type albuterol sulfate 2.5 mg INHALATION TID PRN 04/12/18 04/12/18 History albuterol sulfate [Ventolin HFA] 2 puff INHALATION Q4H PRN 04/12/18 04/12/18 History aspirin [Aspirin Low Dose] 81 mg PO DAILY 04/12/18 04/12/18 History beclomethasone dipropionate [Qvar 1 puff INHALATION AMHS 04/12/18 04/12/18 History RediHaler] benzonatate 200 mg PO BID 04/12/18 04/12/18 History brimonidine [Alphagan P] 1 drp OPHTHALMIC (EYE) HS 04/12/18 04/12/18 History carvedilol 0.5 tab PO QAM 04/12/18 04/12/18 History citalopram 40 mg PO DAILY 04/12/18 04/12/18 History fluticasone 2 spray INTRANASAL DAILY 04/12/18 04/12/18 History furosemide 20 mg PO DAILY 04/12/18 04/12/18 History insulin degludec [Tresiba 50 unit SUBCUT HS 04/12/18 04/12/18 History FlexTouch U-100] insulin degludec [Tresiba 80 unit SUBCUT QAM 04/12/18 04/12/18 History FlexTouch U-200] insulin lispro [Humalog KwikPen 25 units SUBCUT TID 04/12/18 04/12/18 History Insulin] ipratropium bromide [Atrovent HFA] 1 puff INHALATION QID PRN 04/12/18 04/12/18 History levocetirizine 0.5 tab PO BID 04/12/18 04/12/18 History lorazepam 1 mg PO TID PRN 04/12/18 04/12/18 History losartan 25 mg PO DAILY 04/12/18 04/12/18 History metformin 1 tab PO BID 04/12/18 04/12/18 History montelukast [Singulair] 10 mg PO DAILY 04/12/18 04/12/18 History ievsxfyi-tkv-JS-lycopen-lutein 1 tab PO DAILY 04/12/18 04/12/18 History [Centrum Silver] nitroglycerin [Nitrostat] 1 tab SUBLINGUAL UD 04/12/18 04/12/18 History ondansetron HCl 1 tab PO Q12H PRN 04/12/18 04/12/18 History pantoprazole 1 tab PO BID 04/12/18 04/12/18 History peg-electrolyte soln [GaviLyte-N] 04/12/18 History polyethylene glycol 3350 17 g PO DAILY PRN 04/12/18 04/12/18 History potassium chloride 1 tab PO SUFR@0900 04/12/18 04/12/18 History rosuvastatin 20 mg PO DAILY 04/12/18 04/12/18 History tacrolimus 1 applic TOPICAL BID 04/12/18 04/12/18 History travoprost [Travatan Z] 1 drp OPHTHALMIC (EYE) HS 04/12/18 04/12/18 History Patient History Medical History History of TIAs (Chronic) Asthmatic bronchitis (Chronic) CAD (coronary artery disease) (Chronic) Diabetes mellitus type II, controlled (Chronic) Dyslipidemia (Chronic) IBS (irritable bowel syndrome) (Chronic) FATOU (generalized anxiety disorder) (Chronic) COPD (chronic obstructive pulmonary disease) (Chronic) Asthma, moderate persistent (Chronic) GERD (gastroesophageal reflux disease) (Chronic) HTN (hypertension) (Chronic) Surgical History History of back surgery (Resolved) History of bladder surgery (Resolved) History of section (Resolved) H/O eye surgery (Resolved) History of foot surgery (Resolved) History of carpal tunnel surgery (Resolved) Family History Mother Diabetes Brother Alzheimer disease Social History marital status: Current Living Situation: Spouse Other Information That Helps Us Care for You: No Feels Safe at Home: Yes Safety Concerns: Feels Safe At This Time Smoking Status: Former smoker Do You Dip or Chew Tobacco: No Second Hand Exposure: No Tobacco Cessation Education Requested by Patient: No Hx Alcohol Use: No Hx Substance Use: No Beliefs That Will Affect Care: None Communication Ability: Effective Review of Systems Review of Systems: See HPI for pertinent positives. All other 10 point review of systems are negative. Physical Exam 2 Vital Signs (Past 24 Hours): Last Vital Signs Temp 36.7 C 04/15/18 10:56 Pulse 76 04/15/18 10:56 Resp 16 04/15/18 10:56 BP 135/61 04/15/18 10:56 Pulse Ox 91 04/15/18 10:56 Physical Exam: General: no acute distress and stated age Head: normocephalic, no masses, lesions, tenderness or abnormalities Eyes: conjunctiva are pink and non-injected, sclera clear Neck: supple, no adenopathy, no bruits, normal jugular venous pulse, no hepatojugular reflux Chest: normal shape and normal respiratory effort Lungs: clear to auscultation and percussion Cardiac Exam: - regular rate & rhythm, no murmurs gallops or rubs - normal S1, normal S2 Pulses: 2(+) throughout Abdomen: abdomen soft, non-tender, no abnormal masses and no hepatosplenomegaly Musculoskeletal: no gait disturbance, no joint inflammation, no deforming arthritis Extremities: no edema and no cyanosis Neuro: grossly normal exam Results & Data Laboratory Results Laboratory Results - last 24 hr 04/14/18 04/14/18 04/14/18 14:04 16:20 20:13 WBC RBC Hgb Hct MCV MCH MCHC RDW Std Deviation RDW Coeff of [place] Plt Count MPV Immature Gran % (Auto) Neut % (Auto) Lymph % (Auto) [place] % (Auto) Eos % (Auto) Baso % (Auto) Immature Gran # (Auto) Neut # (Auto) Lymph # (Auto) Towner # (Auto) Eos # (Auto) Baso # (Auto) Sodium Potassium Chloride Carbon Dioxide Anion Gap BUN Creatinine Est Cr Clr Drug Dosing Est GFR ( Amer) Est GFR (Non-Af Amer) BUN/Creatinine Ratio Glucose POC Glucose 254 H 204 H Calcium Phosphorus 3.6 Magnesium 1.6 L 04/15/18 04/15/18 04/15/18 06:30 06:30 07:19 WBC 6.66 RBC 4.14 L Hgb 10.9 L Hct 33.2 L MCV 80.2 MCH 26.3 MCHC 32.8 RDW Std Deviation 45.1 RDW Coeff of Poonam 15.5 H Plt Count 143 MPV 11.1 H Immature Gran % (Auto) 0.2 Neut % (Auto) 42.6 Lymph % (Auto) 38.1 Towner % (Auto) 13.2 Eos % (Auto) 5.6 Baso % (Auto) 0.3 Immature Gran # (Auto) 0.01 Neut # (Auto) 2.84 Lymph # (Auto) 2.54 Towner # (Auto) 0.88 H Eos # (Auto) 0.37 Baso # (Auto) 0.02 Sodium 135 L Potassium 4.1 Chloride 103 Carbon Dioxide 25 Anion Gap 7.0 BUN 12 Creatinine 0.77 Est Cr Clr Drug Dosing 58.5 Est GFR ( Amer) 85.1 Est GFR (Non-Af Amer) 73.4 BUN/Creatinine Ratio 16.1 Glucose 164 H POC Glucose 183 H Calcium 8.8 Phosphorus Magnesium Medications Administered Current Inpatient Medications Acetaminophen (Tylenol) 650 mg PO Q4H PRN PRN Reason: Pain or Fever Stop: 05/12/18 20:35 Last Admin: 04/14/18 22:57 Dose: 650 mg Albuterol (Ventolin Hfa) 2 puffs INH Q4H [facility] Stop: 05/12/18 21:59 Last Admin: 04/15/18 09:00 Dose: 2 puffs Albuterol (Ventolin 0.083% 2.5mg/3ml) 2.5 mg INH TID PRN PRN Reason: Unknown Stop: 05/12/18 20:35 Aspirin (Ecotrin Ectab) 81 mg PO DAILY [facility] Stop: 05/13/18 08:59 Last Admin: 04/15/18 08:08 Dose: 81 mg Beclomethasone Dipropionate (Qvar 80mcg) 1 puffs INH AMHS [facility] Stop: 05/12/18 20:59 Last Admin: 04/15/18 08:10 Dose: 1 puffs Benzonatate (Tessalon Perle) 200 mg PO BID [facility] Stop: 05/12/18 20:59 Last Admin: 04/15/18 08:09 Dose: 200 mg Brimonidine Tartrate (Alphagan 0.2%) 1 drops OP HS [facility] Stop: 05/12/18 21:59 Last Admin: 04/14/18 21:36 Dose: 2 drops Carvedilol (Coreg) 6.25 mg PO QAM [facility] Stop: 05/13/18 08:59 Last Admin: 04/15/18 08:09 Dose: 6.25 mg Citalopram Hydrobromide (Celexa) 40 mg PO DAILY [facility] Stop: 05/13/18 08:59 Last Admin: 04/15/18 08:09 Dose: 40 mg Dextrose (Dextrose 50%) 25 - 50 ml IV UD PRN; Protocol PRN Reason: Hypoglycemia Protocol Stop: 05/12/18 20:35 Enoxaparin Sodium (Lovenox) 40 mg SQ Q24H [facility] Stop: 05/12/18 20:59 Last Admin: 04/14/18 21:54 Dose: Not Given Fluticasone Propionate (Flonase) 2 sprays AMARILIS DAILY [facility] Stop: 05/13/18 08:59 Last Admin: 04/15/18 08:12 Dose: 2 sprays Furosemide (Lasix) 20 mg PO DAILY [facility] Stop: 05/12/18 16:04 Last Admin: 04/12/18 18:05 Dose: 20 mg Gadobutrol (Gadavist 65ml) 10.5 ml IV ONCE PRN PRN Reason: Interaction Checking Stop: 04/16/18 22:06 Last Admin: 04/12/18 22:07 Dose: 10.5 ml Glucagon (Glucagen) 1 mg SQ UD PRN; Protocol PRN Reason: Hypoglycemia Protocol Stop: 05/12/18 20:35 Glucose (Glucose 40%) 15 - 30 gm PO UD PRN; Protocol PRN Reason: Hypoglycemia Protocol Stop: 05/12/18 20:35 Glucose (Dex4 Glucose) 4 - 8 tabs PO UD PRN; Protocol PRN Reason: Hypoglycemia Protocol Stop: 05/12/18 20:35 Sodium Chloride (Nss 1000ml) 1,000 mls @ 15 mls/hr IV .Q24H [facility] Stop: 05/16/18 09:59 Insulin Aspart (Novolog Flexpen) 0 units SC ACHS [facility] Stop: 05/12/18 16:59 Last Admin: 04/15/18 08:07 Dose: 8 units Insulin Glargine (Lantus Solostar Pen) 0 - 50 units SC Q12H [facility] Stop: 05/12/18 20:59 Last Admin: 04/15/18 08:08 Dose: 50 units Ipratropium [place] (Atrovent Hfa) 1 puffs INH QID [facility] Stop: 05/12/18 20:59 Last Admin: 04/15/18 08:08 Dose: 1 puffs Lorazepam (Ativan) 1 mg PO TID PRN PRN Reason: Anxiety Stop: 05/12/18 20:35 Last Admin: 04/14/18 22:49 Dose: 1 mg Magnesium Oxide (Mag-Ox) 400 mg PO TID [facility] Stop: 04/18/18 08:59 Last Admin: 04/15/18 08:58 Dose: 400 mg Miscellaneous (Order Awaiting Action) 1 ea N/A QS [facility] Stop: 05/13/18 00:00 Last Admin: 04/15/18 08:11 Dose: Not Given Miscellaneous (Carbohydrates For Hypoglycemia) 15 - 30 gm PO UD PRN PRN Reason: Hypoglycemia Treatment Stop: 05/12/18 20:35 Miscellaneous (Order Awaiting Action) 1 ea N/A QS [facility] Stop: 05/13/18 00:00 Last Admin: 04/15/18 08:12 Dose: Not Given Miscellaneous Information (Pharmacist Discharge Med Rec Consult) 1 ea N/A UD PRN PRN Reason: Consult Stop: 05/12/18 20:35 Montelukast Sodium (Singulair) 10 mg PO DAILY [facility] Stop: 05/13/18 08:59 Last Admin: 04/15/18 08:10 Dose: 10 mg Multivitamins (Multivitamin Tab) 1 tab PO DAILY [facility] Stop: 05/13/18 08:59 Last Admin: 04/15/18 08:09 Dose: 1 tab Nitroglycerin (Nitrostat) 0.4 mg SL UD PRN PRN Reason: Chest Pain Stop: 05/12/18 20:35 Ondansetron HCl (Zofran) 4 mg IV Q6H PRN PRN Reason: Nausea Stop: 05/12/18 20:35 Pantoprazole Sodium (Protonix) 40 mg PO BID [facility] Stop: 05/12/18 20:59 Last Admin: 04/15/18 08:09 Dose: 40 mg Polyethylene Glycol (Miralax Powder Packet) 17 gm PO DAILY PRN PRN Reason: Constipation Stop: 05/12/18 20:35 Potassium Chloride (Klor-Con M10) 10 meq PO SUFR@0900 [facility] Stop: 05/13/18 08:59 Last Admin: 04/15/18 08:08 Dose: 10 meq Rosuvastatin Calcium (Crestor) 20 mg PO DAILY [facility] Stop: 05/13/18 08:59 Last Admin: 04/15/18 08:10 Dose: 20 mg
[2018-04-15] MEDS ORDERED: Nursing to Pharmacy Communication ONE (16:38)
--- NOTE | 2018-04-15 20:33 | Consultation Report ---
DATE OF CONSULTATION: 04/15/2018 PULMONARY MEDICINE CONSULTATION REASON FOR CONSULTATION: Moderate persistent asthma/COPD with persistent cough. HISTORY OF PRESENT ILLNESS: A 77-year-old white female was admitted to the hospitalist service from our clinic on 04/12/2018. At that time, she presented to our clinic very, very disoriented and weak with slurred speech and confusion. She has a history of chronic persistent asthma/bronchiectasis and COPD as well as ischemic cardiac disease status post stents x2, diabetes mellitus type 2, chronic systolic heart failure, previous history of TIAs. She has had a persistent cough since with multiple antibiotics, prednisone and aerosolized bronchodilator attempted, but still is congested and cannot produce any phlegm. She has required Fiberoptic bronchoscopy with bronchoalveolar lavage in the past, the last being with Dr. Gil in the fall for similar symptomatology. I last saw the patient in July of 2017. Her public information coordinator as an outpatient was Dr. Love and Dr. Rg from . She felt poorly at that time. She has had anemia. She was on a Spiriva inhaler and she suffers from type 2 diabetes mellitus. She had no history of melena, hematemesis or tarry stool. Aspergillus titers were negative. Serum iron was low, was felt to be iron deficient. She had 31% improvement in FEV1 postbronchodilator by PFTs. Cardiac catheterization in July with Dr. Love showed patent stents to the proximal LAD with distal 50-60% stenosis and a patent stent to the proximal left circumflex from July of 2014. Followup with GI in August of 2017 showed a colonoscopy revealed diverticulosis and internal hemorrhoids with no obvious explanation for the iron deficiency anemia, according to the note, she saw Jason Garcia back in November and as stated earlier, has been tried on multiple antibiotics and prednisone. She dates the onset of symptoms to [place] time, but clearly it has been going on since the fall. For details of past medical history, medications, family and social history, I refer you to current and past record. The patient was seen by Dr. Ozuna in consultation on 04/13. The patient's primary care physician is Dr. Hans Smith in [place]. MRI showed nothing acute. Carotid Doppler showed no critical stenosis. SHE HAS MULTIPLE ALLERGIES (see allergy list). Surgical history is as noted. It was unclear whether the episode in the office represented a TIA. The patient appears to have significantly improved and cleared mentally except for now as this is persistent cough. Echo showed moderate apical wall hypokinesis and normal right ventricular function. From a neurologic standpoint, Dr. Ozuna felt the patient was stable and wished to go with just Plavix as a single antiplatelet agent. PHYSICAL EXAMINATION: GENERAL: Reveals a well-developed, well-nourished white female friendly. No respiratory distress. CURRENT VITAL SIGNS: Blood pressure 161/72, temperature 36.3, respiratory rate 19, pulse 87, O2 sat 94% on room air. SKIN: Without lesion. HEENT: Atraumatic, normocephalic, PERRLA, EOMI. Conjunctivae pink. Sclerae nonicteric. Fundi poorly visualized. NECK: Veins not distended at 45 degrees. No evidence of adenopathy in the supra or infraclavicular areas. LUNGS: Scattered wheeze, otherwise distant P and A. CARDIAC: Regular rate and rhythm. I do not appreciate a gallop. ABDOMEN: Soft, protuberant. No evidence of hepatosplenomegaly. EXTREMITIES: No pedal edema, clubbing or cyanosis. NEUROLOGIC: Intact. No lateralizing signs. LABORATORY DATA: White count 6600, H and H 10.9 and 33.2 with normal indices for the most part. PT, PTT within normal limits. Sodium 135, glucose levels in the low 200s. IMAGING: Chest x-ray, cardiomegaly and suspected mild pulmonary vascular congestion, no acute finding. MRI shows no acute intracranial abnormality. Carotid Doppler do not show a flow limiting lesion or ulcerative plaque. OVERALL ASSESSMENT: A 77-year-old with moderate chronic obstructive pulmonary disease and chronic persistent asthma, perhaps with a degree of bronchiectasis presents with persistent symptomatology refractory to aggressive outpatient therapy. We will plan bronchoscopic evaluation tomorrow if I can get her on the schedule and make further decisions on treatment options pending results of that study. LUIGID
[2018-04-15] MEDS ORDERED: FUROSEMIDE 20 MG TAB PO SCH (21:00)
[2018-04-15] MEDS: TRAVOPROST Z 0.004% OPH SOLN 2.5 ML BTL OP SCH (21:23)
[2018-04-15] MEDS: ACETAMINOPHEN 325 MG TAB PO PRN (21:23)
[2018-04-15] MEDS: BRIMONIDINE TARTRATE 0.2% 5ML OP SCH (21:24)
[2018-04-15] MEDS: ENOXAPARIN INJ 40 MG/0.4 ML SYR SQ SCH (21:28)
[2018-04-15] MEDS: LORazepam 1 MG TAB PO PRN (21:33)
[2018-04-16] MEDS: ALBUTEROL HFA 8 GM INHALER INH SCH ×6 (01:55→20:47)
[2018-04-16 07:14] LABS: Hematocrit (blood only) 31.7 % (37-47); Hemoglobin 10.4 g/dL (12.0-16.0); Mean Corpuscular Hgb Conc 32.8 g/dL (32-36); Mean Corpuscular Volume 81.1 fL (80-100); Mean Platelet Volume 11.6 fL (7.4-10.4); Platelet Count 149 K/uL (130-400); RDW Coefficient of Variation 15.7 % (11.5-14.5); RDW Standard Deviation 45.6 fL (36.4-46.3); Red Blood Count 3.91 M/uL (4.2-5.4); White Blood Count 6.01 K/uL (4.8-10.8)
[2018-04-16 07:54] LABS: Albumin Level 3.2 gm/dl (3.4-5.0); BUN Creatinine Ratio 20.3 (10-20); Calcium 8.8 mg/dl (8.5-10.1); Creatinine Clr Calc Pharmacy 55.7 ml/min; Est GFR (African American) 80.1; Est GFR (Non-African American) 69.1; Potassium 4.2 mmol/L (3.5-5.1)
[2018-04-16 07:57] LABS: Albumin Globulin Ratio 0.9 (0.9-2); Bilirubin,Total 0.4 mg/dl (0.2-1); Globulin 3.7 gm/dl (2.5-4.0); Total Protein 6.9 gm/dl (6.4-8.2)
[2018-04-16] MEDS: INSULIN ASPART 100 UNITS/ML 3 ML PEN SC SCH ×4 (09:03→20:44)
--- NOTE | 2018-04-16 09:54 | Cardiology Progress Note ---
Date of Service April 16, 2018 Assessment & Plan (1) TIA (transient ischemic attack): (2) CAD (coronary artery disease): The images of the patient's echocardiogram performed this admission were reviewed independently with noted focal apical hypokinesis. [place] is relatively well visualized with the administration of the ultrasound enhancement agent, Definity, with no definite evidence of LV mural thrombus. Cardiology was consulted to the patient's change in mental status and concern for TIA. MRI was negative for acute stroke. There is an apparent short run of nonsustained VT noted initially, but no recurrent arrhythmia noted overnight last night or so far today. She was on carvedilol as an outpatient this is been continued. She was on aspirin 81 mg daily and this has been continued. She does have a noted mild anemia with hemoglobin of 10.4, and therefore if anticoagulation became clinically indicated, this would have to be pursued with a great deal of caution. She apparently has a past history of coronary heart disease and past coronary stents performed in [place]. I reviewed her [facility] records and found scanned documents including a cardiac catheterization report from [place] dated 03/25/09. The report describes patent proximal LAD stent, and nonobstructive distal LAD disease. Patent proximal circumflex stent was noted. She has apparently transitioned her cardiology care to [facility]. An echocardiogram report dated March 2017 from [facility] describes normal LVEF. There is no description of the regional wall motion, and there is mention that the study is technically limited. The apical wall motion abnormality noted on the present echocardiogram at this institution was not described. Looking further however if the patient had a pharmacologic nuclear stress test to [facility] in May, that described an apical infarct. An apical infarct was also described on a nuclear stress test report in 2014 from [facility]. I believe therefore that the abnormal echo findings noted this hospital stay represent chronic apical infarct likely related to her initial event for which she had proximal LAD stents. Proceed with bronchoscopy as planned for her bronchiectasis. I see no cardiac contraindication to proceed with bronchoscopy at this time. Would recommend a 14-28-day mobile site monitor for assessment of arrhythmia which can be performed through our group or with her primary cardiology group in [place] with whom she has a long standing relationship. Subjective Follow-up: Confusion, slurred speech Subjective: Patient seen in cardiology follow-up today with initial consultation having been performed yesterday by Dr. Cai. She notes no acute distress. She believes she is due to have a bronchoscopy later this morning and she just had a significant coughing spell. Telemetry was reviewed revealing findings of sinus rhythm in the 90 be per minute range with occasional PVCs. Physical Exam 2 Vital Signs (Past 24 Hours): Last Vital Signs Temp 36.7 C 04/16/18 07:50 Pulse 90 04/16/18 08:00 Resp 16 04/16/18 07:50 BP 181/89 H 04/16/18 07:50 Pulse Ox 93 04/16/18 07:50 Physical Exam: General: no acute distress and stated age Eyes: conjunctiva are pink and non-injected, sclera clear Neck: normal jugular venous pulse, no hepatojugular reflux Chest: normal shape and normal respiratory effort Lungs: Mildly decreased breath sounds at the bases Cardiac Exam: - regular heart sounds, no murmurs, rubs, or gallops, no jugular venous distention Abdomen: abdomen soft, non-tender, no abnormal masses and no hepatosplenomegaly Musculoskeletal: no gait disturbance, no weakness Extremities: no edema and no cyanosis Neuro:awake, coversant, follows commands and moves all 4 extremities, somewhat poor historian, cognitive impairment noted Results & Data Diagnostic Findings EKG performed 04/14/18 revealed normal sinus rhythm at 87 bpm, unchanged compared to the prior. Echocardiogram performed 04/13/18 revealed normal left ventricular size with borderline concentric LVH, apical hypokinesis was noted without evidence of definite apical thrombus, agitated saline contrast study revealed no interatrial shunt.
[2018-04-16] MEDS: BECLOMETHASONE DIP HFA 80 MCG 8.7G INH INH SCH ×2 (10:09→20:38)
--- NOTE | 2018-04-16 11:04 | Discharge Summary ---
Date of Service April 16, 2018 Admission HPI Per Admitting Provider This is a 77 yo F with a PMH of asthma, bronchiectasis, COPD, CAD (s/p stents x 2), DM II, systolic HF, h/o TIAs and other problems listed below who presents from pulmonary clinic with stroke like symptoms. Was in normal state of health until patient was speaking with nurse and developed slurred speech and appeared confused. Was directed to ED and symptoms had resolved by the time of arrival. Endorses history of a few TIAs in the past. Takes a baby aspirin and statin daily. Reports that she used to follow with a neurologist in [place] but he has since moved. Denies any difficulty swallowing, confusion, localized weakness or sensory deficits. Feels weak when ambulating but states that is normal with her COPD and bronchiectasis. Is able to ambulate from room to room at home with walker but develops dyspnea with any more activity than that. ROS also positive for chronic productive cough. Denies fever, chills, lightheadedness, headache, chest pain, palpitations, SOB, nausea, vomiting, abdominal pain, dysuria, diarrhea, constipation or lower extremity swelling. Hemodynamically stable in ED. CT head without acute abnormalities, EKG with normal sinus rhythm. Admission Exam Per Admitting Provider 77 yo F with a PMH of asthma, bronchiectasis, COPD, CAD (s/p stents x 2), DM II , systolic HF, h/o TIAs and other problems listed below who presents from pulmonary clinic with stroke like symptoms. Was in normal state of health until patient was speaking with nurse and developed slurred speech and appeared confused. Was directed to ED and symptoms had resolved by the time of arrival. Endorses history of a few TIAs in the past. Takes a baby aspirin and statin daily. Reports that she used to follow with a neurologist in [place] but he has since moved. Denies any difficulty swallowing, confusion, localized weakness or sensory deficits. Feels weak when ambulating but states that is normal with her COPD and bronchiectasis. Is able to ambulate from room to room at home with walker but develops dyspnea with any more activity than that. ROS also positive for chronic productive cough. Denies fever, chills, lightheadedness, headache, chest pain, palpitations, SOB, nausea, vomiting, abdominal pain, dysuria, diarrhea, constipation or lower extremity swelling. Principal Diagnosis TIA Tolerated hypertension NSVtach Bronchiectasis CAD Type 2 diabetes Dyslipidemia IBS Anxiety COPD GERD DDD Chronic cough Discharge Exam ROS-No Headache, No Visual Changes, No Nausea, No Vomiting, No Fever, No Chills , No Neck Pain or Stiffness, No Chest Pain, No Palpitations, No SOB, No EVANS, No Cough, No Sputum, No Wheezing, No Abdominal Pain, No Diarrhea, No Hematemesis, No Hemoptysis, No Unexpected Weight Loss, No Flank pain, No Melena, No Hematochezia, No Frequency, No Urgency, No Burning, No Hematuria, No Rashes, No Diaphoresis. Appetite is Normal Physical Exam Gen-AAO x 3, NAD, Afebrile Head-NCAT, EOMI, PERRLA, Anicteric Sclera, No Posterior Pharyngeal Erythema Neck-Supple, No JVD, No Thyromegaly, No Masses, No LAD, No Bruits Lungs-Clear to Auscultation Bilaterally, No Rales, No Rhonchi, No Wheezing, No Crepitus Chest-No S4, +S1, +S2, No S3, No Murmurs, No Rubs, No Gallops, No Ectopy Abdomen-Soft, Bowel Sounds Present, Non Tender, Non Distended, No Hepatomegaly, No Splenomegaly, No Palpable Masses, No Rebound, No Rigidity, No Guarding Musculoskeletal-Full Range of Motion Bilaterally, No CVAT Extremities-No Cyanosis, No Clubbing, No Edema Nuero-Cranial Nerves II-XII grossly intact, Motor WNL, DTRs WNL, Strength WNL, Non Focal Psych-Normal Mood Discharge Data Allergies Allergy/AdvReac Type Severity Reaction Status Date / Time norethindrone Allergy Severe SHORTNESS Verified 05/19/15 08:09 OF BREATH latanoprost Allergy Intermediate RASH Verified 05/19/15 08:09 paroxetine Allergy Intermediate RASH Verified 05/19/15 08:09 tetracycline Allergy Intermediate RASH Verified 05/19/15 08:09 simvastatin Allergy Unknown UNKNOWN Verified 05/19/15 08:09 sulfamethoxazole Allergy Unknown . Verified 05/19/15 08:09 esomeprazole AdvReac Severe SHORTNESS Verified 05/19/15 08:09 OF BREATH fenofibrate AdvReac Severe . Verified 05/19/15 08:09 metoclopramide AdvReac Severe . Verified 05/19/15 08:09 enalapril AdvReac Intermediate . Verified 05/19/15 08:09 glyburide AdvReac Intermediate . Verified 05/19/15 08:09 morphine AdvReac Intermediate ITCHY Verified 03/25/16 10:39 oxycodone AdvReac Intermediate ITCHY,BLOTC Verified 03/25/16 10:39 HY Consultations 04/12/18 15:22 ED Decision to Admit Stat 04/12/18 20:36 Consult Case Management - Discharge Planning Routine Consult Neurology Routine 04/14/18 13:51 Consult Cardiology Routine 04/15/18 07:33 Consult Pulmonology Routine Procedures Performed Operation Date: 04/16/18 14:00 <No data on this case meets the specified criteria> Ordered Studies 04/12/18 11:45 CT head/brain wo con Stat 04/12/18 20:36 MR brain wo/w con Routine US carotid doppler BI Routine 04/15/18 07:26 CT sinus wo con Routine 04/15/18 07:28 CT chest wo con Routine Current Diagnoses Type 2 diabetes mellitus without complications (04/12/18) Hyperlipidemia, unspecified (04/12/18) Generalized anxiety disorder (04/12/18) Transient cerebral ischemic attack, unspecified (04/12/18) Essential (primary) hypertension (04/12/18) Atherosclerotic heart disease of [place] coronary artery without angina pectoris (04/12/18) Ventricular tachycardia (04/12/18) Chronic obstructive pulmonary disease, unspecified (04/12/18) Bronchiectasis, uncomplicated (04/12/18) Gastro-esophageal reflux disease without esophagitis (04/12/18) Allergies norethindrone Allergy (Severe, Verified 05/19/15 08:09) SHORTNESS OF BREATH latanoprost Allergy (Intermediate, Verified 05/19/15 08:09) RASH paroxetine Allergy (Intermediate, Verified 05/19/15 08:09) RASH tetracycline Allergy (Intermediate, Verified 05/19/15 08:09) RASH simvastatin Allergy (Unknown, Verified 05/19/15 08:09) UNKNOWN sulfamethoxazole Allergy (Unknown, Verified 05/19/15 08:09) . esomeprazole Adverse Reaction (Severe, Verified 05/19/15 08:09) SHORTNESS OF BREATH fenofibrate Adverse Reaction (Severe, Verified 03/22/16 08:09) . metoclopramide Adverse Reaction (Severe, Verified 05/19/15 08:09) . enalapril Adverse Reaction (Intermediate, Verified 05/19/15 08:09) . glyburide Adverse Reaction (Intermediate, Verified 05/19/15 08:09) . morphine Adverse Reaction (Intermediate, Verified 03/25/16 10:39) ITCHY oxycodone Adverse Reaction (Intermediate, Verified 03/25/16 10:39) ITCHY,BLOTCHY Height/Weight/Isolation Height 4 ft 10 in Weight 95.4 kg Chemistry 04/15/18 04/16/18 06:30 06:22 Sodium 135 L 137 Potassium 4.1 4.2 Chloride 103 103 Carbon Dioxide 25 26 Anion Gap 7.0 8.0 BUN 12 17 Creatinine 0.77 0.81 Glucose 164 H 178 H 04/16/18 11:30 FL bronchoscopy Routine 04/17/18 07:26 FL upper GI and ba swallow Routine Hospital Course (1) TIA (transient ischemic attack): This is a 77 yo F with a PMH of asthma, bronchiectasis, COPD, CAD (s/p stents x 2), DM II, systolic HF, h/o TIAs and other problems listed below who presents from pulmonary clinic with slurred speach and confusion that have since resolved. -H/o TIA vs ?CVA in the past. No residual deficits -CT head without acute abnormality -Check MRI brain +Perivent WMD, Vascular Dz, carotid dopplers are neg, echo w/ bubble study No PFO, EF 55-60% -Continue baby aspirin, statin, Plavix Added by Neurology -Cards for NSVT, Mg low and repleted, Phos normal -DC today, ZIO by PCP or cards (2) CAD (coronary artery disease): H/o stents -No chest pain. No acute EKG changes -Continue aspirin, statin, carvedilol (3) Diabetes mellitus type II, controlled: Uncontrolled DM II with a1c of 10.6 in Jan 2018 -DC on home regimen (4) HTN (hypertension): Elevated today-very anxious about upper GI and bronch today, and was n.p.o. for the bronch -Continue home dose lasix, losartan, carvedilol on DC (5) FATOU (generalized anxiety disorder): Continue SSRI, Ativan PRN (6) COPD (chronic obstructive pulmonary disease): PT c/o chronic cough that will go away. She says she has been on multiple antibiotics. As well as steroids and nebulizer. But she still has a chronic cough. I ordered a CT of the sinuses which did reveal a maxillary sinus opacity, CT of the chest noted I had an upper GI with a barium esophagram for today, will DC based on the above results. (7) Bronchiectasis: Follows with Jason Garcia PA-C -Continue home inhalers, nebs PRN Dr Harrell performed a Bronch today and found: Pre-Op Diagnosis:Bronchiectasis Post-Op Diagnosis:Bronchiectasis/Chronic Mucopurulent infection (8) Dyslipidemia: Continue statin (9) GERD (gastroesophageal reflux disease): Continue PPI Code status: FULL per discussion with patient PCP: Luis Dispo: Plan to return home late today 04/16. (10) Non-sustained ventricular tachycardia: Cardiac Eval, replete magnesium, No PFO on Echo, EF 55-60% Total Time Total Time Spent Total Time Spent (In Minutes): 45 minutes Total Time Includes: Examination of the Patient, Discharge Planning, Medication Reconciliation and Communication With Other Providers Discharge Plan Discharge Items Patient Disposition: Home - Self-Care Reason For Visit: STROKE LIKE SYMPTOMS Discharge Diagnosis: TIA Tolerated hypertension NSVtach Bronchiectasis CAD Type 2 diabetes Dyslipidemia IBS Anxiety COPD GERD DDD Chronic cough Condition: Good Discharge Goals: Improve function Activity: Resume your previous activity Lifting: Gradually increase as tolerated Bathing: No limitations Sexual Activity: When tolerated Exercise/Sports: Gradually increase as tolerated Driving/Machine Use: No limitations Weightbearing: Left weightbearing and Right weightbearing Non-emergency contact: Primary Care Provider, Public Relations Professional and Sewer Line Photo Inspector Call non-emergency contact if: you have any medication questions Follow-up/Referrals: Bacilio Harrell MD [Physician] - (Follow-up in 1-2 weeks) Hans Smith MD [Primary Care Provider] - (Follow-up in 3-5 days) Shiva Cai DO [Public Relations Professional] - (Follow-up in 2-3 weeks) Nisha Hinson MD [Physician] - (Follow-up in 1 to 2 weeks) Diet: Carb Consistent or DM2 and Heart Healthy Addtl Provider Instructions: Complain of a chronic cough, she is getting a bronchoscopy and upper GI today on 10/18, she was seen by neurology, cardiology, pulmonology. She will follow- up Cards, Neuro, and Pulm plus the PCP Dr. Smith. Prescriptions: New magnesium oxide 400 mg (241.3 mg magnesium) Tablet 400 mg PO TID Qty: 9 RF: 0 furosemide 20 mg Tablet 20 mg PO BID Qty: 60 RF: 0 Continue carvedilol 12.5 mg tablet 0.5 tab PO QAM RF: 0 albuterol sulfate 2.5 mg /3 mL (0.083 %) Solution For Nebulization 2.5 mg INHALATION TID PRN (Reason: Unknown) RF: 0 citalopram 40 mg tablet 40 mg PO DAILY RF: 0 ondansetron HCl 4 mg tablet 1 tab PO Q12H PRN (Reason: Nausea) RF: 0 travoprost [Travatan Z] 0.004 % drops 1 drp ophthalmic (eye) HS RF: 0 potassium chloride 10 mEq tablet extended release 1 tab PO SUFR@0900 RF: 0 peg-electrolyte soln [GaviLyte-N] 420 gram Recon Soln RF: 0 aspirin [Aspirin Low Dose] 81 mg Tablet,Delayed Release (Dr/Ec) 81 mg PO DAILY RF: 0 pantoprazole 40 mg tablet,delayed release (DR/EC) 1 tab PO BID RF: 0 tacrolimus 0.1 % Ointment 1 applic TOPICAL BID RF: 0 metformin 1,000 mg tablet 1 tab PO BID RF: 0 nitroglycerin [Nitrostat] 0.6 mg Tablet, Sublingual 1 tab Sublingual UD RF: 0 losartan 25 mg tablet 25 mg PO DAILY RF: 0 montelukast [Singulair] 10 mg Tablet 10 mg PO DAILY RF: 0 lorazepam 1 mg tablet 1 mg PO TID PRN (Reason: Anxiety) RF: 0 polyethylene glycol 3350 17 gram/dose powder 17 g PO DAILY PRN (Reason: Constipation) RF: 0 albuterol sulfate [Ventolin HFA] 90 mcg/actuation Hfa Aerosol Inhaler 2 puff INHALATION Q4H PRN (Reason: Shortness Of Breath Or Wheezing) RF: 0 fluticasone 50 mcg/actuation [place],Suspension 2 spray INTRANASAL DAILY RF: 0 rosuvastatin 20 mg tablet 20 mg PO DAILY RF: 0 eemteuih-xqo-DW-lycopen-lutein [Centrum Silver] 0.4-300-250 mg-mcg-mcg Tablet 1 tab PO DAILY RF: 0 ipratropium bromide [Atrovent HFA] 17 mcg/actuation Hfa Aerosol Inhaler 1 puff INHALATION QID PRN (Reason: Shortness Of Breath Or Wheezing) RF: 0 brimonidine [Alphagan P] 0.1 % drops 1 drp ophthalmic (eye) HS RF: 0 levocetirizine 5 mg tablet 0.5 tab PO BID RF: 0 insulin lispro [Humalog KwikPen Insulin] 200 unit/mL (3 mL) insulin pen 25 units subcut TID RF: 0 beclomethasone dipropionate [Qvar RediHaler] 80 mcg/actuation Hfa Aerosol Breath Activated 1 puff INHALATION AMHS RF: 0 insulin degludec [Tresiba FlexTouch U-200] 200 unit/mL (3 mL) insulin pen 80 unit subcut QAM RF: 0 benzonatate 100 mg capsule 200 mg PO BID RF: 0 insulin degludec [Tresiba FlexTouch U-100] 100 unit/mL (3 mL) Insulin Pen 50 unit SUBCUT HS RF: 0 Discontinued furosemide 20 mg tablet 20 mg PO DAILY RF: 0 Stand-Alone Forms: [facility] Discharge Orders: Discharge Order (Routine); Ordered 04/16/18 Ordered By: Tomasz Navarrete Admission Data Admit Date/Time: 04/12/18 16:08 Attending Provider: Tomasz Navarrete Admit Provider: Mayank Hdz Primary Care Provider: Hans Smith Other Providers: Nisha Hinson ; Mayank Hdz ; Shiva Cai Jeffrey A. ; Home,Nursing Agency Service: Telemetry
--- NOTE | 2018-04-16 11:49 | History & Physical Bridge Note ---
Date of Service April 16, 2018 History & Physical Bridge Note I have examined the patient, reviewed the History & Physical and in the interval since the performance of the History & Physical I have noted the following changes of clinical significance: no changes noted
--- NOTE | 2018-04-16 11:50 | Pre Anesthesia Assessment ---
Date of Service April 16, 2018 Pre Sedation Assessment Vital Signs Temp Pulse Pulse Pulse Resp BP BP 04/16/18 08:00 90 04/16/18 07:50 36.7 C 98 H 16 181/89 H 04/16/18 03:52 36.4 C L 89 19 148/79 H 04/15/18 23:08 36.5 C 84 18 121/66 04/15/18 19:04 36.8 C 79 16 133/72 04/15/18 15:32 37.0 C 75 18 131/73 04/15/18 15:00 84 Pulse Ox 04/16/18 08:00 04/16/18 07:50 93 04/16/18 03:52 97 04/15/18 23:08 94 04/15/18 19:04 95 04/15/18 15:32 94 04/15/18 15:00 Cardiovascular RRR, no murmur, no edema + peripheral pulses normal Respiratory normal respiratory effort, lungs clear to auscultation Pre-Sedation Airway Assessment Smoking Status: Former smoker Hx Sleep Apnea: No Hx Difficult Intubation: No Short, Thick Neck: Yes Thyromental Distance: > or= 3.5 Finger Breadths Oral Cavity: + WNL Mallampati Class: III ASA: ASA3 NPO Status Date of Last Intake of Fluids: 04/15/18 Time of Last Intake of Fluids: 22:30 Date of Last Intake of Solid Food: 04/15/18 Time of Last Intake of Solid Foods: 21:30 Notes The planned sedation has been discussed with the patient. Informed Consent was obtained. I have identified the patient, determined the appropriateness of sedation and have assessed the patient immediately prior to the procedure. All medicine(s) and interventions are by my order.
[2018-04-16] MEDS ORDERED: LEVALBUTEROL HCL 1.25 MG/3 ML NEB NEB STA (12:18)
[2018-04-16] MEDS ORDERED: LIDOCAINE HCL 2% (LOCAL) INJ 50 ML VIAL INFIL STA (12:18)
[2018-04-16] MEDS ORDERED: LIDOCAINE HCL VISCOUS SOLN 2% 15 ML UDC MT ONE (12:18)
[2018-04-16] MEDS ORDERED: LIDOCAINE 4% INH SOLN 4 ML BTL INH STA (12:18)
[2018-04-16] MEDS ORDERED: OXYMETAZOLINE 0.05% 30 ML BTL ONE (12:18)
[2018-04-16] MEDS ORDERED: MIDAZOLAM HCL 1 MG/ML 2ML VIAL IV STA (12:18)
[2018-04-16] MEDS ORDERED: fentaNYL citrate 100 MCG/2 ML VIAL IV ONE (12:18)
--- NOTE | 2018-04-16 12:22 | Post Operative Brief Note ---
Immediate Post Op Note v1 Date of Surgery April 16, 2018 Pre & Post Diagnosis Operation Date: 04/16/18 14:00 Pre-Op Diagnosis: Bronchiectasis Post-Op Diagnosis: Bronchiectasis/Chronic Mucopurulent infection Procedure Operation Date: 04/16/18 14:00 Actual Procedures p Bronchoscopy Radiology(Bilateral) - Bacilio Harrell MD Surgeon Bacilio Harrell MD Healthcare Sales Representative none Estimated Blood Loss 0 Findings Consistent with Post-Op Diagnosis Chronic Mucopurulent Bronchitis Complications none Disposition Accompanied Patient To Recovery: No Overlapping Procedure I was present for: the critical portions of procedure. I was immediately available: during the entire case. Back up surgeon: was not required during procedure.
--- NOTE | 2018-04-16 12:22 | Post Anesthesia Assessment ---
Date of Service April 16, 2018 Post Sedation Assessment Vital Signs Temp Pulse Pulse Pulse Resp BP BP 04/16/18 12:10 103 H 22 157/94 H 04/16/18 12:05 89 22 175/100 H 04/16/18 12:00 90 20 173/93 H 04/16/18 11:55 89 20 210/102 H 04/16/18 11:10 36.7 C 90 16 152/78 H 04/16/18 08:00 90 04/16/18 07:50 36.7 C 98 H 16 181/89 H 04/16/18 03:52 36.4 C L 89 19 148/79 H 04/15/18 23:08 36.5 C 84 18 121/66 04/15/18 19:04 36.8 C 79 16 133/72 04/15/18 15:32 37.0 C 75 18 131/73 04/15/18 15:00 84 Pulse Ox 04/16/18 12:10 96 04/16/18 12:05 96 04/16/18 12:00 99 04/16/18 11:55 99 04/16/18 11:10 94 04/16/18 08:00 04/16/18 07:50 93 04/16/18 03:52 97 04/15/18 23:08 94 04/15/18 19:04 95 04/15/18 15:32 94 04/15/18 15:00 Recovery Score Activity: Moves 4 extremities Respiration: Deep Breath/Cough Circulation: +/-20% PreAnes Value Consciousness: Arouseable (by name) Oxygen Saturation: O2 needed for >90% Discharge Sedation Level of Care: Fast Track Phase II Post Sedation Plan On clinical assessment, the patient appears to have tolerated the sedation without complications. Patient is recovering as anticipated. Patient will continue to be monitored by nursing and may be discharged when sedation discharge criteria are met per below protocol. Upon Completions of procedure and additional 15 minutes continue every 5 minute vital signs and the P.A.R. score; then discharge to a Phase I or Fast Track to Phase II per the following guidelines: * Discharge Patient to appropriate Phase II area if PAR is 8 or greater or return to pre- procedure baseline. The post - procedure orders will be as directed. * If PAR score is less than 8 or not return to pre-procedure baseline then patient will follow Phase I monitoring till PAR is reached for Phase II. The Phase I may be done in procedure room or may call to secure a Phase I area. * If naloxone or flumazenil are used for reversal, hold in Phase I for continued monitoring from when last reversal dose was given for a minimum of 60 minutes or longer pending the nurse and/or physician discretion of patient condition before discharge to Phase II. Please call the Sedation Physician to re-evaluate and complete post-note for discharge to Phase II area. Do NOT discharge from procedure sedation or Phase 1 until post- sedation evaluation note is complete by procedure /sedation MD Sedation Discharge Instructions to be given to the patient at discharge to home.
[2018-04-16] MEDS: SODIUM CHLORIDE 0.9% 1000ML 1,000 ML IV SCH ×2 (14:08)
[2018-04-16] MEDS: AMLODIPINE BESYLATE 5 MG TAB PO SCH ×2 (14:59→21:39)
[2018-04-16] MEDS: FLUTICASONE PROPIONATE NA SPR 16 GM BTL NAE SCH (15:00)
[2018-04-16] MEDS: CARVEDILOL 6.25 MG TAB PO SCH (15:01)
[2018-04-16] MEDS: IPRATROPIUM BROMIDE HFA INHALER INH SCH ×4 (15:01→20:47)
[2018-04-16] MEDS: CITALOPRAM 40 MG TAB PO SCH (15:01)
[2018-04-16] MEDS: MONTELUKAST SODIUM 10 MG TABLET PO SCH (15:02)
[2018-04-16] MEDS: BENZONATATE 100 MG CAPSULE PO SCH ×2 (15:02→20:39)
[2018-04-16] MEDS: PANTOprazole 40 MG TAB PO SCH ×2 (15:02→20:38)
[2018-04-16] MEDS: MULTIVITAMIN TAB PO SCH (15:02)
[2018-04-16] MEDS: ASPIRIN 81 MG ECTAB PO SCH (15:03)
[2018-04-16] MEDS: MAGNESIUM OXIDE 400 MG TAB PO SCH ×3 (15:03→20:39)
[2018-04-16] MEDS: INSULIN GLARGINE SOLOSTAR 100 UNITS/ML 3 ML PEN SC SCH ×2 (16:59→20:46)
[2018-04-16] MEDS: ROSUVASTATIN CALCIUM 20 MG TAB PO SCH (16:59)
[2018-04-16] MEDS ORDERED: STROKE PATIENT DISCHARGE STA (18:23)
[2018-04-16] MEDS: ENOXAPARIN INJ 40 MG/0.4 ML SYR SQ SCH (20:37)
[2018-04-16] MEDS: TRAVOPROST Z 0.004% OPH SOLN 2.5 ML BTL OP SCH (20:38)
[2018-04-16] MEDS: BRIMONIDINE TARTRATE 0.2% 5ML OP SCH (20:47)
[2018-04-16] MEDS: ACETAMINOPHEN 325 MG TAB PO PRN (23:46)
[2018-04-16] MEDS: LORazepam 1 MG TAB PO PRN (23:46)
[2018-04-16] MEDS ORDERED: COUGH DROP (SUGAR FREE) LOZ 24 LOZ/1 BOX BUCCAL PRN (23:58)
[2018-04-17] MEDS ORDERED: INSULIN GLARGINE SOLOSTAR 100 UNITS/ML 3 ML PEN SQ STA (00:41)
[2018-04-17] MEDS: ALBUTEROL HFA 8 GM INHALER INH SCH ×3 (02:06→09:29)
[2018-04-17 06:51] LABS: Hematocrit (blood only) 32.8 % (37-47); Hemoglobin 10.5 g/dL (12.0-16.0); Mean Corpuscular Volume 81.8 fL (80-100); Mean Platelet Volume 11.2 fL (7.4-10.4); Platelet Count 155 K/uL (130-400); RDW Coefficient of Variation 15.6 % (11.5-14.5); RDW Standard Deviation 46.1 fL (36.4-46.3); Red Blood Count 4.01 M/uL (4.2-5.4); White Blood Count 5.91 K/uL (4.8-10.8)
[2018-04-17 07:26] LABS: BUN Creatinine Ratio 20.1 (10-20); Calcium 8.8 mg/dl (8.5-10.1); Creatinine Clr Calc Pharmacy 61.5 ml/min; Est GFR (African American) 90.8; Est GFR (Non-African American) 78.3; Potassium 3.9 mmol/L (3.5-5.1)
[2018-04-17] MEDS: INSULIN ASPART 100 UNITS/ML 3 ML PEN SC SCH ×2 (07:50→12:08)
--- NOTE | 2018-04-17 07:56 | Operative Report ---
DATE OF OPERATION: 04/16/2018 PROCEDURE: Fiberoptic bronchoscopy with bronchoalveolar lavage. INDICATIONS: Chronic bronchitis with chronic cough refractory to aggressive out and inpatient therapy. ANESTHESIA PREOPERATIVELY: None. ANESTHESIA DURING PROCEDURE: 5 mg IV Versed, 50 mcg IV fentanyl, 20 mL 2% Xylocaine spray above and below the cords, 4% viscous Xylocaine intranasally. Moderate conscious sedation was employed at 12:01 and completed at 12:15: Fiberoptic bronchoscope was inserted into the right naris and passed to the level of the true vocal cords. The cords appear to approximate normally with phonation without evidence of lesions or paralysis. The scope was then introduced in the right and left tracheobronchial tree. The russell was sharp. An EDAC or endoscopic dynamic airway collapse was seen throughout the right tracheobronchial tree involving the right mainstem bronchus. The right upper lobe, the apical posterior and anterior segments, bronchus intermedius, right middle lobe, medial lateral segments and all basilar segments of right lower lobe were found to be free of endobronchial lesions. Large amount of a mucopurulent secretion was lavaged from the basal segments right lower lobe until clear. Left tracheobronchial tree was explored and no obvious endobronchial lesions were seen. Left upper lobe, lingula subdivision and left lower lobe were free of endobronchial lesions. Moderate amount of mucoviscous secretion was lavaged from all lobar segments until clear with bronchial crypts and clefts seen throughout the right and left tracheobronchial tree. No brushings or biopsies were deemed necessary. Fluoroscopy was not utilized. The patient tolerated the procedure well and was given a nebulizer treatment with Xopenex 1.25 mg and transferred back to the medical floor, hemodynamically stable. No signs of respiratory compromise. We will await microbiological and cytologic examination of the bronchial washings. I attest to the content of the Intraoperative Record and any orders documented therein. Any exception s are noted below.
--- NOTE | 2018-04-17 09:01 | Fluoroscopy Report ---
FL upper GI and ba swallow CLINICAL HISTORY: 77 years-old Female presenting with Chronic cough suspect GERD. TECHNIQUE: A routine air-contrast (double contrast) barium esophagram was performed. Multiple spot im ages of the esophagus were acquired both upright and prone. COMPARISON: None. FINDINGS: The patient was able to ingest barium and the barium pill without difficulty. Normal esophageal mucos al pattern. No evidence of intrinsic or extrinsic mass lesion. No aspiration observed. Significant dy smotility with tertiary contractions. Trace hiatal hernia. The gastroesophageal junction distended no rmally. No gastroesophageal reflux could be elicited despite provocative maneuvers. Fluoroscopy dosage (mGy): Not available. Fluoroscopy time: 2.2 minutes. Number or time of fluoroscopic spot images: 23. IMPRESSION: 1. Esophageal dysmotility, likely presbyesophagus. 2. Trace hiatal hernia. Electronically signed by: Sid Rob M.D. 04/17/2018 9:00 AM
[2018-04-17] MEDS: ACETAMINOPHEN 325 MG TAB PO PRN (09:30)
[2018-04-17] MEDS: BECLOMETHASONE DIP HFA 80 MCG 8.7G INH INH SCH (09:30)
[2018-04-17] MEDS: AMLODIPINE BESYLATE 5 MG TAB PO SCH (09:31)
[2018-04-17] MEDS: MAGNESIUM OXIDE 400 MG TAB PO SCH (09:31)
[2018-04-17] MEDS: FLUTICASONE PROPIONATE NA SPR 16 GM BTL NAE SCH (09:31)
[2018-04-17] MEDS: INSULIN GLARGINE SOLOSTAR 100 UNITS/ML 3 ML PEN SC SCH (09:32)
[2018-04-17] MEDS: MONTELUKAST SODIUM 10 MG TABLET PO SCH (10:27)
[2018-04-17] MEDS: CARVEDILOL 6.25 MG TAB PO SCH (10:27)
[2018-04-17] MEDS: ASPIRIN 81 MG ECTAB PO SCH (10:27)
[2018-04-17] MEDS: PANTOprazole 40 MG TAB PO SCH (10:28)
[2018-04-17] MEDS: MULTIVITAMIN TAB PO SCH (10:28)
[2018-04-17] MEDS: CITALOPRAM 40 MG TAB PO SCH (10:28)
[2018-04-17] MEDS: IPRATROPIUM BROMIDE HFA INHALER INH SCH ×2 (10:29→12:09)
[2018-04-17] MEDS: BENZONATATE 100 MG CAPSULE PO SCH (10:30)
[2018-04-17] MEDS: SODIUM CHLORIDE 0.9% 1000ML 1,000 ML IV SCH ×2 (10:34→12:06)
[2018-04-17] MEDS: ROSUVASTATIN CALCIUM 20 MG TAB PO SCH (11:01)
--- NOTE | 2018-04-17 11:34 | Cardiology Progress Note ---
Date of Service April 17, 2018 Assessment & Plan (1) TIA (transient ischemic attack): (2) CAD (coronary artery disease): (3) Bronchiectasis: Patient with history of chronic coronary heart disease, remote apical infarct as documented on past outpatient stress test (as described in my progress note dated 04/16/18) Due to concerns of arrhythmia perhaps contributing to her change of mental status, a 2-week mobile library monitor is recommended. She does follow with cardiology in [place] and this could be arranged through that group along with post hospital follow-up. He could be however that the patient's confusion was just due to her acute illness with bronchiectasis, significant secretions, and acute sinusitis. Continue prior to hospital cardiac medications. Subjective Chief complaint: Follow-up range of mental status, history of chronic coronary heart disease Subjective: Patient notes interval improvement in her breathing status post lavage of secretions by bronchoscopy yesterday. She is still having significant sinus congestion. Telemetry reveals sinus rhythm in the 50-60 bpm range. There is a suggestion of several short runs of wide-complex tachycardia overnight that of my opinion are artifactual. Physical Exam 2 Vital Signs (Past 24 Hours): Last Vital Signs Temp 36.4 C L 04/17/18 07:57 Pulse 70 04/17/18 08:48 Resp 19 04/17/18 07:57 BP 153/76 H 04/17/18 07:57 Pulse Ox 95 04/17/18 07:57 Constitutional: well developed, + acute distress and + ill appearing (No acute distress) Respiratory: not tachypneic and no audible wheezes Auscultation: no rales and no wheezes Cardiovascular: Rate/Rhythm: regular rate and regular rhythm Heart Sounds: no murmur Extremities: no edema
--- NOTE | 2018-04-17 13:42 | Pharmacy Report ---
Pharmacist Stroke Counseling - Date of Service April 17, 2018 - Scope: Pharmacy has been consulted to provide medication discharge counseling for this patient admitted with transient ischemic attack as per the Pharmacist Discharge Counseling for Stroke Patients Protocol. - Medications on Discharge: Home Medications Medication Instructions Recorded Confirmed albuterol sulfate 2.5 mg INHALATION TID PRN 04/12/18 04/12/18 albuterol sulfate [Ventolin HFA] 2 puff INHALATION Q4H PRN 04/12/18 04/12/18 aspirin [Aspirin Low Dose] 81 mg PO DAILY 04/12/18 04/12/18 beclomethasone dipropionate [Qvar 1 puff INHALATION AMHS 04/12/18 04/12/18 RediHaler] benzonatate 200 mg PO BID 04/12/18 04/12/18 brimonidine 1 drp OPHTHALMIC (EYE) HS 04/12/18 04/12/18 carvedilol 0.5 tab PO QAM 04/12/18 04/12/18 citalopram 40 mg PO DAILY 04/12/18 04/12/18 fluticasone 2 spray INTRANASAL DAILY 04/12/18 04/12/18 insulin degludec 80 unit SUBCUT QAM 04/12/18 04/12/18 insulin degludec [Tresiba 50 unit SUBCUT HS 04/12/18 04/12/18 FlexTouch U-100] insulin lispro 25 units SUBCUT TID 04/12/18 04/12/18 ipratropium bromide [Atrovent HFA] 1 puff INHALATION QID PRN 04/12/18 04/12/18 levocetirizine 0.5 tab PO BID 04/12/18 04/12/18 lorazepam 1 mg PO TID PRN 04/12/18 04/12/18 losartan 25 mg PO DAILY 04/12/18 04/12/18 metformin 1 tab PO BID 04/12/18 04/12/18 montelukast [Singulair] 10 mg PO DAILY 04/12/18 04/12/18 denxglpw-rrr-SD-lycopen-lutein 1 tab PO DAILY 04/12/18 04/12/18 [Centrum Silver] nitroglycerin [Nitrostat] 1 tab SUBLINGUAL UD 04/12/18 04/12/18 ondansetron HCl 1 tab PO Q12H PRN 04/12/18 04/12/18 pantoprazole 1 tab PO BID 04/12/18 04/12/18 peg-electrolyte soln [GaviLyte-N] 04/12/18 polyethylene glycol 3350 17 g PO DAILY PRN 04/12/18 04/12/18 potassium chloride 1 tab PO SUFR@0900 04/12/18 04/12/18 rosuvastatin 20 mg PO DAILY 04/12/18 04/12/18 tacrolimus 1 applic TOPICAL BID 04/12/18 04/12/18 travoprost 1 drp OPHTHALMIC (EYE) HS 04/12/18 04/12/18 New Rx's Medication Instructions Recorded furosemide 20 mg PO BID #60 tab 04/16/18 magnesium oxide 400 mg PO TID #9 tab 04/16/18 clopidogrel [Plavix] 75 mg PO DAILY #30 tab 04/17/18 metoclopramide HCl [Reglan] 5 mg PO ACHS #60 tab 04/17/18 prednisone 5 mg PO DAILY #50 tab 04/17/18 - Action: The above medications, specifically ones for stroke treatment/prophylaxis, have been reviewed in detail with the patient prior to discharge. This includes indication, common adverse reactions, drug interactions, and medication administration. Medication counseling has been employed using the teach-back method to ensure understanding. - Outcome: The patient has demonstrated understanding of the medications. Please note, they are aware that the pharmacist will call them within 72 hours post-discharge to confirm that the appropriate medications are being taken and answer any further medication related questions the patient might have at that time. Contact information Individual to be contacted: self Relationship to patient (if applicable): self Phone number: [phone] Best time to call: after 1 pm Additional comments: Reviewed medications with patient along with prednisone, Reglan, and Lasix change. Patient is very understanding and was able to repeat back to me the directions for aspirin and Plavix. Thank you for allowing pharmacy to be involved in the care of this patient. Please call [phone] or [phone] with any additional questions
[2018-04-19 09:14] LABS: CMV DNA Qnt Real Time PCR <200 IU/mL (<200); CMV DNA Quant PCR <2.30 log IU/mL (<2.30)
--- NOTE | 2018-04-20 12:40 | Pharmacy Report ---
Pharmacist Post D/C Phone Note - Phone Note: Date of phone call: April 20, 2018. Attempted to reach pt for f/u with ph # provided [phone] however there was no answer. I did leave a message requesting call back. Thank you for allowing us to be involved in the care of this patient. - Home Medications: Home Medications Medication Instructions Recorded Confirmed albuterol sulfate 2.5 mg INHALATION TID PRN 04/12/18 04/12/18 albuterol sulfate [Ventolin HFA] 2 puff INHALATION Q4H PRN 04/12/18 04/12/18 aspirin [Aspirin Low Dose] 81 mg PO DAILY 04/12/18 04/12/18 beclomethasone dipropionate [Qvar 1 puff INHALATION AMHS 04/12/18 04/12/18 RediHaler] benzonatate 200 mg PO BID 04/12/18 04/12/18 brimonidine 1 drp OPHTHALMIC (EYE) HS 04/12/18 04/12/18 carvedilol 0.5 tab PO QAM 04/12/18 04/12/18 citalopram 40 mg PO DAILY 04/12/18 04/12/18 fluticasone 2 spray INTRANASAL DAILY 04/12/18 04/12/18 insulin degludec 80 unit SUBCUT QAM 04/12/18 04/12/18 insulin degludec [Tresiba 50 unit SUBCUT HS 04/12/18 04/12/18 FlexTouch U-100] insulin lispro 25 units SUBCUT TID 04/12/18 04/12/18 ipratropium bromide [Atrovent HFA] 1 puff INHALATION QID PRN 04/12/18 04/12/18 levocetirizine 0.5 tab PO BID 04/12/18 04/12/18 lorazepam 1 mg PO TID PRN 04/12/18 04/12/18 losartan 25 mg PO DAILY 04/12/18 04/12/18 metformin 1 tab PO BID 04/12/18 04/12/18 montelukast [Singulair] 10 mg PO DAILY 04/12/18 04/12/18 jckpjrvo-vly-ZN-lycopen-lutein 1 tab PO DAILY 04/12/18 04/12/18 [Centrum Silver] nitroglycerin [Nitrostat] 1 tab SUBLINGUAL UD 04/12/18 04/12/18 ondansetron HCl 1 tab PO Q12H PRN 04/12/18 04/12/18 pantoprazole 1 tab PO BID 04/12/18 04/12/18 peg-electrolyte soln [GaviLyte-N] 04/12/18 polyethylene glycol 3350 17 g PO DAILY PRN 04/12/18 04/12/18 potassium chloride 1 tab PO SUFR@0900 04/12/18 04/12/18 rosuvastatin 20 mg PO DAILY 04/12/18 04/12/18 tacrolimus 1 applic TOPICAL BID 04/12/18 04/12/18 travoprost 1 drp OPHTHALMIC (EYE) HS 04/12/18 04/12/18 New Rx's Medication Instructions Recorded furosemide 20 mg PO BID #60 tab 04/16/18 magnesium oxide 400 mg PO TID #9 tab 04/16/18 clopidogrel [Plavix] 75 mg PO DAILY #30 tab 04/17/18 metoclopramide HCl [Reglan] 5 mg PO ACHS #60 tab 04/17/18 prednisone 5 mg PO DAILY #50 tab 04/17/18
--- NOTE | 2018-04-26 11:24 | Pharmacy Report ---
Pharmacist Post D/C Phone Note - Phone Note: Date of phone call: April 26, 2018. Individual with whom pharmacist spoke to: BERTA HERRERA The following questions were reviewed during the phone call with responses listed below each: Can you tell me the medications that you are currently taking as well as when and how you take each medication? -See Table Below When have you missed any doses of your medications? - No, patient has a pill box that she uses to organize her medication doses. She states "I never miss a dose" What side effects are you having from your medications, specifically, the new medications you were started on? - Not currently experiencing side effects but she did have anxiousness w/ metoclopramide in the past. She stated Dr Navarrete told her that if she experie nced this side effect it would be OK to stop taking the metoclopramide What questions do you have about your medications? - No questions at this time. What problems are you having obtaining your medications? - Did c/o some difficulty swallowing MagOx. I advised this medication could be broken into smaller pieces or crushed and mixed with food. She stated she would rather "get it over with" and continue to swallow it whole with water. When is your next appointment with your primary care doctor? - [facility] Additional comments: - Pt stated she has been doing quite well since discharge. As per the Pharmacist Discharge Counseling for Stroke Patients Protocol, this phone call has been completed within 72 hours of discharge. Thank you for allowing us to be involved in the care of this patient. OR The patient and/or patient marketing development representative(s) were unable to be reached for a follow-up phone call within the 72 hour time frame. Discharge counseling pharmacist contact information has already been provided to the patient should questions arise. Thank you for allowing us to be involved in the care of this patient. - Home Medications: Home Medications Medication Instructions Recorded Confirmed albuterol sulfate 2.5 mg INHALATION TID PRN 04/12/18 04/12/18 albuterol sulfate [Ventolin HFA] 2 puff INHALATION Q4H PRN 04/12/18 04/12/18 aspirin [Aspirin Low Dose] 81 mg PO DAILY 04/12/18 04/12/18 beclomethasone dipropionate [Qvar 1 puff INHALATION AMHS 04/12/18 04/12/18 RediHaler] benzonatate 200 mg PO BID 04/12/18 04/12/18 brimonidine 1 drp OPHTHALMIC (EYE) HS 04/12/18 04/12/18 carvedilol 0.5 tab PO QAM 04/12/18 04/12/18 citalopram 40 mg PO DAILY 04/12/18 04/12/18 fluticasone 2 spray INTRANASAL DAILY 04/12/18 04/12/18 insulin degludec 80 unit SUBCUT QAM 04/12/18 04/12/18 insulin degludec [Tresiba 50 unit SUBCUT HS 04/12/18 04/12/18 FlexTouch U-100] insulin lispro 25 units SUBCUT TID 04/12/18 04/12/18 ipratropium bromide [Atrovent HFA] 1 puff INHALATION QID PRN 04/12/18 04/12/18 levocetirizine 0.5 tab PO BID 04/12/18 04/12/18 lorazepam 1 mg PO TID PRN 04/12/18 04/12/18 losartan 25 mg PO DAILY 04/12/18 04/12/18 metformin 1 tab PO BID 04/12/18 04/12/18 montelukast [Singulair] 10 mg PO DAILY 04/12/18 04/12/18 ewaqmpbv-sqj-BH-lycopen-lutein 1 tab PO DAILY 04/12/18 04/12/18 [Centrum Silver] nitroglycerin [Nitrostat] 1 tab SUBLINGUAL UD 04/12/18 04/12/18 ondansetron HCl 1 tab PO Q12H PRN 04/12/18 04/12/18 pantoprazole 1 tab PO BID 04/12/18 04/12/18 peg-electrolyte soln [GaviLyte-N] 04/12/18 polyethylene glycol 3350 17 g PO DAILY PRN 04/12/18 04/12/18 potassium chloride 1 tab PO SUFR@0900 04/12/18 04/12/18 rosuvastatin 20 mg PO DAILY 04/12/18 04/12/18 tacrolimus 1 applic TOPICAL BID 04/12/18 04/12/18 travoprost 1 drp OPHTHALMIC (EYE) HS 04/12/18 04/12/18 New Rx's Medication Instructions Recorded furosemide 20 mg PO BID #60 tab 04/16/18 magnesium oxide 400 mg PO TID #9 tab 04/16/18 clopidogrel [Plavix] 75 mg PO DAILY #30 tab 04/17/18 metoclopramide HCl [Reglan] 5 mg PO ACHS #60 tab 04/17/18 prednisone 5 mg PO DAILY #50 tab 04/17/18
== END 2018-04-17 14:50 | disposition home or self-care (01) | DRG 982 ==
LOC: ED 11:49 → 2S 16:05